=== PATIENT | male | born 1955 | race Caucasian/White ===

== ENCOUNTER → 2016-10-18 | Outpatient (CLI) | payer MEDICARE | LOC: RAD 09:07 | PROVIDERS: ATTEND Urology | DX: R31.0 Gross hematuria (principal) | CPT/HCPCS: 76770 ==

== ENCOUNTER 2017-01-27 07:54 | Emergency (ER) | payer MEDICARE, MEDICAID ==
--- NOTE | 2017-01-27 08:59 | RADIOLOGY REPORT (SQ) ---
EXAM DESCRIPTION: CT HEAD WITHOUT COMPLETED DATE/TIME: 01/27/2017 8:44 am REASON FOR STUDY: fall COMPARISON: August 2016 TECHNIQUE: Axial images acquired through the brain without intravenous contrast. Images reviewed wi th bone, brain and subdural windows. Images stored on PACS. All CT scanners at this facility use dose modulation, iterative reconstruction, and/or weight based d osing when appropriate to reduce radiation dose to as low as reasonably achievable (ALARA). [facility]: Dose Right [facility]: CareDose [facility]: Dose Right [facility]: Teradose 4D [facility]: InterEx RADIATION DOSE: 62.41 mGy. LIMITATIONS: None. FINDINGS: VENTRICLES: Prominent. CEREBRUM: No masses. No hemorrhage. No midline shift. Areas of low density in the white matter mos t likely due to chronic micro-vascular ischemic change. No evidence for acute infarction. CEREBELLUM: No masses. No hemorrhage. No alteration of density. No evidence for acute infarction. EXTRAAXIAL SPACES: Mild age-related involutional change. No fluid collections. No masses. ORBITS AND GLOBE: No intra- or extraconal masses. Normal contour of globe without masses. CALVARIUM: No fracture. PARANASAL SINUSES: No fluid or mucosal thickening. SOFT TISSUES: No mass or hematoma. OTHER: No other significant finding. IMPRESSION: MILD CHRONIC CHANGES OF ATROPHY AND MICROVASCULAR ISCHEMIA. NO ACUTE PROCESS. TECHNICAL DOCUMENTATION: JOB ID: [id number] Quality ID # [id number]: Final reports with documentation of one or more dose reduction techniques (e.g., Au tomated exposure control, adjustment of the mA and/or kV according to patient size, use of iterative reconstruction technique) 2010 [employer]- All Rights Reserved
--- NOTE | 2017-01-27 09:10 | RADIOLOGY REPORT (SQ) ---
EXAM DESCRIPTION: CT CERVICAL SPINE WITHOUT COMPLETED DATE/TIME: 01/27/2017 8:44 am REASON FOR STUDY: fall COMPARISON: September 2014 TECHNIQUE: Axial images acquired through the cervical spine without intravenous contrast. Images re viewed with lung, soft tissue and bone windows. Reconstructed coronal and sagittal MPR images review ed. Images stored on PACS. All CT scanners at this facility use dose modulation, iterative reconstruction, and/or weight based d osing when appropriate to reduce radiation dose to as low as reasonably achievable (ALARA). [facility]: Dose Right [facility]: CareDose [facility]: Dose Right [facility]: Teradose 4D [facility]: Use It Better RADIATION DOSE: 26.15 mGy. LIMITATIONS: None. FINDINGS: ALIGNMENT: Anatomic. MINERALIZATION: Normal. VERTEBRAL BODIES: No fractures or dislocation in the cervical vertebra. There is a compression fract ure of the T1 vertebra. No significant displacement is seen. DISCS: No significant disc space reduction is seen. Minimal anterior osteophytic lipping is identifi ed FACETS, LATERAL MASSES, POSTERIOR ELEMENTS: No fractures. No dislocation. No acute findings. HARDWARE: None in the spine. VISUALIZED RIBS: No fractures. LUNG APICES AND SOFT TISSUES: No significant or acute findings. OTHER: No other significant finding. IMPRESSION: Compression fracture of the T1 vertebra. No significant displacement is seen. Other fi ndings as noted above. COMMENT: Pertinent findings on the imaging study reported as a CRITICAL RESULT to MEDIA LIBRARIAN AMELIA SEVERINO at08:57 on 01/27/2017. Category of Critical Result: T1 compression fracture TECHNICAL DOCUMENTATION: JOB ID: [id number] Quality ID # [id number]: Final reports with documentation of one or more dose reduction techniques (e.g., Au tomated exposure control, adjustment of the mA and/or kV according to patient size, use of iterative reconstruction technique) 2010 [employer]- All Rights Reserved
[2017-01-27] MEDS ORDERED: KETOROLAC TROMETHAMINE INJ/PF 30 MG/1 ML SDV IV ONE (09:58)
[2017-01-27] MEDS ORDERED: LEVETIRACETAM 1000 MG/NACL-ISO 100 ML IV SCH (10:00)
--- NOTE | 2017-01-27 10:38 | RADIOLOGY REPORT (SQ) ---
EXAM DESCRIPTION: FOOT RIGHT 2 VIEWS COMPLETED DATE/TIME: 01/27/2017 10:21 am REASON FOR STUDY: fall COMPARISON: None. NUMBER OF VIEWS: Three views. TECHNIQUE: AP, lateral and oblique radiographic images acquired of the right foot. LIMITATIONS: None. FINDINGS: MINERALIZATION: Osteopenia. BONES: No acute fracture or dislocation. No worrisome bone lesions. JOINTS: No effusions. SOFT TISSUES: There is soft tissue swelling around the foot. OTHER: No other significant finding. IMPRESSION: Soft tissue swelling with no fracture. The degree of demineralization of the bones slig htly limits the study. TECHNICAL DOCUMENTATION: JOB ID: [id number] [employer]- All Rights Reserved
--- NOTE | 2017-01-27 11:08 | ER Document Report ---
ED General - General Chief Complaint: Head Injury Stated Complaint: INJURY/HEAD Time Seen by Provider: 01/27/17 08:00 Mode of Arrival: Ambulatory Information source: Patient TRAVEL OUTSIDE OF THE [place] IN LAST 30 DAYS: No - HPI Onset: Just prior to arrival Onset/Duration: Sudden - This 61-year-old male who fell at [place]. There is a question as to whether he may have had a seizure precipitating the fall he has a history of a seizure disorder and does take Keppra routinely. He did not present to the emergency room with an MAR. - Related Data Allergies/Adverse Reactions: No Known Allergies Allergy (Verified 01/27/17 10:06) Home Medications: Current Home Medications Ammonium Lactate [Lac-Hydrin 12% Lotion 225Gm/Bottle] 1 applic TP BID 01/27/17 [ History] Clobetasol Propionate/Emoll [Clobetasol Emollient 0.05% Crm] 1 applic TP BID [History] Lacosamide [Vimpat 50 Mg Tablet] 50 mg PO BID 01/27/17 [History] Levobunolol HCl [Betagan 0.5% Oph Soln 5 ml] 1 drop OS DAILY 01/27/17 [History] Levothyroxine Sodium [Synthroid] 100 mcg PO DAILY 01/27/17 [History] Mometasone Furoate [Nasonex] 17 gm NS DAILY 01/27/17 [History] Oxybutynin Chloride [Ditropan Xl] 5 mg PO DAILY 01/27/17 [History] Vitamin E 400 unit PO DAILY 01/27/17 [History] Past Medical History - Social History Smoking Status: Never Smoker Chew tobacco use (# tins/day): No Frequency of alcohol use: None Drug Abuse: None Family History: Reviewed & Not Pertinent - Past Medical History Cardiac Medical History: Reports: Hx Congestive Heart Failure, Hx Hypertension Pulmonary Medical History: Denies: Hx Tuberculosis Neurological Medical History: Reports: Hx Seizures - ataxia, epilepsy Endocrine Medical History: Reports: Hx Hypothyroidism Renal/ Medical History: Reports: Hx Benign Prostatic Hyperplasia Traumatic Medical History: Reports: Hx Spine Fracture - Immunizations Hx Diphtheria, Pertussis, Tetanus Vaccination: Yes Hx Pneumococcal Vaccination: 08/20/12 Review of Systems - Review of Systems Constitutional: No symptoms reported EENT: No symptoms reported Cardiovascular: No symptoms reported Respiratory: No symptoms reported Gastrointestinal: No symptoms reported Genitourinary: No symptoms reported Male Genitourinary: No symptoms reported Musculoskeletal: No symptoms reported Skin: No symptoms reported Hematologic/Lymphatic: No symptoms reported Neurological/Psychological: No symptoms reported Physical Exam - Vital signs Vitals: Temp Pulse Resp BP Pulse Ox 97.4 F 82 12 120/54 L 96 01/27/17 08:10 01/27/17 08:10 01/27/17 08:10 01/27/17 08:10 01/27/17 08:10 Interpretation: Normal - General General appearance: Appears well, Alert - HEENT Head: Normocephalic, Atraumatic, Other - Trauma to frontal forehead. Eyes: Normal Pupils: PERRL - Respiratory Respiratory status: No respiratory distress Chest status: Nontender Breath sounds: Normal Chest palpation: Normal - Cardiovascular Rhythm: Regular Heart sounds: Normal auscultation Murmur: No - Abdominal Inspection: Normal Distension: No distension Bowel sounds: Normal Tenderness: Nontender Organomegaly: No organomegaly - Back Back: Normal, Nontender - Extremities General upper extremity: Normal inspection, Nontender, Normal color, Normal ROM , Normal temperature General lower extremity: Normal inspection, Nontender, Normal color, Normal ROM , Normal temperature, Normal weight bearing. No: Benny's sign Foot: Other - Foot tenderness to palpation. Good capillary refill. - Neurological Neuro grossly intact: Yes Cognition: Normal Orientation: AAOx4 Murray Coma Scale Eye Opening: Spontaneous Murray Coma Scale Verbal: Oriented [place] Coma Scale Motor: Obeys Commands [place] Coma Scale Total: 15 Speech: Normal Motor strength normal: LUE, RUE, LLE, RLE Sensory: Normal - Psychological Associated symptoms: Normal affect, Normal mood - Skin Skin Temperature: Warm Skin Moisture: Dry Skin Color: Normal Course - Re-evaluation Re-evalutation: 01/27/17 11:04 Dr. Macario was consulted regarding the T1 fracture. she felt that evaluation on an outpatient basis would be appropriate patient should be placed in a soft collar provided with pain management. - Vital Signs Vital signs: Temp Pulse Resp BP Pulse Ox 97.4 F 82 18 120/56 L 98 01/27/17 08:10 01/27/17 08:10 01/27/17 10:01 01/27/17 10:01 01/27/17 10:01 - Diagnostic Test Radiology reviewed: Image reviewed, Reports reviewed Discharge - Discharge Clinical Impression: Seizure Fall Qualifiers: Encounter type: initial encounter Qualified Code(s): W19.XXXA - Unspecified fall, initial encounter Contusion Qualifiers: Encounter type: initial encounter Contusion area: foot Laterality: right Qualified Code(s): S90.31XA - Contusion of right foot, initial encounter Condition: Fair Disposition: HOME, SELF-CARE Additional Instructions: Seizure You have had a seizure. Seizure disorders (epilepsy) of one sort or another affect about one out of 50 people. The seizure occurs because of abnormal electrical activity in the brain. Seizures may be due to drugs and alcohol, strokes, brain injury, or infection. In the most common form of epilepsy, no cause can be found. You will require further evaluation to determine the cause of your seizure, and to determine whether anti-seizure medication is required. This follow-up testing is important, so please call us if you encounter problems with scheduling of tests or appointments. YOU SHOULD NOT DRIVE until released to do so by your physician. The law requires that seizures be reported to the [place] driver's license bureau--a seizure while driving could be catastrophic. Call the doctor if seizures recur, or if you develop new symptoms such as fever, severe headache, stiff neck, confusion or increasing sleepiness, weakness or numbness, or visual problems. Contusion Your injury has resulted in a contusion -- a crushing of the deep tissues. No injury to important structures was detected during the physician's exam. Contusions vary in the amount of pain they cause, and in the length of time required for healing. Typically, the area will become bruised, and will remain painful to touch for two or three weeks. However, most patients are back to working and playing within a few days. After the initial period of rest and cold-packs, your symptoms (together with the doctor's recommendations) will determine how rapidly you can get back to full activity. Usually this means "do what feels okay, but don't do things that hurt." If re-examination was recommended, it's important to follow up as instructed. Call the doctor or return any time if pain increases, if swelling becomes severe, if you develop numbness or weakness in an injured extremity, or if any other alarming symptoms occur. Fracture You have a fracture. The typical broken bone requires only protection and sufficient time for healing. "Setting" is necessary only if the bones are crooked or out of position. The physician will re-assess you periodically to make certain that the bone heals without complications. It's important that you follow the instructions given you. The initial treatment is immobilization, elevation of the injury, and cold packs. Not all fractures require a cast. Depending on the location and type of fracture, immobilization may consist of a splint, cast, sling, bulky dressing , or simply rest. The length of time required for healing depends on the location and type of fracture, and on the age of the patient. The treatment plan the physician has outlined for you is customized to your fracture and health condition. Call the doctor or return at once if pain becomes severe, or if severe swelling or numbness develop. Prescriptions: Hydrocodone/Acetaminophen [Jay Em 5-325 Tablet] 1 each PO Q4 PRN #20 tablet PRN Reason: Referrals: ELLIE MACARIO MD [COMMUNITY BASED STAFF] - Follow up as needed
[2017-01-27 12:11] VITALS: BP 115/45
== END 2017-01-27 12:18 ==
LOC: ER 07:54
DX: S90.31XA Contusion of right foot, initial encounter (principal); R56.9 Unspecified convulsions; W19.XXXA Unspecified fall, initial encounter; Z79.899 Other long term (current) drug therapy
CPT/HCPCS: 99285; 96374; 96375; 73620; 70450; 72125; L0120; J1885; J1953

== ENCOUNTER → 2017-03-10 | Outpatient (CLI) | payer MEDICARE, MEDICAID ==
--- NOTE | 2017-03-10 14:37 | RADIOLOGY REPORT (SQ) ---
EXAM DESCRIPTION: CT THORACIC SPINE WITHOUT COMPLETED DATE/TIME: 03/10/2017 2:11 pm REASON FOR STUDY: T1 FRACTURE S22.019D UNSP FX FIRST THOR VERTEBRA, SUBS FOR FX W ROUTN HE COMPARISON: CT cervical spine 01/27/2017, 09/16/2014 TECHNIQUE: Axial images acquired through the thoracic spine without intravenous contrast. Images re viewed with lung, soft tissue and bone windows. Reconstructed coronal and sagittal MPR images review ed. Images stored on PACS. All CT scanners at this facility use dose modulation, iterative reconstruction, and/or weight based d osing when appropriate to reduce radiation dose to as low as reasonably achievable (ALARA). [facility]: Dose Right [facility]: CareDose [facility]: Dose Right [facility]: Teradose 4D [facility]: [employer] RADIATION DOSE: Up-to-date CT equipment and radiation dose reduction techniques were employed. CTDIv ol: 26.9 mGy. DLP: 1077 mGy-cm. mGy. LIMITATIONS: None. FINDINGS: VISUALIZED LUNGS: No acute opacities. No pneumothorax. SOFT TISSUES: No soft tissue swelling. No masses. VERTEBRAL BODIES: A T1 compression fracture is present with 25% loss of height, stable compared to CT cervical spine 01/27/2017. There is now bony sclerosis in the T1 vertebral body, indicating healing. No other thoracic compression deformities are identified. DISCS: No gross disc herniation ALIGNMENT: Normal. TRANSVERSE PROCESSES, POSTERIOR ELEMENTS: No fractures. No dislocation. No acute findings. HARDWARE: None in the spine. VISUALIZED RIBS: There is sclerosis along the posterior right 1st rib indicating a healing subacute f racture, best shown on axial images 17-21. OTHER: No other significant finding. IMPRESSION: Subacute T1 compression fracture with 25% loss of height, stable compared to CT cervical spine 01/27/2017. TECHNICAL DOCUMENTATION: JOB ID: [id number] Quality ID # [id number]: Final reports with documentation of one or more dose reduction techniques (e.g., Au tomated exposure control, adjustment of the mA and/or kV according to patient size, use of iterative reconstruction technique) 2010 [employer]- All Rights Reserved
== END ==
LOC: RAD 13:44
PROVIDERS: ATTEND Family Medicine
DX: S22.019A Unspecified fracture of first thoracic vertebra, initial encounter for closed fracture (principal); X58.XXXA Exposure to other specified factors, initial encounter; Y93.9 Activity, unspecified; Y92.9 Unspecified place or not applicable
CPT/HCPCS: 72128

== ENCOUNTER 2017-04-07 08:48 | Emergency (ER) | payer MEDICARE, MEDICAID ==
[2017-04-07] MEDS ORDERED: LORAZEPAM INJ 2 MG/1 ML VIAL IV ONE ×2 (08:59→09:38)
[2017-04-07] MEDS ORDERED: NORMAL SALINE 500 ML IV ONE (08:59)
[2017-04-07] MEDS ORDERED: LEVETIRACETAM 500 MG/NACL-ISO 100 ML IV ONE (09:01)
[2017-04-07 09:14] LABS: ABSOLUTE EOSINOPHILS # (AUTO) 0.1 10^3/uL (0.0-0.6); ABSOLUTE MONOCYTES (AUTO) 0.4 10^3/uL (0.1-1.4); ABSOLUTE NEUT (AUTO) 4.6 10^3/uL (1.7-8.2); BASOPHILS % (AUTO) 0.4 % (0-2); EOSINOPHILS % (AUTO) 1.5 % (0-6); HEMATOCRIT 29.4 % (37.9-51.0); HEMOGLOBIN 10.2 g/dL (13.5-17.0); HGB HCT DIFFERENCE 1.2; LYMPHOCYTES % (AUTO) 16.4 % (13-45); MEAN CORPUSCULAR HGB CONC 34.6 g/dL (32.0-36.0); MEAN CORPUSCULAR VOLUME 87 fl (80-97); MONOCYTES % (AUTO) 6.9 % (3-13); RED CELL DISTRIBUTION WIDTH 14.9 % (11.5-14.0); SEGMENTED NEUTROPHILS % (AUTO) 74.8 % (42-78); WHITE BLOOD COUNT 6.2 10^3/uL (4.0-10.5)
[2017-04-07 09:33] LABS: ALANINE AMINOTRANSFERASE 30 U/L (21-72); ALBUMIN 3.4 g/dL (3.5-5.0); ALKALINE PHOSPHATASE 74 U/L (38-126); ASPARTATE AMINO TRANSFERASE 29 U/L (17-59); BLOOD UREA NITROGEN 52 mg/dL (7-20); CALCIUM 8.5 mg/dL (8.4-10.2); CARBON DIOXIDE 26 mmol/L (22-30); CREATININE RESULT 1.36 mg/dL (0.52-1.25); GLUCOSE 111 mg/dL (75-110); POTASSIUM 3.5 mmol/L (3.6-5.0); SODIUM 129.9 mmol/L (137-145); TOTAL PROTEIN 7.6 g/dL (6.3-8.2)
[2017-04-07 09:34] LABS: BILIRUBIN,DIRECT 0.3 mg/dL (0.0-0.4); BILIRUBIN,TOTAL 0.7 mg/dL (0.2-1.3); LIPASE 167.9 U/L (23-300); MAGNESIUM 2.2 mg/dL (1.6-2.3)
[2017-04-07 09:36] LABS: ANION GAP 15 (5-19); CHLORIDE 89 mmol/L (98-107)
[2017-04-07] MEDS ORDERED: DIPHENHYDRAMINE HCL 50 MG/ML VIAL IV ONE (09:42)
--- NOTE | 2017-04-07 09:44 | ER Document Report ---
ED General - General Chief Complaint: Seizure Stated Complaint: POSSIBLE SEIZURES Time Seen by Provider: 04/07/17 08:50 TRAVEL OUTSIDE OF THE [place] IN LAST 30 DAYS: No - HPI Patient complains to provider of: Seizure activity Notes: Patient coming in for evaluation of seizure activity. Patient has a history of seizures patient resides a local longterm according to EMS longterm employees reported 2 seizures within 10 minutes of each other patient at this time is postictal and combative. Patient is maintaining his airway. Soft restraints are placed on the patient for his safety and safety of the ER staff. Most of the HPI is obtained from EMS which is limited patient's longterm records were reviewed at bedside. Patient looks to be on Keppra at this time - Related Data Allergies/Adverse Reactions: No Known Allergies Allergy (Verified 01/27/17 10:06) Past Medical History - Social History Smoking Status: Unknown if Ever Smoked Family History: Reviewed & Not Pertinent - Past Medical History Cardiac Medical History: Reports: Hx Congestive Heart Failure, Hx Hypertension Pulmonary Medical History: Denies: Hx Tuberculosis Neurological Medical History: Reports: Hx Seizures - ataxia, epilepsy Endocrine Medical History: Reports: Hx Hypothyroidism Renal/ Medical History: Reports: Hx Benign Prostatic Hyperplasia Traumatic Medical History: Reports: Hx Spine Fracture - Immunizations Hx Diphtheria, Pertussis, Tetanus Vaccination: Yes Hx Pneumococcal Vaccination: 08/20/12 Review of Systems - Review of Systems -: Yes ROS unobtainable due to patient's medical condition - Postictal Physical Exam - Vital signs Vitals: Pulse Ox 95 04/07/17 08:53 Interpretation: Normal - General General appearance: Appears well, Alert - HEENT Head: Normocephalic, Atraumatic Eyes: Normal Pupils: PERRL - Respiratory Respiratory status: No respiratory distress Chest status: Nontender Breath sounds: Normal Chest palpation: Normal - Cardiovascular Rhythm: Regular Heart sounds: Normal auscultation Murmur: No - Abdominal Inspection: Normal Distension: No distension Bowel sounds: Normal Tenderness: Nontender Organomegaly: No organomegaly - Back Back: Normal, Nontender - Extremities General upper extremity: Normal inspection, Nontender, Normal color, Normal ROM , Normal temperature General lower extremity: Normal inspection, Nontender, Normal color, Normal ROM , Normal temperature, Normal weight bearing. No: Benny's sign - Neurological Neuro grossly intact: Yes Cognition: Confused Murray Coma Scale Eye Opening: Spontaneous Murray Coma Scale Verbal: Confused Murray Coma Scale Motor: Localizes to Pain [place] Coma Scale Total: 13 Speech: Normal Motor strength normal: LUE, RUE, LLE, RLE Sensory: Normal - Psychological Associated symptoms: Normal affect, Normal mood - Skin Skin Temperature: Warm Skin Moisture: Dry Skin Color: Normal Course - Re-evaluation Re-evalutation: 04/07/17 15:15 Patient lab work revealed chronic changes nothing acute. Patient mental status continued to improve upon evaluating patient patient still is aggressive and combative towards staff upon asking the patient how he feels patient states "I am not going to talk to you". Explained to the patient that he will be released from restraints if he would remain cooperative and quiet patient states "I will not". Patient was given 2 mg of Ativan this did seem to help his demeanor family arrived later at bedside states no unusual events or last few days patient will be discharged home. Breakthrough seizure with known seizure disorder and previous neurology evaluation. Now returned to neuro baseline. Labs reviewed. No indication of new or acute process. Patient appears safe for discharge with observation and close outpatient F/U with PCP or neurology. Seizure warnings discussed with patient / family. - Vital Signs Vital signs: Temp Pulse Resp BP Pulse Ox 17 121/55 L 95 04/07/17 11:12 04/07/17 11:12 04/07/17 11:12 - Laboratory Result Diagrams: 04/07/17 09:00 04/07/17 09:00 Laboratory results interpreted by me: 04/07/17 04/07/17 09:00 09:00 RBC 3.40 L Hgb 10.2 L Hct 29.4 L RDW 14.9 H Plt Count 139 L Sodium 129.9 L Potassium 3.5 L Chloride 89 L BUN 52 H Creatinine 1.36 H Est GFR (Non-Af Amer) 53 L Glucose 111 H Albumin 3.4 L Critical Care Note - Critical Care Note Total time excluding time spent on procedures (mins): 35 Comments: Multiple evaluations for patient postictal from seizure activity Discharge - Discharge Clinical Impression: Seizure Condition: Good Disposition: HOME, SELF-CARE Instructions: Seizure, Known Epileptic ([facility]) Additional Instructions: Patient was evaluated for his seizure. Lab work did not show any acute pathology. Patient at time of discharge was awake however slightly agitated due to being restrained with soft restraints. More likely due the patient being out of this environment please continue the patient's medications have him follow-up with his primary care physician in the next 24 hours per Referrals: JACQUELYN BRIONES MD [Primary Care Provider] - Follow up as needed
[2017-04-07 11:24] VITALS: BP 121/55
--- NOTE | 2017-04-08 09:59 | EKG REPORT ---
SEVERITY:- ABNORMAL ECG - SINUS TACHYCARDIA MINIMAL ST DEPRESSION, LATERAL LEADS BORDERLINE PROLONGED QT INTERVAL IVCD : Confirmed by: Ishan Simpson MD 08-Apr-2017 09:59:19
== END 2017-04-07 11:27 | disposition home or self-care (01) ==
LOC: ER 08:48
DX: G40.909 Epilepsy, unspecified, not intractable, without status epilepticus (principal); Z78.1 Physical restraint status; I10 Essential (primary) hypertension
CPT/HCPCS: 93005; 99291; 96375; 96365; 36415; 80177; 83690; 83735; 85025; 80053; 93010; J1200; J2060; J1953

== ENCOUNTER 2017-05-19 09:38 | Emergency (ER) | payer MEDICARE, MEDICAID ==
--- NOTE | 2017-05-19 10:32 | ER Document Report ---
ED General - General Chief Complaint: Fall Injury Stated Complaint: FALL/LEG PAIN Time Seen by Provider: 05/19/17 09:45 Mode of Arrival: Medic Information source: Patient Notes: 61-year-old male presents from care facility after rolling out of bed. Patient is unable to explain his concerns however per EMS and care facility there was complaints of left hip pain and striking head. Patient otherwise at baseline TRAVEL OUTSIDE OF THE [place] IN LAST 30 DAYS: No - HPI Onset: Just prior to arrival Onset/Duration: Sudden Quality of pain: No pain Severity: None Pain Level: Denies Associated symptoms: None Exacerbated by: Denies Relieved by: Denies Similar symptoms previously: Yes Recently seen / treated by doctor: Yes - Related Data Allergies/Adverse Reactions: No Known Allergies Allergy (Verified 05/19/17 09:48) Past Medical History - Social History Smoking Status: Never Smoker Cigarette use (# per day): No Chew tobacco use (# tins/day): No Smoking Education Provided: No Family History: Reviewed & Not Pertinent - Past Medical History Cardiac Medical History: Reports: Hx Congestive Heart Failure, Hx Hypertension Pulmonary Medical History: Denies: Hx Tuberculosis Neurological Medical History: Reports: Hx Seizures - ataxia, epilepsy Endocrine Medical History: Reports: Hx Hypothyroidism Renal/ Medical History: Reports: Hx Benign Prostatic Hyperplasia Traumatic Medical History: Reports: Hx Spine Fracture - Immunizations Hx Diphtheria, Pertussis, Tetanus Vaccination: Yes Hx Pneumococcal Vaccination: 08/20/12 Review of Systems - Review of Systems Notes: REVIEW OF SYSTEMS: Per care facility CONSTITUTIONAL : Denies fever, chills, or sweats. Denies recent illness. EENT: Denies eye, ear, throat, or mouth pain or symptoms. Denies nasal or sinus congestion or discharge. Denies throat, tongue, or mouth swelling or difficulty swallowing. CARDIOVASCULAR: Denies chest pain. Denies palpitations or racing or irregular heart beat. Denies ankle edema. RESPIRATORY: Denies cough, cold, or chest congestion. Denies shortness of breath, difficulty breathing, or wheezing. GASTROINTESTINAL: Denies abdominal pain or distention. Denies nausea, vomiting , or diarrhea. Denies blood in vomitus, stools, or per rectum. Denies black, tarry stools. Denies constipation. GENITOURINARY: Denies difficulty urinating, painful urination, burning, frequency, blood in urine, or discharge. MUSCULOSKELETAL: Left hip pain SKIN: Denies rash, lesions or sores. HEMATOLOGIC : Denies easy bruising or bleeding. LYMPHATIC: Denies swollen, enlarged glands. NEUROLOGICAL: Denies confusion or altered mental status. Denies passing out or loss of consciousness. Denies dizziness or lightheadedness. Denies headache. Denies weakness or paralysis or loss of use of either side. Denies problems with gait or speech. Denies sensory loss, numbness, or tingling. Denies seizures. PSYCHIATRIC: Denies anxiety or stress. Denies depression, suicidal ideation, or homicidal ideation. ALL OTHER SYSTEMS REVIEWED AND NEGATIVE. Dictation was performed using [employer] voice recognition software PHYSICAL EXAMINATION: GENERAL: Well-appearing, well-nourished and in no acute distress. HEAD: Contusion EYES: Strabismus noted ENT: Nares patent, oropharynx clear without exudates. Moist mucous membranes. NECK: Normal range of motion, supple without lymphadenopathy LUNGS: Breath sounds clear to auscultation bilaterally and equal. No wheezes rales or rhonchi. HEART: Regular rate and rhythm without murmurs ABDOMEN: Soft, nontender, nondistended abdomen. No guarding, no rebound. No masses appreciated. Musculoskeletal: Normal range of motion, no pitting or edema. No cyanosis. NEUROLOGICAL: Baseline mentation motor exam PSYCH: Normal mood, normal affect. SKIN: Contusion to forehead Physical Exam - Vital signs Vitals: Temp Pulse Resp BP Pulse Ox 98.4 F 65 12 119/45 L 95 05/19/17 09:44 05/19/17 09:44 05/19/17 09:44 05/19/17 09:44 05/19/17 09:44 Course - Re-evaluation Re-evalutation: 05/19/17 10:31 Physical examination noted no significant abnormality however given the patient' s unable to verbalize his complaints a CT of the head and x-ray is pending at this time 05/19/17 10:52 Imaging was performed no acute abnormality was noted. I believe patient stable for discharge as he has no complaints and is nontender on palpation After performing a Medical Screening Examination, I estimate there is LOW risk for INTRACRANIAL HEMORRHAGE, UNSTABLE SPINE FRACTURE, CENTRAL CORD SYNDROME, CAUDA EQUINA, THORACIC AORTIC DISSECTION, PNEUMOTHORAX, PERFORATED BOWEL, RUPTURED ABDOMINAL AORTIC ANEURYSM, ACUTE TENDON RUPTURE, COMPARTMENT SYNDROME, or OPEN FRACTURE, thus I consider the discharge disposition reasonable. Also, there is no evidence or peritonitis, sepsis, or toxicity. I have reevaluated this patient multiple times and no significant life threatening changes are noted. The patient and I have discussed the diagnosis and risks, however due to his mentation I do not believe he is able to comprehend this, therefore discharge instructions have been provided for care facility and to follow-up with their primary doctor with the understanding that symptoms and presentations can change. We also discussed returning to the Emergency Department immediately if new or worsening symptoms occur. We have discussed the symptoms which are most concerning (e.g., bloody stool, fever, changing or worsening pain, vomiting) that necessitate immediate return. - Vital Signs Vital signs: Temp Pulse Resp BP Pulse Ox 98.4 F 65 12 119/45 L 95 05/19/17 09:44 05/19/17 09:44 05/19/17 09:44 05/19/17 09:44 05/19/17 09:44 - Diagnostic Test Radiology reviewed: Image reviewed, Reports reviewed - No acute abnormality Discharge - Discharge Clinical Impression: Fall Qualifiers: Encounter type: initial encounter Qualified Code(s): W19.XXXA - Unspecified fall, initial encounter Head contusion Qualifiers: Encounter type: initial encounter Contusion of head detail: scalp Qualified Code(s): S00.03XA - Contusion of scalp, initial encounter Condition: Stable Disposition: HOME-ASSISTED LIVING Instructions: Contusion ([facility]) Additional Instructions: Follow up with your physician tomorrow for further care or return to the ED IMMEDIATELY if symptoms worsen or new concerns occur. If you cannot afford to follow up with your primary care physician a list of low cost clinics have been provided at the end of your discharge papers as well.
--- NOTE | 2017-05-19 10:48 | RADIOLOGY REPORT (SQ) ---
EXAM DESCRIPTION: CT HEAD WITHOUT COMPLETED DATE/TIME: 05/19/2017 10:33 am REASON FOR STUDY: fall COMPARISON: 01/27/2017 TECHNIQUE: Axial images acquired through the brain without intravenous contrast. Images reviewed wi th bone, brain and subdural windows. Images stored on PACS. All CT scanners at this facility use dose modulation, iterative reconstruction, and/or weight based d osing when appropriate to reduce radiation dose to as low as reasonably achievable (ALARA). [facility]: Dose Right [facility]: CareDose [facility]: Dose Right [facility]: Teradose 4D [facility]: [employer] RADIATION DOSE: Up-to-date CT equipment and radiation dose reduction techniques were employed. CTDIv ol: 62.1 mGy. DLP: 1163 mGy-cm. mGy. LIMITATIONS: None. FINDINGS: VENTRICLES: Normal size and contour. CEREBRUM: No masses. No hemorrhage. No midline shift. No evidence for acute infarction. Few scatte red areas of low density in the white matter most likely chronic small vessel ischemic changes. CEREBELLUM: No masses. No hemorrhage. No alteration of density. No evidence for acute infarction. EXTRAAXIAL SPACES: CSF spaces are prominent. There is cortical atrophy. ORBITS AND GLOBE: No intra- or extraconal masses. Normal contour of globe without masses. CALVARIUM: No fracture. PARANASAL SINUSES: No fluid or mucosal thickening. SOFT TISSUES: No mass or hematoma. OTHER: No other significant finding. IMPRESSION: Involutional changes of aging with chronic microvascular ischemia and with no acute intr acranial pathology. COMMENT: Quality ID # [id number]: Final reports with documentation of one or more dose reduction techniques (e.g., Automated exposure control, adjustment of the mA and/or kV according to patient size, use of iterative reconstruction technique) TECHNICAL DOCUMENTATION: JOB ID: [id number]- All Rights Reserved
--- NOTE | 2017-05-19 10:49 | RADIOLOGY REPORT (SQ) ---
EXAM DESCRIPTION: HIP LEFT AP/LATERAL COMPLETED DATE/TIME: 05/19/2017 10:38 am REASON FOR STUDY: fall COMPARISON: None. NUMBER OF VIEWS: Two views. TECHNIQUE: AP pelvis and additional frog-leg view of the left hip. LIMITATIONS: None. FINDINGS: MINERALIZATION: Normal. LEFT HIP: No fracture or dislocation. No worrisome bone lesions. RIGHT HIP: No fracture or dislocation. No worrisome bone lesions. PUBIS AND ISCHIUM: No fracture. PELVIS: No fracture. SACRUM: No fracture or dislocation. No worrisome bone lesions. LOWER LUMBAR SPINE: No fracture or dislocation. No worrisome bone lesions. No significant disc disea se. SOFT TISSUES: No findings. OTHER: No other significant finding. IMPRESSION: NEGATIVE STUDY OF THE LEFT HIP AND PELVIS. NO RADIOGRAPHIC EVIDENCE OF ACUTE INJURY. TECHNICAL DOCUMENTATION: JOB ID: [id number] [employer]- All Rights Reserved
[2017-05-19 11:18] VITALS: BP 113/53
== END 2017-05-19 11:30 | disposition home health service (06) ==
LOC: ER 09:38
DX: S00.03XA Contusion of scalp, initial encounter (principal); M25.552 Pain in left hip; W22.8XXA Striking against or struck by other objects, initial encounter
CPT/HCPCS: 70450; 99285

== ENCOUNTER 2017-07-10 12:09 | Inpatient (IN) | payer MEDICARE, MEDICAID ==
[2017-07-10 13:48] LABS: ABSOLUTE LYMPHOCYTES (AUTO) 0.6 10^3/uL (0.5-4.7); ABSOLUTE MONOCYTES (AUTO) 0.5 10^3/uL (0.1-1.4); ABSOLUTE NEUT (AUTO) 6.1 10^3/uL (1.7-8.2); BASOPHILS % (AUTO) 0.3 % (0-2); EOSINOPHILS % (AUTO) 0.6 % (0-6); HEMATOCRIT 34.6 % (37.9-51.0); HEMOGLOBIN 11.8 g/dL (13.5-17.0); HGB HCT DIFFERENCE 0.8; LYMPHOCYTES % (AUTO) 8.8 % (13-45); MEAN CORPUSCULAR HEMOGLOBIN 28.8 pg (27.0-33.4); MEAN CORPUSCULAR VOLUME 85 fl (80-97); MONOCYTES % (AUTO) 7.3 % (3-13); RED BLOOD COUNT 4.09 10^6/uL (4.35-5.55); RED CELL DISTRIBUTION WIDTH 15.8 % (11.5-14.0); WHITE BLOOD COUNT 7.4 10^3/uL (4.0-10.5)
[2017-07-10 13:52] LABS: VENOUS BLOOD HCO3 36.2 mmol/L (20-32); VENOUS BLOOD PCO2 49.9 mmHg (35-63); VENOUS BLOOD PH 7.48 (7.30-7.42)
--- NOTE | 2017-07-10 14:10 | EKG REPORT ---
SEVERITY:- BORDERLINE ECG - SINUS RHYTHM PROBABLE LEFT ATRIAL ABNORMALITY BORDERLINE T ABNORMALITIES, ANTERIOR LEADS : Confirmed by: Ishan Simpson MD 10-Jul-2017 14:09:52
[2017-07-10 14:13] LABS: ALANINE AMINOTRANSFERASE 35 U/L (21-72); ALBUMIN 3.5 g/dL (3.5-5.0); ALKALINE PHOSPHATASE 89 U/L (38-126); ANION GAP 12 (5-19); ASPARTATE AMINO TRANSFERASE 34 U/L (17-59); BILIRUBIN,DIRECT 0.5 mg/dL (0.0-0.4); BILIRUBIN,TOTAL 0.8 mg/dL (0.2-1.3); BLOOD UREA NITROGEN 24 mg/dL (7-20); CALCIUM 8.8 mg/dL (8.4-10.2); CARBON DIOXIDE 36 mmol/L (22-30); CHLORIDE 89 mmol/L (98-107); CREATININE RESULT 1.28 mg/dL (0.52-1.25); GLUCOSE 129 mg/dL (75-110); SODIUM 136.7 mmol/L (137-145); TOTAL PROTEIN 8.3 g/dL (6.3-8.2)
[2017-07-10 14:15] LABS: POTASSIUM 2.7 mmol/L (3.6-5.0)
--- NOTE | 2017-07-10 14:16 | RADIOLOGY REPORT (SQ) ---
EXAM DESCRIPTION: CHEST PA/LAT COMPLETED DATE/TIME: 07/10/2017 1:59 pm REASON FOR STUDY: weakness COMPARISON: 08/20/2026 EXAM PARAMETERS: NUMBER OF VIEWS: two views TECHNIQUE: Digital Frontal and Lateral radiographic views of the chest acquired. RADIATION DOSE: NA LIMITATIONS: none FINDINGS: LUNGS AND PLEURA: No opacities, masses or pneumothorax. No pleural effusion. MEDIASTINUM AND HILAR STRUCTURES: No masses or contour abnormalities. HEART AND VASCULAR STRUCTURES: Cardiomegaly. BONES: No acute findings. HARDWARE: None in the chest. OTHER: No other significant finding. IMPRESSION: NO ACUTE RADIOGRAPHIC FINDING IN THE CHEST. TECHNICAL DOCUMENTATION: JOB ID: [id number] [employer]- All Rights Reserved
[2017-07-10 14:18] LABS: APPEARANCE,URINE SLIGHTLY-CLOUDY; BILIRUBIN,URINE NEGATIVE (NEGATIVE); GLUCOSE, URINE NEGATIVE (NEGATIVE); KETONES,URINE NEGATIVE (NEGATIVE); LEUKOCYTE ESTERASE,URINE LARGE (NEGATIVE); NITRITE,URINE NEGATIVE (NEGATIVE); PROTEIN,URINE NEGATIVE (NEGATIVE); URINE SPECIFIC GRAVITY 1.004; UROBILINOGEN,URINE NEGATIVE mg/dL (<2.0)
[2017-07-10] MEDS ORDERED: POTASSI CL 20 MEQ/50 ML RIDER 20 MEQ/50 ML RTUPB IV SCH (14:20)
[2017-07-10] MEDS ORDERED: POTASSIUM CHLORIDE 20 MEQ/15 ML UDCUP PO ONE (14:20)
[2017-07-10] MEDS ORDERED: CEFTRIAXONE 1 GM/D5W RTU 1 GM/50 ML RTUPB IV ONE (14:21)
--- NOTE | 2017-07-10 14:43 | ER Document Report ---
ED General - General Chief Complaint: Fever Stated Complaint: FLU LIKE SYMPTOMS Time Seen by Provider: 07/10/17 12:18 Mode of Arrival: Medic Information source: Patient Notes: 62-year-old male with mental disabilities baseline 8-year-old mentation per care facility presents with complaints of confusion and fever per EMS. TRAVEL OUTSIDE OF THE [place] IN LAST 30 DAYS: No - HPI Onset: Just prior to arrival Onset/Duration: Persistent Quality of pain: No pain Severity: Mild Pain Level: Denies Associated symptoms: Weakness, Other Exacerbated by: Denies Relieved by: Denies Similar symptoms previously: No Recently seen / treated by doctor: No - Related Data Allergies/Adverse Reactions: No Known Allergies Allergy (Verified 07/10/17 12:32) Home Medications: Current Home Medications Bumetanide [Bumex 1 mg Tablet] 3 mg PO BID 07/10/17 [History] Clonazepam [Klonopin 1 mg Tablet] 2 mg PO Q8 07/10/17 [History] Doxazosin Mesylate [Cardura] 8 mg PO QHS 07/10/17 [History] Finasteride [Proscar 5 mg Tablet] 5 mg PO DAILY 07/10/17 [History] Lacosamide [Vimpat 100 mg Tablet] 100 mg PO BID 07/10/17 [History] Latanoprost [Xalatan 0.005% Oph Soln 2.5 ml] 1 drop OS QHS 07/10/17 [History] Levetiracetam [Keppra] 1,000 mg PO Q12 07/10/17 [History] Levobunolol HCl [Betagan 0.5% Oph Soln 5 ml] 1 drop OS DAILY 07/10/17 [History] Levothyroxine Sodium [Synthroid 0.1 mg Tablet] 0.1 mg PO DAILY 07/10/17 [History ] Metolazone [Zaroxolyn 5 mg Tablet] 5 mg PO DAILY 07/10/17 [History] Mometasone Furoate [Nasonex] 1 spray NASL DAILY 07/10/17 [History] Oxybutynin Chloride [Oxybutynin Chloride ER] 5 mg PO DAILY 07/10/17 [History] Potassium Chloride [Klor-Con M20] 20 meq PO BID 07/10/17 [History] Spironolactone [Aldactone 25 mg Tablet] 25 mg PO BID 07/10/17 [History] Past Medical History - Social History Smoking Status: Unknown if Ever Smoked Cigarette use (# per day): No Chew tobacco use (# tins/day): No Smoking Education Provided: No Frequency of alcohol use: None Drug Abuse: None Family History: Reviewed & Not Pertinent - Past Medical History Cardiac Medical History: Reports: Hx Congestive Heart Failure, Hx Hypertension Pulmonary Medical History: Denies: Hx Tuberculosis Neurological Medical History: Reports: Hx Seizures - ataxia, epilepsy Endocrine Medical History: Reports: Hx Hypothyroidism Renal/ Medical History: Reports: Hx Benign Prostatic Hyperplasia Traumatic Medical History: Reports: Hx Spine Fracture - Immunizations Hx Diphtheria, Pertussis, Tetanus Vaccination: Yes Hx Pneumococcal Vaccination: 08/20/12 Review of Systems - Review of Systems Notes: REVIEW OF SYSTEMS: CONSTITUTIONAL : admits to fever EENT: Denies eye, ear, throat, or mouth pain or symptoms. Denies nasal or sinus congestion or discharge. Denies throat, tongue, or mouth swelling or difficulty swallowing. CARDIOVASCULAR: Denies chest pain. Denies palpitations or racing or irregular heart beat. Denies ankle edema. RESPIRATORY: Denies cough, cold, or chest congestion. Denies shortness of breath, difficulty breathing, or wheezing. GASTROINTESTINAL: Denies abdominal pain or distention. Denies nausea, vomiting , or diarrhea. Denies blood in vomitus, stools, or per rectum. Denies black, tarry stools. Denies constipation. GENITOURINARY: Denies difficulty urinating, painful urination, burning, frequency, blood in urine, or discharge. MUSCULOSKELETAL: Denies back or neck pain or stiffness. Denies joint pain or swelling. SKIN: admits ot rash o nface and legs bilaterally HEMATOLOGIC : Denies easy bruising or bleeding. LYMPHATIC: Denies swollen, enlarged glands. NEUROLOGICAL: Denies confusion or altered mental status. Denies passing out or loss of consciousness. Denies dizziness or lightheadedness. Denies headache. Denies weakness or paralysis or loss of use of either side. Denies problems with gait or speech. Denies sensory loss, numbness, or tingling. Denies seizures. PSYCHIATRIC: Denies anxiety or stress. Denies depression, suicidal ideation, or homicidal ideation. ALL OTHER SYSTEMS REVIEWED AND NEGATIVE. Dictation was performed using [employer] recognition software PHYSICAL EXAMINATION: GENERAL: Well-appearing, , febrile, hypotensive HEAD: Atraumatic, normocephalic. EYES: Pupils equal round and reactive to light, extraocular movements intact, sclera anicteric, conjunctiva are normal. ENT: Nares patent, oropharynx clear without exudates. Moist mucous membranes. NECK: Normal range of motion, supple without lymphadenopathy LUNGS: Breath sounds clear to auscultation bilaterally and equal. No wheezes rales or rhonchi. HEART: tachycardic ABDOMEN: Soft, nontender, nondistended abdomen. No guarding, no rebound. No masses appreciated. Musculoskeletal: Normal range of motion, no pitting or edema. No cyanosis. NEUROLOGICAL: Cranial nerves grossly intact. Normal speech, normal gait. Normal sensory, motor exams PSYCH: Normal mood, normal affect. SKIN: facial rash noted, bilateral lwoer extremity rash with dressing , well appearing Physical Exam - Vital signs Vitals: Resp Pulse Ox 21 H 94 07/10/17 12:29 07/10/17 12:29 Course - Re-evaluation Re-evalutation: 07/10/17 15:31 Patient is noted to have a potassium 2.7, caregiver notes that this was also noted in the past. Patient otherwise is hypotensive, was given IV fluids and antibiotics. Patient is noted to have urinary tract infection, magnesium levels pending was given K stephany I will admit to the hospitalist service - Vital Signs Vital signs: Temp Pulse Resp BP Pulse Ox 20 104/40 L 96 07/10/17 13:04 07/10/17 13:04 07/10/17 13:04 - Laboratory Result Diagrams: 07/10/17 13:09 07/10/17 13:09 Laboratory results interpreted by me: 07/10/17 07/10/17 07/10/17 12:49 13:09 13:09 RBC 4.09 L Hgb 11.8 L Hct 34.6 L RDW 15.8 H Plt Count 126 L Seg Neutrophils % 83.0 H Lymphocytes % 8.8 L VBG pH VBG HCO3 Sodium 136.7 L Potassium 2.7 L* Chloride 89 L Carbon Dioxide 36 H BUN 24 H Creatinine 1.28 H Est GFR (Non-Af Amer) 57 L Glucose 129 H POC Glucose Magnesium Direct Bilirubin 0.5 H Total Protein 8.3 H Ur Leukocyte Esterase LARGE H 07/10/17 07/10/17 07/10/17 13:09 13:09 13:13 RBC Hgb Hct RDW Plt Count Seg Neutrophils % Lymphocytes % VBG pH 7.48 H VBG HCO3 36.2 H Sodium Potassium Chloride Carbon Dioxide BUN Creatinine Est GFR (Non-Af Amer) Glucose POC Glucose 127 H Magnesium 1.5 L Direct Bilirubin Total Protein Ur Leukocyte Esterase - Diagnostic Test Radiology reviewed: Image reviewed, Reports reviewed - EKG Interpretation by Me EKG shows normal: Sinus rhythm, [place], Intervals, QRS Complexes Critical Care Note - Critical Care Note Total time excluding time spent on procedures (mins): 31 Comments: minutes of critical care time spent in direct contact evaluating and reevaluating the patient, treating symptoms, reviewing labs and studies and speaking with family and consultants excluding any procedures Discharge - Discharge Clinical Impression: Hypokalemia Sepsis Qualifiers: Sepsis type: sepsis due to unspecified organism Qualified Code(s): A41.9 - Sepsis, unspecified organism UTI (urinary tract infection) Qualifiers: Urinary tract infection type: acute cystitis Hematuria presence: without hematuria Qualified Code(s): N30.00 - Acute cystitis without hematuria Condition: Stable Disposition: ADMITTED INPATIENT Admitting Provider: Hospitalist Unit Admitted: [facility]
[2017-07-10] MEDS ORDERED: ZOLPIDEM TARTRATE 5 MG TABLET PO PRN (14:52)
[2017-07-10] MEDS ORDERED: OXYCODONE-ACETAMINOPHEN 5-325 MG TABLET PO PRN (14:52)
[2017-07-10] MEDS ORDERED: ACETAMINOPHEN 325 MG TABLET PO PRN (14:52)
[2017-07-10] MEDS ORDERED: ONDANSETRON HCL INJ/PF 4 MG/2 ML SDV IV PRN (14:52)
[2017-07-10] MEDS ORDERED: MAGNESIUM SULFATE 4 GM/100 ML RTUPB IV ONE (15:01)
[2017-07-10] MEDS: PIPERACILLIN SODIUM/TAZOBACTAM 3.375 GM in NORMAL SALINE 100 ML IV SCH ×2 (17:42→23:50)
[2017-07-10] MEDS ORDERED: POTASSIUM CHLORIDE 10 MEQ TABLET.SA PO SCH (22:00)
[2017-07-10] MEDS: HEPARIN SOD (PORCINE) 5,000 UNIT/ML 1 ML SYRINGE SUBCUT SCH (22:38)
[2017-07-11] MEDS ORDERED: (PENDING PHARMACY ID) (Levetiracetam [Keppra] 1,000 MG) PO SCH (00:45)
[2017-07-11] MEDS ORDERED: LACOSAMIDE 100 MG TABLET PO ONE (00:45)
[2017-07-11] MEDS ORDERED: LEVETIRACETAM 500 MG TABLET PO ONE (01:00)
[2017-07-11] MEDS ORDERED: DOXAZOSIN MESYLATE 4 MG TABLET PO ONE (01:00)
[2017-07-11] MEDS: POTASSI CL 40 MEQ/NS 1L 1,000 ML IV PRN ×2 (01:27→14:24)
--- NOTE | 2017-07-11 02:55 | PDOC H&P ---
History of Present Illness Admission Date/PCP: 07/10/17 14:46 Patient complains of: Unable to obtain due to patient's mental status History of Present Illness: MALIK DUGGAN JR is a 62 year old male was transferred from local detention since had been having fever since last night. Staff at detention reported to his family that he had developed a red rash on his face. He had similar problem around a year ago but was localized to the left side of his face. Patient also hurt his left leg when he was trying to get up from his wheelchair. He had been getting treatment of his wounds at the detention. Patient is currently living at a detention since family could not take care of him. Patient had become heavier and family was not able to lift him up in case of him falling when having a seizure.I was informed by ED physician that patient is on bumex and had been increased recently. Family states that patient takes that medication for the treatment of leg swelling. On arrival to ED he was hypotensive and required 2 liters of normal saline. Blood work was also concerning because of hypokalemia and hypomagnesemia. Our service was consulted and prompted to admit for further management. Past Medical History Cardiac Medical History: Reports: Congestive Heart Failure, Hypertension Pulmonary Medical History: Denies: Tuberculosis Neurological Medical History: Reports: Seizures - ataxia, epilepsy Endocrine Medical History: Reports: Hypothyroidism Renal/ Medical History: Reports: Other - BPH Hematology: Reports: None Infectious Medical History: Reports: Methicillin-Resistant Staph Aureus Past Surgical History Past Surgical History: Reports: None Social History Information Source: Relative Lives with: [facility] Smoking Status: Never Smoker Frequency of Alcohol Use: None Hx Recreational Drug Use: No Drugs: None Hx Prescription Drug Abuse: No - Advance Directive Resuscitation Status: Do Not Resuscitate Family History Family History: Reviewed & Not Pertinent Parental Family History Reviewed: Yes Children Family History Reviewed: Yes Sibling(s) Family History Reviewed.: Yes Medication/Allergy Home Medications: Bumetanide [Bumex 1 mg Tablet] 3 mg PO BID 07/10/17 Clonazepam [Klonopin 1 mg Tablet] 2 mg PO Q8 07/10/17 Doxazosin Mesylate [Cardura] 8 mg PO QHS 07/10/17 Finasteride [Proscar 5 mg Tablet] 5 mg PO DAILY 07/10/17 Lacosamide [Vimpat 100 mg Tablet] 100 mg PO BID 07/10/17 Latanoprost [Xalatan 0.005% Oph Soln 2.5 ml] 1 drop OS QHS 07/10/17 Levetiracetam [Keppra] 1,000 mg PO Q12 07/10/17 Levobunolol HCl [Betagan 0.5% Oph Soln 5 ml] 1 drop OS DAILY 07/10/17 Levothyroxine Sodium [Synthroid 0.1 mg Tablet] 0.1 mg PO DAILY 07/10/17 Metolazone [Zaroxolyn 5 mg Tablet] 5 mg PO DAILY 07/10/17 Mometasone Furoate [Nasonex] 1 spray NASL DAILY 07/10/17 Oxybutynin Chloride [Oxybutynin Chloride ER] 5 mg PO DAILY 07/10/17 Potassium Chloride [Klor-Con M20] 20 meq PO BID 07/10/17 Spironolactone [Aldactone 25 mg Tablet] 25 mg PO BID 07/10/17 Allergies/Adverse Reactions: No Known Allergies Allergy (Verified 07/10/17 12:32) Review of Systems ROS unobtainable: Due to mental status Physical Exam Vital Signs: Temp Pulse Resp BP Pulse Ox 20 104/40 L 96 07/10/17 13:04 07/10/17 13:04 07/10/17 13:04 General appearance: PRESENT: no acute distress, cooperative, morbidly obese Head exam: PRESENT: atraumatic, normocephalic Eye exam: PRESENT: EOMI, PERRLA Mouth exam: PRESENT: moist, neck supple Neck exam: PRESENT: full ROM, tenderness. ABSENT: JVD Respiratory exam: PRESENT: clear to auscultation ortega Cardiovascular exam: PRESENT: RRR. ABSENT: diastolic murmur, gallop, systolic murmur Vascular exam: PRESENT: normal capillary refill GI/Abdominal exam: PRESENT: normal bowel sounds, soft. ABSENT: guarding, tenderness Extremities exam: PRESENT: tenderness, other - 4+ pitting edema Neurological exam: PRESENT: alert - disoriented Skin exam: PRESENT: other - erythremic macular rash noted to right and left cheeks. Skin tears noted to lateral aspect of left lower extremity Results Impressions: Chest X-Ray 07/10/17 12:55 IMPRESSION: NO ACUTE RADIOGRAPHIC FINDING IN THE CHEST. Assessment & Plan - Diagnosis (1) Sepsis with hypotension Is this a current diagnosis for this admission?: Yes Plan: Due to cellulitic process. To place on zosyn. Continue ivf's and hold diuretic. (2) Hypomagnesemia Is this a current diagnosis for this admission?: Yes Plan: Replace via iv/po and trend (3) Hypokalemia Is this a current diagnosis for this admission?: Yes Plan: Relace po and trend (4) Acute renal failure Is this a current diagnosis for this admission?: Yes Plan: Due to ATN in setting of infectious process. Fluis and trend. (5) Cellulitis of left lower leg Is this a current diagnosis for this admission?: Yes Plan: Portal of entry appears to be open wounds to left leg. Patient to be placed on zosyn (6) Erysipelas Is this a current diagnosis for this admission?: Yes Plan: Will place on zosyn. Add an anthistaminic since patient suffers from dry skin and scratches constantly as per family. (7) Open wound Is this a current diagnosis for this admission?: Yes Plan: Local wound care. Order aquacel to left leg if available (8) Hypothyroidism Qualifiers: Hypothyroidism type: unspecified Qualified Code(s): E03.9 - Hypothyroidism , unspecified (9) Seizure Is this a current diagnosis for this admission?: Yes Plan: Continue outpatient regimen - Time Time Spent: 50 to 70 Minutes Medications reviewed and adjusted accordingly: Yes Anticipated discharge: SNF Within: within 72 hours - Inpatient Certification Based on my medical assessment, after consideration of the patient's comorbidities, presenting symptoms, or acuity I expect that the services needed warrant INPATIENT care.: Yes I certify that my determination is in accordance with my understanding of Medicare's requirements for reasonable and necessary INPATIENT services [42 CFR 412.3e].: Yes Medical Necessity: Significant Comorbidiites Make Outpatient Treatment Too Risky , Need For IV Fluids, Need for IV Antibiotics
[2017-07-11 05:20] LABS: ABSOLUTE LYMPHOCYTES (AUTO) 0.9 10^3/uL (0.5-4.7); ABSOLUTE MONOCYTES (AUTO) 0.6 10^3/uL (0.1-1.4); ABSOLUTE NEUT (AUTO) 8.3 10^3/uL (1.7-8.2); BASOPHILS % (AUTO) 0.3 % (0-2); EOSINOPHILS % (AUTO) 0.3 % (0-6); HEMATOCRIT 32.3 % (37.9-51.0); HEMOGLOBIN 11.2 g/dL (13.5-17.0); HGB HCT DIFFERENCE 1.3; LYMPHOCYTES % (AUTO) 9.6 % (13-45); MEAN CORPUSCULAR HEMOGLOBIN 29.4 pg (27.0-33.4); MEAN CORPUSCULAR HGB CONC 34.8 g/dL (32.0-36.0); MEAN CORPUSCULAR VOLUME 84 fl (80-97); RED BLOOD COUNT 3.82 10^6/uL (4.35-5.55); RED CELL DISTRIBUTION WIDTH 15.9 % (11.5-14.0); SEGMENTED NEUTROPHILS % (AUTO) 83.8 % (42-78); WHITE BLOOD COUNT 9.8 10^3/uL (4.0-10.5)
[2017-07-11 05:33] LABS: ANION GAP 14 (5-19); BLOOD UREA NITROGEN 20 mg/dL (7-20); CARBON DIOXIDE 29 mmol/L (22-30); CHLORIDE 97 mmol/L (98-107); CREATININE RESULT 1.16 mg/dL (0.52-1.25); GLUCOSE 97 mg/dL (75-110); MAGNESIUM 1.9 mg/dL (1.6-2.3); POTASSIUM 3.1 mmol/L (3.6-5.0); SODIUM 139.8 mmol/L (137-145)
[2017-07-11] MEDS: PIPERACILLIN SODIUM/TAZOBACTAM 3.375 GM in NORMAL SALINE 100 ML IV SCH ×4 (07:26→23:46)
[2017-07-11] MEDS: LEVOTHYROXINE SODIUM 0.1 MG TABLET PO SCH (07:27)
[2017-07-11] MEDS: CLONAZEPAM 1 MG TABLET PO SCH ×3 (07:27→21:38)
[2017-07-11] MEDS: HEPARIN SOD (PORCINE) 5,000 UNIT/ML 1 ML SYRINGE SUBCUT SCH ×3 (07:28→21:39)
[2017-07-11] MEDS: DOCUSATE SODIUM 100 MG CAPSULE PO SCH (09:46)
[2017-07-11] MEDS: LACOSAMIDE 100 MG TABLET PO SCH ×2 (09:47→17:27)
[2017-07-11] MEDS: CETIRIZINE 10 MG TABLET PO SCH (09:47)
[2017-07-11] MEDS: LEVOBUNOLOL HCL 0.5% OS SCH (09:48)
[2017-07-11] MEDS: FINASTERIDE 5 MG TABLET PO SCH (09:48)
[2017-07-11] MEDS: LEVETIRACETAM 500 MG TABLET PO SCH ×2 (09:48→21:37)
[2017-07-11] MEDS: MAGNESIUM OXIDE 400 MG TABLET PO SCH ×2 (09:48→17:27)
[2017-07-11] MEDS ORDERED: (PENDING PHARMACY ID) (Potassium Chloride [Klor-Con M20] 20 MEQ) PO SCH (10:00)
[2017-07-11] MEDS ORDERED: SPIRONOLACTONE 25 MG TABLET PO SCH (10:00)
[2017-07-11] MEDS ORDERED: DOXYCYCLINE HYCLATE 100 MG TABLET PO ONE (12:00)
[2017-07-11] MEDS: POTASSIUM CHLORIDE 10 MEQ TABLET.SA PO SCH ×2 (13:57→21:37)
--- NOTE | 2017-07-11 14:17 | PDOC PROGRESS REPORT ---
Subjective Progress Note for:: 07/11/17 Subjective:: No complaints ROS Unable to obtain due to mental status All laboratories and significant diagnostics reviewed Physical Exam Vital Signs: Temp Pulse Resp BP Pulse Ox 99.8 F 68 19 118/57 L 97 07/11/17 07:46 07/11/17 07:46 07/11/17 07:46 07/11/17 07:46 07/11/17 07:46 Intake & Output 07/10/17 07/11/17 07/12/17 06:59 06:59 06:59 Intake Total 1035 Output Total 310 Balance 725 Weight 127.139 kg General appearance: PRESENT: no acute distress, cooperative, morbidly obese Head exam: PRESENT: atraumatic, normocephalic Eye exam: PRESENT: EOMI, PERRLA Ear exam: PRESENT: normal external ear exam Mouth exam: PRESENT: moist, neck supple Neck exam: PRESENT: full ROM. ABSENT: JVD, lymphadenopathy, tenderness Respiratory exam: PRESENT: clear to auscultation ortega Cardiovascular exam: PRESENT: RRR. ABSENT: diastolic murmur, systolic murmur Vascular exam: PRESENT: normal capillary refill GI/Abdominal exam: PRESENT: normal bowel sounds, soft. ABSENT: tenderness Extremities exam: PRESENT: +2 edema. ABSENT: tenderness Musculoskeletal exam: PRESENT: full ROM Neurological exam: PRESENT: alert, awake, oriented to person Skin exam: PRESENT: normal color - excoriations noted throughout. Facial macular erythremic rash mildly improved Results Laboratory Results: 07/11/17 04:03 07/11/17 04:03 07/11/17 07/11/17 04:03 04:03 WBC 9.8 RBC 3.82 L Hgb 11.2 L Hct 32.3 L MCV 84 MCH 29.4 MCHC 34.8 RDW 15.9 H Plt Count 120 L Seg Neutrophils % 83.8 H Lymphocytes % 9.6 L Monocytes % 6.0 Eosinophils % 0.3 Basophils % 0.3 Absolute Neutrophils 8.3 H Absolute Lymphocytes 0.9 Absolute Monocytes 0.6 Absolute Eosinophils 0.0 Absolute Basophils 0.0 Sodium 139.8 Potassium 3.1 L Chloride 97 L Carbon Dioxide 29 Anion Gap 14 BUN 20 Creatinine 1.16 Est GFR ( Amer) > 60 Est GFR (Non-Af Amer) > 60 Glucose 97 Calcium 8.0 L Magnesium 1.9 Impressions: Chest X-Ray 07/10/17 12:55 IMPRESSION: NO ACUTE RADIOGRAPHIC FINDING IN THE CHEST. Assessment & Plan - Diagnosis (1) Sepsis with hypotension Is this a current diagnosis for this admission?: Yes Plan: Due to infectious process. Continue ivf's and hold diuretic. Improving. (2) Hypomagnesemia Is this a current diagnosis for this admission?: Yes Plan: Replaced. Trend. (3) Hypokalemia Is this a current diagnosis for this admission?: Yes Plan: Replace po and thru IV (4) Acute renal failure Is this a current diagnosis for this admission?: Yes Plan: Due to ATN in setting of infectious process. Improving. Trend. (5) Cellulitis of left lower leg Is this a current diagnosis for this admission?: Yes Plan: Portal of entry appears to be open wounds to left leg. Continue zosyn. Will add doxycyline to cover for MRSA (6) Erysipelas Is this a current diagnosis for this admission?: Yes Plan: Continue zosyn and add doxycyline to cover for MRSA. Continue zytec since likes to scratch. (7) Open wound Is this a current diagnosis for this admission?: Yes Plan: Local wound care. Add aquaphor for periwound mositure. (8) Hypothyroidism Qualifiers: Hypothyroidism type: acquired Qualified Code(s): E03.9 - Hypothyroidism, unspecified Is this a current diagnosis for this admission?: Yes Plan: Continue outpatient tx. (9) Seizure Is this a current diagnosis for this admission?: Yes Plan: Continue outpatient regimen - Time Time Spent with patient: 15-24 minutes Medications reviewed and adjusted accordingly: Yes Anticipated discharge: SNF - Inpatient Certification Based on my medical assessment, after consideration of the patient's comorbidities, presenting symptoms, or acuity I expect that the services needed warrant INPATIENT care.: Yes I certify that my determination is in accordance with my understanding of Medicare's requirements for reasonable and necessary INPATIENT services [42 CFR 412.3e].: Yes Medical Necessity: Need For IV Fluids, Need for IV Antibiotics
[2017-07-11] MEDS: TAMSULOSIN HCL 0.4 MG CAP.SR.24H PO SCH (17:26)
[2017-07-11] MEDS: PANTOT AC/MIN OIL/PET HY-PHL OINT 50 GM TOP SCH (17:27)
[2017-07-11] MEDS: DOXYCYCLINE HYCLATE 100 MG TABLET PO SCH (21:38)
[2017-07-11] MEDS ORDERED: DOXAZOSIN MESYLATE 4 MG TABLET PO SCH (22:00)
[2017-07-11] MEDS ORDERED: (PENDING PHARMACY ID) (Doxazosin Mesylate [Cardura] 8 MG) PO SCH (22:00)
[2017-07-12] MEDS: LATANOPROST 0.005% OPH SOLN 2.5 ML OS SCH ×2 (03:10→21:17)
[2017-07-12] MEDS: POTASSI CL 40 MEQ/NS 1L 1,000 ML IV PRN (04:31)
[2017-07-12] MEDS: POTASSIUM CHLORIDE 10 MEQ TABLET.SA PO SCH (05:13)
[2017-07-12] MEDS: CLONAZEPAM 1 MG TABLET PO SCH ×3 (05:13→21:15)
[2017-07-12] MEDS: LEVOTHYROXINE SODIUM 0.1 MG TABLET PO SCH (05:13)
[2017-07-12] MEDS: PIPERACILLIN SODIUM/TAZOBACTAM 3.375 GM in NORMAL SALINE 100 ML IV SCH (05:14)
[2017-07-12] MEDS: HEPARIN SOD (PORCINE) 5,000 UNIT/ML 1 ML SYRINGE SUBCUT SCH ×2 (05:15→15:44)
[2017-07-12 05:19] LABS: ANION GAP 8 (5-19); BLOOD UREA NITROGEN 16 mg/dL (7-20); CALCIUM 8.4 mg/dL (8.4-10.2); CARBON DIOXIDE 28 mmol/L (22-30); CHLORIDE 108 mmol/L (98-107); CREATININE RESULT 1.28 mg/dL (0.52-1.25); GLUCOSE 93 mg/dL (75-110); MAGNESIUM 1.8 mg/dL (1.6-2.3); POTASSIUM 4.1 mmol/L (3.6-5.0); SODIUM 144.2 mmol/L (137-145)
[2017-07-12] MEDS: DOXYCYCLINE HYCLATE 100 MG TABLET PO SCH ×2 (08:09→21:16)
[2017-07-12] MEDS: DOCUSATE SODIUM 100 MG CAPSULE PO SCH (09:46)
[2017-07-12] MEDS: CETIRIZINE 10 MG TABLET PO SCH (09:46)
[2017-07-12] MEDS: LEVETIRACETAM 500 MG TABLET PO SCH ×2 (09:46→21:16)
[2017-07-12] MEDS: FINASTERIDE 5 MG TABLET PO SCH (09:46)
[2017-07-12] MEDS: LACOSAMIDE 100 MG TABLET PO SCH ×2 (09:47→18:13)
[2017-07-12] MEDS: PANTOT AC/MIN OIL/PET HY-PHL OINT 50 GM TOP SCH ×2 (09:47→18:16)
[2017-07-12] MEDS: LEVOBUNOLOL HCL 0.5% OS SCH (09:47)
[2017-07-12] MEDS: MAGNESIUM OXIDE 400 MG TABLET PO SCH ×2 (09:47→18:14)
[2017-07-12] MEDS: AMPICILLIN SODIUM/SULBACTAM NA 3 GM in NORMAL SALINE 100 ML IV SCH ×2 (12:16→18:16)
--- NOTE | 2017-07-12 12:18 | RADIOLOGY REPORT (SQ) ---
EXAM DESCRIPTION: HIP RIGHT AP/LATERAL COMPLETED DATE/TIME: 07/12/2017 12:01 pm REASON FOR STUDY: hematoma right hip COMPARISON: None. NUMBER OF VIEWS: Two views. TECHNIQUE: AP pelvis and additional frog-leg view of the right hip. LIMITATIONS: None. FINDINGS: MINERALIZATION: Normal. RIGHT HIP: No fracture or dislocation. No worrisome bone lesions. LEFT HIP: No fracture or dislocation. No worrisome bone lesions. PUBIS AND ISCHIUM: No fracture. PELVIS: No fracture. SACRUM: No fracture or dislocation. No worrisome bone lesions. LOWER LUMBAR SPINE: No fracture or dislocation. No worrisome bone lesions. No significant disc disea se. SOFT TISSUES: No findings. OTHER: No other significant finding. IMPRESSION: NEGATIVE STUDY OF THE RIGHT HIP. NO RADIOGRAPHIC EVIDENCE OF ACUTE INJURY. TECHNICAL DOCUMENTATION: JOB ID: [id number] [employer]- All Rights Reserved
--- NOTE | 2017-07-12 12:42 | PDOC PROGRESS REPORT ---
Subjective Progress Note for:: 07/12/17 Subjective:: No complaints. Sister is at bedside and updated. She is concerned since noticed a discoloration to right hip. Unaware if he fell. She is upset that there is no provider at the facility he is staying at and they were not notified. ROS Unable to obtain due to mental status All laboratories and significant diagnostics reviewed Physical Exam Vital Signs: Temp Pulse Resp BP Pulse Ox 98.4 F 62 18 109/53 L 98 07/12/17 04:36 07/12/17 04:36 07/12/17 04:36 07/12/17 04:36 07/12/17 04:36 Intake & Output 07/11/17 07/12/17 07/13/17 06:59 06:59 06:59 Intake Total 1035 3310 Output Total 310 1100 Balance 725 2210 Weight 127.139 kg General appearance: PRESENT: no acute distress, cooperative, morbidly obese Head exam: PRESENT: atraumatic, normocephalic Eye exam: PRESENT: conjunctiva pink, EOMI, PERRLA. ABSENT: periorbital swelling Mouth exam: PRESENT: moist, neck supple Neck exam: PRESENT: full ROM. ABSENT: JVD, tenderness Respiratory exam: PRESENT: clear to auscultation ortega Cardiovascular exam: PRESENT: RRR. ABSENT: diastolic murmur, systolic murmur Vascular exam: PRESENT: normal capillary refill GI/Abdominal exam: PRESENT: normal bowel sounds, soft. ABSENT: tenderness Musculoskeletal exam: PRESENT: other - there is a hematoma noted to right hip area. Neurological exam: PRESENT: alert, oriented to person, oriented to place, oriented to time Skin exam: PRESENT: other - redness slowly improving Results Laboratory Results: 07/11/17 04:03 07/12/17 04:12 07/12/17 04:12 Sodium 144.2 Potassium 4.1 Chloride 108 H Carbon Dioxide 28 Anion Gap 8 BUN 16 Creatinine 1.28 H Est GFR ( Amer) > 60 Est GFR (Non-Af Amer) 57 L Glucose 93 Calcium 8.4 Magnesium 1.8 Impressions: Chest X-Ray 07/10/17 12:55 IMPRESSION: NO ACUTE RADIOGRAPHIC FINDING IN THE CHEST. Assessment & Plan - Diagnosis (1) Sepsis with hypotension Is this a current diagnosis for this admission?: Yes Plan: Due to infectious process. Improved. Discontinue ivf's. (2) Hypomagnesemia Is this a current diagnosis for this admission?: Yes Plan: Replaced. (3) Hypokalemia Is this a current diagnosis for this admission?: Yes Plan: Replaced. (4) Acute renal failure Is this a current diagnosis for this admission?: Yes Plan: Due to ATN in setting of infectious process. Resolved. (5) Cellulitis of left lower leg Is this a current diagnosis for this admission?: Yes Plan: Portal of entry appears to be open wounds to left leg. Improving. Will change to unasyn since prefer for coverage of strep A. Continue doxy for MRSA. (6) Erysipelas Is this a current diagnosis for this admission?: Yes Plan: Change to unasyn and continue doxycyline to cover for MRSA. Continue zytec since likes to scratch. Improving slowly. (7) Open wound Is this a current diagnosis for this admission?: Yes Plan: Continue wound and periwound care. (8) Hypothyroidism Qualifiers: Hypothyroidism type: acquired Qualified Code(s): E03.9 - Hypothyroidism, unspecified Is this a current diagnosis for this admission?: Yes Plan: Continue outpatient tx. (9) Seizure Is this a current diagnosis for this admission?: Yes Plan: Continue outpatient regimen (10) Hip hematoma, right Qualifiers: Encounter type: initial encounter Qualified Code(s): S70.01XA - Contusion of right hip, initial encounter Is this a current diagnosis for this admission?: Yes Plan: Order xray of right hip - Time Time Spent with patient: 15-24 minutes Medications reviewed and adjusted accordingly: Yes Anticipated discharge: SNF Within: within 72 hours - Inpatient Certification Based on my medical assessment, after consideration of the patient's comorbidities, presenting symptoms, or acuity I expect that the services needed warrant INPATIENT care.: Yes I certify that my determination is in accordance with my understanding of Medicare's requirements for reasonable and necessary INPATIENT services [42 CFR 412.3e].: Yes Medical Necessity: Need for IV Antibiotics
[2017-07-12] MEDS: TAMSULOSIN HCL 0.4 MG CAP.SR.24H PO SCH (18:14)
[2017-07-13] MEDS: AMPICILLIN SODIUM/SULBACTAM NA 3 GM in NORMAL SALINE 100 ML IV SCH ×4 (00:05→17:37)
[2017-07-13 05:01] LABS: HEMATOCRIT 32.9 % (37.9-51.0); HEMOGLOBIN 11.1 g/dL (13.5-17.0); HGB HCT DIFFERENCE 0.4; MEAN CORPUSCULAR HGB CONC 33.9 g/dL (32.0-36.0); MEAN CORPUSCULAR VOLUME 86 fl (80-97); RED BLOOD COUNT 3.84 10^6/uL (4.35-5.55); RED CELL DISTRIBUTION WIDTH 16.3 % (11.5-14.0); WHITE BLOOD COUNT 6.2 10^3/uL (4.0-10.5)
[2017-07-13 05:15] LABS: ANION GAP 10 (5-19); BLOOD UREA NITROGEN 14 mg/dL (7-20); CALCIUM 8.1 mg/dL (8.4-10.2); CARBON DIOXIDE 26 mmol/L (22-30); CHLORIDE 110 mmol/L (98-107); CREATININE RESULT 1.11 mg/dL (0.52-1.25); GLUCOSE 87 mg/dL (75-110); MAGNESIUM 1.8 mg/dL (1.6-2.3); POTASSIUM 4.2 mmol/L (3.6-5.0); SODIUM 145.9 mmol/L (137-145)
[2017-07-13] MEDS: LEVOTHYROXINE SODIUM 0.1 MG TABLET PO SCH (05:49)
[2017-07-13] MEDS: CLONAZEPAM 1 MG TABLET PO SCH ×3 (05:49→22:00)
[2017-07-13] MEDS: HEPARIN SOD (PORCINE) 5,000 UNIT/ML 1 ML SYRINGE SUBCUT SCH ×3 (05:50→22:02)
[2017-07-13] MEDS: FINASTERIDE 5 MG TABLET PO SCH (09:30)
[2017-07-13] MEDS: CETIRIZINE 10 MG TABLET PO SCH (09:30)
[2017-07-13] MEDS: LEVETIRACETAM 500 MG TABLET PO SCH ×2 (09:30→22:00)
[2017-07-13] MEDS: DOXYCYCLINE HYCLATE 100 MG TABLET PO SCH ×2 (09:30→22:00)
[2017-07-13] MEDS: PANTOT AC/MIN OIL/PET HY-PHL OINT 50 GM TOP SCH ×2 (09:30→17:38)
[2017-07-13] MEDS: LEVOBUNOLOL HCL 0.5% OS SCH (09:30)
[2017-07-13] MEDS: MAGNESIUM OXIDE 400 MG TABLET PO SCH ×2 (09:30→17:37)
[2017-07-13] MEDS: DOCUSATE SODIUM 100 MG CAPSULE PO SCH (09:30)
[2017-07-13] MEDS: LACOSAMIDE 100 MG TABLET PO SCH ×2 (09:30→17:37)
--- NOTE | 2017-07-13 12:58 | PDOC PROGRESS REPORT ---
Subjective Progress Note for:: 07/13/17 Subjective:: No complaints. ROS All organ systems evaluated and negative All laboratories and significant diagnostics reviewed Physical Exam Vital Signs: Temp Pulse Resp BP Pulse Ox 97.5 F 69 20 132/60 H 100 07/13/17 03:27 07/13/17 03:27 07/13/17 03:27 07/13/17 03:27 07/13/17 03:27 Intake & Output 07/12/17 07/13/17 07/14/17 06:59 06:59 06:59 Intake Total 3760 1515 Output Total 2450 950 Balance 1310 565 Weight 128.8 kg 126.6 kg General appearance: PRESENT: no acute distress, cooperative, obese Head exam: PRESENT: atraumatic, normocephalic Eye exam: PRESENT: EOMI, PERRLA Ear exam: PRESENT: normal external ear exam Mouth exam: PRESENT: moist, neck supple Teeth exam: PRESENT: dental caries Neck exam: PRESENT: full ROM. ABSENT: JVD, meningismus, tenderness Respiratory exam: PRESENT: clear to auscultation ortega Cardiovascular exam: PRESENT: RRR. ABSENT: diastolic murmur, systolic murmur Vascular exam: PRESENT: normal capillary refill GI/Abdominal exam: PRESENT: normal bowel sounds, soft. ABSENT: tenderness Gentrourinary exam: PRESENT: ecchymosis - zzzright hip area unchanged Neurological exam: PRESENT: alert, oriented to person, oriented to place Results Laboratory Results: 07/13/17 04:23 07/13/17 04:23 07/13/17 07/13/17 04:23 04:23 WBC 6.2 RBC 3.84 L Hgb 11.1 L Hct 32.9 L MCV 86 MCH 29.0 MCHC 33.9 RDW 16.3 H Plt Count 126 L Sodium 145.9 H Potassium 4.2 Chloride 110 H Carbon Dioxide 26 Anion Gap 10 BUN 14 Creatinine 1.11 Est GFR ( Amer) > 60 Est GFR (Non-Af Amer) > 60 Glucose 87 Calcium 8.1 L Magnesium 1.8 Impressions: Chest X-Ray 07/10/17 12:55 IMPRESSION: NO ACUTE RADIOGRAPHIC FINDING IN THE CHEST. Hip/Pelvis X-Ray 07/12/17 00:00 IMPRESSION: NEGATIVE STUDY OF THE RIGHT HIP. NO RADIOGRAPHIC EVIDENCE OF ACUTE INJURY. Assessment & Plan - Diagnosis (1) Sepsis with hypotension Is this a current diagnosis for this admission?: Yes Plan: Due to infectious process. .Stable since off IV fluids (2) Hypomagnesemia Is this a current diagnosis for this admission?: Yes Plan: Replaced. (3) Hypokalemia Is this a current diagnosis for this admission?: Yes Plan: Replaced. (4) Acute renal failure Is this a current diagnosis for this admission?: Yes Plan: Due to ATN in setting of infectious process and diuretics. Resolved. (5) Cellulitis of left lower leg Is this a current diagnosis for this admission?: Yes Plan: Portal of entry appears to be open wounds to left leg. Improving. (6) Erysipelas Is this a current diagnosis for this admission?: Yes Plan: Continue doxycycline po and Unasyn IV. Add Bactroban ointment since patient constantly touching his nose and likely spreading nasal bacteria to his face. Improving. (7) Open wound Is this a current diagnosis for this admission?: Yes Plan: Continue wound and periwound care. (8) Hypothyroidism Qualifiers: Hypothyroidism type: acquired Qualified Code(s): E03.9 - Hypothyroidism, unspecified Is this a current diagnosis for this admission?: Yes Plan: Continue outpatient tx. (9) Seizure Is this a current diagnosis for this admission?: Yes Plan: Continue outpatient regimen (10) Hip hematoma, right Qualifiers: Encounter type: initial encounter Qualified Code(s): S70.01XA - Contusion of right hip, initial encounter Is this a current diagnosis for this admission?: Yes Plan: No fracture likely due to contusion (11) Physical deconditioning Is this a current diagnosis for this admission?: Yes Plan: Consult physical therapy (12) Acute hypernatremia Is this a current diagnosis for this admission?: Yes Plan: .Encourage water intake. To trend (13) Anemia Qualifiers: Iron deficiency anemia type: unspecified iron deficiency Is this a current diagnosis for this admission?: Yes Plan: Likely of chronic disease. Stable - Time Time Spent with patient: 15-24 minutes Medications reviewed and adjusted accordingly: Yes Anticipated discharge: SNF Within: within 48 hours - Inpatient Certification Based on my medical assessment, after consideration of the patient's comorbidities, presenting symptoms, or acuity I expect that the services needed warrant INPATIENT care.: Yes I certify that my determination is in accordance with my understanding of Medicare's requirements for reasonable and necessary INPATIENT services [42 CFR 412.3e].: Yes
[2017-07-13] MEDS: MUPIROCIN CALCIUM 2% CREAM 15 GM TP SCH ×2 (13:41→17:38)
[2017-07-13] MEDS ORDERED: ONDANSETRON HCL INJ/PF 4 MG/2 ML SDV IV PRN (15:00)
[2017-07-13] MEDS ORDERED: ACETAMINOPHEN 325 MG TABLET PO PRN (15:00)
[2017-07-13] MEDS ORDERED: ZOLPIDEM TARTRATE 5 MG TABLET PO PRN (15:00)
[2017-07-13] MEDS: TAMSULOSIN HCL 0.4 MG CAP.SR.24H PO SCH (17:37)
[2017-07-13] MEDS: LATANOPROST 0.005% OPH SOLN 2.5 ML OS SCH (22:10)
[2017-07-14] MEDS: AMPICILLIN SODIUM/SULBACTAM NA 3 GM in NORMAL SALINE 100 ML IV SCH ×4 (00:37→17:43)
[2017-07-14] MEDS: CLONAZEPAM 1 MG TABLET PO SCH ×3 (05:19→22:38)
[2017-07-14] MEDS: LEVOTHYROXINE SODIUM 0.1 MG TABLET PO SCH (05:19)
[2017-07-14] MEDS: HEPARIN SOD (PORCINE) 5,000 UNIT/ML 1 ML SYRINGE SUBCUT SCH ×3 (05:24→22:33)
[2017-07-14 05:26] LABS: ANION GAP 8 (5-19); BLOOD UREA NITROGEN 14 mg/dL (7-20); CALCIUM 8.4 mg/dL (8.4-10.2); CARBON DIOXIDE 28 mmol/L (22-30); CHLORIDE 109 mmol/L (98-107); CREATININE RESULT 1.02 mg/dL (0.52-1.25); GLUCOSE 92 mg/dL (75-110); SODIUM 145.3 mmol/L (137-145)
[2017-07-14] MEDS: LACOSAMIDE 100 MG TABLET PO SCH ×2 (09:26→17:44)
[2017-07-14] MEDS: FINASTERIDE 5 MG TABLET PO SCH (09:27)
[2017-07-14] MEDS: DOXYCYCLINE HYCLATE 100 MG TABLET PO SCH ×2 (09:27→22:39)
[2017-07-14] MEDS: CETIRIZINE 10 MG TABLET PO SCH (09:27)
[2017-07-14] MEDS: MAGNESIUM OXIDE 400 MG TABLET PO SCH ×2 (09:27→17:44)
[2017-07-14] MEDS: DOCUSATE SODIUM 100 MG CAPSULE PO SCH (09:27)
[2017-07-14] MEDS: PANTOT AC/MIN OIL/PET HY-PHL OINT 50 GM TOP SCH ×2 (09:28→17:45)
[2017-07-14] MEDS: MUPIROCIN CALCIUM 2% CREAM 15 GM TP SCH ×3 (09:28→17:44)
[2017-07-14] MEDS: LEVETIRACETAM 500 MG TABLET PO SCH ×2 (09:28→22:40)
[2017-07-14] MEDS: LEVOBUNOLOL HCL 0.5% OS SCH (09:29)
--- NOTE | 2017-07-14 11:58 | PDOC DISCHARGE SUMMARY ---
General - Admit/Disc Date/PCP Admission Date/Primary Care Provider: 07/10/17 14:46 Discharge Date: 07/14/17 - Discharge Diagnosis (1) Sepsis with hypotension Is this a current diagnosis for this admission?: Yes (2) Hypomagnesemia Is this a current diagnosis for this admission?: Yes (3) Hypokalemia Is this a current diagnosis for this admission?: Yes (4) Acute renal failure Is this a current diagnosis for this admission?: Yes (5) Cellulitis of left lower leg Is this a current diagnosis for this admission?: Yes (6) Erysipelas Is this a current diagnosis for this admission?: Yes (7) Open wound Is this a current diagnosis for this admission?: Yes (8) Hypothyroidism Is this a current diagnosis for this admission?: Yes (9) Seizure Is this a current diagnosis for this admission?: Yes (10) Hip hematoma, right Is this a current diagnosis for this admission?: Yes (11) Physical deconditioning Is this a current diagnosis for this admission?: Yes (12) Acute hypernatremia Is this a current diagnosis for this admission?: Yes (13) Anemia Is this a current diagnosis for this admission?: Yes - Additional Information Resuscitation Status: Do Not Resuscitate Discharge Diet: As Tolerated Discharge Activity: Activity As Tolerated Home Medications: Clonazepam [Klonopin 1 mg Tablet] 2 mg PO Q8 07/10/17 Finasteride [Proscar 5 mg Tablet] 5 mg PO DAILY 07/10/17 Lacosamide [Vimpat 100 mg Tablet] 100 mg PO BID 07/10/17 Latanoprost [Xalatan 0.005% Oph Soln 2.5 ml] 1 drop OS QHS 07/10/17 Levetiracetam [Keppra] 1,000 mg PO Q12 07/10/17 Levobunolol HCl [Betagan 0.5% Oph Soln 5 ml] 1 drop OS DAILY 07/10/17 Levothyroxine Sodium [Synthroid 0.1 mg Tablet] 0.1 mg PO DAILY 07/10/17 Mometasone Furoate [Nasonex] 1 spray NASL DAILY 07/10/17 Oxybutynin Chloride [Oxybutynin Chloride ER] 5 mg PO DAILY 07/10/17 Potassium Chloride [Klor-Con M20] 20 meq PO BID 07/10/17 Spironolactone [Aldactone 25 mg Tablet] 25 mg PO BID 07/10/17 Bumetanide [Bumex 1 mg Tablet] 1 mg PO DAILY #30 tablet 07/14/17 Cetirizine HCl [Zyrtec 10 mg Tablet] 10 mg PO DAILY tablet 07/14/17 Doxycycline Hyclate [Vibramycin 100 mg Tablet] 100 mg PO Q12@0800,2200 #14 tablet 07/14/17 Magnesium Oxide [Mag-Ox 400 mg Tablet] 400 mg PO BID tablet 07/14/17 Mupirocin Calcium [Bactroban 2% Cream 15 gm] 1 applic TP TID tube 07/14/17 Pantot AC/Min Oil/Pet Hy-Phl [Aquaphor W-Ashlie Heal Oint 50 gm] 1 applic TOP BID tube 07/14/17 Tamsulosin HCl [Flomax 0.4 mg Cap.sr] 0.4 mg PO PCSUPPER cap.sr.24h 07/14/17 History of Present Illness History of Present Illness: MALIK DUGGAN JR is a 62 year old male was transferred from local detention since had been having fever for one day. Staff at detention reported to his family that he had developed a red rash on his face. He had similar problem around a year ago but was localized to the left side of his face. Patient also hurt his left leg when he was trying to get up from his wheelchair. He had been getting treatment of his wounds at the detention. Patient is currently living at a detention since family could not take care of him. Patient had become heavier and family was not able to lift him up in case of him falling when having a seizure. ED physician reported that patient is on bumex and the dose had been increased recently. Family stated that patient takes that medication for the treatment of leg swelling. On arrival to ED he was hypotensive and required 2 liters of normal saline. Blood work was also concerning because of hypokalemia and hypomagnesemia. Patient was admitted under the hospitalist service. Hospital Course Hospital Course: Patient was placed on IV fluids with further improvement of hypotension and kidney functions. In my opinion hypotensive episode related to sepsis and also due to aggressive diuretic therapy. Likely this patient suffers from right- sided failure and is fluid sensitive. Recommend primary care provider to evaluate patient for sleep apnea. All electrolyte abnormalities were replaced by the time of discharge. As far as the infectious process it was deemed to be due to erysipelas and cellulitic process in the left lower extremity. He was placed on Unasyn and doxycycline. But on discharge was to continue doxycycline 100 mg 1 p.o. twice daily for seven days. The latter will cover both for MRSA and streptococci. We also added Bactroban after noticing that patient may be contaminating face with nasal secretions. We noted a bruise localized to the right hip and x-ray of the right hip was negative. We recommend to encourage patient to be mobile and if possible include physical therapy. We added Flomax. We opted to discontinue Cardura. We discontinued metolazone and adjusted Bumex to 1 mg twice a day. Since patient had achieved maximum benefit of hospitalization stay prompted to discharge under stable condition Physical Exam Vital Signs: Temp Pulse Resp BP Pulse Ox 97.7 F 64 20 113/54 L 100 07/14/17 07:13 07/14/17 07:13 07/14/17 07:13 07/14/17 07:13 07/14/17 07:13 Intake & Output 07/13/17 07/14/17 07/15/17 06:59 06:59 06:59 Intake Total 1515 2037 Output Total 950 1000 Balance 565 1037 Weight 126.6 kg 128.5 kg General appearance: PRESENT: no acute distress, cooperative, obese Head exam: PRESENT: atraumatic, normocephalic Eye exam: PRESENT: EOMI, PERRLA Ear exam: PRESENT: normal external ear exam Mouth exam: PRESENT: moist, neck supple Teeth exam: PRESENT: poor dentation Neck exam: PRESENT: full ROM. ABSENT: JVD, tenderness, thyromegaly Respiratory exam: PRESENT: clear to auscultation ortega Cardiovascular exam: PRESENT: RRR. ABSENT: diastolic murmur, systolic murmur Vascular exam: PRESENT: normal capillary refill GI/Abdominal exam: PRESENT: normal bowel sounds, soft. ABSENT: tenderness Extremities exam: PRESENT: +2 edema Musculoskeletal exam: PRESENT: full ROM Neurological exam: PRESENT: alert Skin exam: PRESENT: other - Facial erythremia improved Ulcers of left lower extremity covered with clean dressings Results Laboratory Results: 07/13/17 04:23 07/14/17 04:31 07/14/17 04:31 Sodium 145.3 H Potassium 4.0 Chloride 109 H Carbon Dioxide 28 Anion Gap 8 BUN 14 Creatinine 1.02 Est GFR ( Amer) > 60 Est GFR (Non-Af Amer) > 60 Glucose 92 Calcium 8.4 Impressions: Chest X-Ray 07/10/17 12:55 IMPRESSION: NO ACUTE RADIOGRAPHIC FINDING IN THE CHEST. Hip/Pelvis X-Ray 07/12/17 00:00 IMPRESSION: NEGATIVE STUDY OF THE RIGHT HIP. NO RADIOGRAPHIC EVIDENCE OF ACUTE INJURY.
[2017-07-14] MEDS ORDERED: FUROSEMIDE INJ/PF 20 MG/2 ML SDV IV ONE (14:47)
--- NOTE | 2017-07-14 14:52 | Progress Note ---
Provider Note Provider Note: .Holding of discharge since mother was concerned that he was still not looking right according to her. Interestingly his sister stated that he was doing better. At present time the major concern is the lack of provider assisted facility. Will observe for the next 24 hours and made aware that if patient continues doing well he will be transferred to assisted
[2017-07-14] MEDS ORDERED: CLONAZEPAM 1 MG TABLET PO ONE (15:30)
[2017-07-14] MEDS ORDERED: TAMSULOSIN HCL 0.4 MG CAP.SR.24H PO SCH (18:00)
[2017-07-15] MEDS: AMPICILLIN SODIUM/SULBACTAM NA 3 GM in NORMAL SALINE 100 ML IV SCH ×3 (01:10→12:22)
[2017-07-15] MEDS: LATANOPROST 0.005% OPH SOLN 2.5 ML OS SCH (04:20)
[2017-07-15] MEDS: LEVOTHYROXINE SODIUM 0.1 MG TABLET PO SCH (06:15)
[2017-07-15] MEDS: CLONAZEPAM 1 MG TABLET PO SCH (06:16)
[2017-07-15] MEDS: HEPARIN SOD (PORCINE) 5,000 UNIT/ML 1 ML SYRINGE SUBCUT SCH (07:53)
[2017-07-15 08:04] VITALS: BP 110/55
[2017-07-15] MEDS: DOCUSATE SODIUM 100 MG CAPSULE PO SCH (09:17)
[2017-07-15] MEDS: LACOSAMIDE 100 MG TABLET PO SCH (09:18)
[2017-07-15] MEDS: MAGNESIUM OXIDE 400 MG TABLET PO SCH (09:19)
[2017-07-15] MEDS: DOXYCYCLINE HYCLATE 100 MG TABLET PO SCH (09:19)
[2017-07-15] MEDS: FINASTERIDE 5 MG TABLET PO SCH (09:19)
[2017-07-15] MEDS: PANTOT AC/MIN OIL/PET HY-PHL OINT 50 GM TOP SCH (09:19)
[2017-07-15] MEDS: LEVETIRACETAM 500 MG TABLET PO SCH (09:19)
[2017-07-15] MEDS: LEVOBUNOLOL HCL 0.5% OS SCH (09:19)
[2017-07-15] MEDS: MUPIROCIN CALCIUM 2% CREAM 15 GM TP SCH (09:20)
--- NOTE | 2017-07-15 10:49 | PDOC PROGRESS REPORT ---
Subjective Progress Note for:: 07/15/17 Subjective:: The patient is a 62-year-old male who [facility] resides in a [facility]. He has been admitted for hypotension which is in part due to sepsis and in part due to hypovolemia from excess diuretic use. He also presented with hypokalemia and hypomagnesemia likely secondary to use of diuretics. The patient's source of infection was erysipelas and cellulitis. He has been treated for these conditions. He is now stable and ready for discharge back to long term facility. He was being prepared for discharge yesterday but, his mother did not want him to be discharged yesterday. We plan to discharge the patient later today. Physical Exam Vital Signs: Temp Pulse Resp BP Pulse Ox 97.4 F 59 L 18 110/55 L 100 07/15/17 07:39 07/15/17 07:39 07/15/17 07:39 07/15/17 07:39 07/15/17 07:39 Intake & Output 07/14/17 07/15/17 07/16/17 06:59 06:59 06:59 Intake Total 2037 1466 Output Total 1000 725 Balance 1037 741 Weight 128.5 kg 128.5 kg Additional comments: The patient is an obese white male. He is extremely pleasant and interacts appropriately. His facial appearance does show erythema on his cheeks but no acute areas that are purulent. His lungs are clear to auscultation bilaterally. His cardiac exam is regular. I do not appreciate any murmurs, gallops or rubs. The abdomen is soft and flat. Bowel sounds are present. There is no guarding or rebound present and there are no hernias or masses present. The lower extremities are warm to touch. The patient does have some chronic skin changes in the lower extremities. He has darkened pigmentation. He does have Tegaderms on his shins bilaterally. Results Laboratory Results: 07/13/17 04:23 07/14/17 04:31 Impressions: Chest X-Ray 07/10/17 12:55 IMPRESSION: NO ACUTE RADIOGRAPHIC FINDING IN THE CHEST. Hip/Pelvis X-Ray 07/12/17 00:00 IMPRESSION: NEGATIVE STUDY OF THE RIGHT HIP. NO RADIOGRAPHIC EVIDENCE OF ACUTE INJURY. Assessment & Plan - Diagnosis (1) Acute hypernatremia Is this a current diagnosis for this admission?: Yes (2) Anemia Qualifiers: Iron deficiency anemia type: unspecified iron deficiency Is this a current diagnosis for this admission?: Yes (3) Erysipelas Is this a current diagnosis for this admission?: Yes (4) Hip hematoma, right Qualifiers: Encounter type: initial encounter Qualified Code(s): S70.01XA - Contusion of right hip, initial encounter Is this a current diagnosis for this admission?: Yes (5) Hypokalemia Is this a current diagnosis for this admission?: Yes (6) Hypomagnesemia Is this a current diagnosis for this admission?: Yes (7) Open wound Is this a current diagnosis for this admission?: Yes (8) Physical deconditioning Is this a current diagnosis for this admission?: Yes (9) Sepsis with hypotension Is this a current diagnosis for this admission?: Yes (10) Acute renal failure Is this a current diagnosis for this admission?: Yes (11) Cellulitis Qualifiers: Site of cellulitis: extremity Site of cellulitis of extremity: lower extremity Laterality: unspecified laterality Qualified Code(s): L03.119 - Cellulitis of unspecified part of limb (12) Hypothyroidism Qualifiers: Hypothyroidism type: acquired Qualified Code(s): E03.9 - Hypothyroidism, unspecified Is this a current diagnosis for this admission?: Yes (13) Seizure Is this a current diagnosis for this admission?: Yes - Time Time Spent with patient: 15-24 minutes - Plan Summary Plan Summary: The patient has received maximal benefit from his current hospitalization. Arrangements are being made for discharge today back to long term facility.
== END 2017-07-15 13:48 | DRG 871 ==
LOC: ER 12:09 → EH 14:46 → INTOOBSV 14:46 → OBSVTOIN 14:46 → INTOOBSV 15:38 → 3W 19:29
PROVIDERS: ADMIT Pediatrics; ATTEND Pediatrics
DX: A41.9 Sepsis, unspecified organism (principal); N17.0 Acute kidney failure with tubular necrosis; L03.116 Cellulitis of left lower limb; E87.0 Hyperosmolality and hypernatremia; N30.00 Acute cystitis without hematuria; T14.8XXA Other injury of unspecified body region, initial encounter; X58.XXXA Exposure to other specified factors, initial encounter; Z66 Do not resuscitate; E83.42 Hypomagnesemia; E87.6 Hypokalemia; A46 Erysipelas; E03.9 Hypothyroidism, unspecified; D64.9 Anemia, unspecified; I50.9 Heart failure, unspecified; I11.0 Hypertensive heart disease with heart failure; G40.909 Epilepsy, unspecified, not intractable, without status epilepticus; N40.0 Benign prostatic hyperplasia without lower urinary tract symptoms; S70.01XA Contusion of right hip, initial encounter; D50.9 Iron deficiency anemia, unspecified; Z79.899 Other long term (current) drug therapy; Z86.14 Personal history of Methicillin resistant Staphylococcus aureus infection
CPT/HCPCS: 36415; 71020; 80048; 80053; 81001; 82803; 82962; 83605; 83735; 85025; 85027; 85610; 87040; 87086; 87804; 93005; 93010; 96374; 99291; G8978-GP; G8979-GP; J0295; J0696; J1644; J1940; J2543; J3475; J3480; J3490

== ENCOUNTER 2017-07-17 16:01 | Emergency (ER) | payer MEDICARE, MEDICAID ==
--- NOTE | 2017-07-17 17:54 | RADIOLOGY REPORT (SQ) ---
EXAM DESCRIPTION: CHEST PA/LAT COMPLETED DATE/TIME: 07/17/2017 5:44 pm REASON FOR STUDY: Chest congestion COMPARISON: 07/10/2017 EXAM PARAMETERS: NUMBER OF VIEWS: two views TECHNIQUE: Digital Frontal and Lateral radiographic views of the chest acquired. RADIATION DOSE: NA LIMITATIONS: none FINDINGS: LUNGS AND PLEURA: No opacities, masses or pneumothorax. No pleural effusion. MEDIASTINUM AND HILAR STRUCTURES: No masses or contour abnormalities. HEART AND VASCULAR STRUCTURES: Heart normal size. No evidence for failure. BONES: No acute findings. HARDWARE: None in the chest. OTHER: No other significant finding. IMPRESSION: NO SIGNIFICANT RADIOGRAPHIC FINDING IN THE CHEST. TECHNICAL DOCUMENTATION: JOB ID: [id number] [employer]- All Rights Reserved
[2017-07-17 18:11] LABS: ABSOLUTE EOSINOPHILS # (AUTO) 0.1 10^3/uL (0.0-0.6); ABSOLUTE MONOCYTES (AUTO) 0.4 10^3/uL (0.1-1.4); ABSOLUTE NEUT (AUTO) 3.8 10^3/uL (1.7-8.2); BASOPHILS % (AUTO) 0.6 % (0-2); EOSINOPHILS % (AUTO) 2.1 % (0-6); HEMATOCRIT 28.9 % (37.9-51.0); HEMOGLOBIN 9.7 g/dL (13.5-17.0); HGB HCT DIFFERENCE 0.2; LYMPHOCYTES % (AUTO) 18.7 % (13-45); MEAN CORPUSCULAR HEMOGLOBIN 28.9 pg (27.0-33.4); MEAN CORPUSCULAR HGB CONC 33.7 g/dL (32.0-36.0); MEAN CORPUSCULAR VOLUME 86 fl (80-97); MONOCYTES % (AUTO) 7.2 % (3-13); RED BLOOD COUNT 3.38 10^6/uL (4.35-5.55); RED CELL DISTRIBUTION WIDTH 16.2 % (11.5-14.0); SEGMENTED NEUTROPHILS % (AUTO) 71.4 % (42-78); WHITE BLOOD COUNT 5.3 10^3/uL (4.0-10.5)
[2017-07-17 18:20] VITALS: BP 100/58
[2017-07-17 18:35] LABS: ALANINE AMINOTRANSFERASE 29 U/L (21-72); ALBUMIN 2.9 g/dL (3.5-5.0); ALKALINE PHOSPHATASE 74 U/L (38-126); ANION GAP 7 (5-19); ASPARTATE AMINO TRANSFERASE 41 U/L (17-59); BILIRUBIN,DIRECT 0.3 mg/dL (0.0-0.4); BILIRUBIN,TOTAL 0.4 mg/dL (0.2-1.3); BLOOD UREA NITROGEN 14 mg/dL (7-20); CALCIUM 8.2 mg/dL (8.4-10.2); CARBON DIOXIDE 26 mmol/L (22-30); CHLORIDE 108 mmol/L (98-107); CREATININE RESULT 1.42 mg/dL (0.52-1.25); GLUCOSE 114 mg/dL (75-110); POTASSIUM 4.5 mmol/L (3.6-5.0); SODIUM 141.3 mmol/L (137-145); TOTAL PROTEIN 7.2 g/dL (6.3-8.2)
[2017-07-17] MEDS ORDERED: CLONAZEPAM 1 MG TABLET PO ONE (19:14)
[2017-07-17] MEDS ORDERED: LEVETIRACETAM 500 MG TABLET PO ONE (19:14)
--- NOTE | 2017-07-17 19:14 | ER Document Report ---
ED Seizure - General Chief Complaint: Probable Seizure Stated Complaint: POSSIBLE SEIZURE Time Seen by Provider: 07/17/17 17:04 Notes: Patient was brought from a local detention, [place], to be evaluated for having had 2 seizures today. He has a history of a seizure disorder since he was 8 years of age. He is currently on Keppra and Klonopin. He was recently in the hospital here for UTI just last week and he came back to the detention on Monday, 3 days ago. His last seizures were June 16 and another date in June and then to today. He has not had any fever or chills. No vomiting. No difficulty breathing. Patient has an extensive medical history which can be reviewed from his record of his recent admission and discharge. Patient is a DNR status. He is here with his mother and a friend. The mother says that the patient was in his room at the rehab facility and a new doctor came in listening to his chest and said he had "refractions" and sent him here to be checked. He does not appear to be having any difficulty breathing or short of breath at all. In fact, patient is quietly resting or sleeping with his eyes closed during most of his stay here in the emergency department. - Related Data Allergies/Adverse Reactions: No Known Allergies Allergy (Verified 07/10/17 12:32) Past Medical History - Social History Smoking Status: Unknown if Ever Smoked Cigarette use (# per day): No Chew tobacco use (# tins/day): No Frequency of alcohol use: None Drug Abuse: None Family History: Reviewed & Not Pertinent - Past Medical History Cardiac Medical History: Reports: Hx Congestive Heart Failure, Hx Hypertension Neurological Medical History: Reports: Hx Seizures - ataxia, epilepsy Endocrine Medical History: Reports: Hx Hypothyroidism Renal/ Medical History: Reports: Hx Benign Prostatic Hyperplasia Traumatic Medical History: Reports: Hx Spine Fracture Infectious Medical History: Reports: Hx MRSA Surgical Hx: Negative - Immunizations Hx Diphtheria, Pertussis, Tetanus Vaccination: Yes Hx Pneumococcal Vaccination: 08/20/12 Review of Systems - Review of Systems -: Yes ROS unobtainable due to patient's medical condition - Patient is unable to give any reliable answers to the review of systems. M Constitutional: denies: Fever Respiratory: denies: Short of breath Gastrointestinal: denies: Abdominal pain, Diarrhea, Vomiting Skin: denies: Rash Physical Exam - Vital signs Vitals: Resp 22 H 11/13/17 17:06 Interpretation: Normal - Notes Notes: PHYSICAL EXAMINATION: GENERAL: Well-appearing, in no acute distress. Sleeping most of the time. Vital signs are all essentially normal. HEAD: Atraumatic, normocephalic. NECK: Normal range of motion, supple. LUNGS: Breath sounds clear and equal bilaterally. HEART: Regular rate and rhythm without murmurs. ABDOMEN: Soft, nontender. No guarding or rebound. BACK: No tenderness throughout entire back. EXTREMITIES: Normal range of motion without pain. SKIN: Warm, dry, no rashes. Course - Vital Signs Vital signs: Temp Pulse Resp BP Pulse Ox 18 100/58 L 98 07/17/17 18:00 07/17/17 17:13 07/17/17 18:00 - Laboratory Result Diagrams: 07/17/17 17:55 07/17/17 17:55 Laboratory results interpreted by me: 07/17/17 07/17/17 17:55 17:55 RBC 3.38 L Hgb 9.7 L Hct 28.9 L RDW 16.2 H Plt Count 138 L Chloride 108 H Creatinine 1.42 H Est GFR (Non-Af Amer) 51 L Glucose 114 H Calcium 8.2 L Albumin 2.9 L - Diagnostic Test Radiology results interpreted by me: 07/17/17 20:10 Chest x-ray is essentially normal. Discharge - Discharge Clinical Impression: Seizures Condition: Stable Disposition: HOME, SELF-CARE Additional Instructions: Seizure, Known Epileptic You have had two seizures. Seizures may "break through" in an epileptic due to stress of infection or injury, a change in blood chemistry, or drug and alcohol use. Another common cause is failure to take medication as prescribed. Your doctor has evaluated your situation for the likely cause of this seizure. It is important that you follow his advice concerning any medication changes and follow-up care. Further testing of anti-seizure medication levels in your blood may be necessary. If you have a [place] driver's license, it's important that you DO NOT DRIVE until given permission by your physician. This seizure must be reported to the [place] driver 's license bureau. Call the doctor or return if seizures recur, or if new or unusual symptoms arise -- such as severe headache, confusion, excessive sleepiness, local weakness or numbness, neck stiffness, or fever. NORMAL EXAM AND WORKUP: At this time, your examination and workup show no significant abnormality. No significant abnormal physical findings were noted. All laboratory, EKG, and imaging (x-ray, CT scans, ultrasound) studies that were ordered show no significant abnormality. Although your examination and all studies that were ordered showed no significant abnormal finding, there are no examinations and no studies that are 100% accurate. There is always the possibility that some abnormality could exist and not be detected with physical examination or within the limits and capabilities of laboratory and other studies. You should return or follow up as you were instructed on your visit today for further evaluation if your symptoms do not resolve. FOLLOW-UP CARE: If you have been referred to a physician for follow-up care, call the physician s office for an appointment as you were instructed or within the next two days. If you experience worsening or a significant change in your symptoms, notify the physician immediately or return to the Emergency Department at any time for re-evaluation.
== END 2017-07-17 20:40 | disposition home or self-care (01) ==
LOC: ER 16:01
DX: G40.909 Epilepsy, unspecified, not intractable, without status epilepticus (principal); Z79.899 Other long term (current) drug therapy; I10 Essential (primary) hypertension; Z87.440 Personal history of urinary (tract) infections; Z66 Do not resuscitate; Z86.14 Personal history of Methicillin resistant Staphylococcus aureus infection
CPT/HCPCS: 99284; 36415; 85025; 80053; 71020; A9270 ×2

== ENCOUNTER 2017-09-02 11:16 | Inpatient (IN) | payer MEDICARE, MEDICAID ==
--- NOTE | 2017-09-02 11:59 | ER Document Report ---
ED Seizure - General Chief Complaint: Probable Seizure Stated Complaint: POSSIBLE SEIZURES Time Seen by Provider: 09/02/17 11:33 Mode of Arrival: Medic Information source: Relative, Emergency Med Personnel Cannot obtain history due to: Mentally challenged Notes: Patient reportedly had 3 seizures this morning at the care facility intervening intervals of 100 minutes and 20 minutes. He has known history of seizure disorder, and nursing staff state that he has received all prescribed medications on schedule, no vomiting. - HPI Patient complains to provider of: History of seizures Number of episodes: 3 Time of onset: 0830 Duration: 1 MIN (LESLEY Quality of pain: No pain Continued on arrival to ED: No Can details of seizure be obtained/verified: Yes Episode witnessed (by whom): Yes - NURSING FACILITY STAFF Current seizure medications: Keppra, Vimpat, Other - CLONAZEPAM Preceding symptoms/context: Recent illness/fever - UTI, NOW FINISHED ANTIBx History of: denies: Brain tumor or mets, CVA, Hydrocephalus, TBI, V/P shunt Character of seizure: Generalized shaking, Staring Post-ictal symptoms: Confusion, Speech difficulty Injuries: None Associated Symptoms: denies: Blow to head - Related Data Allergies/Adverse Reactions: No Known Allergies Allergy (Verified 07/10/17 12:32) Past Medical History - General Information source: Relative, Transfer Record - Social History Smoking Status: Unknown if Ever Smoked Chew tobacco use (# tins/day): No Frequency of alcohol use: None Drug Abuse: None Lives with: Custodial - [facility] Family History: Reviewed & Not Pertinent Patient has suicidal ideation: No Patient has homicidal ideation: No - Past Medical History Cardiac Medical History: Reports: Hx Congestive Heart Failure, Hx Hypertension Pulmonary Medical History: Reports: None Denies: Hx Tuberculosis Neurological Medical History: Reports: Hx Seizures - ataxia, epilepsy Endocrine Medical History: Reports: Hx Hypothyroidism Renal/ Medical History: Reports: Hx Benign Prostatic Hyperplasia. Denies: Hx Peritoneal Dialysis Malignancy Medical History: Reports None GI Medical History: Reports: None Musculoskeltal Medical History: Reports None Skin Medical History: Reports Hx MRSA, Reports Other - VENOUS STASIS ULCERS, BOTH LEGS Psychiatric Medical History: Reports: None Traumatic Medical History: Reports: Hx Spine Fracture Infectious Medical History: Reports: Hx MRSA Surgical Hx: Negative - Immunizations Hx Diphtheria, Pertussis, Tetanus Vaccination: Yes Hx Pneumococcal Vaccination: 08/20/12 Review of Systems - Review of Systems Constitutional: denies: Chills, Fever EENT: No symptoms reported Cardiovascular: No symptoms reported Respiratory: No symptoms reported Gastrointestinal: No symptoms reported Musculoskeletal: No symptoms reported Skin: See HPI Neurological/Psychological: See HPI Physical Exam - Vital signs Vitals: Temp Pulse Resp BP Pulse Ox 97.6 F 88 21 H 128/52 H 95 09/02/17 11:20 09/02/17 11:20 09/02/17 11:20 09/02/17 11:20 09/02/17 11:20 Interpretation: Normal. No: Tachycardic, Tachypneic, Febrile - General General appearance: Alert In distress: None - HEENT Head: Normocephalic Eyes: Normal Ears: Normal Nasal: Normal Mucous membranes: Dry - SLIGHTLY Pharynx: Normal Neck: Normal - Respiratory Respiratory status: No respiratory distress Breath sounds: Normal - Cardiovascular Rhythm: Regular Heart sounds: Normal auscultation Murmur: No - Abdominal Inspection: Normal Distension: No distension Bowel sounds: Normal - Extremities General upper extremity: Normal inspection General lower extremity: Edema - 2+, BILAT., Other - SMALL VENOUS STASIS ULCERS BILAT, NO CELLULITIS, MINIMAL DRAINAGE. No: Normal inspection, Tender - Neurological Neuro grossly intact: No - MILDLY LETHARGIC, O/W NEAR BASELINE, PER FAMILY - Skin Skin Temperature: Warm Skin Moisture: Dry Skin Color: Normal Skin Turgor: Elastic Skin irregularity: other - LEGS (SEE ABOVE) Course - Vital Signs Vital signs: Temp Pulse Resp BP Pulse Ox 97.6 F 88 21 H 128/52 H 95 09/02/17 11:20 09/02/17 11:20 09/02/17 11:20 09/02/17 11:20 09/02/17 11:20 - Laboratory Result Diagrams: 09/02/17 11:27 09/02/17 11:27 Laboratory results interpreted by me: 09/02/17 09/02/17 11:27 11:27 RBC 3.94 L Hgb 11.2 L Hct 33.6 L RDW 17.5 H Plt Count 135 L Seg Neutrophils % 83.2 H Lymphocytes % 10.3 L Potassium 6.3 H* Chloride 108 H Est GFR (Non-Af Amer) 59 L Total Protein 8.6 H - Consults DR. PARCHMENT Consulted provider: will come to ER Discharge - Discharge Clinical Impression: Hyperkalemia, Seizures Condition: Good Disposition: ADMITTED OBSERVATION Admitting Provider: Hospitalist Unit Admitted: Telemetry
[2017-09-02 12:15] LABS: ABSOLUTE EOSINOPHILS # (AUTO) 0.1 10^3/uL (0.0-0.6); ABSOLUTE LYMPHOCYTES (AUTO) 0.8 10^3/uL (0.5-4.7); ABSOLUTE MONOCYTES (AUTO) 0.4 10^3/uL (0.1-1.4); ABSOLUTE NEUT (AUTO) 6.4 10^3/uL (1.7-8.2); BASOPHILS % (AUTO) 0.4 % (0-2); HEMATOCRIT 33.6 % (37.9-51.0); HEMOGLOBIN 11.2 g/dL (13.5-17.0); LYMPHOCYTES % (AUTO) 10.3 % (13-45); MEAN CORPUSCULAR HEMOGLOBIN 28.4 pg (27.0-33.4); MEAN CORPUSCULAR HGB CONC 33.4 g/dL (32.0-36.0); MEAN CORPUSCULAR VOLUME 85 fl (80-97); MONOCYTES % (AUTO) 5.1 % (3-13); PLATELET COUNT 135 10^3/uL (150-450); RED BLOOD COUNT 3.94 10^6/uL (4.35-5.55); RED CELL DISTRIBUTION WIDTH 17.5 % (11.5-14.0); SEGMENTED NEUTROPHILS % (AUTO) 83.2 % (42-78); TOTAL CELLS COUNTED % (AUTO) 100 %; WHITE BLOOD COUNT 7.6 10^3/uL (4.0-10.5)
[2017-09-02 12:31] LABS: CALCIUM 9.4 mg/dL (8.4-10.2); GLUCOSE 97 mg/dL (75-110)
[2017-09-02 12:32] LABS: ALANINE AMINOTRANSFERASE 36 U/L (21-72); ALBUMIN 3.6 g/dL (3.5-5.0); ALKALINE PHOSPHATASE 104 U/L (38-126); ANION GAP 8 (5-19); ASPARTATE AMINO TRANSFERASE 44 U/L (17-59); BILIRUBIN,DIRECT 0.4 mg/dL (0.0-0.4); BILIRUBIN,TOTAL 0.5 mg/dL (0.2-1.3); BLOOD UREA NITROGEN 20 mg/dL (7-20); CARBON DIOXIDE 24 mmol/L (22-30); CHLORIDE 108 mmol/L (98-107); SODIUM 140.2 mmol/L (137-145); TOTAL PROTEIN 8.6 g/dL (6.3-8.2)
[2017-09-02 12:34] LABS: MAGNESIUM 2.1 mg/dL (1.6-2.3)
[2017-09-02 12:35] LABS: POTASSIUM 6.3 mmol/L (3.6-5.0)
[2017-09-02] MEDS ORDERED: CALCIUM GLUCONATE 1,000 MG in DEXTROSE 5%-WATER 50 ML IV ONE (12:39)
[2017-09-02] MEDS ORDERED: ALBUTEROL SULFATE 0.083% NEB 2.5 MG/3 ML AMPUL NEB ONE (12:39)
[2017-09-02] MEDS ORDERED: CALCIUM GLUCONATE 1000 MG/10 ML INJ IV ONE (13:00)
[2017-09-02] MEDS ORDERED: ACETAMINOPHEN 325 MG TABLET PO PRN (13:11)
[2017-09-02] MEDS ORDERED: LORAZEPAM INJ 2 MG/1 ML VIAL IV PRN (13:18)
[2017-09-02 13:19] LABS: AMORPHOUS SEDIMENT,URINE TRACE /HPF; APPEARANCE,URINE SLIGHTLY-CLOUDY; BILIRUBIN,URINE NEGATIVE (NEGATIVE); COLOR,URINE STRAW; GLUCOSE, URINE NEGATIVE (NEGATIVE); KETONES,URINE NEGATIVE (NEGATIVE); LEUKOCYTE ESTERASE,URINE LARGE (NEGATIVE); NITRITE,URINE NEGATIVE (NEGATIVE); PROTEIN,URINE NEGATIVE (NEGATIVE); URINE SPECIFIC GRAVITY 1.005; UROBILINOGEN,URINE NEGATIVE mg/dL (<2.0)
[2017-09-02] MEDS ORDERED: FUROSEMIDE INJ/PF 20 MG/2 ML SDV IV SCH (13:30)
[2017-09-02] MEDS ORDERED: CLONAZEPAM 1 MG TABLET PO SCH (13:45)
[2017-09-02] MEDS ORDERED: DEXTROSE 40% GEL 15 GM TUBE PO PRN ×2 (14:12)
[2017-09-02] MEDS ORDERED: DEXTROSE 50%-WATER 25 GM/50 ML DISP.SYRIN IV PRN ×2 (14:12)
[2017-09-02] MEDS ORDERED: GLUCAGON,HUMAN RECOMB 1 MG INJ SUBCUT PRN (14:12)
[2017-09-02] MEDS: FUROSEMIDE INJ/PF 20 MG/2 ML SDV IV SCH ×2 (14:32→23:51)
--- NOTE | 2017-09-02 14:42 | RADIOLOGY REPORT (SQ) ---
EXAM DESCRIPTION: CHEST SINGLE VIEW COMPLETED DATE/TIME: 09/02/2017 1:29 pm REASON FOR STUDY: SEIZURE COMPARISON: 07/17/2017 NUMBER OF VIEWS: One view. TECHNIQUE: Single frontal radiographic view of the chest acquired. LIMITATIONS: None. FINDINGS: LUNGS AND PLEURA: No opacities, masses or pneumothorax. No pleural effusion. MEDIASTINUM AND HILAR STRUCTURES: No masses. Contour normal. HEART AND VASCULAR STRUCTURES: Heart enlarged without failure. Normal vasculature. BONES: No acute findings. HARDWARE: None in the chest. OTHER: No other significant finding. IMPRESSION: HEART ENLARGED WITHOUT FAILURE. NO OTHER SIGNIFICANT RADIOGRAPHIC FINDING IN THE CHEST. TECHNICAL DOCUMENTATION: JOB ID: [id number] [employer]- All Rights Reserved
--- NOTE | 2017-09-02 14:44 | PDOC H&P ---
History of Present Illness Admission Date/PCP: 09/02/17 13:11 Patient complains of: Seizures History of Present Illness: MALIK DUGGAN JR is a 62 year old male who resides at [place]. Patient has a history of CHF, seizures, developmental delay, dysphagia and neurogenic bladder. Patient was sent here from [place] after he has had 3 witnessed seizures. The patient is not able to give any history therefore history is taken from patient's sister who is at bedside. Patient does have seizures from time to time but they normally last minute. This time he had 3 seizures back-to -back lasting more than 9 minutes. Patient was awake when he presented to the ED and interactive however now he is resting peacefully. Per the sister patient just completed 7 day treatment for UTI. Otherwise patient has been doing well. In the ED patient was noted to have hyperkalemia. Also his UA demonstrated leukocyte esterase and WBCs. Hospitalist was called to observe patient following his seizure activity and to correct his hyperkalemia. Past Medical History Cardiac Medical History: Reports: Congestive Heart Failure, Hypertension Pulmonary Medical History: Reports: None Denies: Tuberculosis Neurological Medical History: Reports: Seizures - ataxia, epilepsy Endocrine Medical History: Reports: Hypothyroidism Malignancy Medical History: Reports: None GI Medical History: Reports: None Musculoskeltal Medical History: Reports: None Skin Medical History: Reports: Other - VENOUS STASIS ULCERS, BOTH LEGS Psychiatric Medical History: Reports: None Infectious Medical History: Reports: Methicillin-Resistant Staph Aureus Social History Information Source: Relative Lives with: [facility] Smoking Status: Unknown if Ever Smoked Frequency of Alcohol Use: None Hx Recreational Drug Use: No Drugs: None Hx Prescription Drug Abuse: No - Advance Directive Resuscitation Status: Do Not Resuscitate Family History Family History: CAD, Other - Seizure Parental Family History Reviewed: No Children Family History Reviewed: No Sibling(s) Family History Reviewed.: No Medication/Allergy Allergies/Adverse Reactions: No Known Allergies Allergy (Verified 07/10/17 12:32) Review of Systems ROS unobtainable: Due to mental status Physical Exam Vital Signs: Temp Pulse Resp BP Pulse Ox 97.6 F 88 21 H 128/52 H 95 09/02/17 11:20 09/02/17 11:20 09/02/17 11:20 09/02/17 11:20 09/02/17 11:20 General appearance: PRESENT: no acute distress, obese, well-developed, well- nourished Head exam: PRESENT: normocephalic Eye exam: PRESENT: other - Pinpoint pupils. ABSENT: scleral icterus Mouth exam: PRESENT: moist Neck exam: ABSENT: carotid bruit, JVD, lymphadenopathy, thyromegaly Respiratory exam: PRESENT: clear to auscultation ortega. ABSENT: rales, rhonchi, wheezes Cardiovascular exam: PRESENT: RRR. ABSENT: diastolic murmur, rubs, systolic murmur Pulses: PRESENT: normal dorsalis pedis pul Vascular exam: PRESENT: normal capillary refill GI/Abdominal exam: PRESENT: normal bowel sounds, soft. ABSENT: distended, guarding, mass, organolmegaly, rebound, tenderness Rectal exam: PRESENT: deferred Extremities exam: PRESENT: full ROM, +1 edema. ABSENT: calf tenderness, clubbing, pedal edema Neurological exam: PRESENT: other - Sleeping. ABSENT: motor sensory deficit Psychiatric exam: ABSENT: homicidal ideation, suicidal ideation Skin exam: PRESENT: dry, intact, warm, other - Patient with a lesion on both anterior ramirez with mild erythema. ABSENT: cyanosis, rash Results Laboratory Results: 09/02/17 09/02/17 09/02/17 11:27 11:27 12:32 WBC 7.6 RBC 3.94 L Hgb 11.2 L Hct 33.6 L MCV 85 MCH 28.4 MCHC 33.4 RDW 17.5 H Plt Count 135 L Seg Neutrophils % 83.2 H Lymphocytes % 10.3 L Monocytes % 5.1 Eosinophils % 1.0 Basophils % 0.4 Absolute Neutrophils 6.4 Absolute Lymphocytes 0.8 Absolute Monocytes 0.4 Absolute Eosinophils 0.1 Absolute Basophils 0.0 Sodium 140.2 Potassium 6.3 H* Chloride 108 H Carbon Dioxide 24 Anion Gap 8 BUN 20 Creatinine 1.25 Est GFR ( Amer) > 60 Est GFR (Non-Af Amer) 59 L Glucose 97 Calcium 9.4 Magnesium 2.1 Total Bilirubin 0.5 Direct Bilirubin 0.4 AST 44 ALT 36 Alkaline Phosphatase 104 Total Protein 8.6 H Albumin 3.6 Urine Color STRAW Urine Appearance SLIGHTLY-CLOUDY Urine pH 8.0 Ur Specific Benedict 1.005 Urine Protein NEGATIVE Urine Glucose (UA) NEGATIVE Urine Ketones NEGATIVE Urine Blood SMALL H Urine Nitrite NEGATIVE Urine Bilirubin NEGATIVE Urine Urobilinogen NEGATIVE Ur Leukocyte Esterase LARGE H Urine WBC (Auto) 148 Urine RBC (Auto) 25 Urine Bacteria (Auto) 1+ Squamous Epi Cells Auto 1 Amorphous Sediment Auto TRACE Urine Mucus (Auto) RARE Urine Ascorbic Acid NEGATIVE Status: Imported from PACS Assessment & Plan - Diagnosis (1) Breakthrough seizure Is this a current diagnosis for this admission?: Yes Plan: Breakthrough seizures most likely secondary to underlying UTI. Patient is now post ictal patient recently treated for UTI however has leukocyte esterase and large WBCs in the urine. Patient started on ceftriaxone based on previous urine cultures which grew providencia stuartii and morganella morganii. Will continue Keppra 1000 mg twice daily IV. Will continue Vimpat 100 mg IV twice daily. PRN ativan for seizure activity. Patient on seizure precautions. Will order neuro checks. Patient currently n.p.o. until he is more awake and alert. (2) Urinary tract infection Qualifiers: Urinary tract infection type: acute cystitis Hematuria presence: without hematuria Qualified Code(s): N30.00 - Acute cystitis without hematuria Is this a current diagnosis for this admission?: Yes Plan: With what appears to be a UTI. Urine culture is pending. UA did have leukocytes esterase and WBCs. There was some blood in the urine however this was a cath sample therefore this may have occurred from trauma. Patient started on ceftriaxone based on his previous urinary cultures. (3) Dysphagia Is this a current diagnosis for this admission?: Yes Plan: Patient is currently n.p.o. however when he is more alert patient will be started on a pured diet. (4) Venous stasis ulcers of both lower extremities Is this a current diagnosis for this admission?: Yes Plan: Patient with chronic lower extremity venous stasis. Patient does have ulcerations on his legs at this time however there is an Allevyn on the legs. Will continue local wound care. There does not appear to be any acute infection. (5) Hyperkalemia Is this a current diagnosis for this admission?: Yes Plan: Most likely due to taking 40 any cues of potassium a day along with spironolactone. Will hold his spironolactone and potassium replacement. Will give patient Lasix. Patient was also given calcium gluconate, dextrose, insulin and albuterol in the ED. Kayexelate could not be given due to patient's altered mentation. Will continue to monitor patient's potassium. (6) Thrombocytopenia Is this a current diagnosis for this admission?: Yes Plan: Is chronic in nature. Patient with no active signs of bleeding. On SCDs for DVT prophylaxis. (7) Chronic congestive heart failure Qualifiers: Congestive heart failure type: diastolic Qualified Code(s): I50.32 - Chronic diastolic (congestive) heart failure Plan: Patient diastolic heart failure. Patient appears compensated at this time. We will continue with diuretics however holding spironolactone due to hyperkalemia. Patient possibly not on a beta-silvia or CHRISTINA or ARB due to his borderline hypotension. (8) Anemia Qualifiers: Anemia type: due to chronic kidney disease Chronic kidney disease stage: stage 3 (moderate) Qualified Code(s): N18.3 - Chronic kidney disease, stage 3 (moderate); D63.1 - Anemia in chronic kidney disease; D63.1 - Anemia in chronic kidney disease Is this a current diagnosis for this admission?: Yes Plan: Is to have anemia of chronic CKD stage III. Patient hemoglobin is currently stable. (9) MRSA (methicillin resistant Staphylococcus aureus) carrier Is this a current diagnosis for this admission?: Yes Plan: Will check a MRSA swab. - Time Time Spent: 30 to 50 Minutes Anticipated discharge: SNF Within: within 72 hours - Inpatient Certification Medical Necessity: Need for IV Antibiotics, Risk of Complication if Not Cared For in Hospital
[2017-09-02] MEDS ORDERED: LACOSAMIDE INJ/PF 200 MG/20 ML SDV IV SCH (18:00)
[2017-09-02] MEDS ORDERED: LACOSAMIDE 100 MG TABLET PO SCH (22:00)
[2017-09-02] MEDS: OXYBUTYNIN CHLORIDE 5 MG TABLET PO SCH (23:51)
[2017-09-02] MEDS: LACOSAMIDE 100 MG TABLET PO SCH (23:51)
[2017-09-02] MEDS: LEVETIRACETAM 1000 MG/NACL-ISO 1,000 MG/100 ML RTUPB IV SCH (23:52)
[2017-09-02] MEDS: LATANOPROST 0.005% OPH SOLN 2.5 ML OS SCH (23:53)
[2017-09-03] MEDS ORDERED: LANSOPRAZOLE 15 MG TAB.RAP.DR PO SCH (06:00)
[2017-09-03] MEDS ORDERED: LEVOTHYROXINE SODIUM 0.1 MG TABLET PO SCH (06:00)
[2017-09-03 06:12] LABS: ANION GAP 7 (5-19); BLOOD UREA NITROGEN 21 mg/dL (7-20); CALCIUM 9.4 mg/dL (8.4-10.2); CARBON DIOXIDE 26 mmol/L (22-30); CHLORIDE 108 mmol/L (98-107); GLUCOSE 104 mg/dL (75-110); POTASSIUM 4.8 mmol/L (3.6-5.0); SODIUM 141.2 mmol/L (137-145)
[2017-09-03] MEDS: FUROSEMIDE INJ/PF 20 MG/2 ML SDV IV SCH (06:47)
[2017-09-03] MEDS: LEVOTHYROXINE SODIUM 0.1 MG TABLET PO SCH (06:47)
[2017-09-03] MEDS ORDERED: OXYBUTYNIN CHLORIDE 5 MG PO SCH (10:00)
[2017-09-03] MEDS ORDERED: (PENDING PHARMACY ID) (Mometasone Furoate [Nasonex] 1 SPRAY) NASL SCH (10:00)
[2017-09-03] MEDS ORDERED: METOLAZONE 5 MG TABLET PO SCH (10:00)
[2017-09-03] MEDS: CETIRIZINE 10 MG TABLET PO SCH (10:55)
[2017-09-03] MEDS: OXYBUTYNIN CHLORIDE 5 MG TABLET PO SCH ×2 (10:55→22:10)
[2017-09-03] MEDS: TAMSULOSIN HCL 0.4 MG CAP.SR.24H PO SCH (10:55)
[2017-09-03] MEDS: FINASTERIDE 5 MG TABLET PO SCH (10:56)
[2017-09-03] MEDS: FLUTICASONE NASAL SPRAY 50 MCG/SPRY 120 SPRAY/16 GM NASL SCH (10:56)
[2017-09-03] MEDS: LEVOBUNOLOL HCL 0.5% OS SCH (10:56)
[2017-09-03] MEDS: PANTOPRAZOLE SODIUM 40 MG VIAL IV SCH (10:56)
[2017-09-03] MEDS: LACOSAMIDE 100 MG TABLET PO SCH ×2 (10:56→22:10)
[2017-09-03] MEDS: CEFTRIAXONE 1 GM/D5W RTU 1 GM/50 ML RTUPB IV SCH (10:56)
[2017-09-03] MEDS: LEVETIRACETAM 1000 MG/NACL-ISO 1,000 MG/100 ML RTUPB IV SCH ×2 (12:31→22:09)
--- NOTE | 2017-09-03 18:31 | PDOC PROGRESS REPORT ---
Subjective Progress Note for:: 09/03/17 Subjective:: Patient admitted for breakthrough seizure most likely secondary to UTI. Patient also was hypokalemic however this is most likely due to medications. Patient wakes up and eats and is doing apparently better per the nurse. He is currently sleeping. Patient mother is at the bedside today. Reason For Visit: HYPERKALEMIA,SEIZURE Physical Exam Vital Signs: Temp Pulse Resp BP Pulse Ox 98.0 F 64 18 111/50 L 96 09/03/17 15:43 09/03/17 15:43 09/03/17 15:43 09/03/17 15:43 09/03/17 15:43 Intake & Output 09/02/17 09/03/17 09/04/17 06:59 06:59 06:59 Intake Total 320 905 Output Total 1325 900 Balance -1005 5 Weight 122.3 kg General appearance: PRESENT: no acute distress, well-developed, well-nourished Head exam: PRESENT: normocephalic Eye exam: ABSENT: scleral icterus Ear exam: PRESENT: normal external ear exam Mouth exam: PRESENT: moist, tongue midline Neck exam: ABSENT: carotid bruit, JVD, lymphadenopathy, thyromegaly Respiratory exam: PRESENT: clear to auscultation ortega. ABSENT: rales, rhonchi, wheezes Cardiovascular exam: PRESENT: RRR. ABSENT: diastolic murmur, rubs, systolic murmur GI/Abdominal exam: PRESENT: normal bowel sounds, soft. ABSENT: distended, guarding, mass, organolmegaly, rebound, tenderness Rectal exam: PRESENT: deferred Gentrourinary exam: PRESENT: indwelling catheter Extremities exam: PRESENT: full ROM. ABSENT: calf tenderness, clubbing, pedal edema Neurological exam: ABSENT: motor sensory deficit Psychiatric exam: PRESENT: appropriate affect, normal mood. ABSENT: homicidal ideation, suicidal ideation Skin exam: PRESENT: dry, intact, warm. ABSENT: cyanosis, rash Results Laboratory Results: 09/03/17 05:00 09/03/17 05:00 Sodium 141.2 Potassium 4.8 Chloride 108 H Carbon Dioxide 26 Anion Gap 7 BUN 21 H Creatinine 1.35 H Est GFR ( Amer) > 60 Est GFR (Non-Af Amer) 54 L Glucose 104 Calcium 9.4 Magnesium 2.0 Impressions: Chest X-Ray 12/30/17 12:05 IMPRESSION: HEART ENLARGED WITHOUT FAILURE. NO OTHER SIGNIFICANT RADIOGRAPHIC FINDING IN THE CHEST. Assessment & Plan - Diagnosis (1) Breakthrough seizure Is this a current diagnosis for this admission?: Yes Plan: Most likely secondary to UTI. Patient continued on his Keppra and Vimpat. Patient mentation is improved. Patient does wake up and eat and then goes back to sleep. Patient is able to swallow his medications mixed with applesauce. Patient is still on seizure precautions. Checks are being discontinued as patient is not able to participate due to his developmental delay. (2) Urinary tract infection Qualifiers: Urinary tract infection type: acute cystitis Hematuria presence: without hematuria Qualified Code(s): N30.00 - Acute cystitis without hematuria Is this a current diagnosis for this admission?: Yes Plan: Patient urine is growing gram-positive cocci in change. Patient is currently on ceftriaxone. Continue to monitor blood cultures and adjust antibiotics accordingly. (3) Dysphagia Is this a current diagnosis for this admission?: Yes Plan: He is tolerating a pured diet. (4) Venous stasis ulcers of both lower extremities Is this a current diagnosis for this admission?: Yes Plan: Patient with chronic lower extremity venous stasis. Patient does have ulcerations on his legs at this time however there is an Allevyn on the legs. Will continue local wound care. There does not appear to be any acute infection. (5) Hyperkalemia Is this a current diagnosis for this admission?: Yes Plan: Likely secondary to potassium supplements and spironolactone. Both spironolactone and potassium supplement are being held. (6) Thrombocytopenia Is this a current diagnosis for this admission?: Yes Plan: Is chronic in nature. Patient with no active signs of bleeding. On SCDs for DVT prophylaxis. (7) Chronic congestive heart failure Qualifiers: Congestive heart failure type: diastolic Qualified Code(s): I50.32 - Chronic diastolic (congestive) heart failure Plan: Patient diastolic heart failure. Patient appears compensated at this time. Continue with diuretics however holding spironolactone due to hyperkalemia. Patient possibly not on a beta-silvia or CHRISTINA or ARB due to his borderline hypotension. Hold Lasix now as creatinine is trending up. (8) Anemia Qualifiers: Anemia type: due to chronic kidney disease Chronic kidney disease stage: stage 3 (moderate) Qualified Code(s): N18.3 - Chronic kidney disease, stage 3 (moderate); D63.1 - Anemia in chronic kidney disease; D63.1 - Anemia in chronic kidney disease Is this a current diagnosis for this admission?: Yes Plan: Patient with anemia of CKD stage III. Patient hemoglobin is currently stable. Patient with mild acute on chronic renal failure stage 3 due to lasix. Will hold lasix and monitor. (9) MRSA (methicillin resistant Staphylococcus aureus) carrier Is this a current diagnosis for this admission?: Yes Plan: MRSA swab pending. - Time Time Spent with patient: 15-24 minutes Anticipated discharge: Other - [facility] Within: within 72 hours
[2017-09-03] MEDS: LATANOPROST 0.005% OPH SOLN 2.5 ML OS SCH (22:10)
[2017-09-04 04:44] LABS: ANION GAP 9 (5-19); BLOOD UREA NITROGEN 24 mg/dL (7-20); CARBON DIOXIDE 25 mmol/L (22-30); CHLORIDE 108 mmol/L (98-107); GLUCOSE 85 mg/dL (75-110); MAGNESIUM 1.8 mg/dL (1.6-2.3); POTASSIUM 4.4 mmol/L (3.6-5.0); SODIUM 141.6 mmol/L (137-145)
[2017-09-04] MEDS: LEVOTHYROXINE SODIUM 0.1 MG TABLET PO SCH (06:34)
[2017-09-04] MEDS: PANTOPRAZOLE SODIUM 40 MG VIAL IV SCH (09:56)
[2017-09-04] MEDS: FLUTICASONE NASAL SPRAY 50 MCG/SPRY 120 SPRAY/16 GM NASL SCH (10:00)
[2017-09-04] MEDS: LEVETIRACETAM 1000 MG/NACL-ISO 1,000 MG/100 ML RTUPB IV SCH (10:00)
[2017-09-04] MEDS ORDERED: PERMETHRIN 5% CREAM 60 GM TP SCH (10:00)
[2017-09-04] MEDS: LEVOBUNOLOL HCL 0.5% OS SCH (10:01)
[2017-09-04] MEDS: LACOSAMIDE 100 MG TABLET PO SCH (10:02)
[2017-09-04] MEDS: FINASTERIDE 5 MG TABLET PO SCH (10:02)
[2017-09-04] MEDS: CETIRIZINE 10 MG TABLET PO SCH (10:03)
[2017-09-04] MEDS: OXYBUTYNIN CHLORIDE 5 MG TABLET PO SCH (10:03)
[2017-09-04] MEDS: TAMSULOSIN HCL 0.4 MG CAP.SR.24H PO SCH (10:03)
[2017-09-04] MEDS: CEFTRIAXONE 1 GM/D5W RTU 1 GM/50 ML RTUPB IV SCH (10:03)
[2017-09-04] MEDS ORDERED: LINEZOLID 600 MG TABLET PO ONE (16:48)
--- NOTE | 2017-09-04 17:46 | PDOC TRANSFER SUMMARY ---
General - Admit/Disc Date/PCP Admission Date/Primary Care Provider: 09/02/17 13:11 Discharge Date: 09/04/17 - Discharge Diagnosis (1) Breakthrough seizure Is this a current diagnosis for this admission?: Yes (2) Urinary tract infection Is this a current diagnosis for this admission?: Yes (3) Dysphagia Is this a current diagnosis for this admission?: Yes (4) Venous stasis ulcers of both lower extremities Is this a current diagnosis for this admission?: Yes (5) Hyperkalemia Is this a current diagnosis for this admission?: Yes (6) Thrombocytopenia Is this a current diagnosis for this admission?: Yes (8) Anemia Is this a current diagnosis for this admission?: Yes (9) MRSA (methicillin resistant Staphylococcus aureus) carrier Is this a current diagnosis for this admission?: Yes - Additional Information Resuscitation Status: Do Not Resuscitate Discharge Diet: Cardiac, Other (Comments) - pureed diet Discharge Activity: Bedrest Prescriptions: Linezolid [Zyvox 600 mg Tablet] 600 mg PO Q12 7 Days #14 tablet Home Medications: Cetirizine HCl [Zyrtec 10 mg Tablet] 10 mg PO DAILY 09/02/17 Finasteride [Proscar 5 mg Tablet] 5 mg PO DAILY 09/02/17 Lacosamide [Vimpat 100 mg Tablet] 100 mg PO BID 09/02/17 Latanoprost [Xalatan 0.005% Oph Soln 2.5 ml] 1 drop OS QHS 09/02/17 Levetiracetam [Keppra] 1,000 mg PO BID 09/02/17 Levobunolol HCl [Betagan 0.5% Oph Soln 5 ml] 1 drop OS DAILY 09/02/17 Levothyroxine Sodium [Synthroid] 100 mcg PO DAILY 09/02/17 Magnesium Oxide [Mag-Ox 400 mg Tablet] 400 mg PO BID 09/02/17 Mometasone Furoate [Nasonex] 1 spray NASL DAILY 09/02/17 Oxybutynin Chloride [Ditropan Xl] 5 mg PO DAILY 09/02/17 Spironolactone [Aldactone 25 mg Tablet] 25 mg PO BID 09/02/17 Tamsulosin HCl [Flomax 0.4 mg Cap.sr] 0.4 mg PO DAILY 09/02/17 Bumetanide [Bumex 1 mg Tablet] 1 mg PO DAILY #30 09/04/17 Clonazepam [Klonopin 1 mg Tablet] 2 mg PO Q8 #6 09/04/17 Linezolid [Zyvox 600 mg Tablet] 600 mg PO Q12 7 Days #14 tablet 09/04/17 History of Present Illness Admission Date/PCP: 09/02/17 13:11 History of Present Illness: MALIK DUGGAN JR is a 62 year old male who resides at [facility]. Patient has a history of CHF, seizures, developmental delay, dysphagia and neurogenic bladder. Patient was sent here from [facility] after he has had 3 witnessed seizures. The patient is not able to give any history therefore history is taken from patient's sister who is at bedside. Patient does have seizures from time to time but they normally last minute. This time he had 3 seizures back-to -back lasting more than 9 minutes. Patient was awake when he presented to the ED and interactive however now he is resting peacefully. Per the sister patient just completed 7 day treatment for UTI. Otherwise patient has been doing well. In the ED patient was noted to have hyperkalemia. Also his UA demonstrated leukocyte esterase and WBCs. Hospitalist was called to observe patient following his seizure activity and to correct his hyperkalemia. Original history and physical dictated by Dr. Rosalinda Carlos. Please refer to it for complete details. Hospital Course Hospital Course: Patient presented to the ED from [facility] for break through seizures. Patient was recently treated for a UTI however his urine was positive and grew VRE. Patient was started on zyvox and should be treated for 7 day. First dose was given in the hospital. Patient was continued on his seizure medication and has not had anymore seizure during the hospitalization. Patient is now awake and alert. He is currently feeding himself. Patient was also found to have hyperkalemia however this was most likely due to potassim replacement along with the use of spironlactone. Patient potassium was corrected with lasix, insulin and albuterol. Patient was also given calcium gluconate to stablize the heart muscle. Patient has congestive heart failure but seems compensated. He also has venous stasis ulcer which is stable. Patient's anemia is stable. He has his of dysphagia but is currently tolerating his modified diet. Patient was also having urinary retention however I was told that he has a history of neurogenic bladder. Jacome was placed and patient was continue on his proscar, flomax and ditropan. Physical Exam Vital Signs: Temp Pulse Resp BP Pulse Ox 98.1 F 63 22 H 109/48 L 97 09/04/17 15:44 09/04/17 15:44 09/04/17 15:44 09/04/17 15:44 09/04/17 15:44 Intake & Output 09/03/17 09/04/17 09/05/17 06:59 06:59 06:59 Intake Total 320 2254 298 Output Total 1325 2025 400 Balance -1005 229 -102 Weight 122.3 kg 120 kg General appearance: PRESENT: no acute distress, well-developed, well-nourished Head exam: PRESENT: atraumatic, normocephalic Eye exam: PRESENT: conjunctiva pink, EOMI, PERRLA. ABSENT: scleral icterus Ear exam: PRESENT: normal external ear exam Mouth exam: PRESENT: moist, tongue midline Neck exam: ABSENT: carotid bruit, JVD, lymphadenopathy, thyromegaly Respiratory exam: PRESENT: clear to auscultation ortega. ABSENT: rales, rhonchi, wheezes Cardiovascular exam: PRESENT: RRR. ABSENT: diastolic murmur, rubs, systolic murmur Pulses: PRESENT: normal dorsalis pedis pul Vascular exam: PRESENT: normal capillary refill GI/Abdominal exam: PRESENT: normal bowel sounds, soft. ABSENT: distended, guarding, mass, organolmegaly, rebound, tenderness Rectal exam: PRESENT: deferred Extremities exam: PRESENT: full ROM. ABSENT: calf tenderness, clubbing, pedal edema Neurological exam: PRESENT: alert, awake, oriented to person, oriented to place , oriented to time, oriented to situation, CN II-XII grossly intact. ABSENT: motor sensory deficit Psychiatric exam: PRESENT: appropriate affect, normal mood. ABSENT: homicidal ideation, suicidal ideation Skin exam: PRESENT: dry, intact, warm. ABSENT: cyanosis, rash Results Laboratory Results: 09/04/17 03:50 09/04/17 03:50 Sodium 141.6 Potassium 4.4 Chloride 108 H Carbon Dioxide 25 Anion Gap 9 BUN 24 H Creatinine 1.31 H Est GFR ( Amer) > 60 Est GFR (Non-Af Amer) 55 L Glucose 85 Calcium 9.0 Magnesium 1.8 09/02/17 18:50 Nasophary (Mrsa Only) MRSA Culture - Final MRSA RECOVERED Impressions: Chest X-Ray 09/02/17 12:05 IMPRESSION: HEART ENLARGED WITHOUT FAILURE. NO OTHER SIGNIFICANT RADIOGRAPHIC FINDING IN THE CHEST. Transfer Plan - Disposition Transfer Plan: Back to [facility]. - Time Spent with Patient Time spent with patient: Greater than 30 Minutes Plan Time Spent: Greater than 30 Minutes - [facility] Patient discharged with jacome for urinary retention and zyvox for VRE for 7 days. Next dose to be given tomorrow.
[2017-09-04 18:20] VITALS: BP 128/52
[2017-09-04] MEDS ORDERED: LINEZOLID 600 MG TABLET PO SCH (22:00)
== END 2017-09-04 18:47 | DRG 690 ==
LOC: ER 11:16 → OBSVTOIN 13:11 → EH 13:11 → 3W 15:53
PROVIDERS: ADMIT Pediatrics; ATTEND Pediatrics
DX: N30.00 Acute cystitis without hematuria (principal); I13.0 Hypertensive heart and chronic kidney disease with heart failure and stage 1 through stage 4 chronic kidney disease, or unspecified chronic kidney disease; L97.919 Non-pressure chronic ulcer of unspecified part of right lower leg with unspecified severity; L97.929 Non-pressure chronic ulcer of unspecified part of left lower leg with unspecified severity; I50.32 Chronic diastolic (congestive) heart failure; G40.909 Epilepsy, unspecified, not intractable, without status epilepticus; E87.5 Hyperkalemia; N18.3 Chronic kidney disease, stage 3 (moderate); I83.009 Varicose veins of unspecified lower extremity with ulcer of unspecified site; R62.50 Unspecified lack of expected normal physiological development in childhood; T50.0X5A Adverse effect of mineralocorticoids and their antagonists, initial encounter; T50.3X5A Adverse effect of electrolytic, caloric and water-balance agents, initial encounter; R13.10 Dysphagia, unspecified; D63.1 Anemia in chronic kidney disease; N31.9 Neuromuscular dysfunction of bladder, unspecified; E03.9 Hypothyroidism, unspecified; Z66 Do not resuscitate; Z82.49 Family history of ischemic heart disease and other diseases of the circulatory system; I87.8 Other specified disorders of veins; D69.6 Thrombocytopenia, unspecified; Z86.14 Personal history of Methicillin resistant Staphylococcus aureus infection; Z79.899 Other long term (current) drug therapy
CPT/HCPCS: 36415; 51702; 71010; 80048; 80053; 81001; 82962; 83735; 84132; 85025; 87040; 87070; 87086; 87088; 87186; 94640; 96365; 96375; 99285; C9254; G0378; J0610; J0696; J1940; J1953; J3490; S0164

== ENCOUNTER 2017-09-11 08:30 | Emergency (ER) | payer MEDICAID, MEDICARE ==
--- NOTE | 2017-09-11 09:00 | ER Document Report ---
ED General - General Chief Complaint: Seizure Stated Complaint: POSSIBLE SEIZURE Time Seen by Provider: 09/11/17 08:54 Cannot obtain history due to: Dementia Notes: This is a 62-year-old male patient. Dementia. History of seizure disorder. Lives at a nursing facility. Has been having increased frequency of seizures. Has not returned to baseline according to nursing facility by report from nurse to the ER nurse. Patient is nonverbal at this time. Awake. Following minimal commands. No signs of trauma. No other issues. TRAVEL OUTSIDE OF THE [place] IN LAST 30 DAYS: No - HPI Onset: Just prior to arrival Onset/Duration: Gradual, Waxing and waning - Related Data Allergies/Adverse Reactions: No Known Allergies Allergy (Verified 09/11/17 08:43) Past Medical History - General Information source: [facility] Records, Outside Facility Records Cannot obtain history due to: Dementia - Social History Smoking Status: Never Smoker Family History: CAD, Other - Seizure Patient has suicidal ideation: No Patient has homicidal ideation: No - Past Medical History Cardiac Medical History: Reports: Hx Congestive Heart Failure, Hx Hypertension Pulmonary Medical History: Denies: Hx Tuberculosis Neurological Medical History: Reports: Hx Seizures - ataxia, epilepsy Endocrine Medical History: Reports: Hx Hypothyroidism Renal/ Medical History: Reports: Hx Benign Prostatic Hyperplasia. Denies: Hx Peritoneal Dialysis Skin Medical History: Reports Hx MRSA Psychiatric Medical History: Reports: Hx Depression Traumatic Medical History: Reports: Hx Spine Fracture Infectious Medical History: Reports: Hx MRSA - Immunizations Hx Diphtheria, Pertussis, Tetanus Vaccination: Yes Hx Pneumococcal Vaccination: 08/20/12 Review of Systems - Review of Systems -: Yes ROS unobtainable due to patient's medical condition Physical Exam - Vital signs Vitals: Resp Pulse Ox 17 99 09/11/17 08:40 09/11/17 08:40 Interpretation: Normal - General General appearance: Appears well, Alert - HEENT Head: Normocephalic, Atraumatic Eyes: Normal Pupils: PERRL - Respiratory Respiratory status: No respiratory distress Chest status: Nontender Breath sounds: Normal Chest palpation: Normal - Cardiovascular Rhythm: Regular Heart sounds: Normal auscultation Murmur: No - Abdominal Inspection: Normal Distension: No distension Bowel sounds: Normal Tenderness: Nontender Organomegaly: No organomegaly - Back Back: Normal, Nontender - Extremities General upper extremity: Normal inspection, Nontender, Normal color, Normal ROM , Normal temperature General lower extremity: Normal inspection, Nontender, Normal color, Normal ROM , Normal temperature, Normal weight bearing. 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 Will order Keppra level and reassess. 09/11/17 11:42 Family members are present. States patient is definitely not at his baseline. Normally he is talkative with the proximal 4 5-year-old mentality. They recommend that I call his neurologist in [facility], Dr. Medley. Will attempt at this time. Of note, patient is a DO NOT RESUSCITATE 09/11/17 11:56 he does have some evidence of some volume depletion. Giving fluid at this time and spoke with patient's neurologist. Recommends decreasing the Klonopin to a total of twice a day dosing of the 2 mg. Stay the course on the current Keppra therapy as well as the Van Pat. If he has any more recurrent seizures he is to call the neurologist office and they will do medication adjustments over the phone. Conversation had with family. They are comfortable with this plan. Will DC at this time after fluids are complete. Note, discussion was made with the neurologist regarding possible CVA but he did not feel compelled at this time to do an MRI so we will follow the neurologist recommendations. - Vital Signs Vital signs: Temp Pulse Resp BP Pulse Ox 98.0 F 74 13 123/58 L 100 09/11/17 08:43 09/11/17 08:43 09/11/17 10:28 09/11/17 10:28 09/11/17 10:28 - Laboratory Result Diagrams: 09/11/17 09:12 09/11/17 10:25 Laboratory results interpreted by me: 09/11/17 09/11/17 09/11/17 09:12 10:25 10:25 RBC 4.05 L Hgb 11.6 L Hct 35.2 L RDW 17.8 H Plt Count 137 L Seg Neutrophils % 81.0 H Lymphocytes % 11.7 L Sodium 147.3 H Chloride 109 H BUN 33 H Creatinine 1.59 H Est GFR ( Amer) 54 L Est GFR (Non-Af Amer) 44 L Glucose 115 H Creatine Kinase 23 L Total Protein 9.2 H Urine Blood SMALL H Ur Leukocyte Esterase TRACE H Discharge - Discharge Clinical Impression: Dehydration Epilepsy Qualifiers: Epilepsy type: unspecified Intractability: not intractable Status epilepticus: without status epilepticus Qualified Code(s): G40.909 - Epilepsy, unspecified, not intractable, without status epilepticus Condition: Good Disposition: SNF-Other Instructions: Dehydration ([facility]), Seizure, Known Epileptic ([facility]) Additional Instructions: Per the neurologist recommendations only be on 2 mg of Klonopin twice a day instead of 3 times a day. Continue with all other current medications. If patient has recurrent seizure please call Dr. Medley's office in [place] and they will do medication adjustments over the phone. Return immediately for any worsening symptoms or concerns that you may have. Referrals: ANNE HUNTER [NO LOCAL MD] - Follow up as needed
[2017-09-11 09:25] LABS: ABSOLUTE EOSINOPHILS # (AUTO) 0.1 10^3/uL (0.0-0.6); ABSOLUTE LYMPHOCYTES (AUTO) 0.9 10^3/uL (0.5-4.7); ABSOLUTE MONOCYTES (AUTO) 0.4 10^3/uL (0.1-1.4); ABSOLUTE NEUT (AUTO) 6.4 10^3/uL (1.7-8.2); BASOPHILS % (AUTO) 0.5 % (0-2); EOSINOPHILS % (AUTO) 1.7 % (0-6); HEMATOCRIT 35.2 % (37.9-51.0); HEMOGLOBIN 11.6 g/dL (13.5-17.0); LYMPHOCYTES % (AUTO) 11.7 % (13-45); MEAN CORPUSCULAR HEMOGLOBIN 28.7 pg (27.0-33.4); MEAN CORPUSCULAR HGB CONC 32.9 g/dL (32.0-36.0); MEAN CORPUSCULAR VOLUME 87 fl (80-97); MONOCYTES % (AUTO) 5.1 % (3-13); PLATELET COUNT 137 10^3/uL (150-450); RED BLOOD COUNT 4.05 10^6/uL (4.35-5.55); RED CELL DISTRIBUTION WIDTH 17.8 % (11.5-14.0); TOTAL CELLS COUNTED % (AUTO) 100 %; WHITE BLOOD COUNT 7.9 10^3/uL (4.0-10.5)
--- NOTE | 2017-09-11 09:54 | RADIOLOGY REPORT (SQ) ---
EXAM DESCRIPTION: CT HEAD WITHOUT COMPLETED DATE/TIME: 09/11/2017 9:43 am REASON FOR STUDY: altered mental status worse than baseline seizur COMPARISON: [address] brain exams since 2012, most recently 05/19/2017 MRI brain 08/19/2016 TECHNIQUE: Axial images acquired through the brain without intravenous contrast. Images reviewed wi th bone, brain and subdural windows. Images stored on PACS. All CT scanners at this facility use dose modulation, iterative reconstruction, and/or weight based d osing when appropriate to reduce radiation dose to as low as reasonably achievable (ALARA). [facility]: Dose Right [facility]: CareDose [facility]: Dose Right [facility]: Teradose 4D [facility]: Smart [employer] RADIATION DOSE: CT Rad equipment meets quality standard of care and radiation dose reduction techniq ues were employed. CTDIvol: 28.0 mGy. DLP: 560 mGy-cm. mGy. LIMITATIONS: Motion artifact FINDINGS: Motion artifact throughout study. On images without motion, no gross large territory ischemic change, acute intracranial hemorrhage mas s effect or midline shift. There is spotty white matter disease in the bifrontal and biparietal regions. IMPRESSION: Limited negative study. Motion artifact. No gross acute intracranial changes. Spotty small vessel white matter disease EVIDENCE OF ACUTE STROKE: NO. COMMENT: Quality ID # [id number]: Final reports with documentation of one or more dose reduction techniques (e.g., Automated exposure control, adjustment of the mA and/or kV according to patient size, use of iterative reconstruction technique) TECHNICAL DOCUMENTATION: JOB ID: [id number] [facility]- All Rights Reserved
[2017-09-11 10:45] LABS: INTERNATIONAL RATION (INR) 1.13; PROTHROMBIN TIME 15.3 SEC (11.4-15.4)
[2017-09-11 10:46] LABS: PARTIAL THROMBOPLASTIN TIME 26.9 SEC (23.5-35.8)
[2017-09-11 10:52] LABS: APPEARANCE,URINE SLIGHTLY-CLOUDY; BILIRUBIN,URINE NEGATIVE (NEGATIVE); COLOR,URINE YELLOW; GLUCOSE, URINE NEGATIVE (NEGATIVE); KETONES,URINE NEGATIVE (NEGATIVE); LEUKOCYTE ESTERASE,URINE TRACE (NEGATIVE); NITRITE,URINE NEGATIVE (NEGATIVE); PROTEIN,URINE NEGATIVE (NEGATIVE); UROBILINOGEN,URINE NEGATIVE mg/dL (<2.0)
[2017-09-11 11:00] LABS: ALANINE AMINOTRANSFERASE 28 U/L (21-72); ALKALINE PHOSPHATASE 89 U/L (38-126); ANION GAP 9 (5-19); ASPARTATE AMINO TRANSFERASE 31 U/L (17-59); BILIRUBIN,DIRECT 0.3 mg/dL (0.0-0.4); BILIRUBIN,TOTAL 0.8 mg/dL (0.2-1.3); BLOOD UREA NITROGEN 33 mg/dL (7-20); CALCIUM 9.5 mg/dL (8.4-10.2); CARBON DIOXIDE 29 mmol/L (22-30); CHLORIDE 109 mmol/L (98-107); CREATINE KINASE 23 U/L (55-170); GLUCOSE 115 mg/dL (75-110); POTASSIUM 4.3 mmol/L (3.6-5.0); SODIUM 147.3 mmol/L (137-145); TOTAL PROTEIN 9.2 g/dL (6.3-8.2)
[2017-09-11] MEDS ORDERED: NORMAL SALINE 1000 ML 1,000 ML IV ONE (11:21)
[2017-09-11 12:45] VITALS: BP 114/69
== END 2017-09-11 12:51 ==
LOC: ER 08:30
DX: G40.909 Epilepsy, unspecified, not intractable, without status epilepticus (principal); Z79.899 Other long term (current) drug therapy; E86.0 Dehydration; F03.90 Unspecified dementia, unspecified severity, without behavioral disturbance, psychotic disturbance, mood disturbance, and anxiety; I10 Essential (primary) hypertension; Z86.14 Personal history of Methicillin resistant Staphylococcus aureus infection
CPT/HCPCS: 99285; 96360; 36415; 87086; 80177; 82550; 85025; 85610; 85730; 80053; 81001; 70450; J7030

== ENCOUNTER → 2017-09-12 | Outpatient (CLI) | payer MEDICARE ==
[2017-09-12 13:21] LABS: ABSOLUTE BASOPHILS # (AUTO) 0.1 10^3/uL (0.0-0.2); ABSOLUTE EOSINOPHILS # (AUTO) 0.1 10^3/uL (0.0-0.6); ABSOLUTE LYMPHOCYTES (AUTO) 1.2 10^3/uL (0.5-4.7); ABSOLUTE MONOCYTES (AUTO) 0.8 10^3/uL (0.1-1.4); ABSOLUTE NEUT (AUTO) 7.3 10^3/uL (1.7-8.2); HEMATOCRIT 34.1 % (37.9-51.0); HEMOGLOBIN 11.4 g/dL (13.5-17.0); LYMPHOCYTES % (AUTO) 12.7 % (13-45); MEAN CORPUSCULAR HGB CONC 33.6 g/dL (32.0-36.0); MEAN CORPUSCULAR VOLUME 86 fl (80-97); MONOCYTES % (AUTO) 8.8 % (3-13); PLATELET COUNT 122 10^3/uL (150-450); RED BLOOD COUNT 3.95 10^6/uL (4.35-5.55); RED CELL DISTRIBUTION WIDTH 17.1 % (11.5-14.0); SEGMENTED NEUTROPHILS % (AUTO) 76.5 % (42-78); TOTAL CELLS COUNTED % (AUTO) 100 %; WHITE BLOOD COUNT 9.5 10^3/uL (4.0-10.5)
[2017-09-12 13:25] LABS: AMORPHOUS SEDIMENT,URINE TRACE /HPF; APPEARANCE,URINE TURBID; BILIRUBIN,URINE NEGATIVE (NEGATIVE); COLOR,URINE YELLOW; GLUCOSE, URINE NEGATIVE (NEGATIVE); KETONES,URINE NEGATIVE (NEGATIVE); LEUKOCYTE ESTERASE,URINE TRACE (NEGATIVE); NITRITE,URINE NEGATIVE (NEGATIVE); PROTEIN,URINE NEGATIVE (NEGATIVE); URINE SPECIFIC GRAVITY 1.019; UROBILINOGEN,URINE NEGATIVE mg/dL (<2.0)
== END ==
LOC: PNR 12:06
PROVIDERS: ATTEND Family Medicine
DX: N17.8 Other acute kidney failure (principal); R30.0 Dysuria; A41.89 Other specified sepsis; D64.9 Anemia, unspecified; N40.0 Benign prostatic hyperplasia without lower urinary tract symptoms; R33.9 Retention of urine, unspecified; R56.9 Unspecified convulsions
CPT/HCPCS: 81001; 85025; 87086

== ENCOUNTER 2017-11-07 21:59 | Emergency (ER) | payer MEDICARE, MEDICAID ==
--- NOTE | 2017-11-07 22:59 | ER Document Report ---
ED General - General Chief Complaint: Fall Stated Complaint: FALL Time Seen by Provider: 11/07/17 22:24 Cannot obtain history due to: Mentally challenged Notes: Patient is a 62-year-old male with a past medical history seizures, cognitive impairment, morbid obesity, who presents from his nursing facility after falling while trying to reach for something on his desk. He finally fell forward, struck his forehead on a side table. He has not complained of any significant pain since that time. No additional injuries. He does note a mild , throbbing, aching pain to the area of an abrasion over his right forehead but denies any additional areas of concern or complaint. Nothing improves or worsens his pain. He denies any neck pain, weakness, numbness, vomiting, or use of blood thinners. He is here with his sister. She notes that he has a history of similar falls in the past. She states that he is likely here " simply because it is protocol at the assisted". TRAVEL OUTSIDE OF THE [place] IN LAST 30 DAYS: No - Related Data Allergies/Adverse Reactions: No Known Allergies Allergy (Verified 09/11/17 08:43) Past Medical History - General Information source: Patient - Social History Smoking Status: Never Smoker Frequency of alcohol use: None Drug Abuse: None Lives with: Skilled Nursing Family History: Reviewed & Not Pertinent, CAD, Other - Seizure Patient has suicidal ideation: No Patient has homicidal ideation: No - Past Medical History Cardiac Medical History: Reports: Hx Congestive Heart Failure, Hx Hypertension Pulmonary Medical History: Denies: Hx Tuberculosis Neurological Medical History: Reports: Hx Seizures - ataxia, epilepsy Endocrine Medical History: Reports: Hx Hypothyroidism Renal/ Medical History: Reports: Hx Benign Prostatic Hyperplasia. Denies: Hx Peritoneal Dialysis Skin Medical History: Reports Hx MRSA Psychiatric Medical History: Reports: Hx Depression Traumatic Medical History: Reports: Hx Spine Fracture Infectious Medical History: Reports: Hx MRSA - Immunizations Hx Diphtheria, Pertussis, Tetanus Vaccination: Yes Hx Pneumococcal Vaccination: 08/20/12 Review of Systems - Review of Systems Notes: Constitutional: Negative for fever. Eyes: Negative for visual changes. ENT: Negative for facial injury Cardiovascular: Negative for chest injury. Respiratory: Negative for shortness of breath. Gastrointestinal: Negative for abdominal injury. Genitourinary: Negative for genital injury Musculoskeletal: Negative for back injury. Skin: Positive for laceration/abrasions. Neurological: Positive for head injury. Physical Exam - Vital signs Vitals: Pulse Resp BP Pulse Ox 53 L 16 115/60 98 11/07/17 22:06 11/07/17 22:06 11/07/17 22:06 11/07/17 22:06 Interpretation: Bradycardic Notes: PHYSICAL EXAMINATION: GENERAL: Well-appearing, no acute distress. HEAD: Atraumatic, normocephalic. EYES: Pupils equal round and reactive to light, extraocular movements intact, sclera anicteric, conjunctiva are normal. ENT: nares patent, no oral pharyngeal trauma. No hemotympanum, no Cho's sign , no raccoon eyes. NECK: No midline cervical spine tenderness. Patient able to move their head to 45 bilaterally without any discomfort. LUNGS: Breath sounds clear to auscultation bilaterally and equal. No wheezes rales or rhonchi. HEART: Regular rate and rhythm without murmurs. CHEST WALL: No ecchymosis over the chest wall. ABDOMEN: Soft, nontender, normoactive bowel sounds. No guarding, no rebound. No seatbelt sign. EXTREMITIES: Normal range of motion, no pitting or edema. No long bone deformities. BACK: No midline spinal tenderness, step-offs, or deformities. NEUROLOGICAL: Patient moves all extremities on command and spontaneously. 5 out of 5 strength in the bilateral upper extremities. Patient reports that his baseline bilateral lower extremity weakness that is equal and unchanged currently. He is however able to perform dorsi and plantar flexion with full strength. Cranial nerves intact. Speech is at baseline. PSYCH: Cognitively impaired. Sister at bedside reports that this is baseline. SKIN: Warm, Dry, normal turgor, small abrasion of the right forehead above the level of the eyebrow Course - Re-evaluation Re-evalutation: 11/07/17 22:57 Presentation of a well patient in no acute distress, vitals within normal limits after a fall striking the right side of his head. No focal neurologic deficits on exam, no evidence of basilar skull fracture on exam without evidence of hemotympanum, raccoon eyes, or periauricular hematoma. No papilledema. Patient is not on anticoagulation. GCS is 15. No loss of consciousness. No episodes of vomiting. Patient is therefore negative via [place] head CT criteria and CT imaging will not be obtained at this time. Patient also evaluated by nexus criteria and found to be negative. Patient is also negative by panamanian C-spine criteria. No clinical evidence to suggest increased risk of cervical spine fracture. No indication for further imaging of the cervical spine. Patient has no focal deformities or limited range of motion in any joint space to indicate need for extremity imaging. Chest and abdominal exam are benign without any focal tenderness, shortness of breath, or bruising over the chest or abdominal wall. There is no obvious findings on trauma exam today and therefore no further imaging or evaluation will be obtained at this time. I've instructed the patient to return to emergency room immediately should they have any worsening or new symptoms that are concerning to them. - Vital Signs Vital signs: Temp Pulse Resp BP Pulse Ox 97.2 F 59 L 12 106/48 L 97 11/07/17 23:45 11/07/17 23:45 11/07/17 23:45 11/07/17 23:45 11/07/17 23:45 Discharge - Discharge Clinical Impression: Fall Qualifiers: Encounter type: initial encounter Qualified Code(s): W19.XXXA - Unspecified fall, initial encounter Forehead abrasion Qualifiers: Encounter type: initial encounter Qualified Code(s): S00.81XA - Abrasion of other part of head, initial encounter Condition: Good Disposition: HOME, SELF-CARE Additional Instructions: You have been seen in the Emergency Department (ED) today following a fall. Your workup today did not reveal any injuries that require you to stay in the hospital. You can expect, though, to be stiff and sore for the next several days. Please follow up with your primary care doctor as soon as possible regarding today's ED visit and your recent accident. Call your doctor or return to the ED if you develop a sudden or severe headache , confusion, slurred speech, facial droop, weakness or numbness in any arm or leg, extreme fatigue, vomiting more than two times, severe abdominal pain, or other symptoms that concern you.
[2017-11-07 23:48] VITALS: BP 106/48
== END 2017-11-08 00:15 | disposition home or self-care (01) ==
LOC: ER 21:59
DX: S00.81XA Abrasion of other part of head, initial encounter (principal); E66.01 Morbid (severe) obesity due to excess calories; I50.9 Heart failure, unspecified; I10 Essential (primary) hypertension; R40.2410 Glasgow coma scale score 13-15, unspecified time; W01.190A Fall on same level from slipping, tripping and stumbling with subsequent striking against furniture, initial encounter; Y92.129 Unspecified place in nursing home as the place of occurrence of the external cause
CPT/HCPCS: 99283

== ENCOUNTER 2017-11-30 01:43 | Emergency (ER) | payer MEDICARE, MEDICAID ==
[2017-11-30 02:30] LABS: ABSOLUTE LYMPHOCYTES (AUTO) 0.8 10^3/uL (0.5-4.7); ABSOLUTE MONOCYTES (AUTO) 0.3 10^3/uL (0.1-1.4); ABSOLUTE NEUT (AUTO) 4.7 10^3/uL (1.7-8.2); BASOPHILS % (AUTO) 0.4 % (0-2); EOSINOPHILS % (AUTO) 0.6 % (0-6); HEMATOCRIT 33.4 % (37.9-51.0); LYMPHOCYTES % (AUTO) 13.3 % (13-45); MEAN CORPUSCULAR HEMOGLOBIN 28.9 pg (27.0-33.4); MEAN CORPUSCULAR HGB CONC 33.1 g/dL (32.0-36.0); MEAN CORPUSCULAR VOLUME 88 fl (80-97); MONOCYTES % (AUTO) 5.5 % (3-13); PLATELET COUNT 141 10^3/uL (150-450); RED BLOOD COUNT 3.81 10^6/uL (4.35-5.55); RED CELL DISTRIBUTION WIDTH 15.6 % (11.5-14.0); SEGMENTED NEUTROPHILS % (AUTO) 80.2 % (42-78); TOTAL CELLS COUNTED % (AUTO) 100 %; WHITE BLOOD COUNT 5.8 10^3/uL (4.0-10.5)
[2017-11-30 02:43] LABS: ALANINE AMINOTRANSFERASE 30 U/L (21-72); ALBUMIN 3.3 g/dL (3.5-5.0); ALKALINE PHOSPHATASE 71 U/L (38-126); ANION GAP 7 (5-19); ASPARTATE AMINO TRANSFERASE 26 U/L (17-59); BILIRUBIN,DIRECT 0.3 mg/dL (0.0-0.4); BILIRUBIN,TOTAL 0.4 mg/dL (0.2-1.3); BLOOD UREA NITROGEN 20 mg/dL (7-20); CALCIUM 8.7 mg/dL (8.4-10.2); CARBON DIOXIDE 24 mmol/L (22-30); CHLORIDE 109 mmol/L (98-107); GLUCOSE 97 mg/dL (75-110); POTASSIUM 4.2 mmol/L (3.6-5.0); SODIUM 139.8 mmol/L (137-145); TOTAL PROTEIN 7.7 g/dL (6.3-8.2)
[2017-11-30 02:44] LABS: ALCOHOL < 10 mg/dL (NONE DETECTED)
[2017-11-30 02:46] LABS: AMORPHOUS SEDIMENT,URINE TRACE /HPF
[2017-11-30 02:49] LABS: URINE AMPHETAMINES SCREEN NEGATIVE; URINE BARBITURATES SCREEN NEGATIVE; URINE BENZODIAZEPINES SCREEN NEGATIVE; URINE COCAINE SCREEN NEGATIVE; URINE MARIJUANA (THC) SCREEN NEGATIVE; URINE METHADONE SCREEN NEGATIVE; URINE PHENCYCLIDINE SCREEN NEGATIVE
[2017-11-30 02:56] LABS: APPEARANCE,URINE CLEAR; COLOR,URINE STRAW; GLUCOSE, URINE NEGATIVE (NEGATIVE)
[2017-11-30 02:57] LABS: BILIRUBIN,URINE NEGATIVE (NEGATIVE); KETONES,URINE NEGATIVE (NEGATIVE); NITRITE,URINE NEGATIVE (NEGATIVE); PROTEIN,URINE 30 mg/dL (NEGATIVE); URINE SPECIFIC GRAVITY 1.014; UROBILINOGEN,URINE NEGATIVE mg/dL (<2.0)
[2017-11-30 02:58] LABS: LEUKOCYTE ESTERASE,URINE LARGE (NEGATIVE)
[2017-11-30] MEDS ORDERED: LINEZOLID 600 MG TABLET PO ONE (03:01)
--- NOTE | 2017-11-30 03:07 | ER Document Report ---
ED General - General Chief Complaint: Probable Seizure Stated Complaint: POSSIBLE SEIZURE Time Seen by Provider: 11/30/17 02:32 Notes: Patient is a 62-year-old male who had 2 seizures today at the assisted. He has a history of seizures and takes Vimpat and Keppra. These medications have not changed. Most the history is obtained through the patient's sister who is at bedside. Patient's sister says that he usually has seizures whenever he starts getting UTIs again. He has indwelling Nicholas catheter. He has a history of mental retardation. He is able to answer some questions. Denies headache. Denies any pain. Denies recent fevers. TRAVEL OUTSIDE OF THE [place] IN LAST 30 DAYS: No - Related Data Allergies/Adverse Reactions: No Known Allergies Allergy (Verified 09/11/17 08:43) Past Medical History - Social History Smoking Status: Unknown if Ever Smoked Chew tobacco use (# tins/day): No Frequency of alcohol use: None Drug Abuse: None Family History: Reviewed & Not Pertinent, CAD, Other - Seizure Patient has suicidal ideation: No Patient has homicidal ideation: No - Past Medical History Cardiac Medical History: Reports: Hx Congestive Heart Failure, Hx Hypertension Pulmonary Medical History: Denies: Hx Tuberculosis Neurological Medical History: Reports: Hx Seizures - ataxia, epilepsy Endocrine Medical History: Reports: Hx Hypothyroidism Renal/ Medical History: Reports: Hx Benign Prostatic Hyperplasia. Denies: Hx Peritoneal Dialysis Skin Medical History: Reports Hx MRSA Psychiatric Medical History: Reports: Hx Depression Traumatic Medical History: Reports: Hx Spine Fracture Infectious Medical History: Reports: Hx MRSA - Immunizations Hx Diphtheria, Pertussis, Tetanus Vaccination: Yes Hx Pneumococcal Vaccination: 08/20/12 Review of Systems - Review of Systems Notes: My Normal Review Basic REVIEW OF SYSTEMS: CONSTITUTIONAL : Denies fever, chills, or sweats. Denies recent illness. EENT: Denies eye, ear, throat, or mouth pain or symptoms. Denies nasal or sinus congestion. CARDIOVASCULAR: Denies chest pain. RESPIRATORY: Denies cough, cold, or chest congestion. Denies shortness of breath, difficulty breathing, or wheezing. GASTROINTESTINAL: Denies abdominal pain. Denies nausea, vomiting, or diarrhea. Denies constipation. Last BM: MUSCULOSKELETAL: Denies neck or back pain or joint pain or swelling. SKIN: Denies rash or skin lesions. NEUROLOGICAL: Recent seizure. ALL OTHER SYSTEMS REVIEWED AND NEGATIVE. Physical Exam - Vital signs Vitals: Resp Pulse Ox 22 H 97 11/30/17 02:08 11/30/17 02:08 - Notes Notes: General Appearance: Well nourished, alert, cooperative, no acute distress, no obvious discomfort. Vitals: reviewed, See vital signs table. Head: no swelling or tenderness to the head Eyes: PERRL, EOMI, Conjuctiva clear Mouth: No decreasd moisture Lungs: No wheezing, No rales, No rhonci, No accessory muscle use, good air exchange bilaterally. Heart: Normal rate, Regular rythm, No murmur, no rub Abdomen: Normal BS, soft, No rigidity, No abdominal tenderness, No guarding, no rebound, no abdominal masses, no organomegaly Extremities: strength 5/5 in all extremities, good pulses in all extremities, no swelling or tenderness in the extremities, no edema. Skin: warm, dry, appropriate color, no rash Neuro: speech clear, oriented x 3, normal affect, responds appropriately to questions. Cranial nerves II through XII are intact. Patient moves all extremities without difficulty. Course - Re-evaluation Re-evalutation: 11/30/17 05:52 Patient does have early signs of urinary tract infection. He has a history of VRE. Will place him back on appropriate antibiotics for this. Patient clinically looks well and feels well. I feel he is safe to be discharged home. I encourage him return to arm immediately if he has recurrent seizures, fevers , or feels unwell. Patient and his sister agree with plan the patient will be discharged back to the assisted. Dictation of this chart was performed using voice recognition software; therefore, there may be some unintended grammatical errors. - Vital Signs Vital signs: Temp Pulse Resp BP Pulse Ox 28 H 109/56 L 97 11/30/17 05:38 11/30/17 05:38 11/30/17 05:38 - Laboratory Result Diagrams: 11/30/17 02:20 11/30/17 02:20 Laboratory results interpreted by me: 11/30/17 11/30/17 11/30/17 02:20 02:20 02:20 RBC 3.81 L Hgb 11.0 L Hct 33.4 L RDW 15.6 H Plt Count 141 L Seg Neutrophils % 80.2 H Chloride 109 H Est GFR (Non-Af Amer) 59 L Albumin 3.3 L Urine Protein 30 H Urine Blood SMALL H Ur Leukocyte Esterase LARGE H Urine Ascorbic Acid 20 H Discharge - Discharge Clinical Impression: Seizure UTI (urinary tract infection) Qualifiers: Urinary tract infection type: site unspecified Hematuria presence: without hematuria Qualified Code(s): N39.0 - Urinary tract infection, site not specified Condition: Good Disposition: HOME, SELF-CARE Additional Instructions: Please take the Zyvox as prescribed. Please have Mr. Fuentes's physician recheck him in 1-2 days. Please return to the ER if Mr. Fuentes has fevers, recurrent seizures, or appears unwell. Prescriptions: Linezolid [Zyvox 600 mg Tablet] 600 mg PO Q12 #14 tablet Referrals: TEX CARTER DO [Primary Care Provider] - 12/01/17
[2017-11-30 05:29] VITALS: BP 109/56
== END 2017-11-30 05:38 | disposition home or self-care (01) ==
LOC: ER 01:43
DX: G40.909 Epilepsy, unspecified, not intractable, without status epilepticus (principal); Z79.899 Other long term (current) drug therapy; N39.0 Urinary tract infection, site not specified; F79 Unspecified intellectual disabilities; I10 Essential (primary) hypertension
CPT/HCPCS: 99285; 36415; 87086; 80307 ×2; 83735; 85025; 87088; 80053; 81001; 87186; A9270; J3490

== ENCOUNTER 2017-12-03 21:15 | Emergency (ER) | payer MEDICARE, MEDICAID ==
[2017-12-03 21:48] LABS: ABSOLUTE LYMPHOCYTES (AUTO) 1.2 10^3/uL (0.5-4.7); ABSOLUTE MONOCYTES (AUTO) 0.5 10^3/uL (0.1-1.4); ABSOLUTE NEUT (AUTO) 5.9 10^3/uL (1.7-8.2); BASOPHILS % (AUTO) 0.3 % (0-2); EOSINOPHILS % (AUTO) 0.2 % (0-6); HEMATOCRIT 34.2 % (37.9-51.0); HEMOGLOBIN 11.6 g/dL (13.5-17.0); LYMPHOCYTES % (AUTO) 15.8 % (13-45); MEAN CORPUSCULAR HEMOGLOBIN 29.7 pg (27.0-33.4); MEAN CORPUSCULAR HGB CONC 33.8 g/dL (32.0-36.0); MEAN CORPUSCULAR VOLUME 88 fl (80-97); MONOCYTES % (AUTO) 6.5 % (3-13); PLATELET COUNT 161 10^3/uL (150-450); RED CELL DISTRIBUTION WIDTH 15.7 % (11.5-14.0); SEGMENTED NEUTROPHILS % (AUTO) 77.2 % (42-78); TOTAL CELLS COUNTED % (AUTO) 100 %; WHITE BLOOD COUNT 7.6 10^3/uL (4.0-10.5)
[2017-12-03 22:04] LABS: ANION GAP 8 (5-19); BLOOD UREA NITROGEN 15 mg/dL (7-20); CALCIUM 9.1 mg/dL (8.4-10.2); CARBON DIOXIDE 26 mmol/L (22-30); CHLORIDE 105 mmol/L (98-107); GLUCOSE 120 mg/dL (75-110); POTASSIUM 4.3 mmol/L (3.6-5.0); SODIUM 139.3 mmol/L (137-145)
[2017-12-03] MEDS ORDERED: MIDAZOLAM 2 MG/2 ML INJ ONE (22:50)
[2017-12-03] MEDS ORDERED: MIDAZOLAM 2 MG/2 ML INJ IV ONE (22:55)
[2017-12-03] MEDS ORDERED: LEVOFLOXACIN 750 MG/D5W RTU 750 MG/150 ML RTUPB IV ONE (22:55)
[2017-12-03] MEDS ORDERED: NORMAL SALINE 1000 ML 1,000 ML IV ONE (22:55)
--- NOTE | 2017-12-03 22:58 | ER Document Report ---
ED General - General Stated Complaint: AMS Time Seen by Provider: 12/03/17 21:26 Cannot obtain history due to: Dementia Notes: This is a 62-year-old male with a past medical history of dementia, cognitive impairment, seizures, who presents after having multiple seizures today and being somewhat confused since that time. Patient was seen in the emergency room and several days ago, diagnosed with a urinary tract infection has been taking linazolid since that time. Patient is unable to provide meaningful history but his sister at the bedside states that the facility was concerned that the patient was having more seizures than normal despite taking his normal medications. History is otherwise limited secondary to the patient's baseline cognitive impairment. TRAVEL OUTSIDE OF THE [place] IN LAST 30 DAYS: No - Related Data Allergies/Adverse Reactions: No Known Allergies Allergy (Verified 09/11/17 08:43) Past Medical History - General Information source: Relative - Social History Smoking Status: Never Smoker Frequency of alcohol use: None Drug Abuse: None Lives with: Group Home Family History: Reviewed & Not Pertinent, CAD, Other - Seizure - Past Medical History Cardiac Medical History: Reports: Hx Congestive Heart Failure, Hx Hypertension Pulmonary Medical History: Denies: Hx Tuberculosis Neurological Medical History: Reports: Hx Seizures - ataxia, epilepsy Endocrine Medical History: Reports: Hx Hypothyroidism Renal/ Medical History: Reports: Hx Benign Prostatic Hyperplasia. Denies: Hx Peritoneal Dialysis Skin Medical History: Reports Hx MRSA Psychiatric Medical History: Reports: Hx Depression Traumatic Medical History: Reports: Hx Spine Fracture Infectious Medical History: Reports: Hx MRSA - Immunizations Hx Diphtheria, Pertussis, Tetanus Vaccination: Yes Hx Pneumococcal Vaccination: 08/20/12 Review of Systems - Review of Systems -: Yes ROS unobtainable due to patient's medical condition Physical Exam - Vital signs Interpretation: Normal Notes: PHYSICAL EXAMINATION: GENERAL: Resting calmly, in no acute distress HEAD: Atraumatic, normocephalic. EYES: Pupils equal round and reactive to light, extraocular movements intact, sclera anicteric, conjunctiva are normal. ENT: nares patent, oropharynx clear without exudates. Mild dry mucous membranes. NECK: Normal range of motion, supple without lymphadenopathy LUNGS: Breath sounds clear to auscultation bilaterally and equal. No wheezes rales or rhonchi. HEART: Regular rate and rhythm without murmurs ABDOMEN: Soft, nontender, normoactive bowel sounds. No guarding, no rebound. No masses appreciated. EXTREMITIES: no pitting or edema. No cyanosis. NEUROLOGICAL: No focal neurological deficits. Moves all extremities spontaneously. PSYCH: Nonverbal SKIN: Warm, Dry, normal turgor, no rashes or lesions noted. Course - Re-evaluation Re-evalutation: 12/03/17 22:57 Patient presents with concerns of 2 seizures today and decreased responsiveness to family and staff. Patient did have another seizure here in the emergency department approximately 2-3 minutes ago terminate with 2 mg of intravenous Versed. I anticipate that he is having more frequent seizures secondary to a known urinary tract infection that was diagnosed several days ago and was started on the linazolid. Urine culture was not specifically tested for sensitivity to this antibiotic but does show sensitivity to multiple fluoroquinolones and will therefore transition the patient to levofloxacin to which the urine culture shows sensitivity. His laboratories are otherwise unremarkable. Will plan for discharge back to the nursing facility with recommendations for transition to levofloxacin and close follow-up. 12/04/17 03:38 Patient is following commands, vitals remain within acceptable limits. At this time will discharge with return precautions and follow-up recommendations. Verbal discharge instructions given a the bedside and opportunity for questions given. Medication warnings reviewed. Sister is in agreement with this plan and has verbalized understanding of return precautions and the need for primary care follow-up in the next 24-72 hours. - Laboratory Result Diagrams: 12/03/17 21:34 12/03/17 21:34 Laboratory results interpreted by me: 12/03/17 12/03/17 12/04/17 21:34 21:34 00:10 RBC 3.90 L Hgb 11.6 L Hct 34.2 L RDW 15.7 H Creatinine 1.30 H Est GFR (Non-Af Amer) 56 L Glucose 120 H Urine Protein 100 H Urine Blood LARGE H Ur Leukocyte Esterase TRACE H Discharge - Discharge Clinical Impression: Seizure Urinary tract infection Qualifiers: Urinary tract infection type: acute cystitis Hematuria presence: without hematuria Qualified Code(s): N30.00 - Acute cystitis without hematuria Condition: Stable Disposition: HOME-SNF (ED ONLY) Additional Instructions: Please transition from the linazolid to levofloxacin as the urine culture shows sensitivity to levofloxacin. Continue to take all seizure medications as directed. Return for any additional concerns including ongoing recurrent seizures, persistent vomiting, fever greater than 101F, or any other symptoms that are worrisome to you. Prescriptions: Levofloxacin 500 mg PO DAILY #5 tablet
[2017-12-04 01:10] LABS: AMORPHOUS SEDIMENT,URINE TRACE /HPF
[2017-12-04 01:24] LABS: APPEARANCE,URINE CLEAR; BILIRUBIN,URINE NEGATIVE (NEGATIVE); COLOR,URINE YELLOW; GLUCOSE, URINE NEGATIVE (NEGATIVE); KETONES,URINE NEGATIVE (NEGATIVE); LEUKOCYTE ESTERASE,URINE TRACE (NEGATIVE); NITRITE,URINE NEGATIVE (NEGATIVE); PROTEIN,URINE 100 mg/dL (NEGATIVE); URINE SPECIFIC GRAVITY 1.022; UROBILINOGEN,URINE NEGATIVE mg/dL (<2.0)
[2017-12-04 04:55] VITALS: BP 120/68
== END 2017-12-04 04:20 ==
LOC: ER 21:15
DX: R56.9 Unspecified convulsions (principal); N30.00 Acute cystitis without hematuria; F03.90 Unspecified dementia, unspecified severity, without behavioral disturbance, psychotic disturbance, mood disturbance, and anxiety; I50.9 Heart failure, unspecified; I11.0 Hypertensive heart disease with heart failure; E03.9 Hypothyroidism, unspecified; Z86.14 Personal history of Methicillin resistant Staphylococcus aureus infection
CPT/HCPCS: 99285; 51701; 96375; 96365; 36415; 87086; 85025; 87088; 80048; 81001; 87186; J2250; J7030; J1956

== ENCOUNTER 2018-03-22 12:19 | Emergency (ER) | payer MEDICARE, MEDICAID ==
[2018-03-22 13:14] LABS: ABSOLUTE EOSINOPHILS # (AUTO) 0.1 10^3/uL (0.0-0.6); ABSOLUTE LYMPHOCYTES (AUTO) 0.8 10^3/uL (0.5-4.7); ABSOLUTE MONOCYTES (AUTO) 0.4 10^3/uL (0.1-1.4); ABSOLUTE NEUT (AUTO) 4.2 10^3/uL (1.7-8.2); BASOPHILS % (AUTO) 0.2 % (0-2); EOSINOPHILS % (AUTO) 1.1 % (0-6); HEMATOCRIT 31.5 % (37.9-51.0); HEMOGLOBIN 10.7 g/dL (13.5-17.0); LYMPHOCYTES % (AUTO) 14.9 % (13-45); MEAN CORPUSCULAR HEMOGLOBIN 29.4 pg (27.0-33.4); MEAN CORPUSCULAR VOLUME 86 fl (80-97); MONOCYTES % (AUTO) 7.2 % (3-13); PLATELET COUNT 135 10^3/uL (150-450); RED BLOOD COUNT 3.65 10^6/uL (4.35-5.55); RED CELL DISTRIBUTION WIDTH 15.2 % (11.5-14.0); SEGMENTED NEUTROPHILS % (AUTO) 76.6 % (42-78); TOTAL CELLS COUNTED % (AUTO) 100 %; WHITE BLOOD COUNT 5.4 10^3/uL (4.0-10.5)
[2018-03-22 13:25] LABS: PROTHROMBIN TIME 14.7 SEC (11.4-15.4)
[2018-03-22 13:27] LABS: AMORPHOUS SEDIMENT,URINE TRACE /HPF; APPEARANCE,URINE SLIGHTLY-CLOUDY; BILIRUBIN,URINE NEGATIVE (NEGATIVE); COLOR,URINE YELLOW; GLUCOSE, URINE NEGATIVE (NEGATIVE); KETONES,URINE NEGATIVE (NEGATIVE); LEUKOCYTE ESTERASE,URINE LARGE (NEGATIVE); NITRITE,URINE POSITIVE (NEGATIVE); PROTEIN,URINE NEGATIVE (NEGATIVE); URINE SPECIFIC GRAVITY 1.014; UROBILINOGEN,URINE NEGATIVE mg/dL (<2.0)
--- NOTE | 2018-03-22 13:27 | ER Document Report ---
ED General <LAMIN GARCIA - Last Filed: 03/22/18 15:37> - General Mode of Arrival: Ambulatory Information source: Patient TRAVEL OUTSIDE OF THE [place] IN LAST 30 DAYS: No <ROSA MARIA DAVIS - Last Filed: 03/22/18 15:42> - General Chief Complaint: Probable Seizure Stated Complaint: POSSIBLE SEIZURE Time Seen by Provider: 03/22/18 12:30 Notes: 62-year-old male who presents to the emergency department today for complaints of seizures at his facility prior to arrival. Patient is on keppra for seizures. It is reported from the facility that the patient "always has a UTI". History is limited. (ROSA MARIA DAVIS) - Related Data Allergies/Adverse Reactions: No Known Allergies Allergy (Verified 09/11/17 08:43) Past Medical History - General Information source: [facility] Records - Social History Smoking Status: Unknown if Ever Smoked Lives with: Family Family History: Reviewed & Not Pertinent, CAD, Other - Seizure Patient has suicidal ideation: No Patient has homicidal ideation: No - Past Medical History Cardiac Medical History: Reports: Hx Congestive Heart Failure, Hx Hypertension Neurological Medical History: Reports: Hx Seizures - ataxia, epilepsy Endocrine Medical History: Reports: Hx Hypothyroidism Renal/ Medical History: Reports: Hx Benign Prostatic Hyperplasia Skin Medical History: Reports Hx MRSA Psychiatric Medical History: Reports: Hx Depression Traumatic Medical History: Reports: Hx Spine Fracture Infectious Medical History: Reports: Hx MRSA Surgical Hx: Negative - Immunizations Hx Diphtheria, Pertussis, Tetanus Vaccination: Yes Hx Pneumococcal Vaccination: 08/20/12 <ROSA MARIA DAVIS - Last Filed: 03/22/18 15:42> Review of Systems - Review of Systems -: Yes ROS unobtainable due to patient's medical condition <ROSA MARIA DAVIS - Last Filed: 03/22/18 15:42> Physical Exam <LAMIN GARCIA - Last Filed: 03/22/18 15:37> <ROSA MARIA DAVIS - Last Filed: 03/22/18 15:42> - Vital signs Vitals: Resp 21 H 03/22/18 12:31 - Notes Notes: Physical Exam: General: Alert, appears well. HEENT: Normocephalic. Atraumatic. PERRL. Extraocular movements intact. Oropharynx clear. Neck: Supple. Non-tender. Respiratory: No respiratory distress. Clear and equal breath sounds bilaterally. Cardiovascular: Regular rate and rhythm. Abdominal: Normal Inspection. Non-tender. No distension. Normal Bowel Sounds. Back: Non-tender. No deformity or step off. Extremities: Moves all four extremities. Upper extremities: Normal inspection. Normal ROM. Lower extremities: Normal inspection. No edema. Normal ROM. Neurological: Normal cognition. AAOx4. Normal speech. Psychological: Normal affect. Normal Mood. Skin: Left inner thigh ecchymosis. (ROSA MARIA DAVIS) Course - Laboratory Result Diagrams: 03/22/18 12:49 03/22/18 12:49 - EKG Interpretation by Dc EKG shows normal: Sinus rhythm, [place], Intervals, QRS Complexes, ST-T Waves Rate: Normal - 78 Rhythm: NSR <LAMIN GARCIA - Last Filed: 03/22/18 15:37> - Laboratory Result Diagrams: 03/22/18 12:49 03/22/18 12:49 <ROSA MARIA DAVIS - Last Filed: 03/22/18 15:42> - Re-evaluation Re-evalutation: 03/22/18 15:15 The patient's sister reports that he has seizures when he has urinary tract infections. He has a Nicholas catheter and most likely always has urine contamination. He was admitted on 09/02/2017 with a VRE urinary tract infection. On September 11, 2017 he was brought to emergency room for seizures and at that time had a clean urine with a negative urine culture. He was seen here on 11/30/2017 at which time he was put on Zyvox based on the culture from . On 11/30/2017 the urine grew Pseudomonas aeruginosa and a Stenotrophomonas Maltophilia. He was seen 4 days later on 12/04/2017 and the antibiotic was changed to Levaquin based on results of the culture from 11/30/2017. The urine was recultured on that day, and the previous 2 organisms did not grow, but a new organism Enterococcus faecalis group D did grow and it was resistant to the Levaquin that he was put on that evening. I discussed this at length with the sister, my concern that he is getting all these antibiotics and will grow drug-resistant infections. There is no surveillance of the urine to no whether these are actually infections or not. The UA today did have nitrite positive dipstick and it has not had that in the past. Because of the nitrite positive urine today he will be treated with antibiotics , but I will use nitrofurantoin for now until the culture results can come back and then a decision about whether or not this really needs to be treated can be made. The sister is taking copies of all of this lab work to her brothers follow-up appointment with his urologist. He should decide if he wants the patient on a chronic UTI suppression medication. Additionally, I did add a Keppra level to the send out lab work to see if that may have anything to do with his seizures. (LAMIN GARCIA) - Vital Signs Vital signs: Temp Pulse Resp BP Pulse Ox 98.9 F 16 112/58 L 99 03/22/18 12:56 03/22/18 14:01 03/22/18 14:01 03/22/18 14:01 - Laboratory Laboratory results interpreted by me: 03/22/18 03/22/18 03/22/18 12:49 12:49 12:49 RBC 3.65 L Hgb 10.7 L Hct 31.5 L RDW 15.2 H Plt Count 135 L Chloride 109 H Albumin 3.2 L Urine Nitrite POSITIVE H Ur Leukocyte Esterase LARGE H Discharge <LAMIN GARCIA - Last Filed: 03/22/18 15:37> <ROSA MARIA DAVIS - Last Filed: 03/22/18 15:42> - Discharge Clinical Impression: Recurrent seizures, Chronic urinary tract infection Additional Instructions: The increase frequency of seizures could be due to subtherapeutic levels of your medications, and may be due to urinary tract infection. 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 You may actually have a urinary tract infection today, you will be treated with Macrodantin, pending cultures. You should have your caregivers check on the urine and blood cultures in 2 days and change therapy accordingly. You do have a follow-up visit with your urologist next month. You should take copies of all the lab work supplied and reviewed that with him. Ask him to decide if he thinks a suppression antibiotic regimen may be appropriate, a urine surveillance culture regimen started, or stopping the catheter altogether. A Keppra level was ordered, that should be available sometime next week and should be reviewed to see if that could be contributing to the seizures. Be sure that your primary care provider is aware of all of this and remains vigilant in follow-up. RETURN TO THE EMERGENCY ROOM IF ANY NEW OR WORSENING SYMPTOMS. Prescriptions: Nitrofurantoin Monohyd/M-Cryst [Nitrofurantoin [place]-Mcr 100 mg] 100 mg PO QID # 20 capsule Referrals: TEX CARTER DO [Primary Care Provider] - Follow up in 3-5 days Scribe Attestation: 03/22/18 15:32 I personally performed the services described in the documentation, reviewed and edited the documentation which was dictated to the scribe in my presence, and it accurately records my words and actions. (LAMIN GARCIA) Scribe Documentation - Scribe Written by Lloyd:: Lloyd Dos Santos, 03/22/2018 1542 acting as scribe for :: Yung <ROSA MARIA DAVIS - Last Filed: 03/22/18 15:42>
--- NOTE | 2018-03-22 13:31 | RADIOLOGY REPORT (SQ) ---
EXAM DESCRIPTION: CHEST SINGLE VIEW COMPLETED DATE/TIME: 03/22/2018 1:19 pm REASON FOR STUDY: bed mp sepsis protocol COMPARISON: Chest films 08/20/2016, 07/10/2017, 07/17/2017, 09/02/2017 EXAM PARAMETERS: NUMBER OF VIEWS: One view. TECHNIQUE: Single frontal radiographic view of the chest acquired. RADIATION DOSE: NA LIMITATIONS: None. FINDINGS: LUNGS AND PLEURA: No opacities, masses or pneumothorax. No pleural effusion. MEDIASTINUM AND HILAR STRUCTURES: No masses. Contour normal. HEART AND VASCULAR STRUCTURES: Stable mild cardiomegaly BONES: No acute findings. HARDWARE: None in the chest. OTHER: No other significant finding. IMPRESSION: NO ACUTE RADIOGRAPHIC FINDING IN THE CHEST. TECHNICAL DOCUMENTATION: JOB ID: [id number] [employer]- All Rights Reserved Reading location - IP/workstation name: [email or web address]
[2018-03-22 13:34] LABS: ALANINE AMINOTRANSFERASE 28 U/L (21-72); ALBUMIN 3.2 g/dL (3.5-5.0); ALKALINE PHOSPHATASE 83 U/L (38-126); ANION GAP 10 (5-19); ASPARTATE AMINO TRANSFERASE 34 U/L (17-59); BILIRUBIN,DIRECT 0.2 mg/dL (0.0-0.4); BILIRUBIN,TOTAL 0.4 mg/dL (0.2-1.3); BLOOD UREA NITROGEN 17 mg/dL (7-20); CALCIUM 8.9 mg/dL (8.4-10.2); CARBON DIOXIDE 22 mmol/L (22-30); CHLORIDE 109 mmol/L (98-107); GLUCOSE 78 mg/dL (75-110); POTASSIUM 4.9 mmol/L (3.6-5.0); SODIUM 141.1 mmol/L (137-145); TOTAL PROTEIN 7.5 g/dL (6.3-8.2)
[2018-03-22 13:47] LABS: VENOUS BLOOD BASE EXCESS -3.7 mmol/L; VENOUS BLOOD HCO3 22.5 mmol/L (20-32); VENOUS BLOOD PCO2 44.8 mmHg (35-63); VENOUS BLOOD PH 7.32 (7.30-7.42)
[2018-03-22] MEDS ORDERED: NITROFURANTOIN MONOHYD/M-CRYST 100 MG CAPSULE PO ONE (15:27)
[2018-03-22 16:07] VITALS: BP 111/58
--- NOTE | 2018-03-22 23:08 | EKG REPORT ---
SEVERITY:- NORMAL ECG - SINUS RHYTHM : Confirmed by: Lai Hennessy 22-Mar-2018 23:08:07
== END 2018-03-22 19:33 ==
LOC: ER 12:19
DX: G40.909 Epilepsy, unspecified, not intractable, without status epilepticus (principal); Z79.899 Other long term (current) drug therapy; N39.0 Urinary tract infection, site not specified; I10 Essential (primary) hypertension; R58 Hemorrhage, not elsewhere classified
CPT/HCPCS: 93005; 99285; 36415; 87040; 87086; 80177; 85025; 85610; 87088; 80053; 81001; 87186; 82803; 83605; 71045; 93010; A9270; J8499

== ENCOUNTER 2018-06-11 13:43 | Emergency (ER) | payer MEDICARE, MEDICAID ==
[2018-06-11] MEDS ORDERED: CLONAZEPAM 1 MG TABLET PO ONE (14:02)
[2018-06-11] MEDS ORDERED: LEVETIRACETAM ORAL SOLN 500 MG/5 ML UDCUP PO ONE (14:02)
--- NOTE | 2018-06-11 14:03 | ER Document Report ---
ED General - General Stated Complaint: POSSIBLE SEIZURE Time Seen by Provider: 06/11/18 13:58 Mode of Arrival: Medic Information source: Patient, Relative, Emergency Med Personnel Cannot obtain history due to: Mentally challenged TRAVEL OUTSIDE OF THE [place] IN LAST 30 DAYS: No - HPI Patient complains to provider of: seizure Onset: Other - This 62-year-old man presents for evaluation seizures in the known history of seizures in the past, well controlled previously on Keppra. He had a single episode this morning and then 2 this afternoon which prompted his facility to call for EMS. - Related Data Allergies/Adverse Reactions: No Known Allergies Allergy (Verified 09/11/17 08:43) Past Medical History - General Information source: Patient, Relative - Social History Smoking Status: Never Smoker Cigarette use (# per day): No Family History: Reviewed & Not Pertinent, CAD, Other - Seizure - Past Medical History Cardiac Medical History: Reports: Hx Congestive Heart Failure, Hx Hypertension Pulmonary Medical History: Denies: Hx Tuberculosis Neurological Medical History: Reports: Hx Seizures - ataxia, epilepsy Endocrine Medical History: Reports: Hx Hypothyroidism Renal/ Medical History: Reports: Hx Benign Prostatic Hyperplasia. Denies: Hx Peritoneal Dialysis Skin Medical History: Reports Hx MRSA Psychiatric Medical History: Reports: Hx Depression Traumatic Medical History: Reports: Hx Spine Fracture Infectious Medical History: Reports: Hx MRSA - Immunizations Hx Diphtheria, Pertussis, Tetanus Vaccination: Yes Hx Pneumococcal Vaccination: 08/20/12 Review of Systems - Review of Systems -: Yes All other systems reviewed and negative Physical Exam - Vital signs Vitals: Resp BP Pulse Ox 16 114/49 L 95 06/11/18 14:01 06/11/18 14:01 06/11/18 14:01 - General General appearance: Alert In distress: None - HEENT Head: Normocephalic Eyes: Normal Conjunctiva: Normal Cornea: Normal Extraocular movements intact: Yes Eyelashes: Normal Pupils: PERRL - Respiratory Respiratory status: No respiratory distress Chest status: Nontender Breath sounds: Normal - Cardiovascular Rhythm: Regular Heart sounds: Normal auscultation Murmur: No - Abdominal Inspection: Normal, Obese Distension: No distension Tenderness: Nontender - Back Back: Normal - Extremities General upper extremity: Normal inspection, Nontender, Normal ROM, Normal strength General lower extremity: Normal inspection, Nontender, Normal ROM, Normal strength - Neurological Neuro grossly intact: No Cognition: Confused, Inattentive Orientation: Disoriented to person, Disoriented to events Leslie Coma Scale Eye Opening: Spontaneous Murray Coma Scale Verbal: Confused Murray Coma Scale Motor: Obeys Commands Leslie Coma Scale Total: 14 Speech: Normal, Dysarthria Cranial nerves: Normal Motor strength normal: LUE, RUE, LLE, RLE - Psychological Associated symptoms: Confused Course - Re-evaluation Re-evalutation: 06/11/18 16:57 This 62-year-old man with marginal cognitive function presents with a history of known seizures in the past currently on Keppra evaluated multiple times for seizures in the past generally found to have a urinary tract infection thereafter. His sister notes that he is at his baseline level of functioning currently, she believes that he likely has a urinary tract infection as underlying cause for his seizure as he has in the past. She notes that she would prefer to minimize workup if able and suggested we just draw labs and measure the urine. Patient's urinalysis does demonstrate positive nitrates. No obvious leukocytosis however does have an elevated creatinine suggesting decreased p.o. intake which his sister notes as a result of his mother having and him being sad. Denies any obvious fevers or chills she notes that she seen them almost every day that he has been increasingly depressed because of his mother's . No obvious neurologic deficits he had a did have a postictal period after his seizure however has now returned to his baseline. Plan will be for patient undergo treatment with Bactrim as his previous sensitivities were noted to have 2 organisms generally grown out both of which were sensitive to this. He is not on any arb or CHRISTINA. His sister is in agreement with this at this time, he will be discharged to his facility with return precautions. He was given his dose of Keppra as well as his dose of Klonopin while in the emergency department was able to tolerate p.o. - Vital Signs Vital signs: Temp Pulse Resp BP Pulse Ox 14 114/49 L 96 06/11/18 14:02 06/11/18 14:01 06/11/18 14:02 - Laboratory Result Diagrams: 06/11/18 13:30 06/11/18 13:30 Laboratory results interpreted by me: 06/11/18 06/11/18 06/11/18 13:30 13:30 14:48 RBC 4.10 L Hgb 12.1 L Hct 35.7 L RDW 15.8 H Carbon Dioxide 20 L BUN 25 H Creatinine 1.51 H Est GFR ( Amer) 57 L Est GFR (Non-Af Amer) 47 L Urine Nitrite POSITIVE H Ur Leukocyte Esterase LARGE H Urine Ascorbic Acid 40 H Discharge - Discharge Clinical Impression: Seizure Urinary tract infection Qualifiers: Urinary tract infection type: acute cystitis Hematuria presence: with hematuria Qualified Code(s): N30.01 - Acute cystitis with hematuria Condition: Stable Disposition: HOME, SELF-CARE Instructions: Trimethoprim-Sulfa ([facility]), Urinary Tract Infection ([facility]) Prescriptions: Sulfamethoxazole/Trimethoprim [Sulfatrim Pediatric Suspension] 473 ml PO BID 10 Days #1 oral.susp Referrals: TEX CARTER DO [Primary Care Provider] - Follow up as needed
[2018-06-11 14:15] LABS: ABSOLUTE EOSINOPHILS # (AUTO) 0.1 10^3/uL (0.0-0.6); ABSOLUTE LYMPHOCYTES (AUTO) 0.8 10^3/uL (0.5-4.7); ABSOLUTE MONOCYTES (AUTO) 0.3 10^3/uL (0.1-1.4); ABSOLUTE NEUT (AUTO) 3.7 10^3/uL (1.7-8.2); BASOPHILS % (AUTO) 0.3 % (0-2); EOSINOPHILS % (AUTO) 1.2 % (0-6); HEMATOCRIT 35.7 % (37.9-51.0); HEMOGLOBIN 12.1 g/dL (13.5-17.0); LYMPHOCYTES % (AUTO) 15.8 % (13-45); MEAN CORPUSCULAR HEMOGLOBIN 29.4 pg (27.0-33.4); MEAN CORPUSCULAR HGB CONC 33.8 g/dL (32.0-36.0); MEAN CORPUSCULAR VOLUME 87 fl (80-97); MONOCYTES % (AUTO) 6.1 % (3-13); PLATELET COUNT 155 10^3/uL (150-450); RED CELL DISTRIBUTION WIDTH 15.8 % (11.5-14.0); SEGMENTED NEUTROPHILS % (AUTO) 76.6 % (42-78); TOTAL CELLS COUNTED % (AUTO) 100 %; WHITE BLOOD COUNT 4.8 10^3/uL (4.0-10.5)
[2018-06-11 14:26] LABS: ALANINE AMINOTRANSFERASE 27 U/L (21-72); ALBUMIN 3.5 g/dL (3.5-5.0); ALKALINE PHOSPHATASE 86 U/L (38-126); ANION GAP 13 (5-19); ASPARTATE AMINO TRANSFERASE 33 U/L (17-59); BILIRUBIN,DIRECT 0.3 mg/dL (0.0-0.4); BILIRUBIN,TOTAL 0.6 mg/dL (0.2-1.3); BLOOD UREA NITROGEN 25 mg/dL (7-20); CALCIUM 8.6 mg/dL (8.4-10.2); CARBON DIOXIDE 20 mmol/L (22-30); CHLORIDE 106 mmol/L (98-107); GLUCOSE 102 mg/dL (75-110); POTASSIUM 4.9 mmol/L (3.6-5.0); SODIUM 139.2 mmol/L (137-145); TOTAL PROTEIN 7.9 g/dL (6.3-8.2)
[2018-06-11 15:28] LABS: ADD MANUAL MICROSCOPIC YES; APPEARANCE,URINE SLIGHTLY HAZY; BILIRUBIN,URINE NEGATIVE (NEGATIVE); COLOR,URINE LIGHT YELLOW; GLUCOSE, URINE NEGATIVE (NEGATIVE); KETONES,URINE NEGATIVE (NEGATIVE); LEUKOCYTE ESTERASE,URINE LARGE (NEGATIVE); NITRITE,URINE POSITIVE (NEGATIVE); PROTEIN,URINE NEGATIVE (NEGATIVE); URINE SPECIFIC GRAVITY 1.014; UROBILINOGEN,URINE NEGATIVE mg/dL (<2.0)
[2018-06-11 15:29] LABS: BACTERIA,URINE 1+ /HPF; RBC,URINE RARE /HPF; WBC,URINE 50-100 /HPF
[2018-06-11] MEDS ORDERED: SULFAMETHOXAZOLE/TRIMETHOPRIM 800-160 MG/20 ML UDCUP PO ONE (16:18)
[2018-06-11 19:21] VITALS: BP 124/64
== END 2018-06-11 19:51 | disposition home or self-care (01) ==
LOC: ER 13:43
DX: G40.909 Epilepsy, unspecified, not intractable, without status epilepticus (principal); Z79.899 Other long term (current) drug therapy; N30.01 Acute cystitis with hematuria; I10 Essential (primary) hypertension
CPT/HCPCS: 99284; 36415; 87086; 80177; 85025; 87088; 80053; 81001; 87186; A9270; J3490 ×2

== ENCOUNTER 2018-08-24 18:09 | Emergency (ER) | payer MEDICARE, MEDICAID ==
[2018-08-24 18:32] VITALS: BP 126/62
--- NOTE | 2018-08-24 19:06 | ER Document Report ---
ED General - General Chief Complaint: Fall Injury Stated Complaint: FALL,HEAD INJURY Time Seen by Provider: 08/24/18 18:35 Cannot obtain history due to: Mentally challenged Notes: Patient is a 63-year-old male with a past medical history of MRhakeem, presents after having a mechanical fall just prior to arrival. Apparently stood up at the table at the nursing facility and fell forward striking his forehead. He did sustain a superficial laceration of the right forehead. Was transported due to protocol at the nursing facility. His sister who is his power of banking attorney is at his bedside. She states that he is acting at his baseline and I did not feel he needed to come to the hospital as he falls frequently and has never sustained a serious injury. She states that he does not appear to be in any discomfort. History is otherwise limited secondary to the patient's degree of MR. TRAVEL OUTSIDE OF THE [place] IN LAST 30 DAYS: No - Related Data Allergies/Adverse Reactions: No Known Allergies Allergy (Verified 09/11/17 08:43) Past Medical History - General Information source: Relative Cannot obtain history due to: Mentally challenged - Social History Smoking Status: Never Smoker Frequency of alcohol use: None Drug Abuse: None Lives with: Custodial Family History: Reviewed & Not Pertinent, CAD, Other - Seizure Patient has suicidal ideation: No Patient has homicidal ideation: No - Past Medical History Cardiac Medical History: Reports: Hx Congestive Heart Failure, Hx Hypertension Pulmonary Medical History: Denies: Hx Tuberculosis Neurological Medical History: Reports: Hx Seizures - ataxia, epilepsy Endocrine Medical History: Reports: Hx Hypothyroidism Renal/ Medical History: Reports: Hx Benign Prostatic Hyperplasia. Denies: Hx Peritoneal Dialysis Skin Medical History: Reports Hx MRSA Psychiatric Medical History: Reports: Hx Depression Traumatic Medical History: Reports: Hx Spine Fracture Infectious Medical History: Reports: Hx MRSA - Immunizations Hx Diphtheria, Pertussis, Tetanus Vaccination: Yes Hx Pneumococcal Vaccination: 08/20/12 Review of Systems - Review of Systems Notes: Constitutional: Negative for fever. Eyes: Negative for visual changes. ENT: Negative for facial injury Cardiovascular: Negative for chest injury. Respiratory: Negative for shortness of breath. Gastrointestinal: Negative for abdominal injury. Genitourinary: Negative for genital injury Musculoskeletal: Negative for back injury. Skin: Positive for laceration/abrasions. Neurological: Positive for head injury. Physical Exam - Vital signs Vitals: Temp Pulse Resp BP Pulse Ox 97.5 F 58 L 17 126/62 H 100 08/24/18 18:16 08/24/18 18:16 08/24/18 18:16 08/24/18 18:16 08/24/18 18:16 Interpretation: Normal Notes: PHYSICAL EXAMINATION: GENERAL: Well-appearing, no acute distress. HEAD: Atraumatic, normocephalic. EYES: Pupils equal round and reactive to light, extraocular movements intact, sclera anicteric, conjunctiva are normal. ENT: nares patent, no oral pharyngeal trauma. No hemotympanum, no Cho's sign, no raccoon eyes. NECK: No midline cervical spine tenderness. Patient able to move their head to 45 bilaterally. LUNGS: Breath sounds clear to auscultation bilaterally and equal. No wheezes rales or rhonchi. HEART: Regular rate and rhythm without murmurs. CHEST WALL: No ecchymosis over the chest wall. ABDOMEN: Soft, nontender, normoactive bowel sounds. No guarding, no rebound. No abdominal bruising EXTREMITIES: Normal range of motion, no pitting or edema. No long bone deformities. BACK: No midline spinal tenderness, step-offs, or deformities. NEUROLOGICAL: Face symmetric. Tongue protrudes midline. Extraocular motions intact. Pupils are 2 mm and equally reactive. Moves all extremity spontaneously and on command. PSYCH: Normal mood, normal affect. SKIN: Warm, Dry, normal turgor, superficial 2 cm laceration over the right forehead Course - Re-evaluation Re-evalutation: 08/24/18 19:03 Presentation of a well patient in no acute distress, vitals within normal limits after a mechanical fall of the which the patient has a long-standing history. No focal neurologic deficits on exam, no evidence of basilar skull fracture on exam without evidence of hemotympanum, raccoon eyes, or periauricular hematoma. No papilledema. Patient is not on anticoagulation. Acting at mental status baseline per family at bedside. No loss of consciousness. No episodes of vomiting. Due to patient's MR, mental status assessment is limited and does make formal clearance using creating criteria for head and cervical spine difficult. I did discuss at length with the healthcare power of banking attorney at the bedside this limitation and we have agreed to avoid proceeding with CT imaging based on low probability of intercranial injury as well as the frequency of falls and frequency of CT imaging. Patient has no focal deformities or limited range of motion in any joint space to indicate need for extremity imaging. Chest and abdominal exam are benign without any focal tenderness, shortness of breath, or bruising over the chest or abdominal wall. Patient has no flank tenderness. There is no obvious findings on trauma exam today and therefore no further imaging or evaluation will be obtained at this time. I've instructed the patient to return to emergency room immediately should they have any worsening or new symptoms that are concerning to them. - Vital Signs Vital signs: Temp Pulse Resp BP Pulse Ox 97.5 F 58 L 17 126/62 H 100 08/24/18 20:05 08/24/18 18:16 08/24/18 20:05 08/24/18 18:16 08/24/18 20:05 Discharge - Discharge Clinical Impression: Cognitive developmental delay Fall Qualifiers: Encounter type: initial encounter Qualified Code(s): W19.XXXA - Unspecified fall, initial encounter Forehead laceration Qualifiers: Encounter type: initial encounter Qualified Code(s): S01.81XA - Laceration without foreign body of other part of head, initial encounter Condition: Good Disposition: HOME, SELF-CARE Additional Instructions: You have likely sustained a contusion (bruise) to your head. Symptoms to expect from a concussion include nausea, mild to moderate headache, difficulty concentrating or sleeping, and mild lightheadedness. These symptoms should improve over the next few days to weeks. Return to the emergency department or follow-up with your primary care doctor if your symptoms are not improving over this time. Signs of a more serious head injury include vomiting, severe headache, excessive sleepiness or confusion, and weakness or numbness in your face, arms or legs. Return immediately to the Emergency Department if you experience any of these more concerning symptoms. Rest, avoid strenuous physical or mental activity, and avoid activities that could potentially result in another head injury until all your symptoms from this head injury are completely resolved for at least 2-3 weeks. You may take ibuprofen or acetaminophen over the counter according to label instructions for mild headache or scalp soreness.
== END 2018-08-24 20:30 | disposition home or self-care (01) ==
LOC: ER 18:09
DX: S01.81XA Laceration without foreign body of other part of head, initial encounter (principal); R62.50 Unspecified lack of expected normal physiological development in childhood; W19.XXXA Unspecified fall, initial encounter; Y92.129 Unspecified place in nursing home as the place of occurrence of the external cause; I50.9 Heart failure, unspecified; I11.0 Hypertensive heart disease with heart failure
CPT/HCPCS: 99284

== ENCOUNTER 2019-01-23 10:01 | Inpatient (IN) | payer MEDICARE, MEDICAID ==
[2019-01-23] MEDS ORDERED: LIDOCAINE 1%/EPINEPHRINE INJ 20 ML VIAL INJ ONE (10:13)
--- NOTE | 2019-01-23 10:37 | ER Document Report ---
Entered by KAREN CORDOVA SCRIBE 01/23/19 1018 Acting as scribe for:LAMIN GARCIA MD ED General - General Mode of Arrival: Ambulatory Information source: Emergency Med Personnel TRAVEL OUTSIDE OF THE [place] IN LAST 30 DAYS: No <LAMIN GARCIA - Last Filed: 01/23/19 14:59> <RONNA MOY - Last Filed: 01/23/19 16:18> - General Stated Complaint: FALL/HEAD INJURY Time Seen by Provider: 01/23/19 10:05 Primary Care Provider: GIUSEPPE FISHMAN MD [Primary Care Provider] - Follow up as needed Notes: Patient is a 63 year old male with ataxia, seizures, MR presents to the emergency department complaining of a laceration to the right eyebrow secondary a fall. Patient is nonverbal so no further history was obtained. (KAREN CORDOVA) Patient is a 63 year old male with ataxia, seizures, MR presents to the emergency department complaining of a laceration to the right eyebrow secondary a fall. Patient is nonverbal so no further history was obtained. (LAMIN GARCIA) - Related Data Allergies/Adverse Reactions: No Known Allergies Allergy (Verified 09/11/17 08:43) Past Medical History - General Information source: Emergency Med Personnel, [facility] Records - Social History Smoking Status: Never Smoker Cigarette use (# per day): No Chew tobacco use (# tins/day): No Smoking Education Provided: No Family History: Reviewed & Not Pertinent, CAD, Other - Seizure - Past Medical History Cardiac Medical History: Reports: Hx Congestive Heart Failure, Hx Hypertension Neurological Medical History: Reports: Hx Seizures - ataxia, epilepsy Endocrine Medical History: Reports: Hx Hypothyroidism Renal/ Medical History: Reports: Hx Benign Prostatic Hyperplasia Skin Medical History: Reports Hx MRSA Psychiatric Medical History: Reports: Hx Depression Traumatic Medical History: Reports: Hx Spine Fracture Infectious Medical History: Reports: Hx MRSA - Immunizations Hx Diphtheria, Pertussis, Tetanus Vaccination: Yes Hx Pneumococcal Vaccination: 08/20/12 <LAMIN GARCIA - Last Filed: 01/23/19 14:59> Review of Systems - Review of Systems Constitutional: No symptoms reported EENT: No symptoms reported Cardiovascular: No symptoms reported Respiratory: No symptoms reported Gastrointestinal: No symptoms reported Genitourinary: No symptoms reported Male Genitourinary: No symptoms reported Musculoskeletal: See HPI Skin: No symptoms reported Hematologic/Lymphatic: No symptoms reported Neurological/Psychological: No symptoms reported <JOSELAMIN Saleh - Last Filed: 01/23/19 14:59> - Review of Systems Notes: ROS obtained via EMS. (KAREN CORDOVA) ROS obtained via EMS. (LAMIN GARCIA) Physical Exam - Vital signs Interpretation: Bradycardic <JOSE,LAMIN - Last Filed: 01/23/19 14:59> - Vital signs Vitals: Pulse Ox 99 01/23/19 10:13 - Notes Notes: GENERAL: Alert, cooperative, does not speak. No acute distress. HEAD: Normocephalic. 3.5 cm laceration to the right orbital ridge that extends through the right eyebrow. EYES: Pupils equal, round, and reactive to light. Extraocular movements intact. ENT: Oral mucosa moist, tongue midline. NECK: Full range of motion. Supple. Trachea midline. No tenderness to palpation. LUNGS: Clear to auscultation bilaterally, no wheezes, rales, or rhonchi. No respiratory distress. HEART: Bradycardic. No murmurs, gallops, or rubs. ABDOMEN: Soft, non-tender. Non-distended. Bowel sounds present in all 4 quadrants. No guarding, rigidity, or rebound. EXTREMITIES: Moves all 4 extremities spontaneously. No edema, radial and dorsalis pedis pulses 2/4 bilaterally. No cyanosis. NEUROLOGICAL: Alert. Cooperative. Does not speak. PSYCH: Does not speak. SKIN: Warm, dry, normal turgor. (KAREN CORDOVA) GENERAL: Alert, cooperative, does not speak. No acute distress. HEAD: Normocephalic. 3.5 cm laceration to the right orbital ridge that extends through the right eyebrow. EYES: Pupils equal, round, and reactive to light. Extraocular movements intact. ENT: Oral mucosa moist, tongue midline. NECK: Full range of motion. Supple. Trachea midline. No tenderness to palpation. LUNGS: Clear to auscultation bilaterally, no wheezes, rales, or rhonchi. No respiratory distress. HEART: Bradycardic. No murmurs, gallops, or rubs. ABDOMEN: Soft, non-tender. Non-distended. Bowel sounds present in all 4 quadrants. No guarding, rigidity, or rebound. EXTREMITIES: Moves all 4 extremities spontaneously. Chronic 3+ edema to lower extremities with chronic skin changes, shiny skin, chronically darkened skin. NEUROLOGICAL: Alert. Cooperative. Speaks very little. PSYCH: Pleasant, mentally slow. SKIN: Warm, dry, normal turgor. (LAMIN GARCIA) Course - Laboratory Result Diagrams: 01/23/19 10:40 01/23/19 10:40 - Diagnostic Test Radiology reviewed: Image reviewed, Reports reviewed - CT scan of the head shows chronic changes with nothing acute. - EKG Interpretation by Nd EKG shows normal: Sinus rhythm, Harmony, Intervals, QRS Complexes, ST-T Waves Rate: Bradycardia - 37 - Consults Dr. Ramirez Time consulted: 14:02 Consulted provider: will come to ER - Requests I discusse the case with Dr. Pryor. Dr. Pryor wants thyroid function tests done prior to making a decision about admission. - Transfer of Care Care transferred to following provider: Dr. Moy <LAMIN GARCIA - Last Filed: 01/23/19 14:59> - Laboratory Result Diagrams: 01/23/19 10:40 01/23/19 10:40 <RONNA MOY - Last Filed: 01/23/19 16:18> - Re-evaluation Re-evalutation: 01/23/19 13:45 Patient was given 0.5 mg atropine IV. This raised his pulse from 33-39. (LAMIN GARCIA) - Vital Signs Vital signs: Temp Pulse Resp BP Pulse Ox 97.6 F 12 109/50 L 97 01/23/19 10:24 01/23/19 15:01 01/23/19 15:01 01/23/19 15:01 - Laboratory Laboratory results interpreted by nj: 01/23/19 01/23/19 01/23/19 10:40 10:40 13:11 RBC 3.81 L Hgb 10.9 L Hct 33.1 L RDW 15.6 H Plt Count 123 L Seg Neutrophils % 78.6 H BUN 41 H Creatinine 1.55 H Est GFR ( Amer) 55 L Est GFR (Non-Af Amer) 46 L Glucose 144 H Albumin 3.4 L Ur Leukocyte Esterase LARGE H - Transfer of Care Notes: 01/23/19 15:00 Patient has thyroid function tests pending. A decision to admit the patient here, discharged back to [facility], or transfer for higher level of care will be made by Dr. Pryor and Dr. Ramirez after the thyroid function tests are completed. (LAMIN GARCIA) Procedures - Laceration/Wound Repair Right Upper Face Time completed: 13:35 Wound length (cm): 3.5 Wound's Depth, Shape: Into muscle, Irregular, Contused tissue Laceration pre-procedure: Sterile drapes applied, Shur-Clens applied Anesthetic type: 1% Lidocaine w/epi Volume Anesthetic (mLs): 5 Wound explored: Clean, No foreign body removed Irrigated w/ Saline (mLs): 30 Wound Debrided: Minimal Wound Repaired With: Sutures Suture Size/Type: 5:0 Number of Sutures: 11 Layer Closure?: No Post-procedure wound care: Sterile dressing applied Post-procedure NV exam normal: Yes Complications: No <LAMIN GARCIA - Last Filed: 01/23/19 14:59> Critical Care Note - Critical Care Note Total time excluding time spent on procedures (mins): 30 <LAMIN GARCIA - Last Filed: 01/23/19 14:59> Discharge <LAMIN GARCIA - Last Filed: 01/23/19 14:59> - Discharge Admitting Provider: Ashley (Hospitalist) Unit Admitted: ICU <RONNA MOY - Last Filed: 01/23/19 16:18> - Discharge Clinical Impression: Bradycardia Fall Qualifiers: Encounter type: initial encounter Qualified Code(s): W19.XXXA - Unspecified fall, initial encounter Laceration of eyebrow and forehead Qualifiers: Encounter type: initial encounter Laterality: right Qualified Code(s): S01.81XA - Laceration without foreign body of other part of head, initial encounter Hypotension Qualifiers: Hypotension type: unspecified hypotension type Qualified Code(s): I95.9 - Hypotension, unspecified Condition: Fair Disposition: ADMITTED INPATIENT Referrals: GIUSEPPE FISHMAN MD [Primary Care Provider] - Follow up as needed Scribe Attestation: 01/23/19 11:13 I personally performed the services described in the documentation, reviewed and edited the documentation which was dictated to the scribe in my presence, and it accurately records my words and actions. (KAREN CORDOVA) 01/23/19 11:13 I personally performed the services described in the documentation, reviewed and edited the documentation which was dictated to the scribe in my presence, and it accurately records my words and actions. (LAMIN GARCIA) I personally performed the services described in the documentation, reviewed and edited the documentation which was dictated to the scribe in my presence, and it accurately records my words and actions.
--- NOTE | 2019-01-23 10:57 | EKG REPORT ---
SEVERITY:- OTHERWISE NORMAL ECG - SINUS BRADYCARDIA : Confirmed by: Lai Hennessy 23-Jan-2019 10:57:02
[2019-01-23 10:59] LABS: ABSOLUTE EOSINOPHILS # (AUTO) 0.1 10^3/uL (0.0-0.6); ABSOLUTE LYMPHOCYTES (AUTO) 0.6 10^3/uL (0.5-4.7); ABSOLUTE MONOCYTES (AUTO) 0.3 10^3/uL (0.1-1.4); ABSOLUTE NEUT (AUTO) 3.7 10^3/uL (1.7-8.2); BASOPHILS % (AUTO) 0.6 % (0-2); EOSINOPHILS % (AUTO) 1.4 % (0-6); HEMATOCRIT 33.1 % (37.9-51.0); HEMOGLOBIN 10.9 g/dL (13.5-17.0); LYMPHOCYTES % (AUTO) 13.7 % (13-45); MEAN CORPUSCULAR HEMOGLOBIN 28.5 pg (27.0-33.4); MEAN CORPUSCULAR HGB CONC 32.9 g/dL (32.0-36.0); MEAN CORPUSCULAR VOLUME 87 fl (80-97); MONOCYTES % (AUTO) 5.7 % (3-13); PLATELET COUNT 123 10^3/uL (150-450); RED BLOOD COUNT 3.81 10^6/uL (4.35-5.55); RED CELL DISTRIBUTION WIDTH 15.6 % (11.5-14.0); SEGMENTED NEUTROPHILS % (AUTO) 78.6 % (42-78); TOTAL CELLS COUNTED % (AUTO) 100 %; WHITE BLOOD COUNT 4.7 10^3/uL (4.0-10.5)
[2019-01-23 11:16] LABS: ALANINE AMINOTRANSFERASE 31 U/L (21-72); ALBUMIN 3.4 g/dL (3.5-5.0); ALKALINE PHOSPHATASE 80 U/L (38-126); ANION GAP 11 (5-19); ASPARTATE AMINO TRANSFERASE 33 U/L (17-59); BILIRUBIN,DIRECT 0.2 mg/dL (0.0-0.4); BILIRUBIN,TOTAL 0.5 mg/dL (0.2-1.3); BLOOD UREA NITROGEN 41 mg/dL (7-20); CALCIUM 8.7 mg/dL (8.4-10.2); CARBON DIOXIDE 24 mmol/L (22-30); CHLORIDE 106 mmol/L (98-107); GLUCOSE 144 mg/dL (75-110); POTASSIUM 4.7 mmol/L (3.6-5.0); SODIUM 140.9 mmol/L (137-145); TOTAL PROTEIN 7.7 g/dL (6.3-8.2)
[2019-01-23] MEDS ORDERED: KETAMINE HCL INJ 500 MG/10 ML VIAL IV ONE (11:18)
[2019-01-23] MEDS ORDERED: NORMAL SALINE 1000 ML 1,000 ML IV ONE (11:18)
--- NOTE | 2019-01-23 11:40 | RADIOLOGY REPORT (SQ) ---
EXAM DESCRIPTION: CT HEAD WITHOUT COMPLETED DATE/TIME: 01/23/2019 11:09 am REASON FOR STUDY: Fall, right forehead contusion/laceration COMPARISON: 09/11/2017 TECHNIQUE: Axial images acquired through the brain without intravenous contrast. Images reviewed wi th bone, brain and subdural windows. Additional sagittal and coronal reconstructions were generated. Images stored on PACS. All CT scanners at this facility use dose modulation, iterative reconstruction, and/or weight based d osing when appropriate to reduce radiation dose to as low as reasonably achievable (ALARA). [facility]: Dose Right [facility]: CareDose [facility]: Dose Right [facility]: Teradose 4D [facility]: Smart [employer] RADIATION DOSE: CT Rad equipment meets quality standard of care and radiation dose reduction techniq ues were employed. CTDIvol: 23.1 mGy. DLP: 487 mGy-cm.mGy. LIMITATIONS: Patient motion. FINDINGS: VENTRICLES: Prominent. CEREBRUM: No masses. No hemorrhage. No midline shift. Areas of low density in the white matter mos t likely due to chronic micro-vascular ischemic change. No evidence for acute infarction. CEREBELLUM: No masses. No hemorrhage. No alteration of density. No evidence for acute infarction. EXTRAAXIAL SPACES: Age-related involutional change. No fluid collections. No masses. ORBITS AND GLOBE: No intra- or extraconal masses. Normal contour of globe without masses. CALVARIUM: No fracture. PARANASAL SINUSES: No fluid or mucosal thickening. SOFT TISSUES: No mass or hematoma. OTHER: No other significant finding. IMPRESSION: CHRONIC CHANGES OF ATROPHY AND MICROVASCULAR ISCHEMIA. NO ACUTE PROCESS. EVIDENCE OF ACUTE STROKE: NO. TECHNICAL DOCUMENTATION: JOB ID: [id number] Quality ID # [id number]: Final reports with documentation of one or more dose reduction techniques (e.g., Au tomated exposure control, adjustment of the mA and/or kV according to patient size, use of iterative reconstruction technique) 2010 [employer]- All Rights Reserved Reading location - IP/workstation name: [email or web address]
[2019-01-23] MEDS ORDERED: ATROPINE SULFATE INJ 1 MG/1 ML VIAL IV ONE (12:53)
[2019-01-23 13:32] LABS: APPEARANCE,URINE SLIGHTLY-CLOUDY; BILIRUBIN,URINE NEGATIVE (NEGATIVE); COLOR,URINE YELLOW; GLUCOSE, URINE NEGATIVE (NEGATIVE); KETONES,URINE NEGATIVE (NEGATIVE); LEUKOCYTE ESTERASE,URINE LARGE (NEGATIVE); NITRITE,URINE NEGATIVE (NEGATIVE); PROTEIN,URINE NEGATIVE (NEGATIVE); UROBILINOGEN,URINE NEGATIVE mg/dL (<2.0)
--- NOTE | 2019-01-23 14:03 | RADIOLOGY REPORT (SQ) ---
EXAM DESCRIPTION: CHEST SINGLE VIEW COMPLETED DATE/TIME: 01/23/2019 1:56 pm REASON FOR STUDY: Bradycardia, hypotension COMPARISON: 07/17/2017 NUMBER OF VIEWS: One view. TECHNIQUE: Single frontal radiographic view of the chest acquired. LIMITATIONS: None. FINDINGS: LUNGS AND PLEURA: Interstitial markings are prominent but unchanged from prior study. No consolidations. No effusions or pneumothorax. MEDIASTINUM AND HILAR STRUCTURES: No masses. Contour normal. HEART AND VASCULAR STRUCTURES: Heart size is stable. No failure. BONES: No acute findings. HARDWARE: None in the chest. OTHER: No other significant finding. IMPRESSION: No interval change in the chest. Mild prominence of interstitial markings. TECHNICAL DOCUMENTATION: JOB ID: [id number] [employer]- All Rights Reserved Reading location - IP/workstation name: [email or web address]
[2019-01-23 15:14] LABS: FREE T3 3.45 pg/mL (2.77-5.27); FREE T4 (FREE THYROXINE) 1.67 ng/dL (0.78-2.19)
--- NOTE | 2019-01-23 15:38 | PDOC H&P ---
History of Present Illness Admission Date/PCP: GIUSEPPE FISHMAN MD History of Present Illness: MALIK DUGGAN is a 63 year old male patient, [facility] resident with past medical history of hypertension, neurogenic bladder, CHF, mental retardation, seizure disorder, hypothyroidism, who wheelchair-bound presents to the emergency department after he involved in a mechanical fall and sustained injury to the head and lacerated his right eyebrow. At his baseline patient is wheelchair-bound and transfer only from page to wheelchair from wheel chair to toilet. Since patient is mentally challenged and nonverbal brief history is obtained from the ER attending note and from his sister who was in the room during my encounter. There is no report of fever or chills palpitation or diaphoresis. And has underlying seizure and he has been on Keppra chronically. His last seizure was in December 2018. His blood work is unremarkable except for mildly increased creatinine from his baseline. His EKG shows sinus bradycardia in the range of 76-40 but the patient is asymptomatic. Dr. Pryor is consulted by the ER attending and he requested to evaluate his TSH level. Further detailed history and review of systems unobtainable Past Medical History Cardiac Medical History: Reports: Congestive Heart Failure, Hypertension Pulmonary Medical History: Denies: Tuberculosis Neurological Medical History: Reports: Seizures - ataxia, epilepsy Endocrine Medical History: Reports: Hypothyroidism Psychiatric Medical History: Reports: Depression Hematology: Reports: Anemia Infectious Medical History: Reports: Methicillin-Resistant Staph Aureus Social History Smoking Status: Never Smoker Frequency of Alcohol Use: None Hx Recreational Drug Use: No Drugs: None Hx Prescription Drug Abuse: No - Advance Directive Resuscitation Status: Do Not Resuscitate Family History Family History: Reviewed & Not Pertinent, CAD, Other - Seizure Parental Family History Reviewed: Yes Children Family History Reviewed: Yes Sibling(s) Family History Reviewed.: Yes Medication/Allergy Home Medications: Cetirizine HCl [Zyrtec 10 mg Tablet] 10 mg PO DAILY 09/02/17 Finasteride [Proscar 5 mg Tablet] 5 mg PO DAILY 09/02/17 Lacosamide [Vimpat 100 mg Tablet] 100 mg PO BID 09/02/17 Latanoprost [Xalatan 0.005% Oph Soln 2.5 ml] 1 drop OS QHS 09/02/17 Levetiracetam [Keppra] 1,000 mg PO BID 09/02/17 Levobunolol HCl [Betagan 0.5% Oph Soln 5 ml] 1 drop OS DAILY 09/02/17 Levothyroxine Sodium [Synthroid] 100 mcg PO DAILY 09/02/17 Magnesium Oxide [Mag-Ox 400 mg Tablet] 400 mg PO BID 09/02/17 Mometasone Furoate [Nasonex] 1 spray NASL DAILY 09/02/17 Oxybutynin Chloride [Ditropan Xl] 5 mg PO DAILY 09/02/17 Spironolactone [Aldactone 25 mg Tablet] 25 mg PO BID 09/02/17 Tamsulosin HCl [Flomax 0.4 mg Cap.sr] 0.4 mg PO DAILY 09/02/17 Bumetanide [Bumex 1 mg Tablet] 1 mg PO DAILY #30 09/04/17 Clonazepam [Klonopin 1 mg Tablet] 2 mg PO Q8 #6 09/04/17 Linezolid [Zyvox 600 mg Tablet] 600 mg PO Q12 7 Days #14 tablet 09/04/17 Linezolid [Zyvox 600 mg Tablet] 600 mg PO Q12 #14 tablet 11/30/17 Levofloxacin 500 mg PO DAILY #5 tablet 12/03/17 Nitrofurantoin Monohyd/M-Cryst [Nitrofurantoin [place]-Mcr 100 mg] 100 mg PO QID #20 capsule 03/22/18 Sulfamethoxazole/Trimethoprim [Sulfatrim Pediatric Suspension] 473 ml PO BID 10 Days #1 oral.susp 06/11/18 Allergies/Adverse Reactions: No Known Allergies Allergy (Verified 09/11/17 08:43) Review of Systems ROS unobtainable: Due to mental status Physical Exam Vital Signs: Temp Pulse Resp BP Pulse Ox 97.6 F 12 109/50 L 97 01/23/19 10:24 01/23/19 15:01 01/23/19 15:01 01/23/19 15:01 Intake & Output 01/22/19 01/23/19 01/24/19 06:59 06:59 06:59 Weight 114.1 kg General appearance: PRESENT: no acute distress Head exam: PRESENT: other - There is linear laceration on his right eyebrow which requires 14 stitches. Eye exam: PRESENT: conjunctiva pink Mouth exam: PRESENT: dry mucosa Neck exam: ABSENT: carotid bruit, JVD, lymphadenopathy, thyromegaly Respiratory exam: PRESENT: clear to auscultation ortega. ABSENT: rales, rhonchi, wheezes Cardiovascular exam: PRESENT: bradycardia Neurological exam: PRESENT: alert, awake Results Laboratory Results: 01/23/19 10:40 01/23/19 10:40 01/23/19 01/23/19 01/23/19 10:40 10:40 10:40 WBC 4.7 RBC 3.81 L Hgb 10.9 L Hct 33.1 L MCV 87 MCH 28.5 MCHC 32.9 RDW 15.6 H Plt Count 123 L Seg Neutrophils % 78.6 H Lymphocytes % 13.7 Monocytes % 5.7 Eosinophils % 1.4 Basophils % 0.6 Absolute Neutrophils 3.7 Absolute Lymphocytes 0.6 Absolute Monocytes 0.3 Absolute Eosinophils 0.1 Absolute Basophils 0.0 Sodium 140.9 Potassium 4.7 Chloride 106 Carbon Dioxide 24 Anion Gap 11 BUN 41 H Creatinine 1.55 H Est GFR ( Amer) 55 L Est GFR (Non-Af Amer) 46 L Glucose 144 H Calcium 8.7 Total Bilirubin 0.5 AST 33 ALT 31 Alkaline Phosphatase 80 Total Protein 7.7 Albumin 3.4 L Free T4 1.67 Free T3 pg/mL 3.45 Urine Color Urine Appearance Urine pH Ur Specific [place] Urine Protein Urine Glucose (UA) Urine Ketones Urine Blood Urine Nitrite Ur Leukocyte Esterase Urine WBC (Auto) Urine RBC (Auto) 01/23/19 13:11 WBC RBC Hgb Hct MCV MCH MCHC RDW Plt Count Seg Neutrophils % Lymphocytes % Monocytes % Eosinophils % Basophils % Absolute Neutrophils Absolute Lymphocytes Absolute Monocytes Absolute Eosinophils Absolute Basophils Sodium Potassium Chloride Carbon Dioxide Anion Gap BUN Creatinine Est GFR ( Amer) Est GFR (Non-Af Amer) Glucose Calcium Total Bilirubin AST ALT Alkaline Phosphatase Total Protein Albumin Free T4 Free T3 pg/mL Urine Color YELLOW Urine Appearance SLIGHTLY-CLOUDY Urine pH 6.0 Ur Specific [place] 1.010 Urine Protein NEGATIVE Urine Glucose (UA) NEGATIVE Urine Ketones NEGATIVE Urine Blood NEGATIVE Urine Nitrite NEGATIVE Ur Leukocyte Esterase LARGE H Urine WBC (Auto) 40 Urine RBC (Auto) 3 Impressions: Head CT 01/23/19 10:13 IMPRESSION: CHRONIC CHANGES OF ATROPHY AND MICROVASCULAR ISCHEMIA. NO ACUTE PROCESS. EVIDENCE OF ACUTE STROKE: NO. Chest X-Ray 01/23/19 13:44 IMPRESSION: No interval change in the chest. Mild prominence of interstitial markings. Assessment and Plan - Diagnosis (1) Status post fall Is this a current diagnosis for this admission?: Yes Plan: She had sustained mechanical fall and lacerated his right eyebrow. There is no history of prodrome of seizure or syncope. (2) Sinus bradycardia Is this a current diagnosis for this admission?: Yes Plan: We are going to check his TSH stable but his T3 and T4 levels are within normal limits. Structural cardiac causes needs to be ruled out and possibility of sick sinus sy ndrome is also should be entertained. (3) Seizure disorder Is this a current diagnosis for this admission?: Yes Plan: His last seizure was in December 2018. I will check his Keppra level. (4) Hypothyroidism (acquired) Is this a current diagnosis for this admission?: Yes Plan: I will continue his Synthroid and check his TSH level. (5) Systolic congestive heart failure Qualifiers: Heart failure chronicity: chronic Qualified Code(s): I50.22 - Chronic systolic (congestive) heart failure Is this a current diagnosis for this admission?: Yes Plan: Compensated. (6) Neurogenic bladder Is this a current diagnosis for this admission?: Yes Plan: Patient has chronic indwelling Nicholas catheter. He has also recurrent urinary tract infection.
[2019-01-23] MEDS ORDERED: PROMETHAZINE HCL 25 MG TABLET PO PRN (15:59)
[2019-01-23] MEDS: ENOXAPARIN SODIUM INJ 40 MG/0.4 ML DISP.SYRIN SUBCUT SCH (18:47)
[2019-01-23] MEDS: NORMAL SALINE 1000 ML 1,000 ML IV PRN (18:52)
[2019-01-23] MEDS: CLONAZEPAM 1 MG TABLET PO SCH (22:32)
[2019-01-23] MEDS: FAMOTIDINE 20 MG TABLET PO SCH (22:32)
[2019-01-23] MEDS: LEVETIRACETAM 500 MG TABLET PO SCH (22:32)
[2019-01-24] MEDS: CLONAZEPAM 1 MG TABLET PO SCH ×3 (05:15→22:10)
[2019-01-24] MEDS: NORMAL SALINE 1000 ML 1,000 ML IV PRN (05:15)
[2019-01-24 05:52] LABS: ANION GAP 12 (5-19); BLOOD UREA NITROGEN 38 mg/dL (7-20); CALCIUM 8.5 mg/dL (8.4-10.2); CARBON DIOXIDE 22 mmol/L (22-30); CHLORIDE 110 mmol/L (98-107); GLUCOSE 90 mg/dL (75-110); POTASSIUM 5.3 mmol/L (3.6-5.0); SODIUM 143.5 mmol/L (137-145)
[2019-01-24] MEDS ORDERED: LEVOTHYROXINE SODIUM 0.075 MG TABLET PO SCH (06:00)
[2019-01-24] MEDS ORDERED: LEVOTHYROXINE SODIUM 0.1 MG TABLET PO SCH (06:00)
[2019-01-24] MEDS: FAMOTIDINE 20 MG TABLET PO SCH ×2 (10:49→22:11)
[2019-01-24] MEDS: LEVETIRACETAM 500 MG TABLET PO SCH (10:49)
[2019-01-24] MEDS: ENOXAPARIN SODIUM INJ 40 MG/0.4 ML DISP.SYRIN SUBCUT SCH (10:51)
--- NOTE | 2019-01-24 14:25 | PDOC PROGRESS REPORT ---
Subjective Progress Note for:: 01/24/19 Subjective:: Subjective: MALIK DUGGAN is a 63 year old male patient, [facility] resident with past medical history of hypertension, neurogenic bladder, CHF, mental retardation, seizure disorder, hypothyroidism, who wheelchair-bound presents to the emergency department after he involved in a mechanical fall and sustained injury to the head and lacerated his right eyebrow. At his baseline patient is wheelchair-bound and transfer only from page to wheelchair from wheelchair to toilet. Since patient is mentally challenged and nonverbal brief history is obtained from the ER attending note and from his sister who was in the room during my encounter. There is no report of fever or chills palpitation or diaphoresis. And has underlying seizure and he has been on Keppra chronically. His last seizure was in December 2018. His blood work is unremarkable except for mildly increased creatinine from his baseline. His EKG shows sinus bradycardia in the range of 76-40 but the patient is asymptomatic. Dr. Pryor is consulted by the ER attending and he requested to evaluate his TSH level. Further detailed history and review of systems unobtainable 01/24/2019: Heart rate still in the 40s. Patient appears in no distress. He has and intellectual and cognitive stability and did not provide any history. He does not appear to be in any distress. Physical Exam Patient is no acute distress Head: Laceration over right eyebrow, repaired with stitches Pupils: are equal reactive Neck: is supple and trachea is central no lymphadenopathy No pharyngeal erythema or exudates Heart: Regular rate and rhythm Lungs: clear no distress Abdomen: nontender nondistended Neurological exam: Patient has chronic cognitive and intellectual dysfunction Musculoskeletal: No joint swelling or effusion chronic lower back pain and tenderness No suicidal or homicidal ideation Assessment and Plan - Diagnosis (1) Status post fall Is this a current diagnosis for this admission?: Yes Plan: She had sustained mechanical fall and lacerated his right eyebrow. There is no history of prodrome of seizure or syncope. 01/24/2019: Patient appears comfortable in bed. (2) Sinus bradycardia Is this a current diagnosis for this admission?: Yes Plan: We are going to check his TSH stable but his T3 and T4 levels are within normal limits. Structural cardiac causes needs to be ruled out and possibility of sick sinus syndrome is also should be entertained. 01/24/2019: Still sinus bradycardia but appears to be asymptomatic but it is difficult to tell due to his disability. (3) Seizure disorder Is this a current diagnosis for this admission?: Yes Plan: His last seizure was in December 2018. 01/24/2019: Continue home medications. (4) Hypothyroidism (acquired) Is this a current diagnosis for this admission?: Yes Plan: I will continue his Synthroid and check his TSH level. 01/24/2019: TSH normal (5) Systolic congestive heart failure Qualifiers: Heart failure chronicity: chronic Qualified Code(s): I50.22 - Chronic systolic (congestive) heart failure Is this a current diagnosis for this admission?: Yes Plan: Compensated. (6) Neurogenic bladder Is this a current diagnosis for this admission?: Yes Plan: Patient has chronic indwelling Nicholas catheter. He has history recurrent urinary tract infection. Reason For Visit: STATUS POST FALL, SINUS BRADYCARDIA Physical Exam Vital Signs: Temp Pulse Resp BP Pulse Ox 97.3 F 42 L 16 103/46 L 100 01/24/19 11:13 01/24/19 11:13 01/24/19 11:13 01/24/19 11:13 01/24/19 11:13 Intake & Output 01/23/19 01/24/19 01/25/19 06:59 06:59 06:59 Intake Total 1000 708 Output Total 500 500 Balance 500 208 Weight 254 lb 6.615 oz Results Laboratory Results: 01/23/19 10:40 01/24/19 04:42 01/23/19 01/23/19 01/24/19 10:40 10:40 04:42 Sodium 143.5 Potassium 5.3 H Chloride 110 H Carbon Dioxide 22 Anion Gap 12 BUN 38 H Creatinine 1.28 H Est GFR ( Amer) > 60 Est GFR (Non-Af Amer) 57 L Glucose 90 Calcium 8.5 TSH 3.74 Free T4 1.67 Free T3 pg/mL 3.45 Impressions: Head CT 01/23/19 10:13 IMPRESSION: CHRONIC CHANGES OF ATROPHY AND MICROVASCULAR ISCHEMIA. NO ACUTE PROCESS. EVIDENCE OF ACUTE STROKE: NO. Chest X-Ray 01/23/19 13:44 IMPRESSION: No interval change in the chest. Mild prominence of interstitial markings. Assessment and Plan - Diagnosis (1) Bradycardia Is this a current diagnosis for this admission?: Yes (2) Fall Qualifiers: Encounter type: initial encounter Qualified Code(s): W19.XXXA - Unspecified fall, initial encounter Is this a current diagnosis for this admission?: Yes (3) Hypothyroidism (acquired) Is this a current diagnosis for this admission?: Yes (4) Laceration of eyebrow and forehead Qualifiers: Encounter type: initial encounter Laterality: right Qualified Code(s): S01.81XA - Laceration without foreign body of other part of head, initial encounter; S01.111A - Laceration without foreign body of right eyelid and periocular area, initial encounter Is this a current diagnosis for this admission?: Yes (5) Neurogenic bladder Is this a current diagnosis for this admission?: Yes (6) Seizure disorder Is this a current diagnosis for this admission?: Yes
[2019-01-24] MEDS ORDERED: (PENDING PHARMACY ID) (Cranberry [Cranberry] 500 MG) PO SCH (18:00)
--- NOTE | 2019-01-24 18:26 | XCELERA REPORT ---
[address] [address] Transthoracic Echocardiogram Report Name: MALIK DUGGAN Age: 63 yrs Gender: Male : 1955 Patient Status: Inpatient Patient Location: [address] [place], [place] [id number] Study Date: 01/24/2019 10:19 AM Height: 72 in Weight: 251 lb BSA: 2.3 m2 Procedure: A two-dimensional transthoracic echocardiogram with color flow and Doppler was performed. The study was technically difficult with many images being suboptimal in quality. Reason For Study: Sinus bradycardia History: BRADYCARDIA. Ordering Physician: ILENE STROUD Performed By: Anna Bernal Interpretation Summary The left ventricle is normal in size. The left ventricular ejection fraction is within normal limits. LV EF is 65% Doppler measurements suggest normal left ventricular diastolic function The left ventricular wall motion is normal. There is no thrombus. Cannot assess ASD,VSD,or PFO. The right ventricle is not well visualized secondary to technical limitations The left atrium is moderately dilated. There is no evidence of mitral valve prolapse. There is no vegetation seen on the mitral valve. There is no mitral valve stenosis. There is a mild amount of mitral regurgitation There is no aortic valvular vegetation. There is no aortic valve stenosis There is aortic sclerosis without aortic stenosis. There is no LVOT obstruction. No aortic regurgitation is present. There is no tricuspid stenosis. There is a mild amount of tricuspid regurgitation Right ventricular systolic pressure is normal. RVSP is 27 mm of Hg , with RA mean of 10. There is no pulmonic valvular stenosis. There is no pulmonic valvular regurgitation. The aortic root is normal size. The inferior vena cava was not visualized There is no pericardial effusion. MMode/2D Measurements & Calculations RVDd: 3.3 cm LVIDd: 5.3 cm FS: 39.1 % Ao root diam: 3.2 cm IVSd: 0.75 cm LVIDs: 3.2 cm EDV(Teich): 137.0 ml Ao root area: 8.2 cm2 LVPWd: 1.1 cm ESV(Teich): 42.4 ml EF(Teich): 69.0 % Doppler Measurements & Calculations MV E max manjula: MV dec slope: Ao V2 max: LV V1 max P.5 cm/sec 413.1 cm/sec2 103.3 cm/sec 3.1 mmHg MV A max manjula: MV dec time: 0.22 secAo max PG: LV V1 max: 48.7 cm/sec 4.3 mmHg 88.5 cm/sec MV E/A: 1.9 LV dP/dt: 1207 mmHg/s PA V2 max: TR max manjula: 80.6 cm/sec 202.6 cm/sec PA max P.6 mmHg TR max P.6 mmHg Left Ventricle The left ventricle is normal in size. The left ventricular ejection fraction is within normal limits. LV EF is 65%. Doppler measurements suggest normal left ventricular diastolic function. The left ventricular wall motion is normal. There is no thrombus. Cannot assess ASD,VSD,or PFO. Right Ventricle The right ventricle is not well visualized secondary to technical limitations. Atria Right atrium not well visualized secondary to technical limitations. The left atrium is moderately dilated. Mitral Valve There is no evidence of mitral valve prolapse. There is no vegetation seen on the mitral valve. There is no mitral valve stenosis. There is a mild amount of mitral regurgitation. Aortic Valve There is no aortic valvular vegetation. There is no aortic valve stenosis. There is aortic sclerosis without aortic stenosis. There is no LVOT obstruction. No aortic regurgitation is present. Tricuspid Valve There is no tricuspid stenosis. There is a mild amount of tricuspid regurgitation. Right ventricular systolic pressure is normal. RVSP is 27 mm of Hg , with RA mean of 10. Pulmonic Valve There is no pulmonic valvular stenosis. There is no pulmonic valvular regurgitation. Great Vessels The aortic root is normal size. The inferior vena cava was not visualized. Effusions There is no pericardial effusion. : ILENE STROUD > Malissa Pryor
[2019-01-24] MEDS: MAGNESIUM OXIDE 400 MG TABLET PO SCH (18:46)
[2019-01-24] MEDS ORDERED: LACOSAMIDE 150 MG PO SCH (22:00)
[2019-01-24] MEDS: LACOSAMIDE 50 MG TABLET PO SCH (22:10)
[2019-01-24] MEDS: SPIRONOLACTONE 25 MG TABLET PO SCH (22:11)
[2019-01-24] MEDS: OXYBUTYNIN CHLORIDE 5 MG TABLET PO SCH (22:11)
[2019-01-24] MEDS: LATANOPROST 0.005% OPH SOLN 2.5 ML OS SCH (22:13)
[2019-01-25] MEDS: LEVOTHYROXINE SODIUM 0.1 MG TABLET PO SCH (05:12)
[2019-01-25] MEDS: LEVETIRACETAM 500 MG TABLET PO SCH (09:52)
[2019-01-25] MEDS: SPIRONOLACTONE 25 MG TABLET PO SCH ×2 (09:52→21:16)
[2019-01-25] MEDS: SERTRALINE HCL 50 MG TABLET PO SCH (09:52)
[2019-01-25] MEDS: CETIRIZINE 10 MG TABLET PO SCH (09:52)
[2019-01-25] MEDS: BUMETANIDE 1 MG TABLET PO SCH (09:52)
[2019-01-25] MEDS: TAMSULOSIN HCL 0.4 MG CAP.SR.24H PO SCH (09:52)
[2019-01-25] MEDS: FINASTERIDE 5 MG TABLET PO SCH (09:53)
[2019-01-25] MEDS: FAMOTIDINE 20 MG TABLET PO SCH ×2 (09:53→21:11)
[2019-01-25] MEDS: CLONAZEPAM 1 MG TABLET PO SCH ×2 (09:53→21:11)
[2019-01-25] MEDS: MAGNESIUM OXIDE 400 MG TABLET PO SCH ×2 (09:53→17:57)
[2019-01-25] MEDS: FLUTICASONE NASAL SPRAY 50 MCG/SPRY 120 SPRAY/16 GM NASL SCH (09:53)
[2019-01-25] MEDS: LEVOBUNOLOL HCL 0.5% OS SCH (09:54)
[2019-01-25] MEDS: OXYBUTYNIN CHLORIDE 5 MG TABLET PO SCH ×2 (09:56→21:11)
[2019-01-25] MEDS ORDERED: (PENDING PHARMACY ID) (Mometasone Furoate [Nasonex] 1 SPRAY) NASL SCH (10:00)
[2019-01-25] MEDS ORDERED: (PENDING PHARMACY ID) (Oxybutynin Chloride [Oxybutynin Chloride Er] 5 MG) PO SCH (10:00)
[2019-01-25 10:08] LABS: ANION GAP 9 (5-19); BLOOD UREA NITROGEN 27 mg/dL (7-20); CALCIUM 8.7 mg/dL (8.4-10.2); CARBON DIOXIDE 22 mmol/L (22-30); CHLORIDE 110 mmol/L (98-107); GLUCOSE 106 mg/dL (75-110); POTASSIUM 4.4 mmol/L (3.6-5.0); SODIUM 140.7 mmol/L (137-145)
[2019-01-25] MEDS: ENOXAPARIN SODIUM INJ 40 MG/0.4 ML DISP.SYRIN SUBCUT SCH (10:11)
[2019-01-25] MEDS: LACOSAMIDE 50 MG TABLET PO SCH ×2 (10:59→21:11)
--- NOTE | 2019-01-25 12:46 | PDOC PROGRESS REPORT ---
Subjective Progress Note for:: 01/25/19 Subjective:: Subjective: MALIK DUGGAN is a 63 year old male patient, [facility] resident with past medical history of hypertension, neurogenic bladder, CHF, mental retardation, seizure disorder, hypothyroidism, who wheelchair-bound presents to the emergency department after he involved in a mechanical fall and sustained injury to the head and lacerated his right eyebrow. At his baseline patient is wheelchair-bound and transfer only from page to wheelchair from wheelchair to toilet. Since patient is mentally challenged and nonverbal brief history is obtained from the ER attending note and from his sister who was in the room during my encounter. There is no report of fever or chills palpitation or diaphoresis. And has underlying seizure and he has been on Keppra chronically. His last seizure was in December 2018. His blood work is unremarkable except for mildly increased creatinine from his baseline. His EKG shows sinus bradycardia in the range of 76-40 but the patient is asymptomatic. Dr. Pryor is consulted by the ER attending and he requested to evaluate his TSH level. Further detailed history and review of systems unobtainable 01/24/2019: Heart rate still in the 40s. Patient appears in no distress. He has and intellectual and cognitive stability and did not provide any history. He does not appear to be in any distress. 01/25/2019: Heart rate still in the 40s but sometimes in the low 50s. Patient is asymptomatic whatsoever. Physical Exam Patient is no acute distress Head: Laceration over right eyebrow, repaired with stitches Pupils: are equal reactive Neck: is supple and trachea is central no lymphadenopathy No pharyngeal erythema or exudates Heart: Regular rate and rhythm Lungs: clear no distress Abdomen: nontender nondistended Neurological exam: Patient has chronic cognitive and intellectual dysfunction Musculoskeletal: No joint swelling or effusion chronic lower back pain and tenderness No suicidal or homicidal ideation Assessment and Plan - Diagnosis (1) Status post fall Is this a current diagnosis for this admission?: Yes Plan: She had sustained mechanical fall and lacerated his right eyebrow. There is no history of prodrome of seizure or syncope. 01/24/2019: Patient appears comfortable in bed. (2) Sinus bradycardia Is this a current diagnosis for this admission?: Yes Plan: We are going to check his TSH stable but his T3 and T4 levels are within normal limits. Structural cardiac causes needs to be ruled out and possibility of sick sinus syndrome is also should be entertained. 01/24/2019: Still sinus bradycardia but appears to be asymptomatic but it is difficult to tell due to his disability. 01/25/2019: Heart rate is still in the 40s but sometimes goes to low 50s. Cardiology yet to comment. (3) Seizure disorder Is this a current diagnosis for this admission?: Yes Plan: His last seizure was in December 2018. 01/24/2019: Continue home medications. (4) Hypothyroidism (acquired) Is this a current diagnosis for this admission?: Yes Plan: I will continue his Synthroid and check his TSH level. 01/24/2019: TSH normal 01/25/2019: Continue levothyroxine (5) Systolic congestive heart failure Qualifiers: Heart failure chronicity: chronic Qualified Code(s): I50.22 - Chronic systolic (congestive) heart failure Is this a current diagnosis for this admission?: Yes Plan: Compensated. (6) Neurogenic bladder Is this a current diagnosis for this admission?: Yes Plan: Reason For Visit: STATUS POST FALL, SINUS BRADYCARDIA Physical Exam Vital Signs: Temp Pulse Resp BP Pulse Ox 97.9 F 42 L 17 107/46 L 98 01/25/19 11:17 01/25/19 11:17 01/25/19 11:17 01/25/19 11:17 01/25/19 11:17 Intake & Output 01/24/19 01/25/19 01/26/19 06:59 06:59 06:59 Intake Total 1000 944 Output Total 500 1490 Balance 500 -546 Weight 254 lb 6.615 oz 266 lb 8.622 oz Results Laboratory Results: 01/23/19 10:40 01/25/19 09:05 01/25/19 09:05 Sodium 140.7 Potassium 4.4 Chloride 110 H Carbon Dioxide 22 Anion Gap 9 BUN 27 H Creatinine 1.39 H Est GFR ( Amer) > 60 Est GFR (Non-Af Amer) 52 L Glucose 106 Calcium 8.7 01/23/19 13:11 Nicholas Catheter Urine Culture - Final Klebsiella Pneumoniae Morganella Morganii Impressions: Head CT 01/23/19 10:13 IMPRESSION: CHRONIC CHANGES OF ATROPHY AND MICROVASCULAR ISCHEMIA. NO ACUTE PROCESS. EVIDENCE OF ACUTE STROKE: NO. Chest X-Ray 01/23/19 13:44 IMPRESSION: No interval change in the chest. Mild prominence of interstitial markings. Assessment and Plan - Diagnosis (1) Bradycardia Is this a current diagnosis for this admission?: Yes (2) Fall Qualifiers: Encounter type: initial encounter Qualified Code(s): W19.XXXA - Unspecified fall, initial encounter Is this a current diagnosis for this admission?: Yes (3) Hypothyroidism (acquired) Is this a current diagnosis for this admission?: Yes (4) Laceration of eyebrow and forehead Qualifiers: Encounter type: initial encounter Laterality: right Qualified Code(s): S01.81XA - Laceration without foreign body of other part of head, initial encounter; S01.111A - Laceration without foreign body of right eyelid and periocular area, initial encounter Is this a current diagnosis for this admission?: Yes (5) Neurogenic bladder Is this a current diagnosis for this admission?: Yes (6) Seizure disorder Is this a current diagnosis for this admission?: Yes - Plan Summary Plan Summary: [facility] when cleared by cardiology
[2019-01-25] MEDS: LATANOPROST 0.005% OPH SOLN 2.5 ML OS SCH (21:10)
[2019-01-26] MEDS: LEVOTHYROXINE SODIUM 0.1 MG TABLET PO SCH (05:32)
[2019-01-26] MEDS: LEVETIRACETAM 500 MG TABLET PO SCH (08:07)
[2019-01-26] MEDS: CLONAZEPAM 1 MG TABLET PO SCH ×2 (10:28→21:47)
[2019-01-26] MEDS: FINASTERIDE 5 MG TABLET PO SCH (10:28)
[2019-01-26] MEDS: OXYBUTYNIN CHLORIDE 5 MG TABLET PO SCH ×2 (10:29→21:47)
[2019-01-26] MEDS: BUMETANIDE 1 MG TABLET PO SCH (10:29)
[2019-01-26] MEDS: TAMSULOSIN HCL 0.4 MG CAP.SR.24H PO SCH (10:29)
[2019-01-26] MEDS: MAGNESIUM OXIDE 400 MG TABLET PO SCH ×2 (10:29→17:15)
[2019-01-26] MEDS: CETIRIZINE 10 MG TABLET PO SCH (10:30)
[2019-01-26] MEDS: FAMOTIDINE 20 MG TABLET PO SCH ×2 (10:30→21:47)
[2019-01-26] MEDS: SPIRONOLACTONE 25 MG TABLET PO SCH ×2 (10:30→21:47)
[2019-01-26] MEDS: SERTRALINE HCL 50 MG TABLET PO SCH (10:30)
[2019-01-26] MEDS: FLUTICASONE NASAL SPRAY 50 MCG/SPRY 120 SPRAY/16 GM NASL SCH (10:33)
[2019-01-26] MEDS: LACOSAMIDE 50 MG TABLET PO SCH ×2 (10:33→21:47)
[2019-01-26] MEDS: LEVOBUNOLOL HCL 0.5% OS SCH (10:33)
[2019-01-26] MEDS: ENOXAPARIN SODIUM INJ 40 MG/0.4 ML DISP.SYRIN SUBCUT SCH (10:37)
--- NOTE | 2019-01-26 11:35 | PDOC PROGRESS REPORT ---
Subjective Progress Note for:: 01/26/19 Subjective:: Subjective: MALIK DUGGAN is a 63 year old male patient, [facility] resident with past medical history of hypertension, neurogenic bladder, CHF, mental retardation, seizure disorder, hypothyroidism, who wheelchair-bound presents to the emergency department after he involved in a mechanical fall and sustained injury to the head and lacerated his right eyebrow. At his baseline patient is wheelchair-bound and transfer only from page to wheelchair from wheelchair to toilet. Since patient is mentally challenged and nonverbal brief history is obtained from the ER attending note and from his sister who was in the room during my encounter. There is no report of fever or chills palpitation or diaphoresis. And has underlying seizure and he has been on Keppra chronically. His last seizure was in December 2018. His blood work is unremarkable except for mildly increased creatinine from his baseline. His EKG shows sinus bradycardia in the range of 76-40 but the patient is asymptomatic. Dr. Pryor is consulted by the ER attending and he requested to evaluate his TSH level. Further detailed history and review of systems unobtainable 01/24/2019: Heart rate still in the 40s. Patient appears in no distress. He has and intellectual and cognitive stability and did not provide any history. He does not appear to be in any distress. 01/25/2019: Heart rate still in the 40s but sometimes in the low 50s. Patient is asymptomatic whatsoever. 01/26/2019: Heart rate still in the 40s. Blood pressure is maintained. Physical Exam Patient is no acute distress Head: Laceration over right eyebrow, repaired with stitches Pupils: are equal reactive Neck: is supple and trachea is central no lymphadenopathy No pharyngeal erythema or exudates Heart: Regular rate and rhythm Lungs: clear no distress Abdomen: nontender nondistended Neurological exam: Patient has chronic cognitive and intellectual dysfunction Musculoskeletal: No joint swelling or effusion chronic lower back pain and tenderness No suicidal or homicidal ideation Assessment and Plan - Diagnosis (1) Status post fall Is this a current diagnosis for this admission?: Yes Plan: She had sustained mechanical fall and lacerated his right eyebrow. There is no history of prodrome of seizure or syncope. 01/24/2019: Patient appears comfortable in bed. (2) Sinus bradycardia Is this a current diagnosis for this admission?: Yes Plan: We are going to check his TSH stable but his T3 and T4 levels are within normal limits. Structural cardiac causes needs to be ruled out and possibility of sick sinus syndrome is also should be entertained. 01/24/2019: Still sinus bradycardia but appears to be asymptomatic but it is difficult to tell due to his disability. 01/25/2019: Heart rate is still in the 40s but sometimes goes to low 50s. Ca rdiology yet to comment. 01/26/2019: Heart rate in the 40s. (3) Seizure disorder Is this a current diagnosis for this admission?: Yes Plan: His last seizure was in December 2018. 01/24/2019: Continue home medications. (4) Hypothyroidism (acquired) Is this a current diagnosis for this admission?: Yes Plan: I will continue his Synthroid and check his TSH level. 01/24/2019: TSH normal 01/25/2019: Continue levothyroxine (5) Systolic congestive heart failure Qualifiers: Heart failure chronicity: chronic Qualified Code(s): I50.22 - Chronic systolic (congestive) heart failure Is this a current diagnosis for this admission?: Yes Plan: Compensated. (6) Neurogenic bladder Disposition: is pending cardiology evaluation Reason For Visit: STATUS POST FALL, SINUS BRADYCARDIA Physical Exam Vital Signs: Temp Pulse Resp BP Pulse Ox 97.5 F 47 L 19 106/58 L 98 01/26/19 07:35 01/26/19 07:35 01/26/19 07:35 01/26/19 07:35 01/26/19 07:35 Intake & Output 01/25/19 01/26/19 01/27/19 06:59 06:59 06:59 Intake Total 944 1060 Output Total 1490 3600 Balance -546 -2540 Weight 266 lb 8.622 oz 267 lb 10.259 oz Results Laboratory Results: 01/23/19 10:40 01/25/19 09:05 01/23/19 13:11 Nicholas Catheter Urine Culture - Final Klebsiella Pneumoniae Morganella Morganii Impressions: Head CT 01/23/19 10:13 IMPRESSION: CHRONIC CHANGES OF ATROPHY AND MICROVASCULAR ISCHEMIA. NO ACUTE PROCESS. EVIDENCE OF ACUTE STROKE: NO. Chest X-Ray 01/23/19 13:44 IMPRESSION: No interval change in the chest. Mild prominence of interstitial markings. Assessment and Plan - Diagnosis (1) Bradycardia Is this a current diagnosis for this admission?: Yes (2) Fall Qualifiers: Encounter type: initial encounter Qualified Code(s): W19.XXXA - Unspecified fall, initial encounter Is this a current diagnosis for this admission?: Yes (3) Hypothyroidism (acquired) Is this a current diagnosis for this admission?: Yes (4) Laceration of eyebrow and forehead Qualifiers: Encounter type: initial encounter Laterality: right Qualified Code(s): S01.81XA - Laceration without foreign body of other part of head, initial encounter; S01.111A - Laceration without foreign body of right eyelid and periocular area, initial encounter Is this a current diagnosis for this admission?: Yes (5) Neurogenic bladder Is this a current diagnosis for this admission?: Yes (6) Seizure disorder Is this a current diagnosis for this admission?: Yes
[2019-01-26] MEDS: ACETAMINOPHEN 325 MG TABLET PO PRN (20:42)
[2019-01-26] MEDS: LATANOPROST 0.005% OPH SOLN 2.5 ML OS SCH (21:48)
[2019-01-27] MEDS: LEVOTHYROXINE SODIUM 0.1 MG TABLET PO SCH (05:32)
[2019-01-27] MEDS: LEVETIRACETAM 500 MG TABLET PO SCH (08:03)
--- NOTE | 2019-01-27 09:46 | PDOC DISCHARGE SUMMARY ---
General - Admit/Disc Date/PCP Admission Date/Primary Care Provider: 01/26/19 13:18 GIUSEPPE FISHMAN MD Discharge Date: 01/27/19 - Discharge Diagnosis (1) Bradycardia Is this a current diagnosis for this admission?: Yes (2) Fall Is this a current diagnosis for this admission?: Yes (3) Hypothyroidism (acquired) Is this a current diagnosis for this admission?: Yes (4) Laceration of eyebrow and forehead Is this a current diagnosis for this admission?: Yes (5) Neurogenic bladder Is this a current diagnosis for this admission?: Yes (6) Seizure disorder Is this a current diagnosis for this admission?: Yes - Additional Information Resuscitation Status: Do Not Resuscitate Discharge Diet: As Tolerated Discharge Activity: Activity As Tolerated Home Medications: Bumetanide [Bumex 1 mg Tablet] 1 mg PO DAILY 01/23/19 Cetirizine HCl [Zyrtec 10 mg Tablet] 10 mg PO DAILY 01/23/19 Clonazepam [Klonopin 2 mg Tablet] 2 mg PO Q12 01/23/19 Cranberry 500 mg PO BID 01/23/19 Finasteride [Proscar 5 mg Tablet] 5 mg PO DAILY 01/23/19 Lacosamide [Vimpat] 150 mg PO Q12 01/23/19 Latanoprost [Xalatan 0.005% Oph Soln 2.5 ml] 1 drop OS QHS 01/23/19 Levetiracetam [Keppra 500 mg Tablet] 500 mg PO QAM 01/23/19 Levobunolol HCl [Betagan 0.5% Oph Soln 5 ml] 1 drop OS DAILY 01/23/19 Levothyroxine Sodium [Synthroid 0.1 mg Tablet] 0.1 mg PO Q6AM 01/23/19 Magnesium Oxide [Mag-Ox 400 mg Tablet] 400 mg PO BID 01/23/19 Mometasone Furoate [Nasonex] 1 spray NASL DAILY 01/23/19 Oxybutynin Chloride [Oxybutynin Chloride ER] 5 mg PO DAILY 01/23/19 Sertraline HCl [Zoloft 50 mg Tablet] 50 mg PO DAILY 01/23/19 Spironolactone [Aldactone 25 mg Tablet] 25 mg PO Q12 01/23/19 Tamsulosin HCl [Flomax 0.4 mg Cap.sr] 0.4 mg PO DAILY 01/23/19 History of Present Illness History of Present Illness: MALIK DUGGAN is a 63 year old male Hospital Course Hospital Course: Subjective: MALIK DUGGAN is a 63 year old male patient, [facility] long term resident with past medical history of hypertension, neurogenic bladder, CHF, mental retardation, seizure disorder, hypothyroidism, who wheelchair-bound presents to the emergency department after he involved in a mechanical fall and sustained injury to the head and lacerated his right eyebrow. At his baseline patient is wheelchair-bound and transfer only from page to wheelchair from wheelchair to toilet. Since patient is mentally challenged and nonverbal brief history is obtained from the ER attending note and from his sister who was in the room during my encounter. There is no report of fever or chills palpitation or diaphoresis. And has underlying seizure and he has been on Keppra chronically. His last seizure was in December 2018. His blood work is unremarkable except for mildly increased creatinine from his baseline. His EKG shows sinus bradycardia in the range of 76-40 but the patient is asymptomatic. Dr. Pryor is consulted by the ER attending and he requested to evaluate his TSH level. Further detailed history and review of systems unobtainable 01/24/2019: Heart rate still in the 40s. Patient appears in no distress. He has and intellectual and cognitive stability and did not provide any history. He does not appear to be in any distress. 01/25/2019: Heart rate still in the 40s but sometimes in the low 50s. Patient is asymptomatic whatsoever. 01/26/2019: Heart rate still in the 40s. Blood pressure is maintained. Physical Exam Patient is no acute distress Head: Laceration over right eyebrow, repaired with stitches Pupils: are equal reactive Neck: is supple and trachea is central no lymphadenopathy No pharyngeal erythema or exudates Heart: Regular rate and rhythm Lungs: clear no distress Abdomen: nontender nondistended Neurological exam: Patient has chronic cognitive and intellectual dysfunction Musculoskeletal: No joint swelling or effusion chronic lower back pain and tenderness No suicidal or homicidal ideation Assessment and Plan - Diagnosis (1) Status post fall Is this a current diagnosis for this admission?: Yes Plan: She had sustained mechanical fall and lacerated his right eyebrow. There is no history of prodrome of seizure or syncope. 01/24/2019: Patient appears comfortable in bed. (2) Sinus bradycardia Is this a current diagnosis for this admission?: Yes Plan: We are going to check his TSH stable but his T3 and T4 levels are within normal limits. Structural cardiac causes needs to be ruled out and possibility of sick sinus syndrome is also should be entertained. 01/24/2019: Still sinus bradycardia but appears to be asymptomatic but it is difficult to tell due to his disability. 01/25/2019: Heart rate is still in the 40s but sometimes goes to low 50s. Cardiology yet to comment. 01/26/2019: Heart rate in the 40s. (3) Seizure disorder Is this a current diagnosis for this admission?: Yes Plan: His last seizure was in December 2018. 01/24/2019: Continue home medications. (4) Hypothyroidism (acquired) Is this a current diagnosis for this admission?: Yes Plan: I will continue his Synthroid and check his TSH level. 01/24/2019: TSH normal 01/25/2019: Continue levothyroxine (5) Systolic congestive heart failure Qualifiers: Heart failure chronicity: chronic Qualified Code(s): I50.22 - Chronic systolic (congestive) heart failure Is this a current diagnosis for this admission?: Yes Plan: Compensated. (6) Neurogenic bladder Discussed with Dr. Belle from cardiology. Patient's heart rate now in the 50s. He is asymptomatic and stable. No intervention recommended from cardiology. Patient is cleared for return back to long term. Physical Exam Vital Signs: Temp Pulse Resp BP Pulse Ox 98.0 F 51 L 16 122/55 L 99 01/27/19 07:16 01/27/19 07:16 01/27/19 07:16 01/27/19 07:16 01/27/19 07:16 Intake & Output 01/26/19 01/27/19 01/28/19 06:59 06:59 06:59 Intake Total 1060 1038 Output Total 3600 2650 Balance -2540 -1612 Weight 267 lb 10.259 oz 263 lb 3.711 oz Results Laboratory Results: 01/23/19 10:40 01/25/19 09:05 Impressions: Head CT 01/23/19 10:13 IMPRESSION: CHRONIC CHANGES OF ATROPHY AND MICROVASCULAR ISCHEMIA. NO ACUTE PROCESS. EVIDENCE OF ACUTE STROKE: NO. Chest X-Ray 01/23/19 13:44 IMPRESSION: No interval change in the chest. Mild prominence of interstitial markings. Qualifiers - * PATIENT BEING DISCHARGED WITH ANY OF THE FOLLOWING DIAGNOSIS: No Acute Heart Failure Is this a Heart Failure Patient?: No
[2019-01-27] MEDS: SERTRALINE HCL 50 MG TABLET PO SCH (10:10)
[2019-01-27] MEDS: FAMOTIDINE 20 MG TABLET PO SCH (10:10)
[2019-01-27] MEDS: BUMETANIDE 1 MG TABLET PO SCH (10:10)
[2019-01-27] MEDS: OXYBUTYNIN CHLORIDE 5 MG TABLET PO SCH (10:10)
[2019-01-27] MEDS: FINASTERIDE 5 MG TABLET PO SCH (10:10)
[2019-01-27] MEDS: CETIRIZINE 10 MG TABLET PO SCH (10:10)
[2019-01-27] MEDS: CLONAZEPAM 1 MG TABLET PO SCH (10:11)
[2019-01-27] MEDS: MAGNESIUM OXIDE 400 MG TABLET PO SCH ×2 (10:11→18:28)
[2019-01-27] MEDS: SPIRONOLACTONE 25 MG TABLET PO SCH (10:11)
[2019-01-27] MEDS: ENOXAPARIN SODIUM INJ 40 MG/0.4 ML DISP.SYRIN SUBCUT SCH (10:12)
[2019-01-27] MEDS: TAMSULOSIN HCL 0.4 MG CAP.SR.24H PO SCH (10:12)
[2019-01-27] MEDS: FLUTICASONE NASAL SPRAY 50 MCG/SPRY 120 SPRAY/16 GM NASL SCH (10:12)
[2019-01-27] MEDS: LEVOBUNOLOL HCL 0.5% OS SCH (10:13)
[2019-01-27] MEDS: LACOSAMIDE 50 MG TABLET PO SCH (10:27)
[2019-01-27] MEDS: ACETAMINOPHEN 325 MG TABLET PO PRN (14:25)
[2019-01-27 16:04] VITALS: BP 95/48
== END 2019-01-27 19:40 | DRG 309 ==
LOC: ER 10:01 → INTOOBSV 16:22 → EH 16:22 → 3N 21:47 → OBSVTOIN 01-26 13:18
PROVIDERS: ADMIT Internal Medicine; ATTEND Internal Medicine
PROC: 0JQ13ZZ Repair Face Subcutaneous Tissue and Fascia, Percutaneous Approach (ICD-10-PCS; principal; 2019-01-26)
DX: R00.1 Bradycardia, unspecified (principal); I50.22 Chronic systolic (congestive) heart failure; I11.0 Hypertensive heart disease with heart failure; N31.9 Neuromuscular dysfunction of bladder, unspecified; E03.9 Hypothyroidism, unspecified; S01.111A Laceration without foreign body of right eyelid and periocular area, initial encounter; W19.XXXA Unspecified fall, initial encounter; G40.909 Epilepsy, unspecified, not intractable, without status epilepticus; Z66 Do not resuscitate; N40.0 Benign prostatic hyperplasia without lower urinary tract symptoms; F79 Unspecified intellectual disabilities; M54.5 Low back pain; G89.29 Other chronic pain; F45.42 Pain disorder with related psychological factors; R27.0 Ataxia, unspecified; F32.9 Major depressive disorder, single episode, unspecified; D64.9 Anemia, unspecified; Y92.89 Other specified places as the place of occurrence of the external cause; Z99.3 Dependence on wheelchair; Z86.14 Personal history of Methicillin resistant Staphylococcus aureus infection; Z82.49 Family history of ischemic heart disease and other diseases of the circulatory system; Z82.0 Family history of epilepsy and other diseases of the nervous system; Z87.440 Personal history of urinary (tract) infections
CPT/HCPCS: 36415; 70450; 71045; 80048; 80053; 81001; 84439; 84443; 84481; 85025; 87086; 87088; 87186; 93005; 93010; 93306; 96374; 99291; J0461; J1650; J3490; J7030

== ENCOUNTER 2019-03-18 16:31 | Emergency (ER) | payer MEDICARE, MEDICAID ==
[2019-03-18 17:27] LABS: ABSOLUTE LYMPHOCYTES (AUTO) 0.5 10^3/uL (0.5-4.7); ABSOLUTE MONOCYTES (AUTO) 0.3 10^3/uL (0.1-1.4); ABSOLUTE NEUT (AUTO) 3.6 10^3/uL (1.7-8.2); BASOPHILS % (AUTO) 0.3 % (0-2); EOSINOPHILS % (AUTO) 0.8 % (0-6); HEMATOCRIT 32.2 % (37.9-51.0); HEMOGLOBIN 10.7 g/dL (13.5-17.0); LYMPHOCYTES % (AUTO) 11.8 % (13-45); MEAN CORPUSCULAR HEMOGLOBIN 28.1 pg (27.0-33.4); MEAN CORPUSCULAR HGB CONC 33.2 g/dL (32.0-36.0); MEAN CORPUSCULAR VOLUME 85 fl (80-97); PLATELET COUNT 150 10^3/uL (150-450); RED BLOOD COUNT 3.82 10^6/uL (4.35-5.55); RED CELL DISTRIBUTION WIDTH 15.8 % (11.5-14.0); SEGMENTED NEUTROPHILS % (AUTO) 81.1 % (42-78); TOTAL CELLS COUNTED % (AUTO) 100 %; WHITE BLOOD COUNT 4.5 10^3/uL (4.0-10.5)
[2019-03-18] MEDS ORDERED: LORAZEPAM INJ 2 MG/1 ML VIAL ONE (17:46)
[2019-03-18 17:49] LABS: ALANINE AMINOTRANSFERASE 23 U/L (21-72); ALBUMIN 3.3 g/dL (3.5-5.0); ALKALINE PHOSPHATASE 75 U/L (38-126); ANION GAP 6 (5-19); ASPARTATE AMINO TRANSFERASE 27 U/L (17-59); BILIRUBIN,DIRECT 0.2 mg/dL (0.0-0.4); BILIRUBIN,TOTAL 0.3 mg/dL (0.2-1.3); BLOOD UREA NITROGEN 16 mg/dL (7-20); CALCIUM 8.6 mg/dL (8.4-10.2); CARBON DIOXIDE 26 mmol/L (22-30); CHLORIDE 105 mmol/L (98-107); GLUCOSE 118 mg/dL (75-110); POTASSIUM 4.6 mmol/L (3.6-5.0); TOTAL PROTEIN 7.5 g/dL (6.3-8.2)
[2019-03-18 17:50] LABS: ALCOHOL < 10 mg/dL (NONE DETECTED)
--- NOTE | 2019-03-18 18:13 | ER Document Report ---
HPI - HPI Patient complains to provider of: seziure, fall, possible uti Time Seen by Provider: 03/18/19 17:46 Onset: Other - today Onset/Duration: Intermittent, Waxing and waning Context: 63 yr old male with the listed pmh brought in via ems from custodial after having more frequent seizures-2 today. hx of seizures and they aren't intractable or different from his usual seizures. no changes in meds. family at bedside state the custodial gives him his meds so she isn't sure if they have been compliant or not. states he gets uti's often and has a chronic indwelling jacome and states when he usually gets a uti he has more seizures so she feels like he may have another uti. no recent abx or steroids. no hx of diabetes or asthma. sister at bedside said she was told he had an accidental witnessed fall a day or so ago and may have hit his head when he attempted to transfer on his own which he isn't supposed to do. he has had a couple falls recently per family at bedside. hx is extremely limited as pt isn't able to do much adl's at baseline and is minimally verbal and ambulatory at baseline. family doesn't seem to notice that he is favoring any areas or any other signs of trauma. no incontinence from baseline, no tongue biting. no status epilepticus. no other associated sx at this time. - ROS Notes: hx is limited due to pts baseline mental status and mostly obtained from nursing notes and family at bedside Systems Reviewed and Negative: Yes All other systems reviewed and negative - to include 10, unless mentioned in the hpi - DERM Skin Color: Pale Past Medical History - General Information source: Relative - Social History Smoking Status: Never Smoker Frequency of alcohol use: None Drug Abuse: None, Marijuana - however pt is on marinol for his seizures per family at bedside Family History: CAD, Other - Seizure Patient has suicidal ideation: No Patient has homicidal ideation: No - Past Medical History Cardiac Medical History: Reports: Hx Congestive Heart Failure, Hx Hypertension Pulmonary Medical History: Denies: Hx Tuberculosis Neurological Medical History: Reports: Hx Seizures Endocrine Medical History: Reports: Hx Hypothyroidism Renal/ Medical History: Reports: Hx Benign Prostatic Hyperplasia. Denies: Hx Peritoneal Dialysis Skin Medical History: Reports Hx MRSA Psychiatric Medical History: Reports: Hx Depression Traumatic Medical History: Reports: Hx Spine Fracture Infectious Medical History: Reports: Hx MRSA - Immunizations Immunizations up to date: Yes Hx Pneumococcal Vaccination: 08/20/12 Vertical Provider Document - CONSTITUTIONAL Notes: GENERAL_APPEARANCE: alert, somewhat cooperative, no obvious discomfort. Pleasant, appears chronically deconditioned and is mostly bed bound at baseline per sister in the room, hx is limited due to pts baseline mental status and mostly taken from nursing notes and sister. he did have some shaking and mild seizure like activity when i entered the room, however this resolved after a total of 2mg of ativan iv and the pt was no longer restless or having a seizure, and was then resting peacefully, per family he only speaks a few words occasionally and appears otherwise at his baseline, in no sign of pain or resp distress, easily sitting up. VITALS: reviewed, see vital signs table. HEAD: there is a healing superficial laceration to pts right eyebrow/forehead region from a recent fall, nonttp. no sign of dehiscence or cellulitis, otherwise normocephalic and atraumatic, no raccoon eyes, no cruz signs. no s welling or ttp. EARS: canals_clear_bilat, TMs_clear, no_discharge_from_ears. no hemotympanum EYES: EOMI without pain, conjunctiva_clear. PERRL, eyelids wnl. no drainage. no ttp or crepitation of the orbits. no sign of orbital/periorbital cellulitis. no hyphema. MOUTH: no_lacerations inside_mouth. no broken teeth. no tmj clicking or ttp. pharynx wnl. tongue protrudes midline. no drooling, tripoding, voice change, or stridor, no thrush or oral lesions. no tongue or lip swelling. NOSE: no drainage or epistaxis NECK: no_swelling\tenderness on the neck. no midline bony tenderness. no step offs or deformities. full rom. full strength. no meningeal signs. no sign of central cord syndrome. HEART: normal_rate, normal_rhythm, LUNGS: ctab. no chest wall ttp. no overlying skin changes. no flail chest or crepitation. ABDOMEN: normal_BS, soft, no_abd_tenderness, no rebound, guarding, distension, or peritoneal signs. no cva ttp. no overlying skin changes. there is a chronic indwelling jacome with dark yellow urine in leg bag. no other signs of complication from jacome. BACK: no midline bony tenderness. no step offs or deformities RECTAL: deferred, however, no sign of loss of bowel or bladder or soiling of clothing. EXTREMITIES: strength 5/5 in all_extremities, good pulses all_extremities, no_abrasions\lacerations in the extremities, no_swelling\tenderness in the extremities. full rom. 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 brisk cap refill. no shortening or rotation of the limbs or other signs of deformities unless otherwise noted. SKIN: warm, dry, good_color. no other grossly visible overlying skin changes or signs of trauma unless otherwise noted. NEURO: cranial nerves 2 - 12 intact, motor_intact, sensory_intact. cerebellar function intact GLASCOW_COMA_SCORE: (adult) - eyes_open_spontaneously_4, verbal_converses_and_oriented_5, motor_obeys_commands_6, glasgow_coma_total_15, MENTAL_STATUS: speech somewhat hard to understand the few words he will say. t his is his normal per fam however, alert, appears oriented to family member in the room, but isn't able to answer any of my other questions, responds_appropriately to some stimuli. - INFECTION CONTROL TRAVEL OUTSIDE OF THE [place] IN LAST 30 DAYS: No Course - Re-evaluation Re-evalutation: 03/18/19 20:22 pt here after a fall, possible closed head injury, deny loc in the last day or so, 2 seizures today. typical of his usual seizures. nothing different. no vomiting, hx of frequent uti's in the past which seem to cause an increase in his seizures as he has a chronic indwelling jacome. labs notable for a mild chronic anemia, mild chronic renal dz, and a uti. ucx pending. ekg unremarkable per dr mi. he responded well to meds listed, seizures resolved and haven't returned. cxr and head ct neg per rad and reviewed by myself. pt and family informed of findings. will dc with doxy. advised to f/u with pcp in 1-2 days. return for any worsening sx. family understands and agrees to plan. vss. otherwise stable and nontoxic appearing to return back to custodial. afebrile. family states this jacome hasn't been in very long. On reexam, pt improved with tx listed. remained stable. nontoxic appearing. vss. no returning seizures. case discussed with ER Attending, Dr. mi, who directed and agrees with plan of care and advised no further workup indicated at this time and pt is stable for dc home with close f/u with pcp/specialist. Documentation achieved through voice recording which my lead to some occasional accidental typographical errors. Extensive efforts have been made to proof read documentation to make sure these are the least as possible. Category Date Time Status Accucheck (ED) STAT Care 03/18/19 16:39 Active EKG Documentation STAT Care 03/18/19 16:37 Completed PCT AccuChek Documentation NOW Care 03/18/19 16:39 Active Saline Lock (ED) NOW Care 03/18/19 16:39 Active Seizure Precautions (ED) NOW Care 03/18/19 16:39 Completed CHEST SINGLE VIEW [RAD] Stat Exams 03/18/19 18:[address] HEAD WITHOUT [CT] Stat Exams 03/18/19 18:09 Completed ALCOHOL [CHEM] Stat Lab 03/18/19 17:12 Completed CBC WITH DIFF [HEME] Stat Lab 03/18/19 17:12 Completed COMPREHENSIVE METABOLIC PANEL [CHEM] Stat Lab 03/18/19 17:12 Completed LACOSAMIDE Stat Lab 03/18/19 17:12 Received LEVETIRACETAM (KEPPRA) Stat Lab 03/18/19 17:12 Received MAGNESIUM [CHEM] Stat Lab 03/18/19 17:12 Completed NT PRO BNP [CHEM] Stat Lab 03/18/19 17:12 Completed T4 [FREE T4 (FREE THYROXINE)] [CHEM] Stat Lab 03/18/19 17:12 Completed TSH [THYROID STIMULATING HORMONE] [CHEM] Stat Lab 03/18/19 17:12 Completed URINALYSIS [URIN] Stat Lab 03/18/19 18:02 Completed URINE CULTURE [MC] Stat Lab 03/18/19 20:22 Uncollected URINE DRUG SCREEN [CHEM] Stat Lab 03/18/19 18:02 Completed Ceftriaxone 1 gm/D5w RTU [Rocephin RTU 1 gm/D5w 50 ml Med 03/18/19 20:20 Ordered Premix] 50 ml IV NOW Lorazepam [Ativan Inj 2 mg/1 ml Vial] Med 03/18/19 17:46 Discontinued 2 mg .ROUTE .STK-MED ONE EKG ER ONLY [ER] Stat Oth 03/18/19 Active - Vital Signs Vital signs: Temp Pulse Resp BP Pulse Ox 98.9 F 03/18/19 16:37 Temp Pulse Resp BP BP Pulse Ox 03/18/19 23:20 98.4 F 63 18 129/55 H 96 03/18/19 21:01 18 119/60 95 03/18/19 20:01 19 102/59 L 96 03/18/19 19:33 20 106/63 95 03/18/19 18:01 23 H 113/63 94 03/18/19 18:00 17 94 03/18/19 17:01 20 112/52 L 95 03/18/19 17:00 21 H 95 03/18/19 16:37 98.9 F 03/18/19 16:36 21 H 118/56 L 94 03/18/19 16:35 22 H 94 03/18/19 16:33 94 - Laboratory Result Diagrams: 03/18/19 17:12 03/18/19 17:12 Laboratory results interpreted by me: 03/18/19 03/18/19 17:12 17:12 RBC 3.82 L Hgb 10.7 L Hct 32.2 L RDW 15.8 H Seg Neutrophils % 81.1 H Lymphocytes % 11.8 L Creatinine 1.35 H Est GFR (Non-Af Amer) 53 L Glucose 118 H Albumin 3.3 L 03/18/19 20:29 Labs- All tests 24 hr 03/18/19 03/18/19 03/18/19 17:12 17:12 17:12 WBC 4.5 RBC 3.82 L Hgb 10.7 L Hct 32.2 L MCV 85 MCH 28.1 MCHC 33.2 RDW 15.8 H Plt Count 150 Seg Neutrophils % 81.1 H Lymphocytes % 11.8 L Monocytes % 6.0 Eosinophils % 0.8 Basophils % 0.3 Absolute Neutrophils 3.6 Absolute Lymphocytes 0.5 Absolute Monocytes 0.3 Absolute Eosinophils 0.0 Absolute Basophils 0.0 Sodium 137.1 Potassium 4.6 Chloride 105 Carbon Dioxide 26 Anion Gap 6 BUN 16 Creatinine 1.35 H Est GFR ( Amer) > 60 Est GFR (Non-Af Amer) 53 L Glucose 118 H POC Glucose Calcium 8.6 Magnesium 1.9 Total Bilirubin 0.3 Direct Bilirubin 0.2 Neonat Total Bilirubin Not Reportable Neonat Direct Bilirubin Not Reportable Neonat Indirect Bili Not Reportable AST 27 ALT 23 Alkaline Phosphatase 75 NT-Pro-B Natriuret Pep 221 Total Protein 7.5 Albumin 3.3 L TSH Free T4 Urine Color Urine Appearance Urine pH Ur Specific [place] Urine Protein Urine Glucose (UA) Urine Ketones Urine Blood Urine Nitrite Urine Bilirubin Urine Urobilinogen Ur Leukocyte Esterase Urine WBC (Auto) Urine RBC (Auto) Urine Bacteria (Auto) Squamous Epi Cells Auto Amorphous Sediment Auto Urine Ascorbic Acid Urine Opiates Screen Urine Methadone Screen Ur Barbiturates Screen Ur Phencyclidine Scrn Ur Amphetamines Screen U Benzodiazepines Scrn Urine Cocaine Screen U Marijuana (THC) Screen Serum Alcohol < 10 03/18/19 03/18/19 03/18/19 17:12 18:02 18:02 WBC RBC Hgb Hct MCV MCH MCHC RDW Plt Count Seg Neutrophils % Lymphocytes % Monocytes % Eosinophils % Basophils % Absolute Neutrophils Absolute Lymphocytes Absolute Monocytes Absolute Eosinophils Absolute Basophils Sodium Potassium Chloride Carbon Dioxide Anion Gap BUN Creatinine Est GFR ( Amer) Est GFR (Non-Af Amer) Glucose POC Glucose Calcium Magnesium Total Bilirubin Direct Bilirubin Neonat Total Bilirubin Neonat Direct Bilirubin Neonat Indirect Bili AST ALT Alkaline Phosphatase NT-Pro-B Natriuret Pep Total Protein Albumin TSH 1.48 Free T4 1.58 Urine Color YELLOW Urine Appearance CLOUDY Urine pH 8.0 Ur Specific [place] 1.011 Urine Protein 30 H Urine Glucose (UA) NEGATIVE Urine Ketones NEGATIVE Urine Blood SMALL H Urine Nitrite POSITIVE H Urine Bilirubin NEGATIVE Urine Urobilinogen NEGATIVE Ur Leukocyte Esterase LARGE H Urine WBC (Auto) >182 Urine RBC (Auto) 17 Urine Bacteria (Auto) 2+ Squamous Epi Cells Auto 2 Amorphous Sediment Auto TRACE Urine Ascorbic Acid NEGATIVE Urine Opiates Screen NEGATIVE Urine Methadone Screen NEGATIVE Ur Barbiturates Screen NEGATIVE Ur Phencyclidine Scrn NEGATIVE Ur Amphetamines Screen NEGATIVE U Benzodiazepines Scrn NEGATIVE Urine Cocaine Screen NEGATIVE U Marijuana (THC) Screen UNCONFIRMED POSITIVE Serum Alcohol 03/18/19 18:25 WBC RBC Hgb Hct MCV MCH MCHC RDW Plt Count Seg Neutrophils % Lymphocytes % Monocytes % Eosinophils % Basophils % Absolute Neutrophils Absolute Lymphocytes Absolute Monocytes Absolute Eosinophils Absolute Basophils Sodium Potassium Chloride Carbon Dioxide Anion Gap BUN Creatinine Est GFR ( Amer) Est GFR (Non-Af Amer) Glucose POC Glucose 117 H Calcium Magnesium Total Bilirubin Direct Bilirubin Neonat Total Bilirubin Neonat Direct Bilirubin Neonat Indirect Bili AST ALT Alkaline Phosphatase NT-Pro-B Natriuret Pep Total Protein Albumin TSH Free T4 Urine Color Urine Appearance Urine pH Ur Specific [place] Urine Protein Urine Glucose (UA) Urine Ketones Urine Blood Urine Nitrite Urine Bilirubin Urine Urobilinogen Ur Leukocyte Esterase Urine WBC (Auto) Urine RBC (Auto) Urine Bacteria (Auto) Squamous Epi Cells Auto Amorphous Sediment Auto Urine Ascorbic Acid Urine Opiates Screen Urine Methadone Screen Ur Barbiturates Screen Ur Phencyclidine Scrn Ur Amphetamines Screen U Benzodiazepines Scrn Urine Cocaine Screen U Marijuana (THC) Screen Serum Alcohol - Diagnostic Test Radiology reviewed: Image reviewed, Reports reviewed Radiology results interpreted by me: 03/18/19 20:29 Chest X-Ray 03/18/19 18:09 IMPRESSION: NO ACUTE FINDINGS. Head CT 03/18/19 18:09 IMPRESSION: NO ACUTE INTRACRANIAL FINDINGS. EVIDENCE OF ACUTE STROKE: NO. - EKG Interpretation by Me EKG shows normal: Sinus rhythm Rate: Normal Rhythm: NSR - 78 bpm, no stemi, no old avail for comparison, reviewed with dr cece marinelli When compared to previous EKG there are: Previous EKG unavailable Discharge - Discharge Clinical Impression: Seizure UTI (urinary tract infection) Qualifiers: Urinary tract infection type: site unspecified Hematuria presence: with hematuria Qualified Code(s): N39.0 - Urinary tract infection, site not specified Condition: Fair Disposition: HOME-SNF (ED ONLY) Instructions: Urinary Tract Infection ([facility]) Additional Instructions: Follow-up with PCP 1 to 2 days. Return for any worsening symptoms. Take medication as prescribed. We will call you with any abnormal results of your urine culture that require change in plan of care as discussed. Continue to take your seizure medications as prescribed. drink plenty of fluids. Prescriptions: Doxycycline Hyclate 100 mg PO BID #20 capsule Referrals: GIUSEPPE FISHMAN MD [Primary Care Provider] - Follow up in 3-5 days
[2019-03-18 18:30] LABS: AMORPHOUS SEDIMENT,URINE TRACE /HPF; APPEARANCE,URINE CLOUDY; BILIRUBIN,URINE NEGATIVE (NEGATIVE); COLOR,URINE YELLOW; GLUCOSE, URINE NEGATIVE (NEGATIVE); KETONES,URINE NEGATIVE (NEGATIVE); LEUKOCYTE ESTERASE,URINE LARGE (NEGATIVE); NITRITE,URINE POSITIVE (NEGATIVE); PROTEIN,URINE 30 mg/dL (NEGATIVE); URINE SPECIFIC GRAVITY 1.011; UROBILINOGEN,URINE NEGATIVE mg/dL (<2.0)
[2019-03-18 18:43] LABS: URINE AMPHETAMINES SCREEN NEGATIVE; URINE BARBITURATES SCREEN NEGATIVE; URINE BENZODIAZEPINES SCREEN NEGATIVE; URINE COCAINE SCREEN NEGATIVE; URINE MARIJUANA (THC) SCREEN UNCONFIRMED POSITIVE; URINE METHADONE SCREEN NEGATIVE; URINE PHENCYCLIDINE SCREEN NEGATIVE
--- NOTE | 2019-03-18 18:58 | RADIOLOGY REPORT (SQ) ---
EXAM DESCRIPTION: CT HEAD WITHOUT COMPLETED DATE/TIME: 03/18/2019 6:45 pm REASON FOR STUDY: fall, seizure COMPARISON: 01/23/2019 TECHNIQUE: Axial images acquired through the brain without intravenous contrast. Images reviewed wit h bone, brain and subdural windows. Images stored on PACS. All CT scanners at this facility use dose modulation, iterative reconstruction, and/or weight based d osing when appropriate to reduce radiation dose to as low as reasonably achievable (ALARA). [facility]: Dose Right [facility]: CareDose [facility]: Dose Right [facility]: Teradose 4D [facility]: Smart 2080 [employer] RADIATION DOSE: CT Rad equipment meets quality standard of care and radiation dose reduction techniq ues were employed. CTDIvol: 53.2 mGy. DLP: 1097 mGy-cm.. LIMITATIONS: None. FINDINGS: VENTRICLES: Normal size and contour. CEREBRUM: Mild global atrophy. No hemorrhage. No midline shift. Age appropriate white matter. No evid ence for acute infarction. CEREBELLUM: No masses. No hemorrhage. No alteration of density. No evidence for acute infarction. EXTRA-AXIAL SPACES: No fluid collections. ORBITS AND GLOBE: No intra- or extraconal masses. Normal contour of globe without masses. CALVARIUM: No fracture. PARANASAL SINUSES: No fluid or mucosal thickening. SOFT TISSUES: No mass or hematoma. OTHER: No other significant finding. IMPRESSION: NO ACUTE INTRACRANIAL FINDINGS. EVIDENCE OF ACUTE STROKE: NO. TECHNICAL DOCUMENTATION: JOB ID: [id number] [id number] Quality ID # [id number]: Final reports with documentation of one or more dose reduction techniques (e.g., Au tomated exposure control, adjustment of the mA and/or kV according to patient size, use of iterative reconstruction technique) 2010 [employer]- All Rights Reserved Reading location - IP/workstation name: [employer]
--- NOTE | 2019-03-18 19:00 | RADIOLOGY REPORT (SQ) ---
EXAM DESCRIPTION: CHEST SINGLE VIEW COMPLETED DATE/TIME: 03/18/2019 6:45 pm REASON FOR STUDY: seizure COMPARISON: 01/23/2019 TECHNIQUE: Single frontal radiographic view of the chest acquired. NUMBER OF VIEWS: One view. LIMITATIONS: None. FINDINGS: LUNGS AND PLEURA: No pneumothorax. No consolidation or pleural effusion. Similar intersti tial markings. MEDIASTINUM AND HILAR STRUCTURES: Stable. HEART AND VASCULAR STRUCTURES: Stable. BONES: No acute findings. HARDWARE: None in the chest. OTHER: No other significant finding. IMPRESSION: NO ACUTE FINDINGS. TECHNICAL DOCUMENTATION: JOB ID: [id number] [id number] 2010 [employer]- All Rights Reserved Reading location - IP/workstation name: [email or web address]
[2019-03-18 19:23] LABS: FREE T4 (FREE THYROXINE) 1.58 ng/dL (0.78-2.19)
[2019-03-18 19:37] LABS: THYROID STIMULATING HORMONE 1.48 uIU/mL (0.47-4.68)
[2019-03-18] MEDS ORDERED: CEFTRIAXONE 1 GM/D5W RTU 1 GM/50 ML RTUPB IV ONE (20:20)
[2019-03-19 00:48] VITALS: BP 129/55
--- NOTE | 2019-03-20 07:47 | EKG REPORT ---
SEVERITY:- ABNORMAL ECG - SINUS RHYTHM CONSIDER ANTEROSEPTAL INFARCT : Confirmed by: Ishan Simpson MD 20-Mar-2019 07:46:40
== END 2019-03-18 23:20 ==
LOC: ER 16:31
DX: G40.909 Epilepsy, unspecified, not intractable, without status epilepticus (principal); N39.0 Urinary tract infection, site not specified; W19.XXXA Unspecified fall, initial encounter; I50.9 Heart failure, unspecified; I11.0 Hypertensive heart disease with heart failure; E03.9 Hypothyroidism, unspecified; Z86.14 Personal history of Methicillin resistant Staphylococcus aureus infection; Z87.440 Personal history of urinary (tract) infections
CPT/HCPCS: 93005; 99285; 96375; 96365; 36415; 87086; 84439; 80177; 82962; 80307 ×2; 83735; 84443; 85025; 87088; 80053; 81001; 87186; 82542; 83880; 71045; 70450; 93010; J2060; J0696

== ENCOUNTER 2019-03-31 17:20 | Emergency (ER) | payer MEDICARE, MEDICAID ==
--- NOTE | 2019-03-31 17:37 | ER Document Report ---
ED General - General Stated Complaint: FALL/RIGHT ARM INJURY Time Seen by Provider: 03/31/19 17:36 Primary Care Provider: GIUSEPPE FISHMAN MD [Primary Care Provider] - Follow up in 3-5 days Notes: Patient is a 63-year-old male that is a long-term retirement resident that presents to the emergency department for chief complaint of head injury after fall from wheelchair. Patient apparently had slid out of his wheelchair and fell onto his right side, hitting his head, he did not have loss of consciousness however. He is complaining of some pain in his neck and head, is a history of neck fracture and T1, from a prior fall, they were wanting to be precautions so they sent him to the emergency department to be evaluated. Patient unable to provide significant history as he is advanced developmental delay, his sister states he is at his baseline mental status at this time, and is acting his normal self. He is complaining of pain in his right shoulder and points to it, and it seems to be more uncomfortable when he moves his right sh oulder. Past Medical History: Developmental delay, BPH, CHF, hypertension, hyperlipidemia, hypothyroidism Past Surgical History: Spine surgery Social History: Patient currently resides in retirement, no alcohol drug use or tobacco use Family History: Reviewed and noncontributory for presenting illness Allergies: Reviewed, see documented allergy list. REVIEW OF SYSTEMS: Other than noted above, the 12 point review of systems was reviewed with the patient and were negative, all pertinent findings are included in the HPI. PHYSICAL EXAMINATION: Vital signs reviewed, nursing noted reviewed. GENERAL: Well-appearing, well-nourished and in no acute distress. HEAD: Minor abrasion noted just above the right eyebrow, no deep lacerations, no step-off or depressed skull fracture appreciated, normocephalic. EYES: Eyes appear normal, extraocular movements intact, sclera anicteric, conjunctiva are normal. PERRLA ENT: nares patent, oropharynx clear without exudates. Moist mucous membranes. NECK: Normal range of motion, supple without lymphadenopathy, no midlines or paraspinal tenderness with palpation. LUNGS: Breath sounds clear to auscultation bilaterally and equal. No wheezes rales or rhonchi. HEART: Regular rate and rhythm without murmurs ABDOMEN: Soft, nontender, normoactive bowel sounds. No rebound, guarding, or rigidity. No masses appreciated. EXTREMITIES: Mild tenderness to the right shoulder with palpation, without gross deformity, no crepitus with range of motion, some discomfort with range of motion, no step-off or deformity to the right clavicle. The elbow is unremarkable in the right side as well as the wrist, he is neurovascular intact distally in all extremities, he is noted to have trace edema in the lower extremity's bilaterally, which is chronic according to his family at bedside. The rest of his extremity exam is grossly unremarkable. NEUROLOGICAL: No focal neurological deficits. Moves all extremities spontaneously Motor and sensory grossly intact on exam. Speech delay, chronic per family at bedside, but is neurovascular intact distally in all extremities. PSYCH: Normal mood, normal affect. SKIN: Warm, Dry, normal turgor, no rashes or lesions noted on exposed skin TRAVEL OUTSIDE OF THE [place] IN LAST 30 DAYS: No - Related Data Allergies/Adverse Reactions: aripiprazole [From [employer]] Adverse Reaction (Verified 01/26/19 23:51) Abnormal behavior Past Medical History - Social History Smoking Status: Never Smoker Family History: Reviewed & Not Pertinent, CAD, Other - Seizure - Past Medical History Cardiac Medical History: Reports: Hx Congestive Heart Failure, Hx Hypertension Pulmonary Medical History: Denies: Hx Tuberculosis Neurological Medical History: Reports: Hx Seizures Endocrine Medical History: Reports: Hx Hypothyroidism Renal/ Medical History: Reports: Hx Benign Prostatic Hyperplasia. Denies: Hx Peritoneal Dialysis Skin Medical History: Reports Hx MRSA Psychiatric Medical History: Reports: Hx Depression Traumatic Medical History: Reports: Hx Spine Fracture Infectious Medical History: Reports: Hx MRSA - Immunizations Hx Diphtheria, Pertussis, Tetanus Vaccination: Yes Hx Pneumococcal Vaccination: 08/20/12 Physical Exam - Vital signs Vitals: Temp Pulse Resp BP Pulse Ox 97.4 F 54 L 16 114/69 100 03/31/19 17:51 03/31/19 17:51 03/31/19 17:51 03/31/19 17:51 03/31/19 17:51 Course - Re-evaluation Re-evalutation: Patient seen and examined vital signs reviewed. Patient was evaluated and treated as appropriate for the patient's presenting symptoms and complaint, with consideration of any critical or life threatening conditions that may be associated with their obtained history and exam as noted above. CT imaging of the head and cervical spine were obtained and were negative for a cute fracture or intracranial abnormality, x-rays of the right shoulder were negative for acute bony injury. The patient was re-evaluated and was stable, appeared comfortable Evaluation was most consistent with fall, closed head injury, right shoulder injury. At this point I feel the patient be discharged back to a [facility] facility, discussed this with his daughter who is agreeable with this plan of care, patient appeared comfortable and was stable for transfer back to the retirement. *Note is created using voice recognition software and may contain spelling, syntax or grammatical errors. Cervical Spine CT 03/31/19 17:48 IMPRESSION: 1. Cerebral atrophy. No acute intracranial abnormality. 2. Chronic cervical spine changes, old T1 compression fracture. No acute fracture identified. Head CT 03/31/19 17:48 IMPRESSION: 1. Cerebral atrophy. No acute intracranial abnormality. 2. Chronic cervical spine changes, old T1 compression fracture. No acute fracture identified. Shoulder X-Ray 03/31/19 17:48 IMPRESSION: NORMAL STUDY. - Vital Signs Vital signs: Temp Pulse Resp BP Pulse Ox 97.9 F 61 15 129/69 H 99 03/31/19 20:29 03/31/19 20:29 03/31/19 20:29 03/31/19 20:29 03/31/19 20:29 Discharge - Discharge Clinical Impression: Acute pain of right shoulder Fall Qualifiers: Encounter type: initial encounter Qualified Code(s): W19.XXXA - Unspecified fall, initial encounter Closed head injury Qualifiers: Encounter type: initial encounter Qualified Code(s): S09.90XA - Unspecified injury of head, initial encounter Condition: Stable Disposition: HOME-SNF (ED ONLY) Instructions: Head Injury Precautions ([facility]) Referrals: GIUSEPPE FISHMAN MD [Primary Care Provider] - Follow up in 3-5 days
--- NOTE | 2019-03-31 18:26 | RADIOLOGY REPORT (SQ) ---
EXAM DESCRIPTION: CT CERVICAL SPINE WITHOUT; CT HEAD WITHOUT COMPLETED DATE/TIME: 03/31/2019 6:13 pm REASON FOR STUDY: fall, head injury COMPARISON: 03/18/2019 TECHNIQUE: Axial images acquired through the brain and cervical spine without intravenous contrast. Images reviewed with brain, subdural, lung, soft tissue and bone windows. Reconstructed coronal and sagittal MPR images reviewed. Images stored on PACS. All CT scanners at this facility use dose modulation, iterative reconstruction, and/or weight based d osing when appropriate to reduce radiation dose to as low as reasonably achievable (ALARA). [facility]: Dose Right [facility]: CareDose [facility]: Dose Right [facility]: Teradose 4D [facility]: Smart [employer] RADIATION DOSE: CT Rad equipment meets quality standard of care and radiation dose reduction techniq ues were employed. CTDIvol: 24.4 mGy. DLP: 518 mGy-cm.; CT Rad equipment meets quality standard of ca re and radiation dose reduction techniques were employed. CTDIvol: 53.2 mGy. DLP: 1177 mGy-cm. mGy. LIMITATIONS: None. FINDINGS: Brain: Atrophy with associated prominence of the extra-axial spaces. No hemorrhage or mass or shift or true hydrocephalus. No skull fracture. Clear paranasal sinuses. Cervical spine: T1 chronic mild compression deformity. This was seen previously. Other vertebrae are intact and dominic ntained. No malalignment. Soft tissues normal. Lung apices clear. IMPRESSION: 1. Cerebral atrophy. No acute intracranial abnormality. 2. Chronic cervical spine changes, old T1 compression fracture. No acute fracture identified. TECHNICAL DOCUMENTATION: JOB ID: [id number] Quality ID # [id number]: Final reports with documentation of one or more dose reduction techniques (e.g., Au tomated exposure control, adjustment of the mA and/or kV according to patient size, use of iterative reconstruction technique) 2010 [employer]- All Rights Reserved Reading location - IP/workstation name: [email or web address]
--- NOTE | 2019-03-31 18:26 | RADIOLOGY REPORT (SQ) ---
EXAM DESCRIPTION: CT CERVICAL SPINE WITHOUT; CT HEAD WITHOUT COMPLETED DATE/TIME: 03/31/2019 6:13 pm REASON FOR STUDY: fall, head injury COMPARISON: 03/18/2019 TECHNIQUE: Axial images acquired through the brain and cervical spine without intravenous contrast. Images reviewed with brain, subdural, lung, soft tissue and bone windows. Reconstructed coronal and sagittal MPR images reviewed. Images stored on PACS. All CT scanners at this facility use dose modulation, iterative reconstruction, and/or weight based d osing when appropriate to reduce radiation dose to as low as reasonably achievable (ALARA). [facility]: Dose Right [facility]: CareDose [facility]: Dose Right [facility]: Teradose 4D [facility]: [email or web address] RADIATION DOSE: CT Rad equipment meets quality standard of care and radiation dose reduction techniq ues were employed. CTDIvol: 24.4 mGy. DLP: 518 mGy-cm.; CT Rad equipment meets quality standard of ca re and radiation dose reduction techniques were employed. CTDIvol: 53.2 mGy. DLP: 1177 mGy-cm. mGy. LIMITATIONS: None. FINDINGS: Brain: Atrophy with associated prominence of the extra-axial spaces. No hemorrhage or mass or shift or true hydrocephalus. No skull fracture. Clear paranasal sinuses. Cervical spine: T1 chronic mild compression deformity. This was seen previously. Other vertebrae are intact and dominic ntained. No malalignment. Soft tissues normal. Lung apices clear. IMPRESSION: 1. Cerebral atrophy. No acute intracranial abnormality. 2. Chronic cervical spine changes, old T1 compression fracture. No acute fracture identified. TECHNICAL DOCUMENTATION: JOB ID: [id number] Quality ID # [id number]: Final reports with documentation of one or more dose reduction techniques (e.g., Au tomated exposure control, adjustment of the mA and/or kV according to patient size, use of iterative reconstruction technique) 2010 [employer]- All Rights Reserved Reading location - IP/workstation name: [email or web address]
--- NOTE | 2019-03-31 19:00 | RADIOLOGY REPORT (SQ) ---
EXAM DESCRIPTION: SHOULDER RIGHT 2 OR MORE VIEWS COMPLETED DATE/TIME: 03/31/2019 6:51 pm REASON FOR STUDY: right shoulder pain, fall COMPARISON: None. NUMBER OF VIEWS: Three views right shoulder LIMITATIONS: None. FINDINGS: There is no acute or significant bone, joint or soft tissue abnormality. OTHER: Osteopenic. IMPRESSION: NORMAL STUDY. TECHNICAL DOCUMENTATION: JOB ID: [id number] Reading location - IP/workstation name: [email or web address]
[2019-03-31 20:32] VITALS: BP 129/69
== END 2019-03-31 20:45 ==
LOC: ER 17:20
DX: S09.90XA Unspecified injury of head, initial encounter (principal); M25.511 Pain in right shoulder; M54.2 Cervicalgia; R51 Headache; W05.0XXA Fall from non-moving wheelchair, initial encounter; I50.9 Heart failure, unspecified; I11.0 Hypertensive heart disease with heart failure
CPT/HCPCS: 70450; 72125; 99285

== ENCOUNTER 2019-06-03 11:51 | Emergency (ER) | payer MEDICARE, MEDICAID ==
[2019-06-03 12:55] LABS: ABSOLUTE EOSINOPHILS # (AUTO) 0.1 10^3/uL (0.0-0.6); ABSOLUTE LYMPHOCYTES (AUTO) 0.5 10^3/uL (0.5-4.7); ABSOLUTE MONOCYTES (AUTO) 0.3 10^3/uL (0.1-1.4); ABSOLUTE NEUT (AUTO) 3.6 10^3/uL (1.7-8.2); BASOPHILS % (AUTO) 0.2 % (0-2); EOSINOPHILS % (AUTO) 1.3 % (0-6); HEMATOCRIT 35.2 % (37.9-51.0); HEMOGLOBIN 11.6 g/dL (13.5-17.0); LYMPHOCYTES % (AUTO) 10.7 % (13-45); MEAN CORPUSCULAR HEMOGLOBIN 27.8 pg (27.0-33.4); MEAN CORPUSCULAR HGB CONC 32.8 g/dL (32.0-36.0); MEAN CORPUSCULAR VOLUME 85 fl (80-97); MONOCYTES % (AUTO) 6.9 % (3-13); PLATELET COUNT 128 10^3/uL (150-450); RED BLOOD COUNT 4.16 10^6/uL (4.35-5.55); RED CELL DISTRIBUTION WIDTH 17.2 % (11.5-14.0); SEGMENTED NEUTROPHILS % (AUTO) 80.9 % (42-78); TOTAL CELLS COUNTED % (AUTO) 100 %; WHITE BLOOD COUNT 4.4 10^3/uL (4.0-10.5)
[2019-06-03 13:14] LABS: ALBUMIN 3.5 g/dL (3.5-5.0); ALKALINE PHOSPHATASE 76 U/L (38-126); ANION GAP 8 (5-19); ASPARTATE AMINO TRANSFERASE 28 U/L (17-59); BILIRUBIN,DIRECT 0.1 mg/dL (0.0-0.4); BILIRUBIN,TOTAL 0.5 mg/dL (0.2-1.3); BLOOD UREA NITROGEN 22 mg/dL (7-20); CALCIUM 8.6 mg/dL (8.4-10.2); CARBON DIOXIDE 25 mmol/L (22-30); CHLORIDE 105 mmol/L (98-107); GLUCOSE 106 mg/dL (75-110); POTASSIUM 4.3 mmol/L (3.6-5.0); TOTAL PROTEIN 7.6 g/dL (6.3-8.2)
[2019-06-03 13:31] LABS: AMORPHOUS SEDIMENT,URINE TRACE /HPF; APPEARANCE,URINE SLIGHTLY-CLOUDY; BILIRUBIN,URINE NEGATIVE (NEGATIVE); COLOR,URINE YELLOW; GLUCOSE, URINE NEGATIVE (NEGATIVE); KETONES,URINE NEGATIVE (NEGATIVE); LEUKOCYTE ESTERASE,URINE LARGE (NEGATIVE); NITRITE,URINE NEGATIVE (NEGATIVE); PROTEIN,URINE 100 mg/dL (NEGATIVE); URINE SPECIFIC GRAVITY 1.017; UROBILINOGEN,URINE NEGATIVE mg/dL (<2.0)
[2019-06-03] MEDS ORDERED: CEPHALEXIN 500 MG CAPSULE PO ONE (13:49)
--- NOTE | 2019-06-03 13:55 | ER Document Report ---
ED General - General Chief Complaint: Seizure Stated Complaint: POSSIBLE SEIZURE Time Seen by Provider: 06/03/19 13:11 Primary Care Provider: GIUSEPPE FISHMAN MD [Primary Care Provider] - Follow up as needed Notes: 63-year-old male presents emergency department via EMS from [place] for 4 separate seizure episodes this morning ranging from 8 AM until about 11 AM. They were intermittent and each in the last 1 to 2 minutes and then resolved. Patient does have a history of seizures but normally only has seizures when he has an infection. Patient does not usually have 4 seizures in a day. Sister is at the bedside and states that they looked like his usual seizures just more frequent and now he is waking up and acting close to his baseline but is usually a little bit more talkative. She states that he was known to have UTI and just finished taking his Bactrim a few days ago, she is concerned that he may have a UTI again. Keppra level was checked recently and was found to be 20. She would like it checked again because she states sometimes he does not get his correct dosage. He is supposed to have Keppra 500 mg twice a day. Patient cannot give me any history or information. TRAVEL OUTSIDE OF THE [place] IN LAST 30 DAYS: No - Related Data Allergies/Adverse Reactions: aripiprazole [From [employer]] Adverse Reaction (Verified 06/03/19 12:41) Abnormal behavior Past Medical History - General Information source: Relative, Outside Facility Records - Social History Smoking Status: Never Smoker Chew tobacco use (# tins/day): No Frequency of alcohol use: None Drug Abuse: None Family History: Reviewed & Not Pertinent, CAD, Other Patient has suicidal ideation: No Patient has homicidal ideation: No - Past Medical History Cardiac Medical History: Reports: Hx Congestive Heart Failure, Hx Hypertension Pulmonary Medical History: Denies: Hx Tuberculosis Neurological Medical History: Reports: Hx Seizures Endocrine Medical History: Reports: Hx Hypothyroidism Renal/ Medical History: Reports: Hx Benign Prostatic Hyperplasia. Denies: Hx Peritoneal Dialysis Skin Medical History: Reports Hx MRSA Psychiatric Medical History: Reports: Hx Depression Traumatic Medical History: Reports: Hx Spine Fracture Infectious Medical History: Reports: Hx MRSA - Immunizations Hx Diphtheria, Pertussis, Tetanus Vaccination: Yes Hx Pneumococcal Vaccination: 08/20/12 Review of Systems - Review of Systems Notes: Review of systems obtained from sister. -: Yes ROS unobtainable due to patient's medical condition Physical Exam - Vital signs Vitals: Temp Resp Pulse Ox 98.8 F 21 H 96 06/03/19 12:09 06/03/19 12:06/03/19 12:09 - Notes Notes: GENERAL: Opens his eyes when I walk in the room, smiles, repeats [id number] which is his room number at the half-way. No acute distress. HEAD: Normocephalic, atraumatic EYES: Some drift of his left eye. Pupils are round and equal. ENT: Oral mucosa moist, tongue midline. NECK: Full range of motion, supple, trachea midline. LUNGS: Clear to auscultation bilaterally, no wheezes, rales or rhonchi, no respiratory distress. HEART: Regular rate and rhythm, no murmurs, gallops, rubs. ABDOMEN: Soft, nontender, nondistended, bowel sounds present in all 4 quadrants. EXTREMITIES: Moves all 4 extremities spontaneously, no edema, radial and dorsalis pedis pulses 2/4 bilaterally. No cyanosis. NEUROLOGICAL: Awake, smiles, repeats his room number, states he has no pain, otherwise does not answer questions, no slurred speech, biceps and patellar DTRs 2+ bilaterally. SKIN: Warm, Dry, normal turgor, scattered ecchymoses and excoriations. Course - Re-evaluation Re-evalutation: 06/03/19 13:53 CBC shows mild anemia with with hemoglobin 11.6, platelets low 128, chemistries show renal failure which appears to be rather chronic and similar to level seen in the past with a BUN of 22 and creatinine 1.47, urinalysis shows moderate blood and large leukocyte esterase. This is been sent for culture. Keppra level is pending. Patient will be changed to Keflex for his UTI. Patient will be discharged back to [place] on Keflex. Plan discussed with sister who is in agreement. Discharged to [place]. - Vital Signs Vital signs: Temp Pulse Resp BP Pulse Ox 98.8 F 21 H 122/59 L 96 06/03/19 12:09 06/03/19 12:10 06/03/19 12:10 06/03/19 12:10 - Laboratory Result Diagrams: 06/03/19 12:23 06/03/19 12:23 Laboratory results interpreted by me: 09/06/03/19 06/03/19 12:23 12:23 12:53 RBC 4.16 L Hgb 11.6 L Hct 35.2 L RDW 17.2 H Plt Count 128 L Lymph % (Auto) 10.7 L Seg Neutrophils % 80.9 H BUN 22 H Creatinine 1.47 H Est GFR ( Amer) 59 L Est GFR (MDRD) Non-Af 48 L Urine Protein 100 H Urine Blood MODERATE H Ur Leukocyte Esterase LARGE H Discharge - Discharge Clinical Impression: Seizure UTI (urinary tract infection) due to urinary indwelling Nicholas catheter Qualifiers: Indwelling urinary catheter type: indwelling urethral catheter Encounter type: subsequent encounter Qualified Code(s): T83.511D - Infection and inflammatory reaction due to indwelling urethral catheter, subsequent encounter; N39.0 - Urinary tract infection, site not specified Condition: Stable Disposition: HOME-ASSISTED LIVING Additional Instructions: Today we found a urinary tract infection. Your urine has been sent for culture. We are changing your antibiotic to Keflex as your nurse reported that you are previously taking Bactrim. Please take this until the antibiotics are gone. Please continue to follow-up with your neurologist as an outpatient if your seizures continue to increase in frequency. Prescriptions: Cephalexin Monohydrate [Keflex 500 mg Capsule] 1,000 mg PO BID #40 capsule Referrals: GIUSEPPE FISHMAN MD [Primary Care Provider] - Follow up as needed
[2019-06-03 16:10] VITALS: BP 115/65
== END 2019-06-03 15:10 | disposition home health service (06) ==
LOC: ER 11:51
DX: R56.9 Unspecified convulsions (principal); T83.511A Infection and inflammatory reaction due to indwelling urethral catheter, initial encounter; X58.XXXA Exposure to other specified factors, initial encounter; N39.0 Urinary tract infection, site not specified; I50.9 Heart failure, unspecified; I11.0 Hypertensive heart disease with heart failure; E03.9 Hypothyroidism, unspecified; Z86.14 Personal history of Methicillin resistant Staphylococcus aureus infection
CPT/HCPCS: 36415; 87086; 80177; 85025; 87088; 80053; 81001; 87186; A9270; 99285

== ENCOUNTER 2019-06-07 13:22 | Emergency (ER) | payer MEDICARE, MEDICAID ==
--- NOTE | 2019-06-07 14:07 | ER Document Report ---
ED Fall - General Chief Complaint: Fall Stated Complaint: FALL/LEFT SIDE PAIN Time Seen by Provider: 06/07/19 13:58 Primary Care Provider: GIUSEPPE FISHMAN MD [Primary Care Provider] - Follow up as needed Notes: Patient is a resident of [facility] and is wheelchair confined. He has a history of seizures and is mentally challenged. Today, he was in his wheelchair and nurses heard him fall and found him on the floor, having hit the right side of his head. He was seen here earlier this week for seizures and felt to have a UTI and put on an antibiotic which she is still taking. Complaining of pain in the right rib region. Patient is here with his sister, who has power of research attorney, and says that the patient seems to have seizures mostly after he has been diagnosed as having a UTI. Patient is mentally challenged with a history of seizures. He is blind in one eye and is hard of hearing. Sister thinks he is developing some dementia as well. TRAVEL OUTSIDE OF THE [place] IN LAST 30 DAYS: No - Related data Allergies/Adverse Reactions: aripiprazole [From [employer]] Adverse Reaction (Verified 06/03/19 12:41) Abnormal behavior Past Medical History - Social History Smoking Status: Unknown if Ever Smoked Family History: Reviewed & Not Pertinent, CAD, Other Patient has suicidal ideation: No Patient has homicidal ideation: No - Past Medical History Cardiac Medical History: Reports: Hx Congestive Heart Failure, Hx Hypertension Neurological Medical History: Reports: Hx Seizures Endocrine Medical History: Reports: Hx Hypothyroidism Renal/ Medical History: Reports: Hx Benign Prostatic Hyperplasia Skin Medical History: Reports Hx MRSA Psychiatric Medical History: Reports: Hx Depression Traumatic Medical History: Reports: Hx Spine Fracture Infectious Medical History: Reports: Hx MRSA - Immunizations Hx Diphtheria, Pertussis, Tetanus Vaccination: Yes Hx Pneumococcal Vaccination: 08/20/12 Review of Systems - Review of Systems Notes: CONSTITUTIONAL : Denies fever. CARDIOVASCULAR: Has complained of right rib pain since this apparent fall. RESPIRATORY: Denies cough, chest congestion, or shortness of breath. GASTROINTESTINAL: Denies abdominal pain or nausea, vomiting, or diarrhea. GENITOURINARY: Denies difficulty or painful urinating, urinary frequency, blood in urine. Has a Nicholas catheter. Currently on an antibiotic for UTI. Physical Exam - Vital signs Vitals: Temp Pulse Resp BP Pulse Ox 97.3 F 55 L 18 117/47 L 96 06/07/19 13:40 06/07/19 13:40 06/07/19 13:40 06/07/19 13:40 06/07/19 13:40 Interpretation: Normal Notes: PHYSICAL EXAMINATION: GENERAL: Well-appearing, in no acute distress. HEAD: Rather thin, flat area of bruising of the right scalp, in the midportion. Slightly tender there.. EYES: Unable to examine because patient is uncooperative. ENT: oropharynx clear without exudates. Moist mucous membranes. NECK: Normal range of motion, supple. No pain with neck movement. LUNGS: Breath sounds clear and equal bilaterally. Mild tenderness of the right lower lateral ribs. HEART: Regular rate and rhythm without murmurs. ABDOMEN: Soft, nontender. No guarding or rebound. No masses. BACK: No tenderness throughout entire back. EXTREMITIES: Normal range of motion without pain. NEUROLOGICAL: Mentally challenged, functions at the level of a fourth or fifth grader, according to the sister. Cooperative and allows exam. PSYCH: Unable to examine SKIN: Warm, dry, no rashes. Course - Vital Signs Vital signs: Temp Pulse Resp BP Pulse Ox 97.3 F 55 L 18 117/47 L 96 06/07/19 13:40 06/07/19 13:40 06/07/19 13:40 06/07/19 13:40 06/07/19 13:40 - Laboratory Laboratory results interpreted by me: 06/07/19 14:12 Urine Protein 30 H Urine Blood MODERATE H Ur Leukocyte Esterase MODERATE H Discharge - Discharge Clinical Impression: Fall, Contusion of ribs, Seizures, Contusion of head Condition: Stable Disposition: HOME, SELF-CARE Additional Instructions: HEAD INJURY PRECAUTIONS: At this point, there is no evidence that your head injury is serious. Ob servation is necessary, however. Take only clear liquids for the first few hours, unless told otherwise by the doctor. If no pain medication was prescribed, you may take acetaminophen according to the directions on the bottle. Do not take any medication that may alter your level of alertness (unless you've discussed it with the doctor first). Limit activity for the first 24 hours. Bed rest is best. During the first 24 hours, check to see approximately every two to three hours that the patient is easily arousable, responds normally, and can perform common tasks such as walking without difficulty. Contact your doctor or go to the hospital if any of the following things occur: Persistent vomiting, difficulty in arousing the patient, worsening or continued headache, or failure to improve as expected. Head injuries can cause symptoms that persist for a few days or even a few weeks. CONTUSION: Your injury has resulted in a contusion -- a crushing of the deep tissues. No injury to important structures was detected during the physician's exam. Contusions vary in the amount of pain they cause, and in the length of time required for healing. Typically, the area will become bruised, and will remain painful to touch for two or three weeks. However, most patients are back to working and playing within a few days. After the initial period of rest and cold-packs, your symptoms (together with the doctor's recommendations) will determine how rapidly you can get back to full activity. Usually this means "do what feels okay, but don't do things that hurt." If re-examination was recommended, it's important to follow up as instructed. Call the doctor or return any time if pain increases, if swelling becomes severe, if you develop numbness or weakness in an injured extremity, or if any other alarming symptoms occur. Rib Injuries and Fractures You have been diagnosed as having either bruised or broken ribs. These two injuries are treated in the same way. It will usually take four to six weeks for these injured ribs to heal. Sometimes, rib belts or anesthetic injections of the chest wall help reduce the pain. If you are using a rib belt, you should cough or take a deep breath at least every hour or two to prevent lung complications. You should not engage in any strenuous physical activity until released by your physician. The usual rule is "if it hurts, don't do it." Rib fractures can lead to serious lung complications including lung collapse, hemorrhage, and pneumonia. You should call the physician or return at once if any of the following occur: (1) Fever or chills. (2) Persistent cough, coughing up blood, or shortness of breath. (3) Increasing pain. (4) Weakness, lightheadedness, or fainting. USE OF TYLENOL (ACETAMINOPHEN): Acetaminophen may be taken for pain relief or fever control. It's much safer than aspirin, offering a wider range of "safe" dosages. It is safe during . Some brand names are Tylenol, Panadol, Datril, Anacin 3, Tempra, and Liquiprin. Acetaminophen can be repeated every four hours. The following are maximum recommended dosages: WEIGHT Dose Drops Elixir Chewable(80mg) (LBS.) drprs=droppers tsp=teaspoon >89 pounds or adults 650 mg to 900 mg Acetaminophen can be repeated every four hours. Maximum dose not to exceed 4000 mg a day. These maximum recommended dosages are slightly higher than the dosages written on the product container, but these dosages are very safe and below the toxic dosage for acetaminophen. FOLLOW-UP CARE: If you have been referred to a physician for follow-up care, call the physicians office for an appointment as you were instructed or within the next two days. If you experience worsening or a significant change in your symptoms, notify the physician immediately or return to the Emergency Department at any time for re-evaluation. Your urinalysis is uncertain about whether you have a continuing urinary tract infection. I am reculturing your urine today and we will check on the results by Monday to see if you need to be switched to another different antibiotic. Referrals: GIUSEPPE FISHMAN MD [Primary Care Provider] - Follow up as needed
--- NOTE | 2019-06-07 14:44 | RADIOLOGY REPORT (SQ) ---
EXAM DESCRIPTION: RIBS RIGHT W/PA CHEST COMPLETED DATE/TIME: 06/07/2019 2:32 pm REASON FOR STUDY: Fell from wheelchair, complains of right rib pain COMPARISON: None. TECHNIQUE: Frontal view of the chest and additional views of the right ribs acquired. NUMBER OF VIEWS: Three view. LIMITATIONS: None. FINDINGS: FRONTAL CXR: No pneumothorax. No pleural effusion. No atelectasis or infiltrates. Cardi omegaly. RIBS: No displaced rib fractures. No lytic or blastic bony lesions. OTHER: No other significant finding. IMPRESSION: No displaced fractures of the right ribs. No pneumothorax. Cardiomegaly. COMMENT: SITE OF TRAUMA/COMPLAINT MARKED/STAMP COMPLETED: YES. TECHNICAL DOCUMENTATION: JOB ID: [id number] [employer]- All Rights Reserved Reading location - IP/workstation name: [email or web address]
--- NOTE | 2019-06-07 14:58 | RADIOLOGY REPORT (SQ) ---
EXAM DESCRIPTION: CT HEAD WITHOUT COMPLETED DATE/TIME: 06/07/2019 2:43 pm REASON FOR STUDY: Hit right mid scalp, small hematoma, Hx seizures COMPARISON: 03/31/2019 TECHNIQUE: Axial images acquired through the brain without intravenous contrast. Images reviewed wi th bone, brain and subdural windows. Additional sagittal and coronal reconstructions were generated. Images stored on PACS. All CT scanners at this facility use dose modulation, iterative reconstruction, and/or weight based d osing when appropriate to reduce radiation dose to as low as reasonably achievable (ALARA). [facility]: Dose Right [facility]: CareDose [facility]: Dose Right [facility]: Teradose 4D [facility]: Smart [employer] RADIATION DOSE: CT Rad equipment meets quality standard of care and radiation dose reduction techniq ues were employed. CTDIvol: 53.2 mGy. DLP: 1044 mGy-cm. mGy. LIMITATIONS: None. FINDINGS: VENTRICLES: Normal size and contour. CEREBRUM: Cortical atrophy. No masses. No hemorrhage. No midline shift. No evidence for acute inf arction. Normal reaves/white matter differentiation. No areas of low density in the white matter. CEREBELLUM: No masses. No hemorrhage. No alteration of density. No evidence for acute infarction. EXTRAAXIAL SPACES: No fluid collections. No masses. ORBITS AND GLOBE: No intra- or extraconal masses. Normal contour of globe without masses. CALVARIUM: No fracture. PARANASAL SINUSES: No fluid or mucosal thickening. SOFT TISSUES: No mass or hematoma. OTHER: No other significant finding. IMPRESSION: Involutional changes with no acute intracranial imaging findings. EVIDENCE OF ACUTE STROKE: NO. COMMENT: Quality ID # 436: Final reports with documentation of one or more dose reduction techniques (e.g., Automated exposure control, adjustment of the mA and/or kV according to patient size, use of iterative reconstruction technique) TECHNICAL DOCUMENTATION: JOB ID: [id number] [employer]- All Rights Reserved Reading location - IP/workstation name: [email or web address]
[2019-06-07 15:00] LABS: APPEARANCE,URINE SLIGHTLY-CLOUDY; BILIRUBIN,URINE NEGATIVE (NEGATIVE); COLOR,URINE YELLOW; GLUCOSE, URINE NEGATIVE (NEGATIVE); KETONES,URINE NEGATIVE (NEGATIVE); LEUKOCYTE ESTERASE,URINE MODERATE (NEGATIVE); NITRITE,URINE NEGATIVE (NEGATIVE); PROTEIN,URINE 30 mg/dL (NEGATIVE); URINE SPECIFIC GRAVITY 1.015; UROBILINOGEN,URINE NEGATIVE mg/dL (<2.0)
[2019-06-07] MEDS ORDERED: ACETAMINOPHEN 325 MG TABLET PO ONE (15:30)
[2019-06-07 17:10] VITALS: BP 113/46
== END 2019-06-07 18:56 | disposition home or self-care (01) ==
LOC: ER 13:22
DX: S20.219A Contusion of unspecified front wall of thorax, initial encounter (principal); S00.93XA Contusion of unspecified part of head, initial encounter; R56.9 Unspecified convulsions; R07.81 Pleurodynia; W05.0XXA Fall from non-moving wheelchair, initial encounter; I50.9 Heart failure, unspecified; I11.0 Hypertensive heart disease with heart failure
CPT/HCPCS: 99285; 87086; 87088; 81001; 87186; 71101; 70450; A9270

== ENCOUNTER 2019-08-08 18:33 | Emergency (ER) | payer MEDICARE, MEDICAID ==
--- NOTE | 2019-08-08 19:47 | RADIOLOGY REPORT (SQ) ---
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 Images re viewed with lung, soft tissue and bone windows. Reconstructed coronal and sagittal MPR images review ed. Images stored on PACS. All CT scanners at this facility use dose modulation, iterative reconstruction, and/or weight based d osing when appropriate to reduce radiation dose to as low as reasonably achievable (ALARA). [facility]: Dose Right [facility]: CareDose [facility]: Dose Right [facility]: Teradose 4D [facility]: Smart [employer] RADIATION DOSE: CT Rad equipment meets quality standard of care and radiation dose reduction techniq ues were employed. CTDIvol: 25.3 mGy. DLP: 545 mGy-cm. mGy. LIMITATIONS: None. FINDINGS: ALIGNMENT: Anatomic. MINERALIZATION: Normal. VERTEBRAL BODIES: No fractures or dislocation. DISCS: Stable compression changes are present at T1. FACETS, LATERAL MASSES, POSTERIOR ELEMENTS: No fractures. No dislocation. No acute findings. HARDWARE: None in the spine. VISUALIZED RIBS: No fractures. LUNG APICES AND SOFT TISSUES: No significant or acute findings. OTHER: No other significant finding. IMPRESSION: Stable T1 compression changes. No acute finding in the cervical spine. TECHNICAL DOCUMENTATION: JOB ID: [id number] Quality ID # [id number]: Final reports with documentation of one or more dose reduction techniques (e.g., Au tomated exposure control, adjustment of the mA and/or kV according to patient size, use of iterative reconstruction technique) 2010 [employer]- All Rights Reserved Reading location - IP/workstation name: [email or web address]
--- NOTE | 2019-08-08 19:49 | RADIOLOGY REPORT (SQ) ---
EXAM DESCRIPTION: CT HEAD WITHOUT COMPLETED DATE/TIME: 08/08/2019 7:33 pm REASON FOR STUDY: bed 18 s/p fall per LJessi Aranda [employer]ATIONS MANAGER COMPARISON: 06/07/2019 TECHNIQUE: Axial images acquired through the brain without intravenous contrast. Images reviewed wi th bone, brain and subdural windows. Additional sagittal and coronal reconstructions were generated. Images stored on PACS. All CT scanners at this facility use dose modulation, iterative reconstruction, and/or weight based d osing when appropriate to reduce radiation dose to as low as reasonably achievable (ALARA). [facility]: Dose Right [facility]: CareDose [facility]: Dose Right [facility]: Teradose 4D [facility]: Smart [employer] RADIATION DOSE: CT Rad equipment meets quality standard of care and radiation dose reduction techniq ues were employed. CTDIvol: 55.2 mGy. DLP: 1084 mGy-cm. mGy. LIMITATIONS: None. FINDINGS: VENTRICLES: Prominent ventricles secondary to involutional atrophy. CEREBRUM: Cortical atrophy. No masses. No hemorrhage. No midline shift. No evidence for acute inf arction. Normal reaves/white matter differentiation. No areas of low density in the white matter. CEREBELLUM: No masses. No hemorrhage. No alteration of density. No evidence for acute infarction. EXTRAAXIAL SPACES: No fluid collections. No masses. ORBITS AND GLOBE: No intra- or extraconal masses. Normal contour of globe without masses. CALVARIUM: No fracture. PARANASAL SINUSES: Right frontal scalp hematoma. SOFT TISSUES: No mass or hematoma. OTHER: No other significant finding. IMPRESSION: Significant involutional changes with no acute intracranial imaging findings. There is a right frontal scalp hematoma. EVIDENCE OF ACUTE STROKE: NO. COMMENT: Quality ID # 436: Final reports with documentation of one or more dose reduction techniques (e.g., Automated exposure control, adjustment of the mA and/or kV according to patient size, use of iterative reconstruction technique) TECHNICAL DOCUMENTATION: JOB ID: [id number] [employer]- All Rights Reserved Reading location - IP/workstation name: [email or web address]
--- NOTE | 2019-08-08 20:22 | ER Document Report ---
ED Fall - General Chief Complaint: Fall Stated Complaint: FALL Time Seen by Provider: 08/08/19 18:41 Primary Care Provider: GIUSEPPE FISHMAN MD [Primary Care Provider] - Follow up as needed Mode of Arrival: Medic Information source: Patient, Relative Notes: Otherwise healthy 64-year-old male presenting to the emergency department after falling forward out of his wheelchair. He resides at one of our local nursing homes. His family member at bedside denies any loss of consciousness, denies any vomiting. States he is acting himself. He does have complaints of a h ematoma to the right side of his head. TRAVEL OUTSIDE OF THE [place] IN LAST 30 DAYS: No - Related data Allergies/Adverse Reactions: aripiprazole [From [employer] Adverse Reaction (Verified 06/03/19 12:41) Abnormal behavior Past Medical History - General Information source: Patient - Social History Smoking Status: Never Smoker Frequency of alcohol use: None Drug Abuse: None Family History: Reviewed & Not Pertinent, CAD, Other Patient has suicidal ideation: No Patient has homicidal ideation: No - Past Medical History Cardiac Medical History: Reports: Hx Congestive Heart Failure, Hx Hypertension Pulmonary Medical History: Denies: Hx Tuberculosis Neurological Medical History: Reports: Hx Seizures Endocrine Medical History: Reports: Hx Hypothyroidism Renal/ Medical History: Reports: Hx Benign Prostatic Hyperplasia. Denies: Hx Peritoneal Dialysis Skin Medical History: Reports Hx MRSA Psychiatric Medical History: Reports: Hx Depression Traumatic Medical History: Reports: Hx Spine Fracture Infectious Medical History: Reports: Hx MRSA - Immunizations Hx Diphtheria, Pertussis, Tetanus Vaccination: Yes Hx Pneumococcal Vaccination: 08/20/12 Review of Systems - Review of Systems Constitutional: No symptoms reported EENT: No symptoms reported Cardiovascular: No symptoms reported Respiratory: No symptoms reported Gastrointestinal: No symptoms reported Genitourinary: No symptoms reported Male Genitourinary: No symptoms reported Musculoskeletal: See HPI Skin: No symptoms reported Hematologic/Lymphatic: No symptoms reported Neurological/Psychological: No symptoms reported Physical Exam - Vital signs Vitals: Pulse Ox 97 08/08/19 18:44 - Notes Notes: PHYSICAL EXAMINATION: GENERAL: Well-appearing, well-nourished and in no acute distress. HEAD: Hematoma to right forehead. EYES: Pupils equal round and reactive to light, extraocular movements intact, sclera anicteric, conjunctiva are normal. ENT: Nares patent, oropharynx clear without exudates. Moist mucous membranes. NECK: Normal range of motion, supple without lymphadenopathy LUNGS: Breath sounds clear to auscultation bilaterally and equal. No wheezes rales or rhonchi. HEART: Regular rate and rhythm without murmurs ABDOMEN: Soft, nontender, nondistended abdomen. No guarding, no rebound. No masses appreciated. Musculoskeletal: Normal range of motion, no pitting or edema. No cyanosis. NEUROLOGICAL: Cranial nerves grossly intact. Normal speech. Normal sensory, motor exams PSYCH: Normal mood, normal affect. SKIN: Warm, Dry, normal turgor, no rashes or lesions noted. Course - Re-evaluation Re-evalutation: Cervical Spine CT 08/08/19 00:00 IMPRESSION: Stable T1 compression changes. No acute finding in the cervical spine. Head CT 08/08/19 00:00 IMPRESSION: Significant involutional changes with no acute intracranial imaging findings. There is a right frontal scalp hematoma. EVIDENCE OF ACUTE STROKE: NO. Imaging negative as outlined above. Patient will be discharged home in stable condition at this time. Family member at bedside verbalizes understanding and agreement with this plan. The patient's emergency department workup and current diagnosis were explained to the patient and or family. Follow-up instructions were provided. Medications if prescribed were discussed. Instructions for when to return to the emergency department including specific worrisome symptoms were discussed with the patient and/or family. - Vital Signs Vital signs: Temp Pulse Resp BP Pulse Ox 97.8 F 56 L 12 140/85 H 100 08/08/19 21:44 08/08/19 21:44 08/08/19 21:44 08/08/19 21:44 08/08/19 21:44 Discharge - Discharge Clinical Impression: Fall Qualifiers: Encounter type: initial encounter Qualified Code(s): W19.XXXA - Unspecified fall, initial encounter Head injury Qualifiers: Encounter type: initial encounter Qualified Code(s): S09.90XA - Unspecified injury of head, initial encounter Condition: Stable Disposition: HOME, SELF-CARE Additional Instructions: You have likely sustained a contusion (bruise) to your head. If you had a CT scan done, it did not show any evidence of serious injury or bleeding. Symptoms to expect from a concussion include nausea, mild to moderate headache, difficulty concentrating or sleeping, and mild lightheadedness. These symptoms should improve over the next few days to weeks. Return to the emergency department or follow-up with your primary care doctor if your symptoms are not improving over this time. Signs of a more serious head injury include vomiting, severe headache, excessive sleepiness or confusion, and weakness or numbness in your face, arms or legs. Return immediately to the Emergency Department if you experience any of these more concerning symptoms. Rest, avoid strenuous physical or mental activity, and avoid activities that could potentially result in another head injury until all your symptoms from this head injury are completely resolved for at least 2-3 weeks. If you participate in sports, get cleared by your doctor or certified personal trainer before returning to play. You may take ibuprofen or acetaminophen over the counter according to label instructions for mild headache or scalp soreness. Referrals: GIUSEPPE FISHMAN MD [Primary Care Provider] - Follow up as needed
[2019-08-08 21:45] VITALS: BP 140/85
== END 2019-08-08 21:44 | disposition home or self-care (01) ==
LOC: ER 18:33
DX: S00.83XA Contusion of other part of head, initial encounter (principal); S00.03XA Contusion of scalp, initial encounter; W05.0XXA Fall from non-moving wheelchair, initial encounter; I10 Essential (primary) hypertension
CPT/HCPCS: 70450; 72125; 99283

== ENCOUNTER 2019-09-29 15:57 | Inpatient (IN) | payer MEDICARE, MEDICAID ==
[2019-09-29 16:36] LABS: ABSOLUTE LYMPHOCYTES (AUTO) 0.3 10^3/uL (0.5-4.7); ABSOLUTE MONOCYTES (AUTO) 0.3 10^3/uL (0.1-1.4); ABSOLUTE NEUT (AUTO) 3.8 10^3/uL (1.7-8.2); BASOPHILS % (AUTO) 0.4 % (0-2); EOSINOPHILS % (AUTO) 0.8 % (0-6); HEMATOCRIT 37.5 % (37.9-51.0); HEMOGLOBIN 12.5 g/dL (13.5-17.0); LYMPHOCYTES % (AUTO) 5.8 % (13-45); MEAN CORPUSCULAR HEMOGLOBIN 28.7 pg (27.0-33.4); MEAN CORPUSCULAR HGB CONC 33.4 g/dL (32.0-36.0); MEAN CORPUSCULAR VOLUME 86 fl (80-97); MONOCYTES % (AUTO) 6.7 % (3-13); PLATELET COUNT 127 10^3/uL (150-450); RED BLOOD COUNT 4.37 10^6/uL (4.35-5.55); RED CELL DISTRIBUTION WIDTH 16.3 % (11.5-14.0); SEGMENTED NEUTROPHILS % (AUTO) 86.3 % (42-78); TOTAL CELLS COUNTED % (AUTO) 100 %; WHITE BLOOD COUNT 4.4 10^3/uL (4.0-10.5)
[2019-09-29 16:37] LABS: VENOUS BLOOD BASE EXCESS -2.3 mmol/L; VENOUS BLOOD HCO3 23.4 mmol/L (20-32); VENOUS BLOOD PCO2 43.9 mmHg (35-63); VENOUS BLOOD PH 7.35 (7.30-7.42)
[2019-09-29 16:44] LABS: INTERNATIONAL RATION (INR) 1.17
[2019-09-29 16:47] LABS: AMORPHOUS SEDIMENT,URINE TRACE /HPF; APPEARANCE,URINE SLIGHTLY-CLOUDY; BILIRUBIN,URINE NEGATIVE (NEGATIVE); COLOR,URINE YELLOW; GLUCOSE, URINE NEGATIVE (NEGATIVE); KETONES,URINE NEGATIVE (NEGATIVE); PROTEIN,URINE NEGATIVE (NEGATIVE); URINE SPECIFIC GRAVITY 1.013; UROBILINOGEN,URINE NEGATIVE mg/dL (<2.0)
[2019-09-29 16:55] LABS: ALBUMIN 4.2 g/dL (3.5-5.0); ALKALINE PHOSPHATASE 84 U/L (38-126); ANION GAP 11 (5-19); ASPARTATE AMINO TRANSFERASE 29 U/L (17-59); BILIRUBIN,TOTAL 0.5 mg/dL (0.2-1.3); BLOOD UREA NITROGEN 22 mg/dL (7-20); CARBON DIOXIDE 25 mmol/L (22-30); CHLORIDE 105 mmol/L (98-107); GLUCOSE 93 mg/dL (75-110); POTASSIUM 4.8 mmol/L (3.6-5.0); TOTAL PROTEIN 8.6 g/dL (6.3-8.2)
--- NOTE | 2019-09-29 17:13 | RADIOLOGY REPORT (SQ) ---
EXAM DESCRIPTION: CHEST SINGLE VIEW COMPLETED DATE/TIME: 09/29/2019 4:45 pm REASON FOR STUDY: sepsis COMPARISON: Chest radiographs 03/18/2019 EXAM PARAMETERS: NUMBER OF VIEWS: One view. TECHNIQUE: Single frontal radiographic view of the chest acquired. RADIATION DOSE: NA LIMITATIONS: None. FINDINGS: LUNGS AND PLEURA: No opacities, masses or pneumothorax. No pleural effusion. MEDIASTINUM AND HILAR STRUCTURES: Unchanged. HEART AND VASCULAR STRUCTURES: Unchanged. BONES: No acute findings. HARDWARE: None in the chest. OTHER: No other significant finding. IMPRESSION: No acute pulmonary findings. TECHNICAL DOCUMENTATION: JOB ID: [id number] [employer]- All Rights Reserved Reading location - IP/workstation name: [email or web address]
[2019-09-29] MEDS ORDERED: VANCOMYCIN HCL INJ 1000 MG VIAL IV ONE (17:20)
[2019-09-29] MEDS ORDERED: CEFEPIME 2 GM/D5W RTU 2 GM/50 ML RTUPB IV ONE (17:21)
[2019-09-29] MEDS ORDERED: NORMAL SALINE 1000 ML 1,000 ML IV ONE ×2 (17:23)
[2019-09-29] MEDS: NORMAL SALINE 1000 ML 1,000 ML IV PRN ×2 (17:33→17:34)
--- NOTE | 2019-09-29 17:34 | ER Document Report ---
ED General - General Chief Complaint: Fever Stated Complaint: SEPSIS Time Seen by Provider: 09/29/19 17:18 Primary Care Provider: GIUSEPPE FISHMAN MD [Primary Care Provider] - Follow up as needed TRAVEL OUTSIDE OF THE [place] IN LAST 30 DAYS: No - HPI Notes: Patient is a 64-year-old gentleman with multiple medical issues, sent into the emergency department for evaluation of fever and multiple seizures. Patient has a known seizure disorder. He had 1 seizure at 8 AM, sister, who is also the power of criminal attorney, was notified. He had a second seizure around noon, was found to be febrile. EMS was called. He had a third seizure in route. He was administered Ativan 2 mg IV. He was administered rectal Tylenol. He present to the ED for further evaluation. The patient does have an indwelling Nicholas catheter. I am notified that this has not been changed in over 4 weeks. I am unable to obtain any real history from the patient at this time, his sister is able to give me some answers. She states he recently had a urinary tract infection, was diagnosed with MRSA. He states he just finished his antibiotics last night. She does not have any reports of cough, shortness of breath, diarrhea, or other issues at this time. - Related Data Allergies/Adverse Reactions: aripiprazole [From [facility]] Adverse Reaction (Verified 06/03/19 12:41) Abnormal behavior Home Medications: List reviewed, please see notes from [facility] Past Medical History - General Information source: Relative, POA - Power of [employer], [facility] Records, Outside Facility Records - Social History Smoking Status: Unknown if Ever Smoked Family History: Reviewed & Not Pertinent, CAD, Other Patient has suicidal ideation: No Patient has homicidal ideation: No - Medical History Notes: Mental retardation - Past Medical History Cardiac Medical History: Reports: Hx Congestive Heart Failure, Hx Hypertension Pulmonary Medical History: Denies: Hx Tuberculosis Neurological Medical History: Reports: Hx Seizures Endocrine Medical History: Reports: Hx Hypothyroidism Renal/ Medical History: Reports: Hx Benign Prostatic Hyperplasia, Other - Neurogenic bladder. Denies: Hx Peritoneal Dialysis Skin Medical History: Reports Hx MRSA Psychiatric Medical History: Reports: Hx Depression Traumatic Medical History: Reports: Hx Spine Fracture Infectious Medical History: Reports: Hx MRSA - Immunizations Hx Diphtheria, Pertussis, Tetanus Vaccination: Yes Hx Pneumococcal Vaccination: 08/20/12 Review of Systems - Review of Systems -: Yes ROS unobtainable due to patient's medical condition - Patient currently postictal, received 4 mg of IV Ativan Physical Exam - Vital signs Vitals: Temp Pulse Ox 102.1 F H 94 09/29/19 16:00 09/29/19 16:00 - Notes Notes: This is an obese 64-year-old male who appears his stated age in no acute d istress. He is resting comfortably. He will open his eyes to verbal stimuli, is able to follow limited directions. Head is normocephalic and atraumatic, pupils are equal round, reactive to light. Oral mucosa is moist. Heart is regular rate and rhythm, lungs are clear to station bilaterally. Abdomen is obese, nontender, normoactive bowel sounds. Extremities without cyanosis or clubbing. No posterior calf tenderness. He has peripheral vascular disease skin changes and bronzing. Peripheral pulses are equal. Skin is warm and dry. Course - Re-evaluation Re-evalutation: 09/29/19 17:33 Patient presents the emergency department for evaluation. He was evaluated with septic work-up given his presenting fever. He was found to have a UTI. I looked back through prior urine cultures. He does not fact have an MRSA histor y. I am concerned, however, that given his indwelling Nicholas catheter there certainly could be other pathogens responsible. The patient was given 1500 mg of vancomycin as well as 2 g of cefepime. Blood cultures are pending. His chest x-ray is normal. He does not have a significant leukocytosis, but at this time the patient has had borderline blood pressures, has an elevated lactate, and has had multiple seizures. He will be treated as sepsis. He is ordered to have a 30 cc/kg bolus of fluids. He does have a noted history of CHF, but his last echocardiogram revealed a normal EF, no evidence of diastolic dysfunction. Will contact medicine for admission. - Vital Signs Vital signs: Temp Pulse Resp BP Pulse Ox 100.2 F 24 H 121/56 L 97 09/29/19 17:41 09/29/19 17:16 09/29/19 17:16 09/29/19 17:16 - Laboratory Result Diagrams: 09/29/19 15:55 09/29/19 15:55 Laboratory results interpreted by me: 0109/29/19 09/29/19 15:55 15:55 15:55 Hgb 12.5 L Hct 37.5 L RDW 16.3 H Plt Count 127 L Lymph % (Auto) 5.8 L Absolute Lymphs (auto) 0.3 L Seg Neutrophils % 86.3 H BUN 22 H Creatinine 1.74 H Est GFR ( Amer) 48 L Est GFR (MDRD) Non-Af 40 L Lactic Acid 3.3 H Total Protein 8.6 H Urine Blood Urine Nitrite (Reflex) Leukocyte Esterase Rfl 09/29/19 16:23 Hgb Hct RDW Plt Count Lymph % (Auto) Absolute Lymphs (auto) Seg Neutrophils % BUN Creatinine Est GFR ( Amer) Est GFR (MDRD) Non-Af Lactic Acid Total Protein Urine Blood SMALL H Urine Nitrite (Reflex) POSITIVE H Leukocyte Esterase Rfl LARGE H Discharge - Discharge Clinical Impression: Seizure Fever Qualifiers: Encounter type: initial encounter Sepsis Qualifiers: Sepsis type: sepsis due to unspecified organism Sepsis acute organ dysfunction status: with acute organ dysfunction Acute renal failure type: unspecified Severe sepsis shock status: without septic shock Urinary tract infection Qualifiers: Urinary tract infection type: site unspecified Hematuria presence: without hematuria Qualified Code(s): N39.0 - Urinary tract infection, site not specified Condition: Stable Disposition: ADMITTED INPATIENT Admitting Provider: Dr. Ayon Unit Admitted: Medical Floor Referrals: GIUSEPPE FISHMAN MD [Primary Care Provider] - Follow up as needed
[2019-09-29] MEDS ORDERED: RINGERS SOLUTION,LACTATED 1,000 ML IV PRN (18:18)
[2019-09-29] MEDS ORDERED: PROMETHAZINE HCL INJ 25 MG/1 ML VIAL IV PRN (18:27)
[2019-09-29] MEDS ORDERED: ONDANSETRON HCL INJ/PF 4 MG/2 ML SDV IV PRN (18:27)
[2019-09-29] MEDS ORDERED: ACETAMINOPHEN 325 MG TABLET PO PRN (18:27)
[2019-09-29] MEDS ORDERED: ONDANSETRON 4 MG TAB.RAPDIS PO PRN (18:27)
[2019-09-29] MEDS ORDERED: PROMETHAZINE HCL 25 MG TABLET PO PRN (18:27)
[2019-09-29] MEDS ORDERED: TAMSULOSIN HCL 0.4 MG CAP.SR.24H PO ONE (18:38)
--- NOTE | 2019-09-29 19:06 | PDOC H&P ---
History of Present Illness Admission Date/PCP: GIUSEPPE FISHMAN MD History of Present Illness: MALIK DUGGAN is a 64 year old male with past medical history significant for epilepsy, mental retardation, neurogenic bladder with recurrent UTIs due to Nicholas catheter, CKD 2 who presented with 1 day history of progressive metabolic encephalopathy, fevers up to 102, tachypnea, agitation, multiple seizures which began at his long-term nursing facility which prompted transfer to ER. History is obtained from ER physician and patient's sister who is his guardian. Sister states patient behaves this way each time he has a UTI and they typically have MRSA growing in the cultures. Patient recently finished a 7-day course of Bactrim according to sister and seem to be improving until 1 night prior to admission. She is also suspicious that patient may have missed a dose of his seizure medication overnight but the nurses at the facility deny this. Patient takes Vimpat and Keppra for his epilepsy. Sister states patient takes Marinol daily to help with his mood disorder and if he misses this medication he becomes very agitated. On admission, patient noted to have fever up to 102 and tachypnea qualifying for sepsis. Urine is infected and urine culture sent to lab. Admitted for further work-up and treatment. Past Medical History Cardiac Medical History: Reports: Congestive Heart Failure, Hypertension Pulmonary Medical History: Denies: Tuberculosis Neurological Medical History: Reports: Seizures, Other - Mental retardation Endocrine Medical History: Reports: Hypothyroidism Renal/ Medical History: Reports: Other - Neurogenic bladder Malignancy Medical History: Reports: None GI Medical History: Reports: None Psychiatric Medical History: Reports: Depression Hematology: Reports: Anemia Infectious Medical History: Reports: Methicillin-Resistant Staph Aureus Past Surgical History Past Surgical History: Reports: None Social History Information Source: Relative, Legal Guardian, POA - Power of Mang[employer] [place] Lives with: [place] Smoking Status: Never Smoker Frequency of Alcohol Use: None Hx Recreational Drug Use: No Drugs: None Hx Prescription Drug Abuse: No - Advance Directive Resuscitation Status: Do Not Resuscitate Surrogate healthcare decision maker:: Sister Family History Family History: Reviewed & Not Pertinent, CAD, CVA, Other Parental Family History Reviewed: Yes Children Family History Reviewed: Yes Sibling(s) Family History Reviewed.: Yes Medication/Allergy Home Medications: Bumetanide [Bumex 1 mg Tablet] 1 mg PO DAILY 01/23/19 Cetirizine HCl [Zyrtec 10 mg Tablet] 10 mg PO DAILY 01/23/19 Clonazepam [Klonopin 2 mg Tablet] 2 mg PO Q12 01/23/19 Cranberry 500 mg PO BID 01/23/19 Finasteride [Proscar 5 mg Tablet] 5 mg PO DAILY 01/23/19 Lacosamide [Vimpat] 150 mg PO Q12 01/23/19 Latanoprost [Xalatan 0.005% Oph Soln 2.5 ml] 1 drop OS QHS 01/23/19 Levetiracetam [Keppra 500 mg Tablet] 500 mg PO QAM 01/23/19 Levobunolol HCl [Betagan 0.5% Oph Soln 5 ml] 1 drop OS DAILY 01/23/19 Levothyroxine Sodium [Synthroid 0.1 mg Tablet] 0.1 mg PO Q6AM 01/23/19 Magnesium Oxide [Mag-Ox 400 mg Tablet] 400 mg PO BID 01/23/19 Mometasone Furoate [Nasonex] 1 spray NASL DAILY 01/23/19 Oxybutynin Chloride [Oxybutynin Chloride ER] 5 mg PO DAILY 01/23/19 Sertraline HCl [Zoloft 50 mg Tablet] 50 mg PO DAILY 01/23/19 Spironolactone [Aldactone 25 mg Tablet] 25 mg PO Q12 01/23/19 Tamsulosin HCl [Flomax 0.4 mg Cap.sr] 0.4 mg PO DAILY 01/23/19 Doxycycline Hyclate 100 mg PO BID #20 capsule 03/18/19 Cephalexin Monohydrate [Keflex 500 mg Capsule] 1,000 mg PO BID #40 capsule 06/03/19 Allergies/Adverse Reactions: aripiprazole [From [facility]] Adverse Reaction (Verified 06/03/19 12:41) Abnormal behavior Review of Systems ROS unobtainable: Due to mental status - Mental retardation and agitation Physical Exam Vital Signs: Temp Pulse Resp BP Pulse Ox 100.2 F 24 H 122/57 L 97 09/29/19 17:41 09/29/19 18:16 09/29/19 18:16 09/29/19 18:16 Intake & Output 09/28/19 09/29/19 09/30/19 06:59 06:59 06:59 Intake Total 2066 Balance 2066 Weight 116.8 kg General appearance: PRESENT: no acute distress, well-developed, well-nourished Head exam: PRESENT: atraumatic, normocephalic Eye exam: PRESENT: conjunctiva pink. ABSENT: scleral icterus Mouth exam: PRESENT: moist Respiratory exam: PRESENT: clear to auscultation ortega. ABSENT: rales, rhonchi, wheezes Cardiovascular exam: PRESENT: RRR. ABSENT: diastolic murmur, rubs, systolic murmur GI/Abdominal exam: PRESENT: normal bowel sounds, soft. ABSENT: distended, guarding, mass, organolmegaly, rebound, tenderness Rectal exam: PRESENT: deferred Extremities exam: PRESENT: pedal edema - Chronic and baseline Neurological exam: PRESENT: alert, awake, other - Baseline poor mentation due to mental retardation. ABSENT: oriented to person, oriented to place, oriented to time, oriented to situation Skin exam: PRESENT: dry, intact, warm Results Laboratory Results: 09/29/19 15:55 09/29/19 15:55 09/29/19 09/29/19 09/29/19 15:55 15:55 15:55 WBC 4.4 RBC 4.37 Hgb 12.5 L Hct 37.5 L MCV 86 MCH 28.7 MCHC 33.4 RDW 16.3 H Plt Count 127 L Seg Neutrophils % 86.3 H VBG pH 7.35 VBG pCO2 43.9 VBG HCO3 23.4 VBG Base Excess -2.3 Sodium 141.0 Potassium 4.8 Chloride 105 Carbon Dioxide 25 Anion Gap 11 BUN 22 H Creatinine 1.74 H Est GFR ( Amer) 48 L Glucose 93 Lactic Acid Calcium 9.0 Total Bilirubin 0.5 AST 29 Alkaline Phosphatase 84 Total Protein 8.6 H Albumin 4.2 Urine Color Urine Appearance Urine pH Ur Specific [place] Urine Protein Urine Glucose (UA) Urine Ketones Urine Blood Urine RBC (Auto) 09/29/19 09/29/19 15:55 16:23 WBC RBC Hgb Hct MCV MCH MCHC RDW Plt Count Seg Neutrophils % VBG pH VBG pCO2 VBG HCO3 VBG Base Excess Sodium Potassium Chloride Carbon Dioxide Anion Gap BUN Creatinine Est GFR ( Amer) Glucose Lactic Acid 3.3 H Calcium Total Bilirubin AST Alkaline Phosphatase Total Protein Albumin Urine Color YELLOW Urine Appearance SLIGHTLY-CLOUDY Urine pH 5.0 Ur Specific [place] 1.013 Urine Protein NEGATIVE Urine Glucose (UA) NEGATIVE Urine Ketones NEGATIVE Urine Blood SMALL H Urine RBC (Auto) 9 Impressions: Chest X-Ray 09/29/19 16:02 IMPRESSION: No acute pulmonary findings. Assessment and Plan - Diagnosis (1) UTI (urinary tract infection) due to urinary indwelling Nicholas catheter Is this a current diagnosis for this admission?: Yes Plan: Many frequent UTIs and recent and distant past history per family; often grows MRSA Completed 7-day course of Bactrim prior to admission per sister Change Nicholas catheter here; recommended to guardian patient have Nicholas changed twice per month instead of once per month IV vancomycin, cefepime Urine culture pending Blood culture pending (2) Epilepsy Is this a current diagnosis for this admission?: Yes Plan: Had multiple seizures prior to admission Restarted Keppra and Vimpat; questionable if patient missed a dose of these medications at facility Keppra level sent on admission, pending (3) Recurrent UTI Is this a current diagnosis for this admission?: Yes (4) Seizures Is this a current diagnosis for this admission?: Yes (5) Multiple falls Is this a current diagnosis for this admission?: Yes Plan: Consider therapy consult (6) Seizure Is this a current diagnosis for this admission?: Yes (7) Sepsis Qualifiers: Sepsis type: sepsis due to unspecified organism Sepsis acute organ dysfunction status: with acute organ dysfunction Acute renal failure type: unspecified Severe sepsis shock status: without septic shock Is this a current diagnosis for this admission?: Yes Plan: Due to UTI which is due to indwelling Nicholas catheter present on admission Gentle IV fluids in the setting of CHF with sepsis; restart diuretic if he becomes volume overloaded or short of breath (8) Acute renal failure Is this a current diagnosis for this admission?: Yes (9) Chronic congestive heart failure Qualifiers: Qualified Code(s): I50.32 - Chronic diastolic (congestive) heart failure Is this a current diagnosis for this admission?: Yes (10) MRSA (methicillin resistant Staphylococcus aureus) carrier Is this a current diagnosis for this admission?: Yes Plan: Contact precautions (11) Neurogenic bladder Is this a current diagnosis for this admission?: Yes (12) Seizure disorder Is this a current diagnosis for this admission?: Yes - Time Time Spent with patient: 35 or more minutes Medications reviewed and adjusted accordingly: Yes - Inpatient Certification Medical Necessity: Significant Comorbidiites Make Outpatient Treatment Too Risky, Need Close Monitoring Due to Risk of Patient Decompensation, Need for IV Antibiotics
--- NOTE | 2019-09-29 19:08 | ADVANCED CARE ---
- Diagnosis (1) UTI (urinary tract infection) due to urinary indwelling Nicholas catheter Diagnosis Current: Yes (2) Epilepsy Diagnosis Current: Yes (3) Recurrent UTI Diagnosis Current: Yes (4) Seizures Diagnosis Current: Yes (5) Multiple falls Diagnosis Current: Yes (6) Seizure Diagnosis Current: Yes (7) Sepsis Diagnosis Current: Yes (8) Acute renal failure Diagnosis Current: Yes (9) Chronic congestive heart failure Diagnosis Current: Yes (10) MRSA (methicillin resistant Staphylococcus aureus) carrier Diagnosis Current: Yes (11) Neurogenic bladder Diagnosis Current: Yes (12) Seizure disorder Diagnosis Current: Yes Attendance: Patient and sister Resuscitation Status: Do Not Resuscitate Discussion: Discussed all aspects of care including chest compressions/intubation/cardioversion with patient and sister. Sister states she is the medical power of erisa attorney and patient's guardian she wants the patient to be made DNR/DNI. Guardian/M POA is Shauna Ortez [phone] Time Spent: 17 minutes
[2019-09-29] MEDS ORDERED: FINASTERIDE 5 MG TABLET PO ONE (19:45)
[2019-09-29 20:39] LABS: ANION GAP 7 (5-19); BLOOD UREA NITROGEN 21 mg/dL (7-20); CARBON DIOXIDE 22 mmol/L (22-30); CHLORIDE 109 mmol/L (98-107); GLUCOSE 133 mg/dL (75-110); POTASSIUM 4.4 mmol/L (3.6-5.0)
[2019-09-29] MEDS: LACOSAMIDE 100 MG TABLET PO SCH (20:41)
[2019-09-29] MEDS ORDERED: VANCOMYCIN HCL INJ 1000 MG VIAL IV PRN (22:00)
--- NOTE | 2019-09-29 22:02 | EKG REPORT ---
SEVERITY:- NORMAL ECG - SINUS RHYTHM : Confirmed by: Ishan Simpson MD 29-Sep-2019 22:01:35
[2019-09-29] MEDS: CLONAZEPAM 1 MG TABLET PO SCH (22:23)
[2019-09-29] MEDS: LATANOPROST 0.005% OPH SOLN 2.5 ML OS SCH (22:36)
[2019-09-30] MEDS ORDERED: CEFEPIME 2 GM/D5W RTU 2 GM/50 ML RTUPB IV SCH (02:00)
[2019-09-30] MEDS ORDERED: CEFEPIME 2 GM/D5W RTU 2 GM/50 ML RTUPB IV ONE (02:35)
[2019-09-30 05:37] LABS: ABSOLUTE LYMPHOCYTES (AUTO) 0.3 10^3/uL (0.5-4.7); ABSOLUTE MONOCYTES (AUTO) 0.3 10^3/uL (0.1-1.4); ABSOLUTE NEUT (AUTO) 1.8 10^3/uL (1.7-8.2); BASOPHILS % (AUTO) 0.4 % (0-2); EOSINOPHILS % (AUTO) 0.3 % (0-6); HEMATOCRIT 30.5 % (37.9-51.0); LYMPHOCYTES % (AUTO) 12.3 % (13-45); MEAN CORPUSCULAR HEMOGLOBIN 28.9 pg (27.0-33.4); MEAN CORPUSCULAR HGB CONC 33.6 g/dL (32.0-36.0); MEAN CORPUSCULAR VOLUME 86 fl (80-97); MONOCYTES % (AUTO) 13.7 % (3-13); RED BLOOD COUNT 3.55 10^6/uL (4.35-5.55); RED CELL DISTRIBUTION WIDTH 16.5 % (11.5-14.0); SEGMENTED NEUTROPHILS % (AUTO) 73.3 % (42-78); TOTAL CELLS COUNTED % (AUTO) 100 %
[2019-09-30 05:48] LABS: HEMOGLOBIN 10.3 g/dL (13.5-17.0); WHITE BLOOD COUNT 2.5 10^3/uL (4.0-10.5)
[2019-09-30 06:00] LABS: PLATELET COUNT 96 10^3/uL (150-450)
[2019-09-30] MEDS: LEVETIRACETAM 500 MG TABLET PO SCH (08:59)
[2019-09-30] MEDS: CEFEPIME HCL 2 GM in DEXTROSE 5%-WATER 50 ML IV SCH ×2 (11:45→19:40)
[2019-09-30] MEDS: LACOSAMIDE 100 MG TABLET PO SCH ×2 (11:53→18:14)
[2019-09-30] MEDS: DOCUSATE SODIUM 100 MG CAPSULE PO SCH (11:53)
[2019-09-30] MEDS: CLONAZEPAM 1 MG TABLET PO SCH ×2 (11:53→22:49)
[2019-09-30] MEDS: DRONABINOL 2.5 MG CAPSULE PO SCH (11:58)
[2019-09-30] MEDS: ENOXAPARIN SODIUM INJ 40 MG/0.4 ML DISP.SYRIN SUBCUT SCH (11:58)
[2019-09-30] MEDS: OXYBUTYNIN CHLORIDE 5 MG TABLET PO SCH (11:59)
[2019-09-30] MEDS ORDERED: INFLUENZA QUAD (6MOS+) 2019-20 VAC 0.5 ML SYR IM ONE (16:30)
--- NOTE | 2019-09-30 16:33 | PDOC PROGRESS REPORT ---
Subjective Progress Note for:: 09/30/19 Subjective:: MALIK DUGGAN is a 64 year old male with past medical history significant for epilepsy, mental retardation, neurogenic bladder with recurrent UTIs due to Nicholas catheter, CKD 2 who was admitted 09/29/19 for sepsis secondary to UTI resulting in increased seizure activity and confusion from baseline. Patient was seen on morni rounds. He was found resting in bed comfortably on room air. He is alert and orientated to self. He makes eye contact and is socially appropriate. He attempted to talk with me, though I had a hard time understanding him. He seemed to indicate that he was having difficulty with nasal congestion or a sore throat. He did answer most yes or no questions without difficulty. ROS is limited secondary to mental status and communication barriers. Per nursing, patient has not appear to be in appeared comfortable, not in any acute distress, and without additional seizure activity. Reason For Visit: UTI POA, SEPSIS, METABOLIC ENCEPHALOPATHY Physical Exam Vital Signs: Temp Pulse Resp BP Pulse Ox 99.8 F 56 L 14 99/40 L 94 09/30/19 10:52 09/30/19 10:52 09/30/19 10:52 09/30/19 10:52 09/30/19 10:52 Intake & Output 09/29/19 09/30/19 10/01/19 06:59 06:59 06:59 Intake Total 2117 Output Total 1000 Balance 1117 Weight 116.8 kg General appearance: PRESENT: no acute distress, well-developed, well-nourished Head exam: PRESENT: atraumatic, normocephalic Eye exam: PRESENT: conjunctiva pink, EOMI, PERRLA. ABSENT: scleral icterus Ear exam: PRESENT: normal external ear exam Mouth exam: PRESENT: dry mucosa, tongue midline Teeth exam: PRESENT: poor dentation Respiratory exam: PRESENT: clear to auscultation ortega, symmetrical, unlabored. ABSENT: rales, rhonchi, wheezes Cardiovascular exam: PRESENT: RRR, +S1, +S2. ABSENT: diastolic murmur, rubs, systolic murmur Pulses: PRESENT: normal dorsalis pedis pul Vascular exam: PRESENT: normal capillary refill GI/Abdominal exam: PRESENT: normal bowel sounds, soft. ABSENT: distended, guarding, mass, organolmegaly, rebound, tenderness Rectal exam: PRESENT: deferred Gentrourinary exam: PRESENT: indwelling catheter Extremities exam: PRESENT: full ROM. ABSENT: calf tenderness, clubbing, pedal edema Neurological exam: PRESENT: alert, awake, oriented to person, CN II-XII grossly intact. ABSENT: motor sensory deficit Psychiatric exam: PRESENT: appropriate affect, normal mood. ABSENT: homicidal ideation, suicidal ideation Skin exam: PRESENT: dry, intact, warm. ABSENT: cyanosis, rash Results Laboratory Results: 09/30/19 05:08 09/29/19 20:07 09/29/19 09/29/19 09/29/19 15:55 15:55 15:55 WBC 4.4 RBC 4.37 Hgb 12.5 L Hct 37.5 L MCV 86 MCH 28.7 MCHC 33.4 RDW 16.3 H Plt Count 127 L Seg Neutrophils % 86.3 H VBG pH 7.35 VBG pCO2 43.9 VBG HCO3 23.4 VBG Base Excess -2.3 Sodium 141.0 Potassium 4.8 Chloride 105 Carbon Dioxide 25 Anion Gap 11 BUN 22 H Creatinine 1.74 H Est GFR ( Amer) 48 L Glucose 93 Lactic Acid Calcium 9.0 Magnesium Total Bilirubin 0.5 AST 29 Alkaline Phosphatase 84 Total Protein 8.6 H Albumin 4.2 Urine Color Urine Appearance Urine pH Ur Specific [place] Urine Protein Urine Glucose (UA) Urine Ketones Urine Blood Urine RBC (Auto) 09/29/19 09/29/19 09/29/19 15:55 16:23 18:50 WBC RBC Hgb Hct MCV MCH MCHC RDW Plt Count Seg Neutrophils % VBG pH VBG pCO2 VBG HCO3 VBG Base Excess Sodium Potassium Chloride Carbon Dioxide Anion Gap BUN Creatinine Est GFR ( Amer) Glucose Lactic Acid 3.3 H 1.2 Calcium Magnesium Total Bilirubin AST Alkaline Phosphatase Total Protein Albumin Urine Color YELLOW Urine Appearance SLIGHTLY-CLOUDY Urine pH 5.0 Ur Specific [place] 1.013 Urine Protein NEGATIVE Urine Glucose (UA) NEGATIVE Urine Ketones NEGATIVE Urine Blood SMALL H Urine RBC (Auto) 9 09/29/19 09/29/19 09/30/19 20:07 21:40 05:08 WBC 2.5 L D RBC 3.55 L Hgb 10.3 L D Hct 30.5 L MCV 86 MCH 28.9 MCHC 33.6 RDW 16.5 H Plt Count 96 L Seg Neutrophils % 73.3 VBG pH VBG pCO2 VBG HCO3 VBG Base Excess Sodium 138.4 Potassium 4.4 Chloride 109 H Carbon Dioxide 22 Anion Gap 7 BUN 21 H Creatinine 1.47 H Est GFR ( Amer) 58 L Glucose 133 H Lactic Acid 1.1 Calcium 8.0 L Magnesium Total Bilirubin AST Alkaline Phosphatase Total Protein Albumin Urine Color Urine Appearance Urine pH Ur Specific [place] Urine Protein Urine Glucose (UA) Urine Ketones Urine Blood Urine RBC (Auto) 09/30/19 05:08 WBC RBC Hgb Hct MCV MCH MCHC RDW Plt Count Seg Neutrophils % VBG pH VBG pCO2 VBG HCO3 VBG Base Excess Sodium Potassium Chloride Carbon Dioxide Anion Gap BUN Creatinine Est GFR ( Amer) Glucose Lactic Acid Calcium Magnesium 2.0 Total Bilirubin AST Alkaline Phosphatase Total Protein Albumin Urine Color Urine Appearance Urine pH Ur Specific [place] Urine Protein Urine Glucose (UA) Urine Ketones Urine Blood Urine RBC (Auto) Impressions: Chest X-Ray 09/29/19 16:02 IMPRESSION: No acute pulmonary findings. Assessment and Plan - Diagnosis (1) Sepsis Qualifiers: Sepsis type: sepsis due to unspecified organism Sepsis acute organ dysfunction status: with acute organ dysfunction Acute renal failure type: unspecified Severe sepsis shock status: without septic shock Is this a current diagnosis for this admission?: Yes Plan: Resolved. Vital signs have stabilized, Lactic acid is normal, and mentation has returned to baseline. Due to UTI which is due to indwelling Nicholas catheter present on admission Gentle IV fluids in the setting of CHF with sepsis; restart diuretic if he becomes volume overloaded or short of breath Blood cultures are pending. Urine culture shows gram-negative rods. Continue IV vancomycin and cefepime; will narrow as cultures result. (2) UTI (urinary tract infection) due to urinary indwelling Nicholas catheter Is this a current diagnosis for this admission?: Yes Plan: Many frequent UTIs and recent and distant past history per family; often grows MRSA Completed 7-day course of Bactrim prior to admission per sister Change Nicholas catheter here; recommended to guardian patient have Nicholas changed twice per month instead of once per month IV vancomycin, cefepime Urine culture showing gram-negative rods Blood culture negative to date (3) Epilepsy Is this a current diagnosis for this admission?: Yes Plan: Had multiple seizures prior to admission Restarted Keppra and Vimpat; questionable if patient missed a dose of these medications at facility Keppra level sent on admission, pending Seizure and Aspiration precautions. (4) Multiple falls Is this a current diagnosis for this admission?: Yes Plan: Physical therapy consultation. Fall precautions. (5) Seizure Is this a current diagnosis for this admission?: Yes Plan: Secondary to underlying epilepsy and exacerbated by urinary tract infection, acute metabolic encephalopathy, and possible missed medication doses. Keppra level pending. Ativan as needed for seizure activity. Remaining management as above. (6) Acute renal failure Is this a current diagnosis for this admission?: Yes Plan: Resolved; now at baseline creatinine. Secondary to sepsis. Encourage p.o. fluids. Avoid nephrotoxic medications as able. Pharmacy to dose vancomycin. Follow-up chemistry. (7) Chronic congestive heart failure Qualifiers: Qualified Code(s): I50.32 - Chronic diastolic (congestive) heart failure Is this a current diagnosis for this admission?: Yes Plan: Daily weights, strict I&O's, cardiac diet. Resume home dose spironolactone Continue holding Bumex related to GIOVANI in setting of sepsis. Does not appear the patient is on beta-silvia or CHRISTINA inhibitor; consider start of medications prior to discharge if patient's blood pressure improves. Monitor for evidence of fluid volume overload. (8) Neurogenic bladder Is this a current diagnosis for this admission?: Yes Plan: Continue home dose Flomax and Proscar. Recommend changing Nicholas catheter every 2 weeks secondary to recurrent UTI. Outpatient urology follow-up. (9) Hypothyroidism Qualifiers: Hypothyroidism type: acquired Qualified Code(s): E03.9 - Hypothyroidism, unspecified Is this a current diagnosis for this admission?: Yes Plan: Thyroid panel in March 2019 is appropriate. Continue home dose levothyroxine. (10) MRSA (methicillin resistant Staphylococcus aureus) carrier Is this a current diagnosis for this admission?: Yes Plan: Contact precautions - Time Time Spent with patient: 25-34 minutes Medications reviewed and adjusted accordingly: Yes Anticipated discharge: Home Within: within 48 hours
[2019-09-30] MEDS ORDERED: VANCOMYCIN HCL 1,500 MG in DEXTROSE 5%-WATER 250 ML IV SCH (18:00)
[2019-09-30] MEDS: MAGNESIUM OXIDE 400 MG TABLET PO SCH (18:14)
[2019-09-30] MEDS ORDERED: LATANOPROST 0.005% OPH SOLN 2.5 ML OS SCH (22:00)
[2019-09-30] MEDS: LATANOPROST 0.005% OPH SOLN 2.5 ML OS SCH (22:49)
[2019-09-30] MEDS: CETIRIZINE 10 MG TABLET PO SCH (22:49)
[2019-10-01] MEDS: CEFEPIME HCL 2 GM in DEXTROSE 5%-WATER 50 ML IV SCH ×2 (01:48→11:13)
[2019-10-01] MEDS: LEVOTHYROXINE SODIUM 0.1 MG TABLET PO SCH (05:14)
[2019-10-01 06:02] LABS: HEMATOCRIT 31.5 % (37.9-51.0); HEMOGLOBIN 10.6 g/dL (13.5-17.0); MEAN CORPUSCULAR HEMOGLOBIN 28.4 pg (27.0-33.4); MEAN CORPUSCULAR HGB CONC 33.6 g/dL (32.0-36.0); MEAN CORPUSCULAR VOLUME 85 fl (80-97); RED BLOOD COUNT 3.72 10^6/uL (4.35-5.55); RED CELL DISTRIBUTION WIDTH 16.1 % (11.5-14.0); WHITE BLOOD COUNT 2.2 10^3/uL (4.0-10.5)
[2019-10-01 06:25] LABS: ANION GAP 6 (5-19); BLOOD UREA NITROGEN 18 mg/dL (7-20); CALCIUM 8.4 mg/dL (8.4-10.2); CARBON DIOXIDE 23 mmol/L (22-30); CHLORIDE 110 mmol/L (98-107); GLUCOSE 86 mg/dL (75-110); POTASSIUM 4.6 mmol/L (3.6-5.0)
[2019-10-01 07:21] LABS: PLATELET COUNT 88 10^3/uL (150-450)
[2019-10-01] MEDS ORDERED: (PENDING PHARMACY ID) (Mometasone Furoate [Nasonex] 1 SPRAY) NS SCH (08:00)
[2019-10-01] MEDS: ENOXAPARIN SODIUM INJ 40 MG/0.4 ML DISP.SYRIN SUBCUT SCH (11:08)
[2019-10-01] MEDS: OXYBUTYNIN CHLORIDE 5 MG TABLET PO SCH (11:10)
[2019-10-01] MEDS: LACOSAMIDE 100 MG TABLET PO SCH ×2 (11:10→17:49)
[2019-10-01] MEDS: FLUTICASONE NASAL SPRAY 50 MCG/SPRY 120 SPRAY/16 GM NASL SCH (11:10)
[2019-10-01] MEDS: FINASTERIDE 5 MG TABLET PO SCH (11:10)
[2019-10-01] MEDS: DOCUSATE SODIUM 100 MG CAPSULE PO SCH (11:11)
[2019-10-01] MEDS: MAGNESIUM OXIDE 400 MG TABLET PO SCH ×2 (11:11→17:49)
[2019-10-01] MEDS: LEVETIRACETAM 500 MG TABLET PO SCH (11:11)
[2019-10-01] MEDS: TAMSULOSIN HCL 0.4 MG CAP.SR.24H PO SCH (11:11)
[2019-10-01] MEDS: CLONAZEPAM 1 MG TABLET PO SCH ×2 (11:11→22:13)
[2019-10-01] MEDS: DRONABINOL 2.5 MG CAPSULE PO SCH (11:11)
[2019-10-01] MEDS: SERTRALINE HCL 50 MG TABLET PO SCH (11:11)
[2019-10-01] MEDS: SPIRONOLACTONE 25 MG TABLET PO SCH (11:11)
[2019-10-01] MEDS ORDERED: ALBUTEROL SULFATE 0.083% NEB 2.5 MG/3 ML AMPUL NEB PRN (17:40)
--- NOTE | 2019-10-01 17:50 | PDOC PROGRESS REPORT ---
Subjective Progress Note for:: 10/01/19 Subjective:: MALIK DUGGAN is a 64 year old male with past medical history significant for epilepsy, mental retardation, neurogenic bladder with recurrent UTIs due to Nicholas catheter, CKD 2 who was admitted 09/29/19 for sepsis secondary to UTI resulting in increased seizure activity and confusion from baseline. Patient was seen on morning rounds. He was found resting in bed, comfortably, on room air. He is alert and orientated to self. He makes eye contact and is socially appropriate. He introduced himself, shook my hand, and stated "Nice to meet you." He has improved alertness and mentation today. He denies headache, chest pain, difficulty breathing, abdominal pain, and nausea. Per nursing, patient has appeared comfortable, is not noted to have any acute discomfort, and without additional seizure activity. Reason For Visit: UTI POA, SEPSIS, METABOLIC ENCEPHALOPATHY Physical Exam Vital Signs: Temp Pulse Resp BP Pulse Ox 98.5 F 50 L 18 112/49 L 96 10/01/19 14:45 10/01/19 14:45 10/01/19 14:45 10/01/19 14:45 10/01/19 14:45 Intake & Output 09/30/19 10/01/19 10/02/19 06:59 06:59 06:59 Intake Total 2117 1261 428 Output Total 1000 1600 700 Balance 1110 -623 -675 Weight 116.8 kg 116.3 kg General appearance: PRESENT: no acute distress, well-developed, well-nourished Head exam: PRESENT: atraumatic, normocephalic Eye exam: PRESENT: conjunctiva pink, EOMI, PERRLA. ABSENT: scleral icterus Ear exam: PRESENT: normal external ear exam Mouth exam: PRESENT: moist, tongue midline Teeth exam: PRESENT: poor dentation Respiratory exam: PRESENT: symmetrical, unlabored, wheezes - scant expiratory wheeze. ABSENT: rales, rhonchi Cardiovascular exam: PRESENT: RRR, +S1, +S2. ABSENT: diastolic murmur, rubs, systolic murmur Pulses: PRESENT: normal dorsalis pedis pul Vascular exam: PRESENT: normal capillary refill GI/Abdominal exam: PRESENT: normal bowel sounds, soft. ABSENT: distended, guarding, mass, organolmegaly, rebound, tenderness Rectal exam: PRESENT: deferred Extremities exam: PRESENT: full ROM. ABSENT: calf tenderness, clubbing, pedal edema Neurological exam: PRESENT: alert, awake, oriented to person, CN II-XII grossly intact. ABSENT: motor sensory deficit Psychiatric exam: PRESENT: appropriate affect, normal mood. ABSENT: homicidal ideation, suicidal ideation Skin exam: PRESENT: dry, intact, warm. ABSENT: cyanosis, rash Results Laboratory Results: 10/01/19 05:20 10/01/19 05:20 10/01/19 10/01/19 05:20 05:20 WBC 2.2 L RBC 3.72 L Hgb 10.6 L Hct 31.5 L MCV 85 MCH 28.4 MCHC 33.6 RDW 16.1 H Plt Count 88 L Sodium 138.8 Potassium 4.6 Chloride 110 H Carbon Dioxide 23 Anion Gap 6 BUN 18 Creatinine 1.25 Est GFR ( Amer) > 60 Glucose 86 Calcium 8.4 09/29/19 16:23 Nicholas Catheter Urine Culture - Final Escherichia Coli Impressions: Chest X-Ray 09/29/19 16:02 IMPRESSION: No acute pulmonary findings. Assessment and Plan - Diagnosis (1) Sepsis Qualifiers: Sepsis type: sepsis due to unspecified organism Sepsis acute organ dysfunction status: with acute organ dysfunction Acute renal failure type: unspecified Severe sepsis shock status: without septic shock Is this a current diagnosis for this admission?: Yes Plan: Resolved. Vital signs have stabilized, Lactic acid is normal, and mentation has returned to baseline. Due to UTI which is due to indwelling Nicholas catheter present on admission Gentle IV fluids in the setting of CHF with sepsis; restart diuretic if he bec omes volume overloaded or short of breath Blood cultures are pending. Urine culture shows goodman sensitive e. coli Have discontinued IV vancomycin and cefepime Start p.o. Cipro (2) UTI (urinary tract infection) due to urinary indwelling Nicholas catheter Is this a current diagnosis for this admission?: Yes Plan: Urine culture shows goodman sensitive e. coli (other than resistance to Bactrim) Many frequent UTIs and recent and distant past history per family; often grows MRSA Completed 7-day course of Bactrim prior to admission per sister Change Nicholas catheter here; recommended to guardian patient have Nicholas changed twice per month instead of once per month IV vancomycin, cefepime discontinued today. Transitioned to p.o. Cipro (3) Epilepsy Is this a current diagnosis for this admission?: Yes Plan: Had multiple seizures prior to admission Restarted Keppra and Vimpat; questionable if patient missed a dose of these medications at facility Keppra level sent on admission, pending Seizure and Aspiration precautions. (4) Multiple falls Is this a current diagnosis for this admission?: Yes Plan: Physical therapy consultation. Fall precautions. (5) Seizure Is this a current diagnosis for this admission?: Yes Plan: Secondary to underlying epilepsy and exacerbated by urinary tract infection, acute metabolic encephalopathy, and possible missed medication doses. Keppra level pending. Ativan as needed for seizure activity. Remaining management as above. (6) Acute renal failure Is this a current diagnosis for this admission?: Yes Plan: Resolved; now at baseline creatinine. Secondary to sepsis. Encourage p.o. fluids. Avoid nephrotoxic medications as able. Follow-up chemistry. (7) Chronic congestive heart failure Qualifiers: Qualified Code(s): I50.32 - Chronic diastolic (congestive) heart failure Is this a current diagnosis for this admission?: Yes Plan: Daily weights, strict I&O's, cardiac diet. Resume home dose spironolactone Continue holding Bumex related to GIOVANI in setting of sepsis. Does not appear the patient is on beta-silvia or CHRISTINA inhibitor; consider start of medications prior to discharge if patient's blood pressure improves. Monitor for evidence of fluid volume overload. (8) Neurogenic bladder Is this a current diagnosis for this admission?: Yes Plan: Continue home dose Flomax and Proscar. Recommend changing Nicholas catheter every 2 weeks secondary to recurrent UTI. Outpatient urology follow-up. (9) Hypothyroidism Qualifiers: Hypothyroidism type: acquired Qualified Code(s): E03.9 - Hypothyroidism, unspecified Is this a current diagnosis for this admission?: Yes Plan: Thyroid panel in March 2019 is appropriate. Continue home dose levothyroxine. (10) MRSA (methicillin resistant Staphylococcus aureus) carrier Is this a current diagnosis for this admission?: Yes Plan: Contact precautions - Time Time Spent with patient: 25-34 minutes Medications reviewed and adjusted accordingly: Yes Anticipated discharge: Home Within: within 24 hours
[2019-10-01] MEDS: CETIRIZINE 10 MG TABLET PO SCH (22:13)
[2019-10-01] MEDS: CIPROFLOXACIN HCL 500 MG TABLET PO SCH (22:14)
[2019-10-01] MEDS: LATANOPROST 0.005% OPH SOLN 2.5 ML OS SCH (22:14)
[2019-10-02] MEDS: LEVOTHYROXINE SODIUM 0.1 MG TABLET PO SCH (05:36)
[2019-10-02 06:53] LABS: HEMATOCRIT 32.5 % (37.9-51.0); MEAN CORPUSCULAR HEMOGLOBIN 28.8 pg (27.0-33.4); MEAN CORPUSCULAR HGB CONC 33.8 g/dL (32.0-36.0); MEAN CORPUSCULAR VOLUME 85 fl (80-97); RED BLOOD COUNT 3.82 10^6/uL (4.35-5.55); RED CELL DISTRIBUTION WIDTH 16.2 % (11.5-14.0); WHITE BLOOD COUNT 2.4 10^3/uL (4.0-10.5)
[2019-10-02 07:16] LABS: PLATELET COUNT 92 10^3/uL (150-450)
[2019-10-02] MEDS: TAMSULOSIN HCL 0.4 MG CAP.SR.24H PO SCH (08:42)
[2019-10-02] MEDS: LEVETIRACETAM 500 MG TABLET PO SCH (08:42)
[2019-10-02] MEDS: SPIRONOLACTONE 25 MG TABLET PO SCH (08:42)
[2019-10-02] MEDS: SERTRALINE HCL 50 MG TABLET PO SCH (08:42)
[2019-10-02] MEDS: FINASTERIDE 5 MG TABLET PO SCH (08:42)
[2019-10-02] MEDS: ENOXAPARIN SODIUM INJ 40 MG/0.4 ML DISP.SYRIN SUBCUT SCH (09:36)
[2019-10-02] MEDS: LACOSAMIDE 100 MG TABLET PO SCH (09:41)
[2019-10-02] MEDS: MAGNESIUM OXIDE 400 MG TABLET PO SCH (09:41)
[2019-10-02] MEDS: FLUTICASONE NASAL SPRAY 50 MCG/SPRY 120 SPRAY/16 GM NASL SCH (09:41)
[2019-10-02] MEDS: DRONABINOL 2.5 MG CAPSULE PO SCH (09:41)
[2019-10-02] MEDS: CLONAZEPAM 1 MG TABLET PO SCH (09:41)
[2019-10-02] MEDS: DOCUSATE SODIUM 100 MG CAPSULE PO SCH (09:41)
[2019-10-02] MEDS: OXYBUTYNIN CHLORIDE 5 MG TABLET PO SCH (09:42)
[2019-10-02] MEDS: CIPROFLOXACIN HCL 500 MG TABLET PO SCH (09:42)
--- NOTE | 2019-10-02 13:52 | PDOC TRANSFER SUMMARY ---
Impression - Admit/DC Date/PCP Admission Date/Primary Care Provider: 09/29/19 17:53 GIUSEPPE FISHMAN MD Discharge Date: 10/02/19 - Discharge Diagnosis (1) Sepsis Is this a current diagnosis for this admission?: Yes (2) UTI (urinary tract infection) due to urinary indwelling Nicholas catheter Is this a current diagnosis for this admission?: Yes (3) Epilepsy Is this a current diagnosis for this admission?: Yes (4) Multiple falls Is this a current diagnosis for this admission?: Yes (5) Seizure Is this a current diagnosis for this admission?: Yes (6) Acute renal failure Is this a current diagnosis for this admission?: Yes (7) Chronic congestive heart failure Is this a current diagnosis for this admission?: Yes (8) Neurogenic bladder Is this a current diagnosis for this admission?: Yes (9) Hypothyroidism Is this a current diagnosis for this admission?: Yes (10) MRSA (methicillin resistant Staphylococcus aureus) carrier Is this a current diagnosis for this admission?: Yes - Additional Information Resuscitation Status: Do Not Resuscitate Discharge Diet: Cardiac Discharge Activity: Activity As Tolerated, Balance Activity w/Rest, Slowly I ncrease Activity Referrals: [facility] [Outside] GIUSEPPE FISHMAN MD [Primary Care Provider] - Follow up as needed Prescriptions: Ciprofloxacin HCl [Cipro 500 mg Tablet] 500 mg PO Q12 #14 tablet Home Medications: Bumetanide [Bumex 1 mg Tablet] 1 mg PO QAM 09/30/19 Ceramides 1,3,6-11 [Cerave Cream] 1 applic TOP .QSHIFT 09/30/19 Cetirizine HCl [Zyrtec 10 mg Tablet] 10 mg PO QHS 09/30/19 Clonazepam [Klonopin 2 mg Tablet] 2 mg PO Q12 09/30/19 Dronabinol [Marinol] 10 mg PO Q8 09/30/19 Finasteride [Proscar 5 mg Tablet] 5 mg PO QAM 09/30/19 Lacosamide [Vimpat] 150 mg PO Q12 09/30/19 Latanoprost [Xalatan 0.005% Oph Soln 2.5 ml] 1 drop OS QHS 09/30/19 Levetiracetam [Keppra] 750 mg PO BID 09/30/19 Levothyroxine Sodium 100 mcg PO Q6AM 09/30/19 Magnesium Oxide [Mag-Ox 400 mg Tablet] 400 mg PO BID 09/30/19 Methenamine Hippurate [Hiprex] 1 gr PO BID 09/30/19 Mometasone Furoate [Nasonex] 1 spray NS QAM 09/30/19 Oxybutynin Chloride [Oxybutynin Chloride ER] 5 mg PO QAM 09/30/19 Sertraline HCl [Zoloft 50 mg Tablet] 50 mg PO QAM 09/30/19 Spironolactone [Aldactone 25 mg Tablet] 25 mg PO QAM 09/30/19 Tamsulosin HCl [Flomax 0.4 mg Cap.sr] 0.4 mg PO QAM 09/30/19 Acetaminophen [Tylenol 325 mg Tablet] 650 mg PO Q4HP PRN tablet 10/02/19 Ciprofloxacin HCl [Cipro 500 mg Tablet] 500 mg PO Q12 #14 tablet 10/02/19 Docusate Sodium [Colace 100 mg Capsule] 100 mg PO DAILY capsule 10/02/19 History of Present Illiness History of Present Illness: Per H&P by Dr. Ayon: MALIK DUGGAN is a 64 year old male with past medical history significant for epilepsy, mental retardation, neurogenic bladder with recurrent UTIs due to Nicholas catheter, CKD 2 who presented with 1 day history of progressive metabolic encephalopathy, fevers up to 102, tachypnea, agitation, multiple seizures which began at his long-term nursing facility which prompted transfer to ER. History is obtained from ER physician and patient's sister who is his guardian. Sister states patient behaves this way each time he has a UTI and they typically have MRSA growing in the cultures. Patient recently finished a 7-day course of Bactrim according to sister and seem to be improving until 1 night prior to admission. She is also suspicious that patient may have missed a dose of his seizure medication overnight but the nurses at the facility deny this. Patient takes Vimpat and Keppra for his epilepsy. Sister states patient takes Marinol daily to help with his mood disorder and if he misses this medication he becomes very agitated. On admission, patient noted to have fever up to 102 and tachypnea qualifying for sepsis. Urine is infected and urine culture sent to lab. Admitted for further work-up and treatment. Hospital Course Hospital Course: The patient was admitted to the medical floor on continuous cardiac telemetry. He was provided appropriate IV fluid resuscitation for treatment of his sepsis and empirically placed on broad-spectrum antibiotics for treatment of his urinary tract infection as he has a history of MRSA and recently failed outpatient Bactrim. His Nicholas catheter was exchanged. As he has frequent urinary tract infections; we recommend exchange every 2 weeks. Fortunately, patient's blood cultures remain negative and his urine culture ultimately resulted E. coli reportedly with transition Cipro and monitored overnight. He tolerated the antibiotic well, remains afebrile, and therefore is ready to be discharged back to [facility] for where he is a long-term resident. The patient did have multiple seizures. His admission. His Keppra level was appropriate at 36.3. Recommend continued medication compliance with periodic monitoring. His increased seizure activity was likely exacerbated by his urinary tract infection, acute metabolic encephalopathy, and resultant sepsis. The patient's chronic medical conditions remained stable throughout his admission. The patient is discharged to [facility] where he is a long-term resident at his baseline mentation and functional status. Physical Exam Vital Signs: Temp Pulse Resp BP Pulse Ox 98.6 F 56 L 20 108/62 96 10/02/19 10:52 10/02/19 10:52 10/02/19 10:52 10/02/19 10:52 10/02/19 10:52 Intake & Output 10/01/19 10/02/19 10/03/19 06:59 06:59 06:59 Intake Total 1261 668 458 Output Total 1600 2350 1000 Balance -339 -2052 -542 Weight 116.3 kg 116.3 kg General appearance: PRESENT: no acute distress, well-developed, well-nourished Head exam: PRESENT: atraumatic, normocephalic Eye exam: PRESENT: conjunctiva pink, EOMI, PERRLA. ABSENT: scleral icterus Ear exam: PRESENT: normal external ear exam Mouth exam: PRESENT: moist, tongue midline Teeth exam: PRESENT: poor dentation Neck exam: ABSENT: carotid bruit, JVD, lymphadenopathy, thyromegaly Respiratory exam: PRESENT: clear to auscultation ortega, symmetrical, unlabored. ABSENT: rales, rhonchi, wheezes Cardiovascular exam: PRESENT: RRR, +S1, +S2. ABSENT: diastolic murmur, rubs, systolic murmur Pulses: PRESENT: normal dorsalis pedis pul Vascular exam: PRESENT: normal capillary refill GI/Abdominal exam: PRESENT: normal bowel sounds, soft. ABSENT: distended, guarding, mass, organolmegaly, rebound, tenderness Rectal exam: PRESENT: deferred Gentrourinary exam: PRESENT: indwelling catheter Extremities exam: PRESENT: full ROM. ABSENT: calf tenderness, clubbing, pedal edema Neurological exam: PRESENT: alert, awake, oriented to person, CN II-XII grossly intact, other - at baseline mentation. ABSENT: motor sensory deficit Psychiatric exam: PRESENT: appropriate affect, normal mood. ABSENT: homicidal ideation, suicidal ideation Skin exam: PRESENT: dry, intact, warm. ABSENT: cyanosis, rash Results Laboratory Results: WBC 2.4 10^3/uL (4.0-10.5) L 10/02/19 05:39 RBC 3.82 10^6/uL (4.35-5.55) L 10/02/19 05:39 Hgb 11.0 g/dL (13.5-17.0) L 10/02/19 05:39 Hct 32.5 % (37.9-51.0) L 10/02/19 05:39 MCV 85 fl (80-97) 10/02/19 05:39 MCH 28.8 pg (27.0-33.4) 10/02/19 05:39 MCHC 33.8 g/dL (32.0-36.0) 10/02/19 05:39 RDW 16.2 % (11.5-14.0) H 10/02/19 05:39 Plt Count 92 10^3/uL (150-450) L 10/02/19 05:39 Lymph % (Auto) 12.3 % (13-45) L 09/30/19 05:08 [place] % (Auto) 13.7 % (3-13) H 09/30/19 05:08 Eos % (Auto) 0.3 % (0-6) 09/30/19 05:08 Baso % (Auto) 0.4 % (0-2) 09/30/19 05:08 Absolute Neuts (auto) 1.8 10^3/uL (1.7-8.2) 09/30/19 05:08 Absolute Lymphs (auto) 0.3 10^3/uL (0.5-4.7) L 09/30/19 05:08 Absolute Monos (auto) 0.3 10^3/uL (0.1-1.4) 09/30/19 05:08 Absolute Eos (auto) 0.0 10^3/uL (0.0-0.6) 09/30/19 05:08 Absolute Basos (auto) 0.0 10^3/uL (0.0-0.2) 09/30/19 05:08 Seg Neutrophils % 73.3 % (42-78) 09/30/19 05:08 PT 15.0 SEC (11.4-15.4) 09/29/19 15:55 INR 1.17 09/29/19 15:55 VBG pH 7.35 (7.30-7.42) 09/29/19 15:55 VBG pCO2 43.9 mmHg (35-63) 09/29/19 15:55 VBG HCO3 23.4 mmol/L (20-32) 09/29/19 15:55 VBG Base Excess -2.3 mmol/L 09/29/19 15:55 Sodium 138.8 mmol/L (137-145) 10/01/19 05:20 Potassium 4.6 mmol/L (3.6-5.0) 10/01/19 05:20 Chloride 110 mmol/L (98-107) H 10/01/19 05:20 Carbon Dioxide 23 mmol/L (22-30) 10/01/19 05:20 Anion Gap 6 (5-19) 10/01/19 05:20 BUN 18 mg/dL (7-20) 10/01/19 05:20 Creatinine 1.25 mg/dL (0.52-1.25) 10/01/19 05:20 Est GFR ( Amer) > 60 (>60) 10/01/19 05:20 Est GFR (MDRD) Non-Af 58 (>60) L 10/01/19 05:20 Glucose 86 mg/dL (75-110) 10/01/19 05:20 POC Glucose 133 mg/dL (70-110) H 10/02/19 10:20 Lactic Acid 1.1 mmol/L (0.7-2.1) 09/29/19 21:40 Calcium 8.4 mg/dL (8.4-10.2) 10/01/19 05:20 Magnesium 2.0 mg/dL (1.6-2.3) 09/30/19 05:08 Total Bilirubin 0.5 mg/dL (0.2-1.3) 09/29/19 15:55 Direct Bilirubin 0.0 mg/dL (0.0-0.4) 09/29/19 15:55 Neonat Total Bilirubin Not Reportable 09/29/19 15:55 Neonat Direct Bilirubin Not Reportable 09/29/19 15:55 Neonat Indirect Bili Not Reportable 09/29/19 15:55 AST 29 U/L (17-59) 09/29/19 15:55 ALT 20 U/L (<50) 09/29/19 15:55 Alkaline Phosphatase 84 U/L (38-126) 09/29/19 15:55 Total Protein 8.6 g/dL (6.3-8.2) H 09/29/19 15:55 Albumin 4.2 g/dL (3.5-5.0) 09/29/19 15:55 Urine Color YELLOW 09/29/19 16:23 Urine Appearance SLIGHTLY-CLOUDY 09/29/19 16:23 Urine pH 5.0 (5.0-9.0) 09/29/19 16:23 Ur Specific Lamar 1.013 09/29/19 16:23 Urine Protein NEGATIVE mg/dL (NEGATIVE) 09/29/19 16:23 Urine Glucose (UA) NEGATIVE mg/dL (NEGATIVE) 09/29/19 16:23 Urine Ketones NEGATIVE mg/dL (NEGATIVE) 09/29/19 16:23 Urine Blood SMALL (NEGATIVE) H 09/29/19 16:23 Urine Nitrite (Reflex) POSITIVE (NEGATIVE) H 09/29/19 16:23 Urine Bilirubin NEGATIVE (NEGATIVE) 09/29/19 16:23 Urine Urobilinogen NEGATIVE mg/dL (<2.0) 09/29/19 16:23 Leukocyte Esterase Rfl LARGE (NEGATIVE) H 09/29/19 16:23 Urine RBC (Auto) 9 /HPF 09/29/19 16:23 U Hyaline Cast (Auto) 1 /LPF 09/29/19 16:23 Urine Bacteria (Auto) 1+ /HPF 09/29/19 16:23 Urine WBC (Reflex) 43 /HPF 09/29/19 16:23 Squamous Epi Cells Auto <1 /HPF 09/29/19 16:23 Amorphous Sediment Auto TRACE /HPF 09/29/19 16:23 Urine Mucus (Auto) RARE /LPF 09/29/19 16:23 Urine Ascorbic Acid NEGATIVE (NEGATIVE) 09/29/19 16:23 Levetiracetam 36.3 ug/mL (10.0-40.0) 09/29/19 15:55 Impressions: Chest X-Ray 09/29/19 16:02 IMPRESSION: No acute pulmonary findings. Plan Plan of Treatment: The patient is discharged to [facility] where he is a long-term resident. Recommend he follow-up with his primary care provider within 1 week. Recommend he complete full course of ciprofloxacin for treatment of his UTI. Recommend that he exchange his chronic Nicholas catheter every 2 weeks to prevent recurrent UTI. Follow-up with urology as scheduled. Take other medications as prescribed. Periodically follow-up on Keppra level; 36.3 (therapeutic) this admission. Return to the emergency department as needed for concerning symptoms. Time Spent: Greater than 30 Minutes Stroke Is this a Stroke Patient?: No Acute Heart Failure - Is this a Heart Failure Patient?: No
[2019-10-02 17:44] VITALS: BP 112/51
== END 2019-10-02 17:45 | DRG 871 ==
LOC: ER 15:57 → EH 17:53 → 4S 18:58
PROVIDERS: ADMIT Hospitalist; ATTEND Hospitalist
DX: A41.9 Sepsis, unspecified organism (principal); G93.41 Metabolic encephalopathy; N17.9 Acute kidney failure, unspecified; I13.0 Hypertensive heart and chronic kidney disease with heart failure and stage 1 through stage 4 chronic kidney disease, or unspecified chronic kidney disease; T83.511A Infection and inflammatory reaction due to indwelling urethral catheter, initial encounter; I50.32 Chronic diastolic (congestive) heart failure; N39.0 Urinary tract infection, site not specified; D63.1 Anemia in chronic kidney disease; G40.909 Epilepsy, unspecified, not intractable, without status epilepticus; N31.9 Neuromuscular dysfunction of bladder, unspecified; Z66 Do not resuscitate; N18.2 Chronic kidney disease, stage 2 (mild); F79 Unspecified intellectual disabilities; B96.20 Unspecified Escherichia coli [E. coli] as the cause of diseases classified elsewhere; E03.9 Hypothyroidism, unspecified; F32.9 Major depressive disorder, single episode, unspecified; Z91.81 History of falling; Z22.322 Carrier or suspected carrier of Methicillin resistant Staphylococcus aureus; Z87.440 Personal history of urinary (tract) infections; Z79.899 Other long term (current) drug therapy; Z88.8 Allergy status to other drugs, medicaments and biological substances
CPT/HCPCS: 36415; 71045; 80048; 80053; 80177; 81001; 82803; 82962; 83605; 83735; 85025; 85027; 85610; 87040; 87086; 87088; 87186; 93005; 93010; 96365; 99285; A9270-GY; J0692; J3370; J3490; J7030; J7060

== ENCOUNTER 2020-03-08 21:33 | Emergency (ER) | payer MEDICARE, MEDICAID ==
[2020-03-08] MEDS ORDERED: LIDOCAINE 1%/EPINEPHRINE INJ 20 ML VIAL INJ ONE (22:16)
--- NOTE | 2020-03-08 22:19 | ER Document Report ---
ED Fall - General Chief Complaint: Fall Injury Stated Complaint: LACERATION TO HEAD,FALL Time Seen by Provider: 03/08/20 22:10 Primary Care Provider: GIUSEPPE FISHMAN MD [Primary Care Provider] - Follow up as needed Notes: Patient is a 64-year-old male that comes emergency department by EMS from [facility] for chief complaint of a mechanical fall off of his bed where he struck the back of his head on the ground. This happened just prior to arrival reportedly. Patient was not knocked out, patient reports pain at the top of his head but he denies any other symptoms or any other complaints. Patient is up-to-date on tetanus, he is not on any blood thinners. Patient has history of being intellectually disabled. Patient was alert and oriented to his norm per facility staff by EMS report. The fall was witnessed. Patient does have DNR paperwork with him. TRAVEL OUTSIDE OF THE [place] IN LAST 30 DAYS: No - Related data Allergies/Adverse Reactions: aripiprazole [From [employer] Adverse Reaction (Verified 06/03/19 12:41) Abnormal behavior Past Medical History - General Information source: Patient - Social History Smoking Status: Never Smoker Frequency of alcohol use: None Drug Abuse: None Lives with: Long-Term Family History: Reviewed & Not Pertinent, CAD, CVA, Other Patient has homicidal ideation: No - Past Medical History Cardiac Medical History: Reports: Hx Congestive Heart Failure, Hx Hypertension Pulmonary Medical History: Denies: Hx Tuberculosis Neurological Medical History: Reports: Hx Seizures Endocrine Medical History: Reports: Hx Hypothyroidism Renal/ Medical History: Reports: Hx Benign Prostatic Hyperplasia. Denies: Hx Peritoneal Dialysis Skin Medical History: Reports Hx MRSA Psychiatric Medical History: Reports: Hx Depression Traumatic Medical History: Reports: Hx Spine Fracture Infectious Medical History: Reports: Hx MRSA - Immunizations Hx Diphtheria, Pertussis, Tetanus Vaccination: Yes Hx Pneumococcal Vaccination: 08/20/12 Review of Systems - Review of Systems Constitutional: No symptoms reported EENT: No symptoms reported Cardiovascular: No symptoms reported Respiratory: No symptoms reported Gastrointestinal: No symptoms reported Genitourinary: No symptoms reported Male Genitourinary: No symptoms reported Musculoskeletal: See HPI Skin: No symptoms reported Hematologic/Lymphatic: No symptoms reported Neurological/Psychological: See HPI Physical Exam - Vital signs Vitals: Temp Pulse Resp BP Pulse Ox 97.9 F 51 L 16 118/75 98 03/08/20 21:34 03/08/20 21:34 03/08/20 21:34 03/08/20 21:34 03/08/20 21:34 - Notes Notes: GENERAL: Alert, interacts well. No acute distress. HEAD: Normocephalic. There is an irregular horizontal 3.5 cm laceration over the occipital scalp which is partial-thickness. No other signs of trauma. EYES: Pupils equal, round, and reactive to light. Extraocular movements intact. ENT: Oral mucosa moist, tongue midline. Oropharynx unremarkable. Airway patent. Nares patent, sinuses non-tender, ear canals unremarkable, TM's intact. NECK: Full range of motion. Supple. Trachea midline. No lymphadenopathy. LUNGS: Clear to auscultation bilaterally, no wheezes, rales, or rhonchi. No respiratory distress. Non-tender chest wall. No signs of trauma. HEART: Regular rate and rhythm. No murmur ABDOMEN: Soft, non-tender. Non-distended. No signs of trauma. GENITOURINARY: Nicholas in place without noted abnormality EXTREMITIES: Moves all 4 extremities spontaneously. No edema, normal radial and dorsalis pedis pulses bilaterally. No cyanosis. BACK: no cervical, thoracic, lumbar midline tenderness. No saddle anesthesia, normal distal neurovascular exam. Moves all extremities in full range of motion. NEUROLOGICAL: Patient is alert, has difficulty with orientation questions, has slightly difficult to understand speech. Cranial nerves II through XII grossly intact. Strength 5/5 in all extremities. PSYCH: Patient excited, pleasant, talkative SKIN: Warm, dry, normal turgor. No rashes or lesions noted. Course - Re-evaluation Re-evalutation: Patient is talkative, cooperative, and reportedly at baseline. Family member came to bedside and confirmed this is patient's baseline. Patient with an occipital laceration which required repair but no other signs of trauma, no other concerning findings. CT of the head and neck are negative. Discussed wound care, follow-up, return precautions, head and precautions. Family states appreciation and agreement, patient will be discharged with return precautions. Patient states appreciation for care. - Vital Signs Vital signs: Temp Pulse Resp BP Pulse Ox 98.1 F 51 L 19 124/70 98 03/09/20 01:00 03/08/20 21:34 03/09/20 01:01 03/09/20 01:01 03/09/20 01:01 Procedures - Laceration/Wound Repair Occipital scalp Wound length (cm): 3.5 Wound's Depth, Shape: Irregular Laceration pre-procedure: Sterile PPE donned, Sterile drapes applied, Shur-Clens applied Anesthetic type: 1% Lidocaine w/epi Volume Anesthetic (mLs): 8 Wound explored: Clean, No foreign body removed Wound Repaired With: [place] Number of Sutures: 7 - Juan Post-procedure NV exam normal: Yes Complications: No Discharge - Discharge Clinical Impression: Scalp laceration Qualifiers: Encounter type: initial encounter Qualified Code(s): S01.01XA - Laceration without foreign body of scalp, initial encounter Head injury Qualifiers: Encounter type: initial encounter Qualified Code(s): S09.90XA - Unspecified injury of head, initial encounter Fall Qualifiers: Encounter type: initial encounter Qualified Code(s): W19.XXXA - Unspecified fall, initial encounter Condition: Stable Disposition: HOME, SELF-CARE Additional Instructions: The CAT scan of the head and neck do not show any concerning findings from your fall today. The juan need to be removed in 1 week at a medical facility. Keep area clean, clean with soap and water, dab dry. Return for any concerning symptoms, see additional instructions listed below. Head Injury Precautions At this point, there is no evidence that your head injury is serious. Observation is necessary, however. Limit activity for the first 24 hours. During the first 24 hours, check to see approximately every two to three hours that the patient is easily arousable, responds normally, and can perform common tasks such as walking without difficulty. Contact your doctor or go to the hospital if any of the following things occur: Persistent vomiting, difficulty in arousing the patient, worsening or continued headache, or failure to improve as expected. Head injuries can cause symptoms that persist for a few days or even a few weeks. Referrals: GIUSEPPE FISHMAN MD [Primary Care Provider] - Follow up as needed
--- NOTE | 2020-03-08 23:55 | RADIOLOGY REPORT (SQ) ---
CT of the head: 03/08/2020 10:52 PM CDT HISTORY: 44-year-old patient with fall, headache, head injury. COMPARISON: None available TECHNIQUE: Multiple axial contiguous images were obtained through the head without intravenous contrast administered. This exam was performed according to our departmental dose-optimization program, which includes automated exposure control, adjustment of the mA and/or KV according to the patient's size and/or use of iterative reconstruction technique. FINDINGS: The ventricles and cerebral sulci demonstrate mild prominence, consistent with cerebral atrophy. There are mild periventricular hypodensities, suggestive of periventricular white matter changes. The reaves-white matter differentiation is within normal limits. Both orbits appear unremarkable. The mastoid air cells appear clear. The visualized paranasal sinuses appear clear. The calvarium is intact. No extra-axial fluid collection is seen. No midline shift or mass effect is apparent. There are no findings to suggest acute intracranial hemorrhage. IMPRESSION: 1. No acute intracranial hemorrhage is seen. 2. Mild cerebral atrophy and periventricular white matter changes are seen. CT CERVICAL SPINE: 03/08/2020 10:52 PM CDT TECHNIQUE: Axial contiguous images were obtained through the cervical spine without intravenous contrast. Sagittal and coronal reconstructions were also reviewed. This exam was performed according to our departmental dose-optimization program, which includes automated exposure control, adjustment of the mA and/or KV according to the patient's size and/or use of iterative reconstruction technique. COMPARISON: CT of the cervical spine from 08/08/2019 INDICATION: 64-year old patient with neck pain, fall. FINDINGS: The vertebral bodies appear well aligned. There is a similar compression deformity of T1 demonstrating at least 25-50% loss of height. No significant pre-vertebral soft tissue swelling is noted. No definite fracture or subluxation is noted. No significant intervertebral disc space narrowing is seen. The visualized brain parenchyma appears unremarkable. The craniocervical junction is unremarkable. There is moderate atherosclerotic calcification seen at the bilateral carotid bulbs. IMPRESSION: There are no findings to suggest an acute fracture or subluxation within the cervical spine. There is a similar compression deformity of T1.
[2020-03-09 01:10] VITALS: BP 124/70
== END 2020-03-09 01:30 | disposition home or self-care (01) ==
LOC: ER 21:33
DX: S01.01XA Laceration without foreign body of scalp, initial encounter (principal); R51 Headache; W06.XXXA Fall from bed, initial encounter; Y92.122 Bedroom in nursing home as the place of occurrence of the external cause; I10 Essential (primary) hypertension; F79 Unspecified intellectual disabilities; Z66 Do not resuscitate
CPT/HCPCS: 99284; 70450; 72125; 12002; J3490

== ENCOUNTER 2020-09-09 11:55 | Emergency (ER) | payer MEDICARE, MEDICAID ==
[2020-09-09] MEDS ORDERED: LIDOCAINE 1% INJ-PF (10 MG/ML) 30 ML SDV INJ ONE (14:58)
--- NOTE | 2020-09-09 15:03 | ER Document Report ---
ED General - General Chief Complaint: Laceration Stated Complaint: EYE LACERATION Time Seen by Provider: 09/09/20 14:29 Primary Care Provider: GIUSEPPE FISHMAN MD [Primary Care Provider] - Follow up as needed TRAVEL OUTSIDE OF THE [place] IN LAST 30 DAYS: No - HPI Notes: Patient is a 65-year-old male with a history of MR, seizures, who was leaning over in his wheelchair at the halfway when he fell forward and cut his for head above his eye. No reported loss of consciousness. No vomiting. History is obtained from EMS and [facility]. Sister has been present with him in the room here and states that he has been acting at baseline. She also states his tetanus is up-to-date. - Related Data Allergies/Adverse Reactions: aripiprazole [From [facility]] Adverse Reaction (Verified 06/03/19 12:41) Abnormal behavior Home Medications: aldactone, bumex, flomax, enulose, keppra, klonopin, levothyroxine, levoxyl, mag oxide, marinol, oxybutynin, proscar, vimpat, zoloft Past Medical History - General Information source: Relative, Emergency Med Personnel - Social History Smoking Status: Never Smoker Family History: Reviewed & Not Pertinent, CAD, CVA, Other - Past Medical History Cardiac Medical History: Reports: Hx Congestive Heart Failure, Hx Hypertension Pulmonary Medical History: Denies: Hx Tuberculosis Neurological Medical History: Reports: Hx Seizures Endocrine Medical History: Reports: Hx Hypothyroidism Renal/ Medical History: Reports: Hx Benign Prostatic Hyperplasia. Denies: Hx Peritoneal Dialysis Skin Medical History: Reports Hx MRSA Psychiatric Medical History: Reports: Hx Depression Traumatic Medical History: Reports: Hx Spine Fracture Infectious Medical History: Reports: Hx MRSA - Immunizations Hx Diphtheria, Pertussis, Tetanus Vaccination: Yes Hx Pneumococcal Vaccination: 08/20/12 Review of Systems - Review of Systems Constitutional: No symptoms reported EENT: No symptoms reported Cardiovascular: No symptoms reported Respiratory: No symptoms reported Gastrointestinal: No symptoms reported Genitourinary: No symptoms reported Musculoskeletal: No symptoms reported Skin: See HPI Neurological/Psychological: No symptoms reported Physical Exam - Vital signs Vitals: Temp Pulse Resp BP Pulse Ox 97.5 F 48 L 16 117/55 L 98 09/09/20 12:08 09/09/20 12:08 09/09/20 12:08 09/09/20 12:08 09/09/20 12:08 - Notes Notes: There is a very pleasant 65-year-old male who appears his stated age, no acute distress. Head is normocephalic. He has a 3 and half centimeter linear laceration above the left lateral eyebrow. No active bleeding, no clear foreign body. Pupils are equal round, reactive to light. Oral mucosa is moist. Heart is regular rate and rhythm, lungs are clear to auscultation bilaterally. Examination of the spine shows no midline tenderness or step-off, no paraspinal musculature tenderness is appreciated. Patient is eye movements are not uniformly conjugate, this is baseline. He moves all 4 extremities spontaneously. He has no other gross facial asymmetry. Course - Re-evaluation Re-evalutation: 09/09/20 15:03 Patient presents to the emergency department for evaluation after a fall. He has no spinal tenderness. Because of his limited ability to follow commands for neurological exam as well as communicate any symptoms, I did order a CT scan of the head. Otherwise his wound will need to be closed. Again per family tetanus is up-to-date. Please see procedure note for details in regards to laceration closure. - Vital Signs Vital signs: Temp Pulse Resp BP Pulse Ox 97.5 F 48 L 17 117/55 L 98 09/09/20 12:08 09/09/20 12:08 09/09/20 13:00 09/09/20 12:08 09/09/20 13:00 - Laboratory Results Critical Laboratory Results Reviewed: No Critical Results - Radiology Results Radiology Results Interpreted: 09/09/20 17:[address] 09/09/20 14:57 IMPRESSION: MILD MICROVASCULAR ISCHEMIA AND GENERALIZED ATROPHY. NO ACUTE IMAGING FINDINGS IN THE BRAIN EVIDENCE OF ACUTE STROKE: NO. Critical Radiology Results Reviewed: No Critical Results Procedures - Laceration/Wound Repair Left Upper Face Wound length (cm): 3.5 Wound's Depth, Shape: Linear Laceration pre-procedure: Sterile PPE donned Anesthetic type: 1% Lidocaine Volume Anesthetic (mLs): 6 Wound explored: Clean, No foreign body removed Wound Repaired With: Sutures Suture Size/Type: 5:0, Prolene Number of Sutures: 7 Post-procedure NV exam normal: Yes Complications: No Discharge - Discharge Clinical Impression: Facial laceration Qualifiers: Encounter type: initial encounter Qualified Code(s): S01.81XA - Laceration without foreign body of other part of head, initial encounter Condition: Stable Disposition: HOME, SELF-CARE Instructions: Antibiotic Ointment Protection ([facility]), Laceration Care ([facility]), Soap Cleansing ([facility]) Additional Instructions: Keep wound clean with soap and water. Watch for signs of infection, including increased redness, drainage, fevers, vomiting. Have sutures removed in 7 days. Return to the emergency department with worsening or new concerning symptoms of any sort. Referrals: GIUSEPPE FISHMAN MD [Primary Care Provider] - Follow up as needed
--- NOTE | 2020-09-09 15:48 | RADIOLOGY REPORT (SQ) ---
EXAM DESCRIPTION: CT HEAD WITHOUT IMAGES COMPLETED DATE/TIME: 09/09/2020 3:36 pm REASON FOR STUDY: fall, head injury COMPARISON: 03/08/2020 TECHNIQUE: Axial images acquired through the brain without intravenous contrast. Images reviewed wi th bone, brain and subdural windows. Additional sagittal and coronal reconstructions were generated. Images stored on PACS. All CT scanners at this facility use dose modulation, iterative reconstruction, and/or weight based d osing when appropriate to reduce radiation dose to as low as reasonably achievable (ALARA). [facility]: Dose Right [facility]: CareDose [facility]: Dose Right [facility]: Teradose 4D [facility]: Smart Street[employer] RADIATION DOSE: CT Rad equipment meets quality standard of care and radiation dose reduction techniq ues were employed. CTDIvol: 49.1 mGy. DLP: 1134 mGy-cm. mGy. LIMITATIONS: None. FINDINGS: VENTRICLES: Prominent ventricles secondary to involutional atrophy. CEREBRUM: Cortical atrophy. No masses. No hemorrhage. No midline shift. No evidence for acute inf arction. Areas of low density in the white matter most likely chronic small vessel ischemic changes. CEREBELLUM: Cortical atrophy. No masses. No hemorrhage. No alteration of density. No evidence for acute infarction. EXTRAAXIAL SPACES: No fluid collections. No masses. ORBITS AND GLOBE: No intra- or extraconal masses. Normal contour of globe without masses. CALVARIUM: No fracture. PARANASAL SINUSES: No fluid or mucosal thickening. SOFT TISSUES: No mass or hematoma. OTHER: No other significant finding. IMPRESSION: MILD MICROVASCULAR ISCHEMIA AND GENERALIZED ATROPHY. NO ACUTE IMAGING FINDINGS IN THE BR AIN EVIDENCE OF ACUTE STROKE: NO. COMMENT: Quality ID # [id number]: Final reports with documentation of one or more dose reduction techniques (e.g., Automated exposure control, adjustment of the mA and/or kV according to patient size, use of iterative reconstruction technique) TECHNICAL DOCUMENTATION: JOB ID: [id number] 2010 [employer]- All Rights Reserved Reading location - IP/workstation name: [email or web address]
[2020-09-09 18:51] VITALS: BP 116/57
== END 2020-09-09 19:01 | disposition home or self-care (01) ==
LOC: ER 11:55
DX: S01.81XA Laceration without foreign body of other part of head, initial encounter (principal); W05.0XXA Fall from non-moving wheelchair, initial encounter; Y92.129 Unspecified place in nursing home as the place of occurrence of the external cause; I50.9 Heart failure, unspecified; I11.0 Hypertensive heart disease with heart failure; E03.9 Hypothyroidism, unspecified; Z86.14 Personal history of Methicillin resistant Staphylococcus aureus infection
CPT/HCPCS: 99284; 70450; 12013; J3490

== ENCOUNTER 2020-09-29 16:41 | Emergency (ER) | payer MEDICARE, MEDICAID ==
[2020-09-29 18:03] LABS: ABSOLUTE EOSINOPHILS # (AUTO) 0.2 10^3/uL (0.0-0.6); ABSOLUTE LYMPHOCYTES (AUTO) 0.7 10^3/uL (0.5-4.7); ABSOLUTE MONOCYTES (AUTO) 0.5 10^3/uL (0.1-1.4); ABSOLUTE NEUT (AUTO) 4.7 10^3/uL (1.7-8.2); BASOPHILS % (AUTO) 0.3 % (0-2); EOSINOPHILS % (AUTO) 2.5 % (0-6); HEMATOCRIT 35.2 % (37.9-51.0); LYMPHOCYTES % (AUTO) 11.4 % (13-45); MEAN CORPUSCULAR HEMOGLOBIN 28.2 pg (27.0-33.4); MEAN CORPUSCULAR VOLUME 83 fl (80-97); MONOCYTES % (AUTO) 7.8 % (3-13); PLATELET COUNT 146 10^3/uL (150-450); RED BLOOD COUNT 4.24 10^6/uL (4.35-5.55); RED CELL DISTRIBUTION WIDTH 17.1 % (11.5-14.0); TOTAL CELLS COUNTED % (AUTO) 100 %
[2020-09-29 18:14] LABS: AMORPHOUS SEDIMENT,URINE TRACE /HPF; APPEARANCE,URINE CLOUDY; BILIRUBIN,URINE NEGATIVE (NEGATIVE); COLOR,URINE YELLOW; GLUCOSE, URINE NEGATIVE (NEGATIVE); KETONES,URINE NEGATIVE (NEGATIVE); LEUKOCYTE ESTERASE,URINE LARGE (NEGATIVE); NITRITE,URINE POSITIVE (NEGATIVE); PROTEIN,URINE 100 mg/dL (NEGATIVE); UROBILINOGEN,URINE NEGATIVE mg/dL (<2.0)
[2020-09-29 18:21] LABS: URINE AMPHETAMINES SCREEN NEGATIVE; URINE BARBITURATES SCREEN NEGATIVE; URINE BENZODIAZEPINES SCREEN UNCONFIRMED POSITIVE; URINE COCAINE SCREEN NEGATIVE; URINE MARIJUANA (THC) SCREEN UNCONFIRMED POSITIVE; URINE METHADONE SCREEN NEGATIVE; URINE PHENCYCLIDINE SCREEN NEGATIVE
[2020-09-29 18:23] LABS: ALBUMIN 3.5 g/dL (3.5-5.0); ALKALINE PHOSPHATASE 77 U/L (38-126); ANION GAP 7 (5-19); ASPARTATE AMINO TRANSFERASE 38 U/L (17-59); BILIRUBIN,DIRECT 0.2 mg/dL (0.0-0.4); BILIRUBIN,TOTAL 0.8 mg/dL (0.2-1.3); BLOOD UREA NITROGEN 26 mg/dL (7-20); CARBON DIOXIDE 29 mmol/L (22-30); CHLORIDE 107 mmol/L (98-107); GLUCOSE 103 mg/dL (75-110); POTASSIUM 4.2 mmol/L (3.6-5.0); TOTAL PROTEIN 7.6 g/dL (6.3-8.2)
[2020-09-29 18:24] LABS: ALCOHOL < 10 mg/dL (NONE DETECTED)
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
--- NOTE | 2020-09-29 18:46 | EKG REPORT ---
SEVERITY:- ABNORMAL ECG - SINUS BRADYCARDIA NONSPECIFIC INTRAVENTRICULAR CONDUCTION DELAY : Confirmed by: Piyush Bhatia MD 29-Sep-2020 18:46:11
[2020-09-29] MEDS ORDERED: LEVETIRACETAM 500 MG TABLET PO ONE (18:57)
[2020-09-29] MEDS ORDERED: LORAZEPAM INJ 2 MG/1 ML VIAL IV ONE (18:57)
[2020-09-29] MEDS ORDERED: LACOSAMIDE 100 MG TABLET PO ONE (18:57)
[2020-09-29] MEDS ORDERED: RINGERS SOLUTION,LACTATED 1,000 ML IV ONE (18:58)
[2020-09-29] MEDS ORDERED: CEFTRIAXONE 1 GM/D5W RTU 1 GM/50 ML RTUPB IV ONE (19:30)
[2020-09-29] MEDS ORDERED: CLONAZEPAM 1 MG TABLET PO ONE (20:47)
[2020-09-29] MEDS ORDERED: ZIPRASIDONE MESYLATE INJ/PF 20 MG SDV IM ONE (22:39)
[2020-09-30 01:13] VITALS: BP 111/57
== END 2020-09-30 01:13 ==
LOC: ER 16:41
DX: T83.511A Infection and inflammatory reaction due to indwelling urethral catheter, initial encounter (principal); N39.0 Urinary tract infection, site not specified; Y84.6 Urinary catheterization as the cause of abnormal reaction of the patient, or of later complication, without mention of misadventure at the time of the procedure; R41.0 Disorientation, unspecified; I10 Essential (primary) hypertension; R00.1 Bradycardia, unspecified; R56.9 Unspecified convulsions; Z79.899 Other long term (current) drug therapy; Z87.891 Personal history of nicotine dependence
CPT/HCPCS: 93005; 99284; 96372; 96375; 96365; 36415; 87086; 80307 ×2; 82140; 83735; 87070; 81001; 87186; 93010; A9270 ×3; J2060; J3486; J7120; J0696